=== PATIENT | female | born 1935 | race Caucasian/White ===

== ENCOUNTER 2016-03-02 17:07 | Inpatient (IN) | payer MEDICARE, OTHER, MEDICAID ==
--- NOTE | 2016-03-02 17:35 | ED Physician Chart ---
Chief Complaint/HPI - Patient Information Date Seen:: 03/02/16 Time Seen:: 17:15 Chief Complaint:: REFUSING MEDICATIONS History of Present Illness:: THIS IS A 80 YO PSYCHOTIC FEMALE WHO IS CONFUSED AND FIGHTING THE STAFF ABOUT TAKING HER MEDS. Allergies:: Allergies Allergy/AdvReac Type Severity Reaction Status Date / Time No Known Allergies Allergy Verified 03/02/16 17:22 Historian:: Medical Records Review:: Nurse's Note Reviewed Review of Systems - Review of Systems General/Constitutional: No fever, No chills, No weight loss, No weakness, No diaphoresis, No edema, No loss of appetite Skin: No skin lesions, No rash, No bruising Head: No headache, No light-headedness Eyes: No loss of vision, No pain, No diplopia ENT: No earache, No nasal drainage, No sore throat, No tinnitus Neck: No neck pain, No swelling, No thyromegaly, No stiffness, No mass noted Cardio Vascular: No chest pain, No palpitations, No PND, No orthopnea, No edema Pulmonary: No SOB, No cough, No sputum, No wheezing GI: No nausea, No vomiting, No diarrhea, No pain, No melena, No hematochezia, No constipation, No hematemesis G/U: No dysuria, No frequency, No hematuria Musculoskeletal: No bone or joint pain, No back pain, No muscle pain Endocrine: No polyuria, No polydipsia Psychiatric: No prior psych history, No depression, No anxiety, No suicidal ideation Hematopoietic: No bruising, No lymphadenopathy Allergic/Immuno: No urticaria, No angioedema Neurological: No syncope, No focal symptoms, No weakness, No paresthesia, No headache, No seizure, No dizziness, Confusion (SHE IS CONFUSED AND CANNOT GIVE A REVIEW OF SYSTEMS), No vertigo Past Medical History - Past Medical History Obtainable: Yes Past Medical History: HTN, DM, CVA/TIA, ESRD, Seizures, Thyroid disorder, Dementia Family History: None Social History: Non Smoker, No Alcohol, No Drug Use Surgical History: None Psychiatricy History: Schizophrenia, Dementia Family Medical History - Family Member Mother History Unknown: Yes Ethnicity: Unknown Living Status: Unknown Hx Family Cancer: (unknown) Hx Family Coronary Artery Disease: (unknown) Hx Family Congestive Heart Failure: (unknown) Hx Family Hypertension: (unknown) Hx Family Stroke: (unknown) Hx Family Diabetes: (unknown) Hx Family Seizures: (unknown) Hx Family Dementia: (unknown) Hx Family AIDS: (unknown) Hx Family COPD: (unknown) Hx Family Hepatitis: (unknown) Hx Family Psychiatric Problems: (unknown) Hx Family Tuberculosis: (unknown) Physical Exam - Physical Examination General/Constitutional: Awake, Alert, No distress, GCS 15, Non-toxic appearing, Ambulatory Other Gen/Cons comments:: THIS IS A THIN UNDER NOURISHED FEMALE. Head: Atraumatic Eyes: Lids, conjuctiva normal, PERRL, EOMI Skin: Nl inspection, No rash, No skin lesions, No ecchymosis, Well hydrated, No lymphadenopathy ENMT: External ears, nose nl, Nasal exam nl, Lips, teeth, gums nl Neck: Nontender, Full ROM w/o pain, No JVD, No nuchal rigidity, No bruit, No mass, No stridor Respiratory: Nl effort/Exclusion, Clear to Auscultation, No Wheeze/Rhonchi/Rales Cardio Vascular: RRR, No murmur, gallop, rubs, NL S1 S2 GI: No tenderness/rebounding/guarding, No organomegaly, No hernia, Normal BS's, Nondistended, No mass/bruits, No McBurney tenderness : No CVA tenderness Extremities: No tenderness or effusion, normal strength in all extremities, No edema, Normal digits & nails Other Extremities comments:: SHE HAS SIGNIFICANT MUSCLE WASTING IN ALL FOUR EXTREMITIES. 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 Neuro/Psych: DTR's symmetric, Normal sensory exam, Normal motor strength, Mood normal, Normal gait, No focal deficits Other Neuro/Psych comments:: THIS PATIENT IS DISORIENTED TO HER NAME AND AGE. SHE HAS POOR JUDGMENT AND CONFUSED ON AND OFF. Misc: normal gait, Normal back, No paraspinal tenderness ED Septic Shock - . Is Septic Shock (SBP<90, OR Lactate>4 mmol\L) present?: No Reassessment (Disposition) - Reassessment Reassessment Condition:: Unchanged - Diagnosis Diagnosis:: PSYCHOSIS SEIZURE DISORDER - Patient Disposition Discharge/Transfer:: Acute Care w/in this hosp Admitting Medical Physician:: ROLA RODRIGUEZ Admitting Psych Physician:: Herve Robledo Condition at Disposition:: Unchanged ED Discharge Plan - Patient Disposition Admit/Discharge/Transfer: Acute Care w/in this hosp Condition at Disposition: Unchanged Instructions: Psychosis
[2016-03-02 17:58] LABS: ALB/GLOB RATIO 1.2 (1.0-1.8); ALKALINE PHOSPHATASE 124 U/L (34-104); ANION GAP 6.3 (7.0-16.0); BILIRUBIN,TOTAL 0.4 mg/dL (0.3-1.0); BUN - UREA NITROGEN 23 mg/dL (7-25); BUN/CREATININE RATIO 32.9; CALCIUM SERUM 8.8 mg/dL (8.6-10.3); CARBON DIOXIDE 30.9 mEq/L (21.0-31.0); CHLORIDE 106 mEq/L (98-107); CHOLESTEROL 133 mg/dL (<200); CREATININE - SERUM 0.7 mg/dL (0.6-1.2); GLUCOSE 83 mg/dL (70-105); POTASSIUM SERUM 4.2 mEq/L (3.5-5.1); SGOT 35 U/L (13-39); SGPT/ALT 37 U/L (7-52); SODIUM SERUM 139 mEq/L (136-145); TRIGLYCERIDES 114 mg/dL (<150)
[2016-03-02 18:02] LABS: % BASOPHILS 0.3 % (0.0-2.0); % EOSINOPHILS 2.9 % (0.0-5.0); % MONOCYTES 9.3 % (2.0-10.0); % NEUTROPHILS 61.5 % (40.0-80.0); HEMATOCRIT 38.2 % (35.0-45.0); HEMOGLOBIN 12.8 gm/dL (11.7-16.1); MEAN CELL VOLUME 94.6 fl (81-100); MEAN CORPUSCULAR HEMOGLOBIN 31.7 pg (27.0-31.0); MEAN CORPUSCULAR HGB CONC 33.5 pg (28.0-36.0); MEAN PLATELET VOLUME 6.3 fl; NEUTROPHILE ABSOLUTE 3.6 Th/cmm (1.8-8.0); RED BLOOD COUNT 4.04 Mil/cmm (3.80-5.20); RED CELL DISTRIBUTION WIDTH 14.1 % (11.5-20.0); WHITE BLOOD COUNT 5.8 Th/cmm (4.8-10.8)
[2016-03-02 18:04] LABS: PLATELET COUNT 172 Th/cmm (150-400)
[2016-03-02 18:26] LABS: INR 0.99 (0.5-1.4); PROTHROMBIN TIME (TEST) 9.8 SECONDS (9.5-11.5)
[2016-03-02] MEDS ORDERED: Magnesium Hydroxide (MOM) 30 mL UDC PO PRN (20:16)
[2016-03-02] MEDS ORDERED: Maalox 30 mL Cup PO PRN (20:16)
[2016-03-02] MEDS ORDERED: INSULIN ASPART SLIDING SCALE 100 UNITS/ML UNIT SUBQ SCH (21:02)
[2016-03-03] MEDS: INSULIN ASPART SLIDING SCALE 100 UNITS/ML UNIT SUBQ SCH ×4 (06:32→21:00)
[2016-03-03] MEDS: Multivitamin Tab PO SCH (09:28)
--- NOTE | 2016-03-03 10:56 | Diagnostic Imaging Report ---
Portable chest x-ray History: Shortness of breath Allowing for portable technique the heart size is normal. No focal pulmonary parenchymal processes. No hilar or mediastinal abnormalities. Degenerative changes seen throughout the spine. Impression: No acute abnormalities.
[2016-03-03] MEDS: Escitalopram Oxalate 5 mg Tab PO SCH (15:12)
--- NOTE | 2016-03-03 18:18 | Psychosocial Evaluation ---
IDENTIFYING INFORMATION: The patient is a 80-year-old female. CHIEF COMPLAINT: The patient was admitted because of psychosis. HISTORY OF PRESENT ILLNESS: The patient was referred from [facility] because of agitation, irritability. Apparently she was aggressive, combative. The patient herself was a poor historian. She was very irritable when I tried to talk to her, unable to participate in a meaningful conversation, though the staff told me earlier she was able to talk to some of the staff, unable to find any documents because of her mental status. She is a well known patient as I have treated her before with diagnosis of dementia. PAST PSYCHIATRIC HISTORY: She has prior admission to this facility before for a similar reason, no other information is available. MEDICAL HISTORY: I will defer to the medical doctor. ALLERGIES: The patient has no known drug allergies. MEDICATIONS: She has been on Zyprexa, Aricept, Namenda, benztropine and Nuedexta and Lexapro 5 mg daily, insulin as well. She is also on Keppra, has seizure disorder and Dilantin. FAMILY AND SOCIAL HISTORY: Unobtainable. MENTAL STATUS EXAMINATION: The patient was appropriately dressed, not very groomed. She was in bed. She looked older than her stated age. She was unable to tell me her age, where she is, why she is here, she was acting very aggressive, irritable, needing redirection at the board and care at the retirement. Unable to participate in meaningful conversation, unable to test her memory, obviously her memory is poor. Long and short term memory, she was unable to tell me anything regarding hallucinations, sleep, appetite. Her insight and judgment is impaired. She was combative, aggressive at the retirement. IMPRESSION: AXIS I: Dementia with behavior disturbances. MEDICAL DIAGNOSES: Epilepsy, hypertension, diabetes mellitus. PLAN: The patient will be started back on her medication, adjust medication as needed. ESTIMATED LENGTH OF STAY: 3-7 days. DISCHARGE CRITERIA: Decreased agitation, psychosis after discharge outpatient. [facility]# [id number]
[2016-03-03] MEDS: Dextromethorphan/Quinidine 20mg/10mg Cap PO SCH (20:29)
[2016-03-04] MEDS: INSULIN ASPART SLIDING SCALE 100 UNITS/ML UNIT SUBQ SCH ×4 (07:22→21:06)
--- NOTE | 2016-03-04 08:38 | General Progress Note ---
Objective - Results Result Diagrams: 03/02/16 17:55 03/02/16 17:30 Recent Labs: Laboratory Last Values WBC 5.8 Th/cmm (4.8-10.8) 03/02/16 17:55 RBC 4.04 Mil/cmm (3.80-5.20) 03/02/16 17:55 Hgb 12.8 gm/dL (11.7-16.1) 03/02/16 17:55 Hct 38.2 % (35.0-45.0) 03/02/16 17:55 MCV 94.6 fl (81-100) 03/02/16 17:55 MCH 31.7 pg (27.0-31.0) H 03/02/16 17:55 MCHC Differential 33.5 pg (28.0-36.0) 03/02/16 17:55 RDW 14.1 % (11.5-20.0) 03/02/16 17:55 Plt Count 172 Th/cmm (150-400) D 03/02/16 17:55 MPV 6.3 fl 03/02/16 17:55 Neutrophils % 61.5 % (40.0-80.0) 03/02/16 17:55 Lymphocytes % 26.0 % (20.0-50.0) 03/02/16 17:55 Monocytes % 9.3 % (2.0-10.0) 03/02/16 17:55 Eosinophils % 2.9 % (0.0-5.0) 03/02/16 17:55 Basophils % 0.3 % (0.0-2.0) 03/02/16 17:55 PT 9.8 SECONDS (9.5-11.5) 03/02/16 17:30 INR 0.99 (0.5-1.4) 03/02/16 17:30 Sodium 139 mEq/L (136-145) 03/02/16 17:30 Potassium 4.2 mEq/L (3.5-5.1) 03/02/16 17:30 Chloride 106 mEq/L (98-107) 03/02/16 17:30 Carbon Dioxide 30.9 mEq/L (21.0-31.0) 03/02/16 17:30 Anion Gap 6.3 (7.0-16.0) L 03/02/16 17:30 BUN 23 mg/dL (7-25) 03/02/16 17:30 Creatinine 0.7 mg/dL (0.6-1.2) 03/02/16 17:30 Est GFR ( Amer) TNP 03/02/16 17:30 Est GFR (Non-Af Amer) TNP 03/02/16 17:30 BUN/Creatinine Ratio 32.9 03/02/16 17:30 Glucose 83 mg/dL (70-105) 03/02/16 17:30 POC Glucose 106 MG/DL (70 - 105) H 03/04/16 06:12 Calcium 8.8 mg/dL (8.6-10.3) 03/02/16:30 Total Bilirubin 0.4 mg/dL (0.3-1.0) 03/02/16 17:30 AST 35 U/L (13-39) 03/02/16 17:30 ALT 37 U/L (7-52) 03/02/16 17:30 Alkaline Phosphatase 124 U/L (34-104) H 03/02/16 17:30 Troponin I < 0.01 ng/mL (0.01-0.05) L 03/02/16 17:30 Total Protein 7.0 gm/dL (6.0-8.3) 03/02/16:30 Albumin 3.8 gm/dL (3.7-5.3) 03/02/16 17:30 Globulin 3.2 gm/dL 03/02/16:30 Albumin/Globulin Ratio 1.2 (1.0-1.8) 03/02/16 17:30 Triglycerides 114 mg/dL (<150) 03/02/16 17:30 Cholesterol 133 mg/dL (<200) 03/02/16 17:30 LDL Cholesterol Direct 63 mg/dL (75-193) L 03/02/16 17:30 HDL Cholesterol 44 mg/dL (23-92) 03/02/16 17:30 TSH 0.77 uIU/ml (0.34-5.60) 03/02/16 17:30 Phenytoin 14.4 ug/ml (10.0-20.0) 03/02/16 17:30 RPR NONREACTIVE (NONREACTIVE) 03/02/16 17:30 - Physical Exam Vitals and I&O: Vital Signs Temp 97.8 F 03/04/16 06:42 Pulse 65 03/04/16 06:42 Resp 20 03/04/16 06:42 BP 107/58 03/04/16 06:42 Pulse Ox 92 03/04/16 06:42 Intake & Output 03/03/16 03/04/16 03/04/16 18:59 06:59 18:59 Intake Total 2400 0 Balance 2400 0 Intake: Oral 2400 0 Other: # Voids 5 3 # Bowel Movements 2 0 Active Medications: Current Medications Acetaminophen (Tylenol) 650 mg PO Q4HR PRN PRN Reason: PAIN Stop: 05/01/16 20:15 Al Hydrox/Mg Hydrox/Simethicone (Maalox) 30 ml PO Q4HR PRN PRN Reason: GI DISTRESS Stop: 05/01/16 20:15 Amlodipine Besylate (Norvasc) 5 mg PO DAILY [facility] Stop: 05/02/16 08:59 Last Admin: 03/03/16 09:28 Dose: Not Given Benztropine Mesylate (Cogentin) 0.5 mg PO BID PRN PRN Reason: PARKINSON'S DISEASE Stop: 05/02/16 08:59 Dextromethorphan/Quinidine (Nuedexta 20mg-10mg) 1 cap PO Q12HR [facility] Stop: 05/02/16 20:59 Last Admin: 03/03/16 20:29 Dose: 1 cap Docusate Sodium (Colace) 250 mg PO DAILY [facility] Stop: 05/02/16 08:59 Last Admin: 03/03/16 09:27 Dose: 250 mg Donepezil HCl (Aricept) 10 mg PO HS [facility] Stop: 05/02/16 20:59 Last Admin: 03/03/16 20:30 Dose: 10 mg Escitalopram Oxalate (Lexapro) 5 mg PO DAILY [facility] PRN Reason: Protocol Stop: 05/02/16 13:59 Last Admin: 03/03/16 15:12 Dose: 5 mg Insulin Aspart (Novolog Insulin Sliding Scale) 0 units SUBQ ACHS RIC PRN Reason: Protocol Stop: 05/01/16 21:01 Last Admin: 03/04/16 07:22 Dose: Not Given Levetiracetam (Keppra) 500 mg PO BID [facility] Stop: 05/02/16 08:59 Last Admin: 03/03/16 17:16 Dose: 500 mg Lorazepam (Ativan) 0.5 mg PO Q4HR PRN; Protocol PRN Reason: Anxiety Stop: 04/01/16 20:15 Last Admin: 03/03/16 23:09 Dose: 0.5 mg Memantine (Namenda) 5 mg PO Q12HR [facility] Stop: 05/02/16 20:59 Last Admin: 03/03/16 20:29 Dose: 5 mg Multivitamins/Vitamin C (Theragran) 1 tab PO DAILY [facility] Stop: 05/02/16 08:59 Last Admin: 03/03/16 09:28 Dose: 1 tab Olanzapine (Zyprexa) 10 mg PO HS [facility] PRN Reason: Protocol Stop: 05/02/16 20:59 Last Admin: 03/03/16 20:30 Dose: 10 mg Phenytoin (Dilantin) 200 mg PO BID [facility] Stop: 05/02/16 08:59 Last Admin: 03/03/16 17:15 Dose: 200 mg Tobramycin/Dexamethasone (Tobradex 0.1%-0.3% Ophth Susp 2.5ml) 2 drop EACH EYE BID [facility] Stop: 03/14/16 09:00 Zolpidem Tartrate (Ambien) 5 mg PO HS PRN PRN Reason: Insomnia Stop: 05/01/16 20:36 Last Admin: 03/03/16 23:10 Dose: 5 mg - Procedures Procedures: Procedures Procedure Code Date GROUP PSYCHOTHERAPY 39797 04/15/15 GROUP PSYCHOTHERAPY GZHZZZZ 04/15/15 GROUP PSYCHOTHERAPY 89221 01/16/15 GROUP PSYCHOTHERAPY GZHZZZZ 01/16/15 Assessment/Plan - Problem List Patient Problems: All Active Problems INCREASED AGGRESSIVE BEHAVIOR (Acute) Abnormal lithium level in blood (Acute) R78.89 Agitation (Acute) R45.1 Outbursts of anger (Acute) R45.4
[2016-03-04] MEDS: Dextromethorphan/Quinidine 20mg/10mg Cap PO SCH ×2 (08:45→20:54)
[2016-03-04] MEDS: Escitalopram Oxalate 5 mg Tab PO SCH (08:45)
[2016-03-04] MEDS: Multivitamin Tab PO SCH (08:46)
[2016-03-04] MEDS ORDERED: Dexamethasone/Tobramycin Ophth Susp 2.5 mL Bottle EACH EYE SCH (09:00)
[2016-03-04] MEDS: Dexamethasone/Tobramycin Ophth Susp 2.5 mL Bottle EACH EYE SCH ×2 (09:56→16:21)
--- NOTE | 2016-03-05 02:54 | Progress Notes ---
Case was discussed with staff of the patient, reviewed records. The patient continues to be unpredictable, impulsive, continues to look disheveled, disorganized, internally preoccupied. Unable to carrying out a conversation. In general, she is sleeping better. The staff tried to prompt her to eat. She is compliant with the medication with no side effects, no sedation, no nausea and no extrapyramidal symptoms. We will continue to work with the patient in group therapy, milieu therapy, adjust the medication as needed. Lab work shows TSH within normal range. RPR nonreactive. PT within normal range. Chemistry panel with high anion gap, but the rest within normal range. High alkaline phosphatase. Lipid panel within normal range. Dilantin level within normal acceptable therapeutic range. CBC with high MCH. The rest within normal range. JOB# [id number]
[2016-03-05] MEDS: INSULIN ASPART SLIDING SCALE 100 UNITS/ML UNIT SUBQ SCH ×5 (06:34→21:00)
--- NOTE | 2016-03-05 08:32 | General Progress Note ---
Objective - Results Result Diagrams: 03/02/16 17:55 03/02/16 17:30 Recent Labs: Laboratory Last Values WBC 5.8 Th/cmm (4.8-10.8) 03/02/16 17:55 RBC 4.04 Mil/cmm (3.80-5.20) 03/02/16 17:55 Hgb 12.8 gm/dL (11.7-16.1) 03/02/16 17:55 Hct 38.2 % (35.0-45.0) 03/02/16 17:55 MCV 94.6 fl (81-100) 03/02/16 17:55 MCH 31.7 pg (27.0-31.0) H 03/02/16 17:55 MCHC Differential 33.5 pg (28.0-36.0) 03/02/16 17:55 RDW 14.1 % (11.5-20.0) 03/02/16 17:55 Plt Count 172 Th/cmm (150-400) D 03/02/16 17:55 MPV 6.3 fl 03/02/16 17:55 Neutrophils % 61.5 % (40.0-80.0) 03/02/16 17:55 Lymphocytes % 26.0 % (20.0-50.0) 03/02/16 17:55 Monocytes % 9.3 % (2.0-10.0) 03/02/16 17:55 Eosinophils % 2.9 % (0.0-5.0) 03/02/16 17:55 Basophils % 0.3 % (0.0-2.0) 03/02/16 17:55 PT 9.8 SECONDS (9.5-11.5) 03/02/16 17:30 INR 0.99 (0.5-1.4) 03/02/16 17:30 Sodium 139 mEq/L (136-145) 03/02/16 17:30 Potassium 4.2 mEq/L (3.5-5.1) 03/02/16 17:30 Chloride 106 mEq/L (98-107) 03/02/16 17:30 Carbon Dioxide 30.9 mEq/L (21.0-31.0) 03/02/16 17:30 Anion Gap 6.3 (7.0-16.0) L 03/02/16 17:30 BUN 23 mg/dL (7-25) 03/02/16 17:30 Creatinine 0.7 mg/dL (0.6-1.2) 03/02/16 17:30 Est GFR ( Amer) TNP 03/02/16 17:30 Est GFR (Non-Af Amer) TNP 03/02/16 17:30 BUN/Creatinine Ratio 32.9 03/02/16 17:30 Glucose 83 mg/dL (70-105) 03/02/16 17:30 POC Glucose 91 MG/DL (70 - 105) 03/05/16 06:23 Calcium 8.8 mg/dL (8.6-10.3) 03/02/16:30 Total Bilirubin 0.4 mg/dL (0.3-1.0) 03/02/16 17:30 AST 35 U/L (13-39) 03/02/16 17:30 ALT 37 U/L (7-52) 03/02/16 17:30 Alkaline Phosphatase 124 U/L (34-104) H 03/02/16 17:30 Troponin I < 0.01 ng/mL (0.01-0.05) L 03/02/16 17:30 Total Protein 7.0 gm/dL (6.0-8.3) 03/02/16 17:30 Albumin 3.8 gm/dL (3.7-5.3) 03/02/16 17:30 Globulin 3.2 gm/dL 03/02/16:30 Albumin/Globulin Ratio 1.2 (1.0-1.8) 03/02/16 17:30 Triglycerides 114 mg/dL (<150) 03/02/16 17:30 Cholesterol 133 mg/dL (<200) 03/02/16 17:30 LDL Cholesterol Direct 63 mg/dL (75-193) L 03/02/16 17:30 HDL Cholesterol 44 mg/dL (23-92) 03/02/16 17:30 TSH 0.77 uIU/ml (0.34-5.60) 03/02/16 17:30 Phenytoin 14.4 ug/ml (10.0-20.0) 03/02/16 17:30 RPR NONREACTIVE (NONREACTIVE) 03/02/16 17:30 - Physical Exam Vitals and I&O: Vital Signs Temp 97.4 F 03/05/16 06:49 Pulse 68 03/05/16 06:49 Resp 20 03/05/16 06:49 BP 149/86 03/05/16 06:49 Pulse Ox 97 03/05/16 06:49 Intake & Output 03/04/16 03/05/16 03/05/16 18:59 06:59 18:59 Intake Total 1100 Balance 1100 Intake: Oral 1100 Other: # Voids 4 # Bowel Movements 1 Active Medications: Current Medications Acetaminophen (Tylenol) 650 mg PO Q4HR PRN PRN Reason: PAIN Stop: 05/01/16 20:15 Al Hydrox/Mg Hydrox/Simethicone (Maalox) 30 ml PO Q4HR PRN PRN Reason: GI DISTRESS Stop: 05/01/16 20:15 Amlodipine Besylate (Norvasc) 5 mg PO DAILY [facility] Stop: 05/02/16 08:59 Last Admin: 03/04/16 08:46 Dose: 5 mg Benztropine Mesylate (Cogentin) 0.5 mg PO BID PRN PRN Reason: PARKINSON'S DISEASE Stop: 05/02/16 08:59 Dextromethorphan/Quinidine (Nuedexta 20mg-10mg) 1 cap PO Q12HR [facility] Stop: 05/02/16 20:59 Last Admin: 03/04/16 20:54 Dose: 1 cap Docusate Sodium (Colace) 250 mg PO DAILY [facility] Stop: 05/02/16 08:59 Last Admin: 03/04/16 08:46 Dose: 250 mg Donepezil HCl (Aricept) 10 mg PO HS [facility] Stop: 05/02/16 20:59 Last Admin: 03/04/16 20:55 Dose: 10 mg Escitalopram Oxalate (Lexapro) 5 mg PO DAILY [facility] PRN Reason: Protocol Stop: 05/02/16 13:59 Last Admin: 03/04/16 08:45 Dose: 5 mg Insulin Aspart (Novolog Insulin Sliding Scale) 0 units SUBQ ACHS RIC PRN Reason: Protocol Stop: 05/01/16 21:01 Last Admin: 03/05/16 06:34 Dose: Not Given Levetiracetam (Keppra) 500 mg PO BID [facility] Stop: 05/02/16 08:59 Last Admin: 03/04/16 16:21 Dose: 500 mg Lorazepam (Ativan) 0.5 mg PO Q4HR PRN; Protocol PRN Reason: Anxiety Stop: 04/01/16 20:15 Last Admin: 03/05/16 01:23 Dose: 0.5 mg Memantine (Namenda) 5 mg PO Q12HR [facility] Stop: 05/02/16 20:59 Last Admin: 03/04/16 20:55 Dose: 5 mg Multivitamins/Vitamin C (Theragran) 1 tab PO DAILY [facility] Stop: 05/02/16 08:59 Last Admin: 03/04/16 08:46 Dose: 1 tab Olanzapine (Zyprexa) 10 mg PO HS [facility] PRN Reason: Protocol Stop: 05/02/16 20:59 Last Admin: 03/04/16 20:55 Dose: 10 mg Phenytoin (Dilantin) 200 mg PO BID [facility] Stop: 05/02/16 08:59 Last Admin: 03/04/16 16:21 Dose: 200 mg Tobramycin/Dexamethasone (Tobradex 0.1%-0.3% Ophth Susp 2.5ml) 2 drop EACH EYE BID [facility] Stop: 03/14/16 09:00 Last Admin: 03/04/16 16:21 Dose: 2 drop Zolpidem Tartrate (Ambien) 5 mg PO HS PRN PRN Reason: Insomnia Stop: 05/01/16 20:36 Last Admin: 03/05/16 00:34 Dose: 5 mg - Procedures Procedures: Procedures Procedure Code Date GROUP PSYCHOTHERAPY 21383 04/15/15 GROUP PSYCHOTHERAPY GZHZZZZ 04/15/15 GROUP PSYCHOTHERAPY 19060 01/16/15 GROUP PSYCHOTHERAPY GZHZZZZ 01/16/15 Assessment/Plan - Problem List Patient Problems: All Active Problems INCREASED AGGRESSIVE BEHAVIOR (Acute) Abnormal lithium level in blood (Acute) R78.89 Agitation (Acute) R45.1 Outbursts of anger (Acute) R45.4
[2016-03-05] MEDS: Dexamethasone/Tobramycin Ophth Susp 2.5 mL Bottle EACH EYE SCH ×2 (09:21→16:30)
[2016-03-05] MEDS: Multivitamin Tab PO SCH (09:22)
[2016-03-05] MEDS: Dextromethorphan/Quinidine 20mg/10mg Cap PO SCH ×2 (09:22→21:02)
[2016-03-05] MEDS: Escitalopram Oxalate 5 mg Tab PO SCH (09:24)
--- NOTE | 2016-03-06 03:04 | Progress Notes ---
Case was discussed with staff of the patient, reviewed records. The patient continues to be irritable, angry, continues to need redirection, continues to have poor insight. She has a conservator, we tried to find out the previous places willing to take the patient to see if we need to work on placement for this patient. She is demented, confused with agitated behavior. She is also already on ____ and Aricept 10 mg at bedtime, I started her on Lexapro 2 days ago and she is on Namenda 5 mg twice a day, we shall be increasing to 10 mg twice a day, and no side effects, no sedation, no nausea, no extrapyramidal symptoms and we will continue to work with the patient in group therapy, milieu therapy, adjust the medication as needed. JOB# [id number]
[2016-03-06] MEDS: INSULIN ASPART SLIDING SCALE 100 UNITS/ML UNIT SUBQ SCH ×4 (06:50→21:27)
--- NOTE | 2016-03-06 08:34 | General Progress Note ---
Objective - Results Result Diagrams: 03/02/16 17:55 03/02/16 17:30 Recent Labs: Laboratory Last Values WBC 5.8 Th/cmm (4.8-10.8) 03/02/16 17:55 RBC 4.04 Mil/cmm (3.80-5.20) 03/02/16 17:55 Hgb 12.8 gm/dL (11.7-16.1) 03/02/16 17:55 Hct 38.2 % (35.0-45.0) 03/02/16 17:55 MCV 94.6 fl (81-100) 03/02/16 17:55 MCH 31.7 pg (27.0-31.0) H 03/02/16 17:55 MCHC Differential 33.5 pg (28.0-36.0) 03/02/16 17:55 RDW 14.1 % (11.5-20.0) 03/02/16 17:55 Plt Count 172 Th/cmm (150-400) D 03/02/16 17:55 MPV 6.3 fl 03/02/16 17:55 Neutrophils % 61.5 % (40.0-80.0) 03/02/16 17:55 Lymphocytes % 26.0 % (20.0-50.0) 03/02/16 17:55 Monocytes % 9.3 % (2.0-10.0) 03/02/16 17:55 Eosinophils % 2.9 % (0.0-5.0) 03/02/16 17:55 Basophils % 0.3 % (0.0-2.0) 03/02/16 17:55 PT 9.8 SECONDS (9.5-11.5) 03/02/16 17:30 INR 0.99 (0.5-1.4) 03/02/16 17:30 Sodium 139 mEq/L (136-145) 03/02/16 17:30 Potassium 4.2 mEq/L (3.5-5.1) 03/02/16 17:30 Chloride 106 mEq/L (98-107) 03/02/16 17:30 Carbon Dioxide 30.9 mEq/L (21.0-31.0) 03/02/16 17:30 Anion Gap 6.3 (7.0-16.0) L 03/02/16 17:30 BUN 23 mg/dL (7-25) 03/02/16 17:30 Creatinine 0.7 mg/dL (0.6-1.2) 03/02/16 17:30 Est GFR ( Amer) TNP 03/02/16 17:30 Est GFR (Non-Af Amer) TNP 03/02/16 17:30 BUN/Creatinine Ratio 32.9 03/02/16 17:30 Glucose 83 mg/dL (70-105) 03/02/16 17:30 POC Glucose 94 MG/DL (70 - 105) 03/06/16 06:25 Calcium 8.8 mg/dL (8.6-10.3) 03/02/16:30 Total Bilirubin 0.4 mg/dL (0.3-1.0) 03/02/16 17:30 AST 35 U/L (13-39) 03/02/16 17:30 ALT 37 U/L (7-52) 03/02/16:30 Alkaline Phosphatase 124 U/L (34-104) H 03/02/16 17:30 Troponin I < 0.01 ng/mL (0.01-0.05) L 03/02/16 17:30 Total Protein 7.0 gm/dL (6.0-8.3) 03/02/16:30 Albumin 3.8 gm/dL (3.7-5.3) 03/02/16:30 Globulin 3.2 gm/dL 03/02/16:30 Albumin/Globulin Ratio 1.2 (1.0-1.8) 03/02/16 17:30 Triglycerides 114 mg/dL (<150) 03/02/16 17:30 Cholesterol 133 mg/dL (<200) 03/02/16 17:30 LDL Cholesterol Direct 63 mg/dL (75-193) L 03/02/16 17:30 HDL Cholesterol 44 mg/dL (23-92) 03/02/16 17:30 TSH 0.77 uIU/ml (0.34-5.60) 03/02/16 17:30 Phenytoin 14.4 ug/ml (10.0-20.0) 03/02/16 17:30 RPR NONREACTIVE (NONREACTIVE) 03/02/16 17:30 - Physical Exam Vitals and I&O: Vital Signs Temp 97.6 F 03/05/16 18:35 Pulse 61 03/05/16 18:35 Resp 20 03/05/16 20:00 BP 108/50 03/05/16 18:35 Pulse Ox 97 03/05/16 18:35 Intake & Output 03/05/16 03/06/16 03/06/16 18:59 06:59 18:59 Intake Total 650 Balance 650 Intake: Oral 650 Other: # Voids 2 # Bowel Movements 1 Active Medications: Current Medications Acetaminophen (Tylenol) 650 mg PO Q4HR PRN PRN Reason: PAIN Stop: 05/01/16 20:15 Al Hydrox/Mg Hydrox/Simethicone (Maalox) 30 ml PO Q4HR PRN PRN Reason: GI DISTRESS Stop: 05/01/16 20:15 Amlodipine Besylate (Norvasc) 5 mg PO DAILY [facility] Stop: 05/02/16 08:59 Last Admin: 03/05/16 09:22 Dose: 5 mg Benztropine Mesylate (Cogentin) 0.5 mg PO BID PRN PRN Reason: PARKINSON'S DISEASE Stop: 05/02/16 08:59 Dextromethorphan/Quinidine (Nuedexta 20mg-10mg) 1 cap PO Q12HR [facility] Stop: 05/02/16 20:59 Last Admin: 03/05/16 21:02 Dose: 1 cap Docusate Sodium (Colace) 250 mg PO DAILY [facility] Stop: 05/02/16 08:59 Last Admin: 03/05/16 09:22 Dose: 250 mg Donepezil HCl (Aricept) 10 mg PO HS [facility] Stop: 05/02/16 20:59 Last Admin: 03/05/16 21:02 Dose: 10 mg Escitalopram Oxalate (Lexapro) 5 mg PO DAILY RIC PRN Reason: Protocol Stop: 05/02/16 13:59 Last Admin: 03/05/16 09:24 Dose: 5 mg Insulin Aspart (Novolog Insulin Sliding Scale) 0 units SUBQ ACHS RIC PRN Reason: Protocol Stop: 05/01/16 21:01 Last Admin: 03/06/16 06:50 Dose: Not Given Levetiracetam (Keppra) 500 mg PO BID [facility] Stop: 05/02/16 08:59 Last Admin: 03/05/16 16:29 Dose: 500 mg Lorazepam (Ativan) 0.5 mg PO Q4HR PRN; Protocol PRN Reason: Anxiety Stop: 04/01/16 20:15 Last Admin: 03/05/16 01:23 Dose: 0.5 mg Memantine (Namenda) 10 mg PO Q12HR [facility] Stop: 05/04/16 09:10 Last Admin: 03/05/16 21:02 Dose: 10 mg Multivitamins/Vitamin C (Theragran) 1 tab PO DAILY [facility] Stop: 05/02/16 08:59 Last Admin: 03/05/16 09:22 Dose: 1 tab Olanzapine (Zyprexa) 10 mg PO HS RIC PRN Reason: Protocol Stop: 05/02/16 20:59 Last Admin: 03/05/16 21:02 Dose: 10 mg Phenytoin (Dilantin) 200 mg PO BID [facility] Stop: 05/02/16 08:59 Last Admin: 03/05/16 16:38 Dose: Not Given Tobramycin/Dexamethasone (Tobradex 0.1%-0.3% Ophth Susp 2.5ml) 2 drop EACH EYE BID RIC Stop: 03/14/16 09:00 Last Admin: 03/05/16 16:30 Dose: Not Given Zolpidem Tartrate (Ambien) 5 mg PO HS PRN PRN Reason: Insomnia Stop: 05/01/16 20:36 Last Admin: 03/05/16 00:34 Dose: 5 mg - Procedures Procedures: Procedures Procedure Code Date GROUP PSYCHOTHERAPY 37796 04/15/15 GROUP PSYCHOTHERAPY [id number] 04/15/15 GROUP PSYCHOTHERAPY 77793 01/16/15 GROUP PSYCHOTHERAPY [id number] 01/16/15 Assessment/Plan - Problem List Patient Problems: All Active Problems INCREASED AGGRESSIVE BEHAVIOR (Acute) Abnormal lithium level in blood (Acute) R78.89 Agitation (Acute) R45.1 Outbursts of anger (Acute) R45.4
[2016-03-06] MEDS: Dextromethorphan/Quinidine 20mg/10mg Cap PO SCH ×2 (09:57→21:29)
[2016-03-06] MEDS: Escitalopram Oxalate 5 mg Tab PO SCH (09:57)
[2016-03-06] MEDS: Multivitamin Tab PO SCH (09:58)
[2016-03-06] MEDS: Dexamethasone/Tobramycin Ophth Susp 2.5 mL Bottle EACH EYE SCH ×2 (10:01→16:50)
--- NOTE | 2016-03-07 02:04 | Progress Notes ---
Case discussed with staff of the patient, reviewed records. The patient continues to be agitated, continues to be delusional, responding to internal stimuli. Continues to have poor insight. Unable to participate in meaningful conversation or make safe plan for self-care. She had to be given emergency medication because of her agitated behavior and she is on ____, donepezil, Lexapro, olanzapine 10 mg at bedtime. I will be increasing olanzapine dose to 12.5 mg at bedtime and so far no side effects, no sedation, no nausea, no extrapyramidal symptoms. We will continue to work with patient in group therapy, milieu therapy, adjust the medication as needed. JOB# [id number]
[2016-03-07] MEDS: INSULIN ASPART SLIDING SCALE 100 UNITS/ML UNIT SUBQ SCH ×4 (06:48→21:45)
--- NOTE | 2016-03-07 07:02 | General Progress Note ---
Subjective - Review of Systems Service Date: 03/08/16 Objective - Results Result Diagrams: 03/02/16 17:55 03/02/16 17:30 Recent Labs: Laboratory Last Values WBC 5.8 Th/cmm (4.8-10.8) 03/02/16 17:55 RBC 4.04 Mil/cmm (3.80-5.20) 03/02/16 17:55 Hgb 12.8 gm/dL (11.7-16.1) 03/02/16 17:55 Hct 38.2 % (35.0-45.0) 03/02/16 17:55 MCV 94.6 fl (81-100) 03/02/16 17:55 MCH 31.7 pg (27.0-31.0) H 03/02/16 17:55 MCHC Differential 33.5 pg (28.0-36.0) 03/02/16 17:55 RDW 14.1 % (11.5-20.0) 03/02/16 17:55 Plt Count 172 Th/cmm (150-400) D 03/02/16 17:55 MPV 6.3 fl 03/02/16 17:55 Neutrophils % 61.5 % (40.0-80.0) 03/02/16 17:55 Lymphocytes % 26.0 % (20.0-50.0) 03/02/16 17:55 Monocytes % 9.3 % (2.0-10.0) 03/02/16 17:55 Eosinophils % 2.9 % (0.0-5.0) 03/02/16 17:55 Basophils % 0.3 % (0.0-2.0) 03/02/16 17:55 PT 9.8 SECONDS (9.5-11.5) 03/02/16 17:30 INR 0.99 (0.5-1.4) 03/02/16 17:30 Sodium 139 mEq/L (136-145) 03/02/16 17:30 Potassium 4.2 mEq/L (3.5-5.1) 03/02/16 17:30 Chloride 106 mEq/L (98-107) 03/02/16 17:30 Carbon Dioxide 30.9 mEq/L (21.0-31.0) 03/02/16 17:30 Anion Gap 6.3 (7.0-16.0) L 03/02/16 17:30 BUN 23 mg/dL (7-25) 03/02/16 17:30 Creatinine 0.7 mg/dL (0.6-1.2) 03/02/16 17:30 Est GFR ( Amer) TNP 03/02/16 17:30 Est GFR (Non-Af Amer) TNP 03/02/16 17:30 BUN/Creatinine Ratio 32.9 03/02/16 17:30 Glucose 83 mg/dL (70-105) 03/02/16 17:30 POC Glucose 83 MG/DL (70 - 105) 03/07/16 06:36 Calcium 8.8 mg/dL (8.6-10.3) 03/02/16: Total Bilirubin 0.4 mg/dL (0.3-1.0) 03/02/16 17:30 AST 35 U/L (13-39) 03/02/16:30 ALT 37 U/L (7-52) 03/02/16 17:30 Alkaline Phosphatase 124 U/L (34-104) H 03/02/16 17:30 Troponin I < 0.01 ng/mL (0.01-0.05) L 03/02/16:30 Total Protein 7.0 gm/dL (6.0-8.3) 03/02/16 17:30 Albumin 3.8 gm/dL (3.7-5.3) 03/02/16:30 Globulin 3.2 gm/dL 03/02/16:30 Albumin/Globulin Ratio 1.2 (1.0-1.8) 03/02/16 17:30 Triglycerides 114 mg/dL (<150) 03/02/16 17:30 Cholesterol 133 mg/dL (<200) 03/02/16 17:30 LDL Cholesterol Direct 63 mg/dL (75-193) L 03/02/16 17:30 HDL Cholesterol 44 mg/dL (23-92) 03/02/16 17:30 TSH 0.77 uIU/ml (0.34-5.60) 03/02/16 17:30 Phenytoin 14.4 ug/ml (10.0-20.0) 03/02/16 17:30 RPR NONREACTIVE (NONREACTIVE) 03/02/16 17:30 - Physical Exam Vitals and I&O: Vital Signs Temp 98.2 F 03/06/16 19:49 Pulse 65 03/06/16 19:49 Resp 20 03/06/16 20:00 BP 112/57 03/06/16 19:49 Pulse Ox 98 03/06/16 19:49 Intake & Output 03/06/16 03/07/16 03/07/16 18:59 06:59 18:59 Intake Total 680 120 Balance 680 120 Intake: Oral 680 120 Other: # Voids 3 1 # Bowel Movements 2 Active Medications: Current Medications Acetaminophen (Tylenol) 650 mg PO Q4HR PRN PRN Reason: PAIN Stop: 05/01/16 20:15 Al Hydrox/Mg Hydrox/Simethicone (Maalox) 30 ml PO Q4HR PRN PRN Reason: GI DISTRESS Stop: 05/01/16 20:15 Amlodipine Besylate (Norvasc) 5 mg PO DAILY [facility] Stop: 05/02/16 08:59 Last Admin: 03/06/16 09:58 Dose: Not Given Benztropine Mesylate (Cogentin) 0.5 mg PO BID PRN PRN Reason: PARKINSON'S DISEASE Stop: 05/02/16 08:59 Dextromethorphan/Quinidine (Nuedexta 20mg-10mg) 1 cap PO Q12HR [facility] Stop: 05/02/16 20:59 Last Admin: 03/06/16 21:29 Dose: 1 cap Docusate Sodium (Colace) 250 mg PO DAILY [facility] Stop: 05/02/16 08:59 Last Admin: 03/06/16 09:57 Dose: 250 mg Donepezil HCl (Aricept) 10 mg PO HS [facility] Stop: 05/02/16 20:59 Last Admin: 03/06/16 20:34 Dose: 10 mg Escitalopram Oxalate (Lexapro) 5 mg PO DAILY [facility]IC PRN Reason: Protocol Stop: 05/02/16 13:59 Last Admin: 03/06/16 09:57 Dose: 5 mg Insulin Aspart (Novolog Insulin Sliding Scale) 0 units SUBQ ACHS RIC PRN Reason: Protocol Stop: 05/01/16 21:01 Last Admin: 03/07/16 06:48 Dose: Not Given Levetiracetam (Keppra) 500 mg PO BID [facility] Stop: 05/02/16 08:59 Last Admin: 03/06/16 16:51 Dose: Not Given Lorazepam (Ativan) 0.5 mg PO Q4HR PRN; Protocol PRN Reason: Anxiety Stop: 04/01/16 20:15 Last Admin: 03/06/16 23:58 Dose: 0.5 mg Memantine (Namenda) 10 mg PO Q12HR [facility] Stop: 05/04/16 09:10 Last Admin: 03/06/16 20:33 Dose: 10 mg Multivitamins/Vitamin C (Theragran) 1 tab PO DAILY [facility] Stop: 05/02/16 08:59 Last Admin: 03/06/16 09:58 Dose: 1 tab Olanzapine 10 mg/ Olanzapine 2 (.5 mg) 12.5 mg PO HS [facility] Stop: 05/05/16 20:59 Last Admin: 03/06/16 20:33 Dose: 12.5 mg Phenytoin (Dilantin) 200 mg PO BID [facility] Stop: 05/02/16 08:59 Last Admin: 03/06/16 16:51 Dose: Not Given Tobramycin/Dexamethasone (Tobradex 0.1%-0.3% Ophth Susp 2.5ml) 2 drop EACH EYE BID [facility] Stop: 03/14/16 09:00 Last Admin: 03/06/16 16:50 Dose: Not Given Zolpidem Tartrate (Ambien) 5 mg PO HS PRN PRN Reason: Insomnia Stop: 05/01/16 20:36 Last Admin: 03/06/16 20:34 Dose: 5 mg - Procedures Procedures: Procedures Procedure Code Date GROUP PSYCHOTHERAPY 90888 04/15/15 GROUP PSYCHOTHERAPY GZHZZZZ 04/15/15 GROUP PSYCHOTHERAPY 48751 01/16/15 GROUP PSYCHOTHERAPY GZHZZZZ 01/16/15 Assessment/Plan - Problem List Patient Problems: All Active Problems Abnormal lithium level in blood (Acute) R78.89 Agitation (Acute) R45.1 INCREASED AGGRESSIVE BEHAVIOR (Acute) Outbursts of anger (Acute) R45.4
[2016-03-07] MEDS: Escitalopram Oxalate 5 mg Tab PO SCH ×2 (09:36→09:42)
[2016-03-07] MEDS: Dextromethorphan/Quinidine 20mg/10mg Cap PO SCH ×3 (09:36→21:40)
[2016-03-07] MEDS: Multivitamin Tab PO SCH ×2 (09:37→09:42)
[2016-03-07] MEDS: Dexamethasone/Tobramycin Ophth Susp 2.5 mL Bottle EACH EYE SCH ×2 (09:41→17:57)
--- NOTE | 2016-03-08 00:08 | Progress Notes ---
SUBJECTIVE: The patient was seen, chart reviewed, and discussed with staff. The patient was referred by a prison. She was agitated, irritable, aggressive, and combative. On [id number], the patient is highly confused, does not know what is going on, does not know where she is, does not know the year, does not know the month, rambling nonsensically, unable to participate in any meaningful conversation, still requiring a lot of redirection, prompting for ADLs, still combative, agitated, and unpredictable. ASSESSMENT: The patient is taking her medications, but she is highly impulsive, unpredictable, combative, still aggressive, not safe for discharge. PLAN: We will continue to monitor. Dr. Ding has been adjusting medications. We will continue to monitor for side effects. The patient remains symptomatic, not safe for a lower level of care. [facility]# [id number]
[2016-03-08] MEDS: INSULIN ASPART SLIDING SCALE 100 UNITS/ML UNIT SUBQ SCH (06:40)
--- NOTE | 2016-03-08 09:05 | General Progress Note ---
Subjective - Review of Systems Service Date: 03/08/16 Subjective: pt had seizures Objective - Results Result Diagrams: 03/02/16 17:55 03/02/16 17:30 Recent Labs: Laboratory Last Values WBC 5.8 Th/cmm (4.8-10.8) 03/02/16 17:55 RBC 4.04 Mil/cmm (3.80-5.20) 03/02/16 17:55 Hgb 12.8 gm/dL (11.7-16.1) 03/02/16 17:55 Hct 38.2 % (35.0-45.0) 03/02/16 17:55 MCV 94.6 fl (81-100) 03/02/16 17:55 MCH 31.7 pg (27.0-31.0) H 03/02/16 17:55 MCHC Differential 33.5 pg (28.0-36.0) 03/02/16 17:55 RDW 14.1 % (11.5-20.0) 03/02/16 17:55 Plt Count 172 Th/cmm (150-400) D 03/02/16 17:55 MPV 6.3 fl 03/02/16 17:55 Neutrophils % 61.5 % (40.0-80.0) 03/02/16 17:55 Lymphocytes % 26.0 % (20.0-50.0) 03/02/16 17:55 Monocytes % 9.3 % (2.0-10.0) 03/02/16 17:55 Eosinophils % 2.9 % (0.0-5.0) 03/02/16 17:55 Basophils % 0.3 % (0.0-2.0) 03/02/16 17:55 PT 9.8 SECONDS (9.5-11.5) 03/02/16 17:30 INR 0.99 (0.5-1.4) 03/02/16 17:30 Sodium 139 mEq/L (136-145) 03/02/16 17:30 Potassium 4.2 mEq/L (3.5-5.1) 03/02/16 17:30 Chloride 106 mEq/L (98-107) 03/02/16 17:30 Carbon Dioxide 30.9 mEq/L (21.0-31.0) 03/02/16 17:30 Anion Gap 6.3 (7.0-16.0) L 03/02/16 17:30 BUN 23 mg/dL (7-25) 03/02/16 17:30 Creatinine 0.7 mg/dL (0.6-1.2) 03/02/16 17:30 Est GFR ( Amer) TNP 03/02/16 17:30 Est GFR (Non-Af Amer) TNP 03/02/16 17:30 BUN/Creatinine Ratio 32.9 03/02/16 17:30 Glucose 83 mg/dL (70-105) 03/02/16 17:30 POC Glucose 122 MG/DL (70 - 105) H 03/08/16 06:06 Calcium 8.8 mg/dL (8.6-10.3) 03/02/16: Total Bilirubin 0.4 mg/dL (0.3-1.0) 03/02/16 17:30 AST 35 U/L (13-39) 03/02/16:30 ALT 37 U/L (7-52) 03/02/16 17:30 Alkaline Phosphatase 124 U/L (34-104) H 03/02/16 17:30 Troponin I < 0.01 ng/mL (0.01-0.05) L 03/02/16:30 Total Protein 7.0 gm/dL (6.0-8.3) 03/02/16 17:30 Albumin 3.8 gm/dL (3.7-5.3) 03/02/16: Globulin 3.2 gm/dL 03/02/16:30 Albumin/Globulin Ratio 1.2 (1.0-1.8) 03/02/16 17:30 Triglycerides 114 mg/dL (<150) 03/02/16 17:30 Cholesterol 133 mg/dL (<200) 03/02/16 17:30 LDL Cholesterol Direct 63 mg/dL (75-193) L 03/02/16:30 HDL Cholesterol 44 mg/dL (23-92) 03/02/16:30 TSH 0.77 uIU/ml (0.34-5.60) 03/02/16: Phenytoin 14.4 ug/ml (10.0-20.0) 03/02/16 17:30 RPR NONREACTIVE (NONREACTIVE) 03/02/16 17:30 - Physical Exam Vitals and I&O: Vital Signs Temp 98.7 F 03/07/16 15:07 Pulse 64 03/07/16 15:07 Resp 21 03/07/16 15:07 BP 103/44 03/07/16 15:07 Pulse Ox 95 03/07/16 15:07 Intake & Output 03/07/16 03/08/16 03/08/16 18:59 06:59 18:59 Intake Total 800 120 Balance 800 120 Intake: Oral 800 120 Other: # Voids 3 3 # Bowel Movements 1 Active Medications: Current Medications Acetaminophen (Tylenol) 650 mg PO Q4HR PRN PRN Reason: PAIN Stop: 05/01/16 20:15 Al Hydrox/Mg Hydrox/Simethicone (Maalox) 30 ml PO Q4HR PRN PRN Reason: GI DISTRESS Stop: 05/01/16 20:15 Amlodipine Besylate (Norvasc) 5 mg PO DAILY [facility] Stop: 05/02/16 08:59 Last Admin: 03/07/16 09:42 Dose: Not Given Benztropine Mesylate (Cogentin) 0.5 mg PO BID PRN PRN Reason: PARKINSON'S DISEASE Stop: 05/02/16 08:59 Dextromethorphan/Quinidine (Nuedexta 20mg-10mg) 1 cap PO Q12HR RIC Stop: 05/02/16 20:59 Last Admin: 03/07/16 21:40 Dose: 1 cap Docusate Sodium (Colace) 250 mg PO DAILY [facility] Stop: 05/02/16 08:59 Last Admin: 03/07/16 09:42 Dose: Not Given Donepezil HCl (Aricept) 10 mg PO HS RIC Stop: 05/02/16 20:59 Last Admin: 03/07/16 21:40 Dose: 10 mg Escitalopram Oxalate (Lexapro) 5 mg PO DAILY RIC PRN Reason: Protocol Stop: 05/02/16 13:59 Last Admin: 03/07/16 09:42 Dose: Not Given Insulin Aspart (Novolog Insulin Sliding Scale) 0 units SUBQ ACHS RIC PRN Reason: Protocol Stop: 05/01/16 21:01 Last Admin: 03/08/16 06:40 Dose: Not Given Levetiracetam (Keppra) 500 mg PO BID [facility] Stop: 05/02/16 08:59 Last Admin: 03/07/16 17:58 Dose: Not Given Lorazepam (Ativan) 0.5 mg PO Q4HR PRN; Protocol PRN Reason: Anxiety Stop: 04/01/16 20:15 Last Admin: 03/06/16 23:58 Dose: 0.5 mg Memantine (Namenda) 10 mg PO Q12HR [facility]IC Stop: 05/04/16 09:10 Last Admin: 03/07/16 21:39 Dose: 10 mg Multivitamins/Vitamin C (Theragran) 1 tab PO DAILY [facility] Stop: 05/02/16 08:59 Last Admin: 03/07/16 09:42 Dose: Not Given Olanzapine 10 mg/ Olanzapine 2 (.5 mg) 12.5 mg PO HS [facility] Stop: 05/05/16 20:59 Last Admin: 03/07/16 21:40 Dose: 12.5 mg Phenytoin (Dilantin) 200 mg PO BID [facility] Stop: 05/02/16 08:59 Last Admin: 03/07/16 17:58 Dose: Not Given Tobramycin/Dexamethasone (Tobradex 0.1%-0.3% Ophth Susp 2.5ml) 2 drop EACH EYE BID [facility] Stop: 03/14/16 09:00 Last Admin: 03/07/16 17:57 Dose: Not Given Zolpidem Tartrate (Ambien) 5 mg PO HS PRN PRN Reason: Insomnia Stop: 05/01/16 20:36 Last Admin: 03/06/16 20:34 Dose: 5 mg - Procedures Procedures: Procedures Procedure Code Date GROUP PSYCHOTHERAPY 59355 04/15/15 GROUP PSYCHOTHERAPY GZHZZZZ 04/15/15 GROUP PSYCHOTHERAPY 35213 01/16/15 GROUP PSYCHOTHERAPY GZHZZZZ 01/16/15 Assessment/Plan - Problem List Patient Problems: All Active Problems Abnormal lithium level in blood (Acute) R78.89 Agitation (Acute) R45.1 INCREASED AGGRESSIVE BEHAVIOR (Acute) Outbursts of anger (Acute) R45.4
[2016-03-08] MEDS: Escitalopram Oxalate 5 mg Tab PO SCH (09:13)
[2016-03-08] MEDS: Dexamethasone/Tobramycin Ophth Susp 2.5 mL Bottle EACH EYE SCH (09:13)
[2016-03-08] MEDS: Dextromethorphan/Quinidine 20mg/10mg Cap PO SCH (09:13)
[2016-03-08] MEDS: Multivitamin Tab PO SCH (09:13)
--- NOTE | 2016-03-08 11:33 | General Progress Note ---
Subjective - Review of Systems Service Date: 03/08/16 Subjective: ER Physician Rapid Response Note. Responded to rapid response call immediately when it was announced overhead at about 1043. On arrival, pt appeared to be postictal but responsive to voice and tactile stimuli. According to pt's nurse, pt has h/o seizure disorder but has been refusing her medications. Pt was noticed to have tonic clonic motions earlier, especially on the right side. On exam, VS T 98.2F P 67 R 18 BP 147/72 O2 saturation 97% in RA. Accuchek 156 HEENT Unremarkable. NC/AT, PERRLA. Throat clear. Neck supple, NT, no JVD, carotid 2+/2+, no mass or thyromegaly. COR RRR Lungs clear Ext no c/c/e Neuro Alert and responsive to voice and tactile stimuli. Spontaneous movements noticed in all 4 extremities. Pt did not cooperate for full neurological exam. Imp: Seizure activities by hx in postictal state. Stable and improved. Plan: IV saline rosa was inserted. Pt was given supplemental O2 via NC. Ativan one mg IV to be given. Transfer to [facility] [place]. On repeated exam at about 1100. Pt remained stable. Pt became more awake and started to speak. Pt felt well without bodily pain or discomfort. Case was discussed with pt's attending physician Dr. Knutson on the phone at about 1108. He was updated about pt's clinical status. He concurred with treatment implemented. He resumed care of pt from here on. Case was signed off to Dr. Knutson at about 1115. Objective - Results Result Diagrams: 03/02/16 17:55 03/02/16 17:30 Recent Labs: Laboratory Last Values WBC 5.8 Th/cmm (4.8-10.8) 03/02/16 17:55 RBC 4.04 Mil/cmm (3.80-5.20) 03/02/16 17:55 Hgb 12.8 gm/dL (11.7-16.1) 03/02/16 17:55 Hct 38.2 % (35.0-45.0) 03/02/16 17:55 MCV 94.6 fl (81-100) 03/02/16 17:55 MCH 31.7 pg (27.0-31.0) H 03/02/16 17:55 MCHC Differential 33.5 pg (28.0-36.0) 03/02/16 17:55 RDW 14.1 % (11.5-20.0) 03/02/16 17:55 Plt Count 172 Th/cmm (150-400) D 03/02/16 17:55 MPV 6.3 fl 03/02/16 17:55 Neutrophils % 61.5 % (40.0-80.0) 03/02/16 17:55 Lymphocytes % 26.0 % (20.0-50.0) 03/02/16 17:55 Monocytes % 9.3 % (2.0-10.0) 03/02/16 17:55 Eosinophils % 2.9 % (0.0-5.0) 03/02/16 17:55 Basophils % 0.3 % (0.0-2.0) 03/02/16 17:55 PT 9.8 SECONDS (9.5-11.5) 03/02/16 17:30 INR 0.99 (0.5-1.4) 03/02/16 17:30 Sodium 139 mEq/L (136-145) 03/02/16 17:30 Potassium 4.2 mEq/L (3.5-5.1) 03/02/16 17:30 Chloride 106 mEq/L (98-107) 03/02/16 17:30 Carbon Dioxide 30.9 mEq/L (21.0-31.0) 03/02/16 17:30 Anion Gap 6.3 (7.0-16.0) L 03/02/16 17:30 BUN 23 mg/dL (7-25) 03/02/16 17:30 Creatinine 0.7 mg/dL (0.6-1.2) 03/02/16 17:30 Est GFR ( Amer) TNP 03/02/16 17:30 Est GFR (Non-Af Amer) TNP 03/02/16 17:30 BUN/Creatinine Ratio 32.9 03/02/16 17:30 Glucose 83 mg/dL (70-105) 03/02/16 17:30 POC Glucose 122 MG/DL (70 - 105) H 03/08/16 06:06 Calcium 8.8 mg/dL (8.6-10.3) 03/02/16 17:30 Total Bilirubin 0.4 mg/dL (0.3-1.0) 03/02/16 17:30 AST 35 U/L (13-39) 03/02/16 17:30 ALT 37 U/L (7-52) 03/02/16 17:30 Alkaline Phosphatase 124 U/L (34-104) H 03/02/16 17:30 Troponin I < 0.01 ng/mL (0.01-0.05) L 03/02/16 17:30 Total Protein 7.0 gm/dL (6.0-8.3) 03/02/16 17:30 Albumin 3.8 gm/dL (3.7-5.3) 03/02/16 17:30 Globulin 3.2 gm/dL 03/02/16 17:30 Albumin/Globulin Ratio 1.2 (1.0-1.8) 03/02/16 17:30 Triglycerides 114 mg/dL (<150) 03/02/16 17:30 Cholesterol 133 mg/dL (<200) 03/02/16 17:30 LDL Cholesterol Direct 63 mg/dL (75-193) L 03/02/16 17:30 HDL Cholesterol 44 mg/dL (23-92) 03/02/16 17:30 TSH 0.77 uIU/ml (0.34-5.60) 03/02/16 17:30 Phenytoin 14.4 ug/ml (10.0-20.0) 03/02/16 17:30 RPR NONREACTIVE (NONREACTIVE) 03/02/16 17:30 - Physical Exam Vitals and I&O: Vital Signs Temp 98.7 F 03/07/16 15:07 Pulse 64 03/07/16 15:07 Resp 20 03/08/16 08:00 BP 103/44 03/07/16 15:07 Pulse Ox 95 03/07/16 15:07 Active Medications: Current Medications Acetaminophen (Tylenol) 650 mg PO Q4HR PRN PRN Reason: PAIN Stop: 05/01/16 20:15 Al Hydrox/Mg Hydrox/Simethicone (Maalox) 30 ml PO Q4HR PRN PRN Reason: GI DISTRESS Stop: 05/01/16 20:15 Amlodipine Besylate (Norvasc) 5 mg PO DAILY [facility] Stop: 05/02/16 08:59 Last Admin: 03/08/16 09:13 Dose: Not Given Benztropine Mesylate (Cogentin) 0.5 mg PO BID PRN PRN Reason: PARKINSON'S DISEASE Stop: 05/02/16 08:59 Dextromethorphan/Quinidine (Nuedexta 20mg-10mg) 1 cap PO Q12HR [facility] Stop: 05/02/16 20:59 Last Admin: 03/08/16 09:13 Dose: Not Given Docusate Sodium (Colace) 250 mg PO DAILY [facility] Stop: 05/02/16 08:59 Last Admin: 03/08/16 09:13 Dose: Not Given Donepezil HCl (Aricept) 10 mg PO HS [facility] Stop: 05/02/16 20:59 Last Admin: 03/07/16 21:40 Dose: 10 mg Escitalopram Oxalate (Lexapro) 5 mg PO DAILY [facility] PRN Reason: Protocol Stop: 05/02/16 13:59 Last Admin: 03/08/16 09:13 Dose: Not Given Insulin Aspart (Novolog Insulin Sliding Scale) 0 units SUBQ ACHS RIC PRN Reason: Protocol Stop: 05/01/16 21:01 Last Admin: 03/08/16 06:40 Dose: Not Given Levetiracetam (Keppra) 500 mg PO BID [facility] Stop: 05/02/16 08:59 Last Admin: 03/08/16 09:13 Dose: Not Given Lorazepam (Ativan) 0.5 mg PO Q4HR PRN; Protocol PRN Reason: Anxiety Stop: 04/01/16 20:15 Last Admin: 03/06/16 23:58 Dose: 0.5 mg Lorazepam (Ativan) 1 mg IV NOW STA PRN Reason: Protocol Stop: 03/08/16 11:11 Memantine (Namenda) 10 mg PO Q12HR [facility] Stop: 05/04/16 09:10 Last Admin: 03/08/16 09:13 Dose: Not Given Multivitamins/Vitamin C (Theragran) 1 tab PO DAILY [facility] Stop: 05/02/16 08:59 Last Admin: 03/08/16 09:13 Dose: Not Given Olanzapine 10 mg/ Olanzapine 2 (.5 mg) 12.5 mg PO HS [facility] Stop: 05/05/16 20:59 Last Admin: 03/07/16 21:40 Dose: 12.5 mg Phenytoin (Dilantin) 200 mg PO BID [facility] Stop: 05/02/16 08:59 Last Admin: 03/08/16 09:13 Dose: Not Given Tobramycin/Dexamethasone (Tobradex 0.1%-0.3% Ophth Susp 2.5ml) 2 drop EACH EYE BID [facility] Stop: 03/14/16 09:00 Last Admin: 03/08/16 09:13 Dose: Not Given Zolpidem Tartrate (Ambien) 5 mg PO HS PRN PRN Reason: Insomnia Stop: 05/01/16 20:36 Last Admin: 03/06/16 20:34 Dose: 5 mg - Procedures Procedures: Procedures Procedure Code Date GROUP PSYCHOTHERAPY 42980 04/15/15 GROUP PSYCHOTHERAPY GZHZZZZ 04/15/15 GROUP PSYCHOTHERAPY 04093 01/16/15 GROUP PSYCHOTHERAPY GZHZZZZ 01/16/15 Assessment/Plan - Problem List Patient Problems: All Active Problems INCREASED AGGRESSIVE BEHAVIOR (Acute) Abnormal lithium level in blood (Acute) R78.89 Agitation (Acute) R45.1 Outbursts of anger (Acute) R45.4
--- NOTE | 2016-03-08 23:41 | Progress Notes ---
SUBJECTIVE: The patient seen, chart reviewed, discussed with staff. The patient is currently in the hospital, agitated, irritable and aggressive, combative. On [id number], the patient is confused. Does not know where she is. Does not know the year, rambling nonsensically, unable to participate in any meaningful conversation, unable to participate in self-care planning discussion or ____ her basic food, clothing and nursing home, still agitated, unpredictable, still labile. ASSESSMENT: The patient impulsive, unpredictable, gravely disabled. PLAN: Continue to monitor. The patient remains symptomatic, not safe for a lower level of care at this time, continue to adjust medications. [facility]# [id number]
--- NOTE | 2016-03-10 10:57 | History & Physical ---
HISTORY OF PRESENT ILLNESS: The patient came in through ER, 80-year-old female brought in due to confusion and agitation. The patient currently poor historian. REVIEW OF SYSTEMS: CONSTITUTIONAL: No fever. No chills. SKIN: Fragile. No lesions or skin breakdown. HEENT: No headache. No lightheadedness. EYES: No loss of vision. No pain. ENT: No earache. No nasal discharge. NECK: No neck pain, no swelling, no thyromegaly. CARDIOVASCULAR: No chest pain, no palpitation. PULMONARY: No SOB. No cough. GASTROINTESTINAL: No nausea. No vomiting. Denies any abdominal pain. GENITOURINARY: No dysuria. No hematuria. MUSCULOSKELETAL: No back pain. No muscle pain. NEUROLOGIC: Denies any syncope and no focal symptoms. No weakness. PAST MEDICAL HISTORY: This patient has significant history of hypertension, diabetes, history of CVA and seizure and also dementia and thyroid disorder. FAMILY HISTORY: Unremarkable. SOCIAL HISTORY: Unremarkable. SURGICAL HISTORY: Unremarkable. PSYCHIATRIC HISTORY: Schizophrenia and dementia. PHYSICAL EXAMINATION: GENERAL: The patient is currently a poor historian, still appears to be confused, awake and alert, but with episodes of confusion. SKIN: No breakdown. Head atraumatic, normocephalic. Eyes: Both are PERRLA. ENT: No nasal discharge. NECK: Negative for JVD. CARDIOVASCULAR: S1, S2. No murmurs. Regular rate and rhythm. PULMONARY: Minimal inspiratory wheezing. GASTROINTESTINAL: Soft, nontender. MUSCULOSKELETAL: No edema. NEUROLOGICAL: Unsteady gait. The patient was admitted with diagnosis of psychosis and seizure. For the planning, the patient will be admitted to medical floor. We will get a Psychiatric consult and also a Neurological consult. JOB# [id number]
--- NOTE | 2016-03-28 20:57 | Discharge Summary ---
IDENTIFYING INFORMATION: The patient is a 80-year-old female. CHIEF COMPLAINT: The patient was admitted to the hospital because of psychosis. HISTORY OF PRESENT ILLNESS: The patient is brought from [facility] because of agitation, irritability. She was aggressive and combative. She was a poor historian. She was very irritable when I tried to talk to her, unable to participate in a meaningful conversation, though the staff told earlier she was able to talk to some of the staff, unable to find any documented because of her mental status. She is a well-known as treating her before, diagnosed with dementia. COURSE IN THE HOSPITAL: The patient was continued with her medication. ____ 1 tablet twice a day, Zyprexa, Aricept 10 mg daily, Namenda 10 mg twice a day, medications were adjusted. Her Zyprexa was increased to 4.5 mg a day, Lexapro with 5 mg daily, Cogentin was added 0.5 mg twice a day as needed. Also, she was on ____, Ambien, Ativan as needed. The patient, however, did develop a seizure, so was transferred to the Telemetry. FINAL DIAGNOSES: AXIS I: Dementia with behavioral disturbances. MEDICAL DIAGNOSES: Epilepsy, hypertension, diabetes mellitus. The patient will be followed on the medical floor. EXPECTED OUTCOME: Stable if the patient complies with the treatment. JOB# [id number]
== END 2016-03-08 11:43 | disposition short-term general hospital (02) | DRG 884 ==
LOC: ER 17:07 → GERO 19:00
PROVIDERS: ADMIT Psychiatry & Neurology Psychiatry; ATTEND Psychiatry & Neurology Psychiatry
DX: F03.91 Unspecified dementia, unspecified severity, with behavioral disturbance (principal); E11.9 Type 2 diabetes mellitus without complications; G40.909 Epilepsy, unspecified, not intractable, without status epilepticus; F20.9 Schizophrenia, unspecified; I10 Essential (primary) hypertension; F03.90 Unspecified dementia, unspecified severity, without behavioral disturbance, psychotic disturbance, mood disturbance, and anxiety; F29 Unspecified psychosis not due to a substance or known physiological condition; Z86.73 Personal history of transient ischemic attack (TIA), and cerebral infarction without residual deficits
CPT/HCPCS: 36415-UA; 71010-TC; 80053-TC; 80061-TC; 80185-TC; 82948-90; 84443-TC; 84484-TC; 85025-TC; 85610-TC; 86592-TC; 93005; J1630; J1815; J2060; J7051; Z7610

== ENCOUNTER 2016-03-08 11:43 | Inpatient (IN) | payer MEDICARE, OTHER ==
[2016-03-08] MEDS ORDERED: PHENYTOIN IV ONE (14:00)
[2016-03-08] MEDS ORDERED: SODIUM CHLORIDE 0.9% IV ONE (14:00)
[2016-03-08] MEDS ORDERED: Phenytoin 50 mg/mL 5 mL Vial IV ONE (14:07)
[2016-03-08] MEDS: Sodium Chloride 0.9% 1,000 ML IV SCH (14:38)
[2016-03-08] MEDS ORDERED: Pneumococcal Vaccine 0.5 mL Vial IM ONE (16:42)
[2016-03-08] MEDS: INSULIN ASPART SLIDING SCALE 100 UNITS/ML UNIT SUBQ SCH ×2 (17:50→22:39)
[2016-03-08] MEDS: Dextromethorphan/Quinidine 20mg/10mg Cap PO SCH (22:16)
[2016-03-09] MEDS: INSULIN ASPART SLIDING SCALE 100 UNITS/ML UNIT SUBQ SCH ×4 (07:41→21:39)
--- NOTE | 2016-03-09 08:38 | General Progress Note ---
Objective - Results Recent Labs: Laboratory Last Values POC Glucose 99 MG/DL (70 - 105) 03/09/16 07:35 Phenytoin 6.3 ug/ml (10.0-20.0) L 03/09/16 06:28 - Physical Exam Vitals and I&O: Vital Signs Temp 97.8 F 03/09/16 04:00 Pulse 77 03/09/16 04:00 Resp 18 03/09/16 04:00 BP 118/55 03/09/16 04:00 Pulse Ox 96 03/09/16 04:00 Intake & Output 03/08/16 03/09/16 03/09/16 18:59 06:59 18:59 Intake Total 200 360 Balance 200 360 Intake: Oral 200 360 Other: # Voids 2 4 # Bowel Movements 0 Stool Characteristics Soft Active Medications: Current Medications Amlodipine Besylate (Norvasc) 5 mg PO DAILY [facility] Stop: 05/08/16 08:59 Dextromethorphan/Quinidine (Nuedexta 20mg-10mg) 1 cap PO Q12HR [facility] Stop: 05/07/16 20:59 Last Admin: 03/08/16 22:16 Dose: 1 cap Docusate Sodium (Colace) 250 mg PO DAILY [facility] Stop: 05/08/16 08:59 Donepezil HCl (Aricept) 10 mg PO HS [facility] Stop: 05/07/16 20:59 Last Admin: 03/08/16 22:22 Dose: 10 mg Escitalopram Oxalate (Lexapro) 5 mg PO DAILY [facility] PRN Reason: Protocol Stop: 05/08/16 08:59 Sodium Chloride (Nacl 0.9%) 1,000 mls @ 50 mls/hr IV .Q20H [facility] Stop: 05/07/16 14:14 Last Admin: 03/08/16 14:38 Dose: 50 mls/hr Phenytoin 400 mg/ Sodium (Chloride) 56 mls @ 100 mls/hr IV X1 ONE Stop: 03/09/16 10:33 Phenytoin 200 mg/ Sodium (Chloride) 52 mls @ 100 mls/hr IV Q24HR [facility] Stop: 05/09/16 09:59 Insulin Aspart (Novolog Insulin Sliding Scale) 0 units SUBQ ACHS RIC PRN Reason: Protocol Stop: 05/07/16 16:29 Last Admin: 03/09/16 07:41 Dose: Not Given Levetiracetam (Keppra) 500 mg PO BID RIC Stop: 05/07/16 16:59 Last Admin: 03/08/16 22:23 Dose: 500 mg Lorazepam (Ativan) 0.5 mg PO Q4HR PRN; Protocol PRN Reason: Anxiety Stop: 05/07/16 12:27 Last Admin: 03/09/16 02:11 Dose: 0.5 mg Memantine (Namenda) 10 mg PO Q12HR RIC Stop: 05/07/16 20:59 Last Admin: 03/08/16 22:16 Dose: 10 mg Multivitamins/Vitamin C (Theragran) 1 tab PO DAILY RIC Stop: 05/08/16 08:59 Olanzapine (Zyprexa) 12.5 mg PO HS RIC PRN Reason: Protocol Stop: 05/07/16 20:59 Last Admin: 03/08/16 22:18 Dose: 12.5 mg Zolpidem Tartrate (Ambien) 5 mg PO HS PRN PRN Reason: Insomnia Stop: 05/07/16 12:27 Last Admin: 03/09/16 02:13 Dose: 5 mg - Procedures Procedures: Procedures Procedure Code Date GROUP PSYCHOTHERAPY 49402 04/15/15 GROUP PSYCHOTHERAPY [id number] 04/15/15 GROUP PSYCHOTHERAPY 30088 01/16/15 GROUP PSYCHOTHERAPY [id number] 01/16/15 Assessment/Plan - Problem List Patient Problems: All Active Problems Abnormal lithium level in blood (Acute) R78.89 Agitation (Acute) R45.1 INCREASED AGGRESSIVE BEHAVIOR (Acute) Outbursts of anger (Acute) R45.4
[2016-03-09] MEDS: Multivitamin Tab PO SCH (09:19)
[2016-03-09] MEDS: Dextromethorphan/Quinidine 20mg/10mg Cap PO SCH ×2 (09:25→20:33)
[2016-03-09] MEDS: Escitalopram Oxalate 5 mg Tab PO SCH (09:25)
[2016-03-09] MEDS ORDERED: PHENYTOIN IV ONE (10:00)
[2016-03-09] MEDS ORDERED: SODIUM CHLORIDE 0.9% IV ONE (10:00)
[2016-03-09] MEDS: Levetiracetam 500mg/100mL 500 MG/100 ML BAG IV SCH ×2 (12:05→21:51)
--- NOTE | 2016-03-09 16:25 | Diagnostic Imaging Report ---
CT scan of the brain without intravenous contrast HISTORY: Seizure Total DLP equals 624 CTDI equals 34.1 Axial sections were obtained from the base of the skull to the vertex. As a prominent ventricular system size along with prominence of cerebral sulci and subarachnoid cisterns reflecting cerebral atrophy. A small focus of hypodensity is seen within the left frontal parietal region without mass effect. Findings may be associated with an old infarct. Generalized hypodensity seen throughout the supratentorial white matter regions. Changes may be related to chronic small vessel ischemic disease. Bilateral basal ganglia calcification is noted. No acute intracerebral hemorrhage. Again, no mass effect or shift of midline structures. No extra-axial masses or abnormal fluid collections. Atherosclerotic vascular calcification is seen in the region of the vertebral arteries at the base of the skull. Changes of hyperostosis frontalis are seen. Mucosal thickening noted in the right sphenoid sinus. IMPRESSION: 1. No acute abnormalities 2. Hypodensity within the supratentorial white matter regions that may be associated with chronic small vessel ischemic disease 3. Small focus in the left frontoparietal area that may be related to an old infarct 4. Atherosclerotic vascular changes 5. Mucosal thickening within the right sphenoid sinus area
[2016-03-09] MEDS: Sodium Chloride 0.9% 1,000 ML IV SCH (16:46)
[2016-03-10] MEDS: INSULIN ASPART SLIDING SCALE 100 UNITS/ML UNIT SUBQ SCH ×3 (06:32→16:51)
[2016-03-10] MEDS: Multivitamin Tab PO SCH (09:18)
[2016-03-10] MEDS: Dextromethorphan/Quinidine 20mg/10mg Cap PO SCH (09:19)
[2016-03-10] MEDS: Escitalopram Oxalate 5 mg Tab PO SCH (09:25)
--- NOTE | 2016-03-10 09:51 | General Progress Note ---
Objective - Results Recent Labs: Laboratory Last Values POC Glucose 112 MG/DL (70 - 105) H 03/10/16 05:51 Phenytoin 6.3 ug/ml (10.0-20.0) L 03/09/16 06:28 - Physical Exam Vitals and I&O: Vital Signs Temp 97.3 F 03/10/16 08:00 Pulse 61 03/10/16 09:18 Resp 17 03/10/16 08:00 BP 167/63 03/10/16 09:18 Pulse Ox 94 03/10/16 08:00 Intake & Output 03/09/16 03/10/16 03/10/16 18:59 06:59 18:59 Intake Total 1000 250 Balance 1000 250 Intake: Intake, IV Amount 1000 100 Levetiracetam 500mg/100mL 100 500 mg In 100 ml @ 400 mls/hr IV Q12H [facility] Rx#: [id number] Sodium Chloride 0.9% 1, 1000 000 ml @ 50 mls/hr IV . Q20H [facility] Rx#:[id number] Oral 150 Other: # Voids 1 Stool Characteristics Soft Brown Active Medications: Current Medications Amlodipine Besylate (Norvasc) 5 mg PO DAILY [facility] Stop: 05/08/16 08:59 Last Admin: 03/10/16 09:18 Dose: 5 mg Dextromethorphan/Quinidine (Nuedexta 20mg-10mg) 1 cap PO Q12HR [facility] Stop: 05/07/16 20:59 Last Admin: 03/10/16 09:19 Dose: 1 cap Docusate Sodium (Colace) 250 mg PO DAILY [facility] Stop: 05/08/16 08:59 Last Admin: 03/10/16 09:18 Dose: 250 mg Donepezil HCl (Aricept) 10 mg PO HS [facility]IC Stop: 05/07/16 20:59 Last Admin: 03/09/16 20:33 Dose: 10 mg Escitalopram Oxalate (Lexapro) 5 mg PO DAILY [facility] PRN Reason: Protocol Stop: 05/08/16 08:59 Last Admin: 03/10/16 09:25 Dose: 5 mg Sodium Chloride (Nacl 0.9%) 1,000 mls @ 50 mls/hr IV .Q20H RIC Stop: 05/07/16 14:14 Last Admin: 03/09/16 16:46 Dose: 50 mls/hr Phenytoin 200 mg/ Sodium (Chloride) 52 mls @ 100 mls/hr IV Q24HR [facility] Stop: 05/09/16 09:59 Levetiracetam (Keppra Pb) 500 mg in 100 mls @ 400 mls/hr IV Q12H RIC Stop: 05/08/16 10:29 Last Infusion: 03/09/16 22:51 Dose: Infused Insulin Aspart (Novolog Insulin Sliding Scale) 0 units SUBQ ACHS RIC PRN Reason: Protocol Stop: 05/07/16 16:29 Last Admin: 03/10/16 06:32 Dose: Not Given Lorazepam (Ativan) 0.5 mg PO Q4HR PRN; Protocol PRN Reason: Anxiety Stop: 05/07/16 12:27 Last Admin: 03/09/16 21:43 Dose: 0.5 mg Memantine (Namenda) 10 mg PO Q12HR RIC Stop: 05/07/16 20:59 Last Admin: 03/10/16 09:18 Dose: 10 mg Multivitamins/Vitamin C (Theragran) 1 tab PO DAILY [facility] Stop: 05/08/16 08:59 Last Admin: 03/10/16 09:18 Dose: 1 tab Olanzapine (Zyprexa) 12.5 mg PO HS RIC PRN Reason: Protocol Stop: 05/07/16 20:59 Last Admin: 03/09/16 20:33 Dose: 12.5 mg Zolpidem Tartrate (Ambien) 5 mg PO HS PRN PRN Reason: Insomnia Stop: 05/07/16 12:27 Last Admin: 03/09/16 21:43 Dose: 5 mg - Procedures Procedures: Procedures Procedure Code Date GROUP PSYCHOTHERAPY 81506 04/15/15 GROUP PSYCHOTHERAPY GZHZZZZ 04/15/15 GROUP PSYCHOTHERAPY 85252 01/16/15 GROUP PSYCHOTHERAPY GZHZZZZ 01/16/15 Assessment/Plan - Problem List Patient Problems: All Active Problems Abnormal lithium level in blood (Acute) R78.89 Agitation (Acute) R45.1 INCREASED AGGRESSIVE BEHAVIOR (Acute) Outbursts of anger (Acute) R45.4
[2016-03-10] MEDS ORDERED: PHENYTOIN IV SCH (10:00)
[2016-03-10] MEDS ORDERED: SODIUM CHLORIDE 0.9% IV SCH (10:00)
--- NOTE | 2016-03-10 10:57 | History & Physical ---
HISTORY OF PRESENT ILLNESS: This is a 80-year-old female who was transferred from the Gerops[facility] Unit to ____ due to seizure episode. REVIEW OF SYSTEMS: GENERAL: No weight loss. No weight gain. Currently, no weakness. HEAD: No headache. EYES: No eye pain, no blurring of vision. NOSE: No nasal pain. NECK: No neck pain. No swelling. CARDIOVASCULAR: No chest pain. PULMONARY: No shortness of breath. GASTROINTESTINAL: No abdominal pain, no dysuria. NEUROLOGIC: No focal deficits. PAST MEDICAL HISTORY: Includes seizures, psychosis, insomnia, hypertension, dementia and depression. PHYSICAL EXAMINATION: GENERAL: The patient is currently lying in the bed, poor historian. HEAD: Atraumatic, normocephalic. EYES: Bilateral PERRLA. ENT: Nostrils are bilaterally patent. NECK: No JVD. No nuchal rigidity. CARDIOVASCULAR: Regular rate and rhythm, S1 and S2. PULMONARY: Clear to auscultation. GASTROINTESTINAL: Soft, nontender. Positive bowel sounds. GENITOURINARY: Negative for CVA tenderness. MUSCULOSKELETAL: No weakness. EXTREMITIES: No edema. ASSESSMENT: 1. Seizure. 2. Psychosis. 3. Insomnia. 4. Hypertension. 5. Dementia. 6. Diabetes. 7. Depression. PLAN: We will get Dr. Ding for psych evaluation and Dr. Monet for neurological consultation. We will also do some CT scan of the head without IV contrast. The patient will be admitted to telemetry floor. JOB# [id number]
--- NOTE | 2016-03-10 10:57 | Consultation ---
The patient was transferred from [facility] on March 08. IDENTIFYING INFORMATION: The patient is a 80-year-old female. REASON FOR CONSULTATION: This patient was admitted to [facility] because of combative behavior, agitation, dementia with confusion. The patient developed seizure, was transferred to the medical floor. The patient is currently somewhat sedated. No acting out behavior, sleeping, eating well. PAST PSYCHIATRIC HISTORY: Dementia with confusion. FAMILY AND SOCIAL HISTORY AND MEDICAL HISTORY: Please refer to old records, ____ admission to [facility]. The patient is unable to give me information. MENTAL STATUS EXAMINATION: The patient is appropriately dressed, not well groomed. She was somewhat sedated, unable to tell me her age, where she is, why she is here, she is demented and confused, unable to participate in meaningful conversation or make safe plan for self-care. Her insight and judgment is impaired. IMPRESSION: AXIS I: Dementia with behavior disturbances. MEDICAL DIAGNOSIS: Seizure, defer the rest to the medical doctor, Dr. Knutson, I would recommend to continue medication and transfer to [facility] when medically cleared. Thank you very much for allowing me to participate in the care of this most interesting lady. JOB# [id number]
[2016-03-10] MEDS: Levetiracetam 500mg/100mL 500 MG/100 ML BAG IV SCH (11:15)
--- NOTE | 2016-03-10 12:03 | Consultation ---
HISTORY OF PRESENT ILLNESS: The patient is a 80-year-old. The patient transferred from [facility]. The patient has been there for psychiatric reasons; however, the patient also has a history of seizures. The patient did not take medications. She ____ having seizures. She is on Keppra and phenytoin. These have been converted to IV. No more seizures. The patient is sitting up in bed. She gives me her name, but not much more else. She is very withdrawn, not able to interact with me. Also, complains of some pain in the left eye. PAST MEDICAL HISTORY: The patient with history of psychosis, dementia, seizures, diabetes, and hypertension. SOCIAL HISTORY: Does not smoke or drink. MEDICATIONS: Per reconciliation. From neurological point of view on Aricept, Keppra, lorazepam, Namenda, Zyprexa, phenytoin, and Ambien. PHYSICAL EXAMINATION: VITAL SIGNS: Temperature 98.2, blood pressure 110/48, pulse is around about 56. NECK: Supple. No bruits. HEART: Sounds S1, S2. LUNGS: Clear. NEUROLOGIC: She is sitting up. Will respond to her name, but she does not tell me much more. Follows some simple instructions. Cranial: Pupils reactive. Left eye is a little bit red. I would recommend ophthalmology evaluation. The patient would lift both arms up. Lift both legs up. Increased ____ somewhat mild. IMPRESSION: 1. Seizures. 2. Dementia. 3. Encephalopathy. 4. Hypertension and diabetes. MANAGEMENT: The patient at this time continues on IV antiepileptics. The patient also has left eye pain. I would strongly recommend that we have ophthalmological evaluation. JOB# [id number]
--- NOTE | 2016-03-23 19:28 | Discharge Summary ---
HOSPITAL COURSE: The patient was admitted originally from [facility] and moved to acute side due to episode of seizure. It is noted that the patient has low Dilantin level and also get a neurology consultation done. The patient's Dilantin was adjusted and titrated. Afterwards, the patient has been moved out to [facility] unit. DISCHARGE DIAGNOSES: 1. Seizure. 2. Psychosis. 3. Dementia. 4. Hypertension. 5. Anemia. The patient discharged back to [facility] unit. JOB# [id number]
== END 2016-03-10 17:05 | DRG 100 ==
LOC: TELE 11:43
PROVIDERS: ADMIT Internal Medicine; ATTEND Internal Medicine
DX: R56.9 Unspecified convulsions (principal); G93.40 Encephalopathy, unspecified; F03.91 Unspecified dementia, unspecified severity, with behavioral disturbance; E11.9 Type 2 diabetes mellitus without complications; I10 Essential (primary) hypertension; F29 Unspecified psychosis not due to a substance or known physiological condition; G47.00 Insomnia, unspecified; F32.9 Major depressive disorder, single episode, unspecified
CPT/HCPCS: 36415-UA; 70450-TC; 80185-TC; 82948-90; J1165; J1815; J2060; J7030; Z7610

== ENCOUNTER 2016-03-10 17:05 | Inpatient (IN) | payer MEDICARE, OTHER ==
[2016-03-10 18:14] VITALS: BP 118/68
[2016-03-10] MEDS ORDERED: Maalox 30 mL Cup PO PRN (20:49)
[2016-03-10] MEDS ORDERED: Magnesium Hydroxide (MOM) 30 mL UDC PO PRN (20:49)
[2016-03-10] MEDS: INSULIN ASPART SLIDING SCALE 100 UNITS/ML UNIT SUBQ SCH (21:01)
[2016-03-10] MEDS: Dextromethorphan/Quinidine 20mg/10mg Cap PO SCH (21:51)
--- NOTE | 2016-03-11 03:04 | Progress Notes ---
Case was discussed with staff of the patient, reviewed records. The patient has been acting aggressive with the staff, at times refusing to take her medication. Continues to be unpredictable and impulsive. They are trying to adjust her Dilantin level, so she is voluntary. I advised to transfer back to [facility], so we can do better there as her Dilantin level could be adjusted. Thank you very much for allowing me to participate. The patient is still confused, unable to participate in a meaningful conversation. We will take care of herself. Thank you very much for allowing me to participate in the care of this most interesting lady. JOB# [id number]
[2016-03-11] MEDS: INSULIN ASPART SLIDING SCALE 100 UNITS/ML UNIT SUBQ SCH ×4 (06:34→20:24)
--- NOTE | 2016-03-11 09:42 | General Progress Note ---
Objective - Physical Exam Vitals and I&O: Vital Signs Temp 97.6 F 03/11/16 06:26 Pulse 68 03/11/16 06:26 Resp 20 03/11/16 06:26 BP 100/64 03/11/16 06:26 Pulse Ox 94 03/11/16 06:26 Intake & Output 03/10/16 03/11/16 03/11/16 18:59 06:59 18:59 Intake Total 480 Balance 480 Intake: Oral 240 Other 240 Other: # Voids 3 # Bowel Movements 0 Active Medications: Current Medications Acetaminophen (Tylenol) 650 mg PO Q4HR PRN PRN Reason: Pain Stop: 05/09/16 20:48 Al Hydrox/Mg Hydrox/Simethicone (Maalox) 30 ml PO Q4HR PRN PRN Reason: GI DISTRESS Stop: 05/09/16 20:48 Amlodipine Besylate (Norvasc) 5 mg PO DAILY [facility] Stop: 05/10/16 08:59 Benztropine Mesylate (Cogentin) 0.5 mg PO BID [facility] Stop: 05/10/16 08:59 Dextromethorphan/Quinidine (Nuedexta 20mg-10mg) 1 cap PO Q12HR [facility] Stop: 05/09/16 20:59 Last Admin: 03/10/16 21:51 Dose: 1 cap Docusate Sodium (Colace) 250 mg PO DAILY [facility] Stop: 05/10/16 08:59 Donepezil HCl (Aricept) 10 mg PO HS [facility] Stop: 05/09/16 20:59 Last Admin: 03/10/16 21:51 Dose: 10 mg Escitalopram Oxalate (Lexapro) 5 mg PO DAILY [facility] PRN Reason: Protocol Stop: 05/10/16 08:59 Insulin Aspart (Novolog Insulin Sliding Scale) 0 units SUBQ ACHS RIC PRN Reason: Protocol Stop: 05/09/16 20:59 Last Admin: 03/11/16 06:34 Dose: Not Given Levetiracetam (Keppra) 500 mg PO BID [facility] Stop: 05/10/16 08:59 Lorazepam (Ativan) 0.5 mg PO Q4HR PRN; Protocol PRN Reason: Anxiety Stop: 04/09/16 20:48 Memantine (Namenda) 10 mg PO Q12HR [facility] Stop: 05/10/16 08:59 Multivitamins/Vitamin C (Theragran) 1 tab PO DAILY [facility] Stop: 05/10/16 08:59 Olanzapine (Zyprexa) 12.5 mg PO HS [facility]IC PRN Reason: Protocol Stop: 05/09/16 20:59 Last Admin: 03/10/16 21:51 Dose: 12.5 mg Phenytoin (Dilantin) 200 mg PO BID [facility] Stop: 03/12/16 17:01 Phenytoin (Dilantin) 300 mg PO DAILY [facility] Stop: 05/12/16 08:59 Zolpidem Tartrate (Ambien) 5 mg PO HS PRN PRN Reason: Insomnia Stop: 05/09/16 20:48 - Procedures Procedures: Procedures Procedure Code Date GROUP PSYCHOTHERAPY 26424 04/15/15 GROUP PSYCHOTHERAPY GZHZZZZ 04/15/15 GROUP PSYCHOTHERAPY 22614 01/16/15 GROUP PSYCHOTHERAPY GZHZZZZ 01/16/15 Assessment/Plan - Problem List Patient Problems: All Active Problems Abnormal lithium level in blood (Acute) R78.89 Agitation (Acute) R45.1 INCREASED AGGRESSIVE BEHAVIOR (Acute) Outbursts of anger (Acute) R45.4
[2016-03-11] MEDS: Dextromethorphan/Quinidine 20mg/10mg Cap PO SCH ×3 (10:18→20:55)
[2016-03-11] MEDS: Escitalopram Oxalate 5 mg Tab PO SCH (10:19)
[2016-03-11] MEDS: Multivitamin Tab PO SCH (10:20)
[2016-03-11] MEDS: Dexamethasone/Tobramycin Ophth Susp 2.5 mL Bottle LEFT EYE SCH ×2 (17:03→22:12)
--- NOTE | 2016-03-12 02:28 | History & Physical ---
IDENTIFYING INFORMATION: The patient is a 80-year-old female. CHIEF COMPLAINT: The patient has no answer. HISTORY OF PRESENT ILLNESS: She was transferred back from the medical floor after she was transferred there because of a seizure disorder. The patient was stabilized and then sent back here. The patient herself was a poor historian. The patient is unable to participate in a meaningful conversation or make safe plan for self-care. She has a rambling speech. The patient was unable to take care of herself. She was ____originally admitted because of agitation, combative behavior. The patient current medication include , Lexapro 5 mg daily, Aricept 10 mg at bedtime and Keppra was added as well as Dilantin. She is also on Namenda 10 mg twice a day, Zyprexa 12.5 mg at bedtime only. PAST PSYCHIATRIC HISTORY: She has prior admission to this facility a few months ago for similar reason with a history of dementia. MEDICAL DIAGNOSIS: A medical history of recently diagnosed with seizure disorder. ALLERGIES: She has no known drug allergy. MEDICATION: Are as described above. FAMILY AND SOCIAL HISTORY: Please refer to old records. MENTAL STATUS EXAMINATION: The patient is appropriately dressed, not well groomed. She was rambling, unable to tell me her age, where she is, why she is here. Unable to participate in meaningful conversation or make safe plan for self-care. Her long and short-term memory is poor. She has episodes of agitation, irritability, refusing care at times. Very poor insight. Her long and short-term memory is poor. Insight and judgment is impaired. IMPRESSION: AXIS I: Dementia with behavioral disturbances. MEDICAL DIAGNOSIS: Defer to the medical doctor. Her assets, she is accepting treatment. Negative poor coping skills____. INITIAL TREATMENT PLAN: The patient will be started back on home medication. We will do group therapy, milieu therapy, individual therapy. ESTIMATED LENGTH OF STAY: 3-7 days. DISCHARGE CRITERIA: Decreasing agitation, no longer combative. After discharge, outpatient treatment. JOB# [id number]
[2016-03-12] MEDS: INSULIN ASPART SLIDING SCALE 100 UNITS/ML UNIT SUBQ SCH ×3 (06:59→20:41)
--- NOTE | 2016-03-12 08:22 | General Progress Note ---
Objective - Results Recent Labs: Laboratory Last Values POC Glucose 102 MG/DL (70 - 105) 03/11/16 17:25 - Physical Exam Vitals and I&O: Vital Signs Temp 97.6 F 03/11/16 06:26 Pulse 68 03/11/16 10:18 Resp 18 03/11/16 14:00 BP 100/64 03/11/16 10:18 Pulse Ox 94 03/11/16 06:26 Intake & Output 03/11/16 03/12/16 03/12/16 18:59 06:59 18:59 Intake Total 1800 Balance 1800 Intake: Oral 1800 Other: # Voids 2 2 # Bowel Movements 0 Active Medications: Current Medications Acetaminophen (Tylenol) 650 mg PO Q4HR PRN PRN Reason: Pain Stop: 05/09/16 20:48 Al Hydrox/Mg Hydrox/Simethicone (Maalox) 30 ml PO Q4HR PRN PRN Reason: GI DISTRESS Stop: 05/09/16 20:48 Amlodipine Besylate (Norvasc) 5 mg PO DAILY [facility] Stop: 05/10/16 08:59 Last Admin: 03/11/16 10:18 Dose: 5 mg Benztropine Mesylate (Cogentin) 0.5 mg PO BID [facility] Stop: 05/10/16 08:59 Last Admin: 03/11/16 17:13 Dose: 0.5 mg Dextromethorphan/Quinidine (Nuedexta 20mg-10mg) 1 cap PO Q12HR [facility] Stop: 05/09/16 20:59 Last Admin: 03/11/16 20:55 Dose: Not Given Docusate Sodium (Colace) 250 mg PO DAILY [facility] Stop: 05/10/16 08:59 Last Admin: 03/11/16 10:20 Dose: Not Given Donepezil HCl (Aricept) 10 mg PO HS [facility] Stop: 05/09/16 20:59 Last Admin: 03/11/16 20:55 Dose: Not Given Escitalopram Oxalate (Lexapro) 5 mg PO DAILY [facility] PRN Reason: Protocol Stop: 05/10/16 08:59 Last Admin: 03/11/16 10:19 Dose: 5 mg Insulin Aspart (Novolog Insulin Sliding Scale) 0 units SUBQ ACHS RIC PRN Reason: Protocol Stop: 05/09/16 20:59 Last Admin: 03/12/16 06:59 Dose: Not Given Levetiracetam (Keppra) 500 mg PO BID [facility] Stop: 05/10/16 08:59 Last Admin: 03/11/16 17:13 Dose: 500 mg Lorazepam (Ativan) 0.5 mg PO Q4HR PRN; Protocol PRN Reason: Anxiety Stop: 04/09/16 20:48 Memantine (Namenda) 10 mg PO Q12HR [facility] Stop: 05/10/16 08:59 Last Admin: 03/11/16 20:55 Dose: Not Given Multivitamins/Vitamin C (Theragran) 1 tab PO DAILY [facility] Stop: 05/10/16 08:59 Last Admin: 03/11/16 10:20 Dose: Not Given Olanzapine (Zyprexa) 12.5 mg PO HS [facility] PRN Reason: Protocol Stop: 05/09/16 20:59 Last Admin: 03/11/16 20:55 Dose: Not Given Phenytoin (Dilantin) 200 mg PO BID [facility] Stop: 03/12/16 17:01 Last Admin: 03/11/16 17:13 Dose: 200 mg Phenytoin (Dilantin) 300 mg PO DAILY [facility] Stop: 05/12/16 08:59 Tobramycin/Dexamethasone (Tobradex 0.1%-0.3% Ophth Susp 2.5ml) 2 drop LEFT EYE TID [facility] Stop: 03/16/16 14:29 Last Admin: 03/11/16 22:12 Dose: Not Given Zolpidem Tartrate (Ambien) 5 mg PO HS PRN PRN Reason: Insomnia Stop: 05/09/16 20:48 - Procedures Procedures: Procedures Procedure Code Date GROUP PSYCHOTHERAPY 08920 04/15/15 GROUP PSYCHOTHERAPY GZHZZZZ 04/15/15 GROUP PSYCHOTHERAPY 89937 01/16/15 GROUP PSYCHOTHERAPY GZHZZZZ 01/16/15 Assessment/Plan - Problem List Patient Problems: All Active Problems Abnormal lithium level in blood (Acute) R78.89 Agitation (Acute) R45.1 INCREASED AGGRESSIVE BEHAVIOR (Acute) Outbursts of anger (Acute) R45.4
[2016-03-12] MEDS: Dexamethasone/Tobramycin Ophth Susp 2.5 mL Bottle LEFT EYE SCH ×3 (10:22→20:55)
[2016-03-12] MEDS: Dextromethorphan/Quinidine 20mg/10mg Cap PO SCH ×2 (10:24→20:57)
[2016-03-12] MEDS: Escitalopram Oxalate 5 mg Tab PO SCH (10:32)
[2016-03-12] MEDS: Multivitamin Tab PO SCH (10:32)
--- NOTE | 2016-03-13 01:50 | Progress Notes ---
Case discussed with staff of the patient, reviewed records. The patient continues to have episodes of agitation and irritability, continues to be unpredictable, impulsive, needing redirection. She is demented, confused, unable to make safe plan for her self-care, acting agitated at times. She has been compliant with the medication with no side effects, no sedation, no nausea and no extrapyramidal symptoms. We will continue to work with the patient in group therapy, milieu therapy, adjust the medication as needed. JOB# [id number]
[2016-03-13] MEDS: INSULIN ASPART SLIDING SCALE 100 UNITS/ML UNIT SUBQ SCH ×4 (06:45→20:33)
[2016-03-13] MEDS: Dextromethorphan/Quinidine 20mg/10mg Cap PO SCH ×2 (09:04→20:37)
[2016-03-13] MEDS: Escitalopram Oxalate 5 mg Tab PO SCH (09:04)
[2016-03-13] MEDS: Multivitamin Tab PO SCH (09:04)
[2016-03-13] MEDS: Dexamethasone/Tobramycin Ophth Susp 2.5 mL Bottle LEFT EYE SCH ×3 (09:30→20:36)
--- NOTE | 2016-03-13 12:58 | General Progress Note ---
Subjective - Review of Systems Service Date: 03/13/16 Subjective: AWAKE, CALM CONFUSED nad Objective - Results Recent Labs: Laboratory Last Values POC Glucose 147 MG/DL (70 - 105) H 03/13/16 11:28 - Physical Exam Vitals and I&O: Vital Signs Temp 97.8 F 03/12/16 14:00 Pulse 65 03/13/16 09:04 Resp 18 03/12/16 14:00 BP 106/58 03/13/16 09:04 Pulse Ox 98 03/12/16 14:00 Intake & Output 03/12/16 03/13/16 03/13/16 18:59 06:59 18:59 Intake Total 1800 Balance 1800 Intake: Oral 1800 Other: # Voids 4 # Bowel Movements 1 Active Medications: Current Medications Acetaminophen (Tylenol) 650 mg PO Q4HR PRN PRN Reason: Pain Stop: 05/09/16 20:48 Al Hydrox/Mg Hydrox/Simethicone (Maalox) 30 ml PO Q4HR PRN PRN Reason: GI DISTRESS Stop: 05/09/16 20:48 Amlodipine Besylate (Norvasc) 5 mg PO DAILY [facility] Stop: 05/10/16 08:59 Last Admin: 03/13/16 09:04 Dose: Not Given Benztropine Mesylate (Cogentin) 0.5 mg PO BID [facility] Stop: 05/10/16 08:59 Last Admin: 03/13/16 09:04 Dose: 0.5 mg Dextromethorphan/Quinidine (Nuedexta 20mg-10mg) 1 cap PO Q12HR [facility] Stop: 05/09/16 20:59 Last Admin: 03/13/16 09:04 Dose: 1 cap Docusate Sodium (Colace) 250 mg PO DAILY [facility] Stop: 05/10/16 08:59 Last Admin: 03/13/16 09:04 Dose: 250 mg Donepezil HCl (Aricept) 10 mg PO HS [facility] Stop: 05/09/16 20:59 Last Admin: 03/12/16 20:57 Dose: 10 mg Escitalopram Oxalate (Lexapro) 10 mg PO DAILY [facility] PRN Reason: Protocol Stop: 05/12/16 11:24 Insulin Aspart (Novolog Insulin Sliding Scale) 0 units SUBQ ACHS [facility] PRN Reason: Protocol Stop: 05/09/16 20:59 Last Admin: 03/13/16 11:32 Dose: Not Given Levetiracetam (Keppra) 500 mg PO BID [facility] Stop: 05/10/16 08:59 Last Admin: 03/13/16 09:04 Dose: 500 mg Lorazepam (Ativan) 0.5 mg PO Q4HR PRN; Protocol PRN Reason: Anxiety Stop: 04/09/16 20:48 Memantine (Namenda) 10 mg PO Q12HR [facility] Stop: 05/10/16 08:59 Last Admin: 03/13/16 09:04 Dose: 10 mg Multivitamins/Vitamin C (Theragran) 1 tab PO DAILY [facility] Stop: 05/10/16 08:59 Last Admin: 03/13/16 09:04 Dose: 1 tab Olanzapine (Zyprexa) 12.5 mg PO HS [facility] PRN Reason: Protocol Stop: 05/09/16 20:59 Last Admin: 03/12/16 20:55 Dose: 12.5 mg Phenytoin (Dilantin) 300 mg PO DAILY [facility] Stop: 05/12/16 08:59 Last Admin: 03/13/16 09:04 Dose: 300 mg Tobramycin/Dexamethasone (Tobradex 0.1%-0.3% Ophth Susp 2.5ml) 2 drop LEFT EYE TID [facility] Stop: 03/16/16 14:29 Last Admin: 03/13/16 09:30 Dose: 2 drop Zolpidem Tartrate (Ambien) 5 mg PO HS PRN PRN Reason: Insomnia Stop: 05/09/16 20:48 General: Alert HEENT: Atraumatic Neck: Supple Cardiovascular: Regular rate Lungs: Clear to auscultation Abdomen: Bowel sounds - Procedures Procedures: Procedures Procedure Code Date GROUP PSYCHOTHERAPY 71632 04/15/15 GROUP PSYCHOTHERAPY GZHZZZZ 04/15/15 GROUP PSYCHOTHERAPY 26719 01/16/15 GROUP PSYCHOTHERAPY GZHZZZZ 01/16/15 Assessment/Plan - Problem List Patient Problems: All Active Problems The Product License for [email or web address] has and was valid until [01/08/2016]. Please refer to our FAQ page ([email or web address]) and contact [facility] Customer Support at [email or web address] (Acute) seizures (Acute) Abnormal lithium level in blood (Acute) R78.89 Agitation (Acute) R45.1 INCREASED AGGRESSIVE BEHAVIOR (Acute) Outbursts of anger (Acute) R45.4 - Plan Plan: SEIZURE PRECAUTIONS CPM
--- NOTE | 2016-03-13 21:52 | Progress Notes ---
Case discussed with staff of the patient, reviewed records. The patient continues to be confused, unable to participate in meaningful conversation, continues to have poor insight. Continues to be isolating herself, demented, confused. She has been compliant with the medication with no side effects, no sedation, no nausea. I will be increasing her Lexapro dose to 10 mg a day and we will continue to work with patient in group therapy, milieu therapy, adjust the medication as needed. JOB# [id number]
[2016-03-14] MEDS: INSULIN ASPART SLIDING SCALE 100 UNITS/ML UNIT SUBQ SCH ×3 (06:46→21:14)
[2016-03-14] MEDS: Dexamethasone/Tobramycin Ophth Susp 2.5 mL Bottle LEFT EYE SCH ×4 (08:11→21:17)
[2016-03-14] MEDS: Dextromethorphan/Quinidine 20mg/10mg Cap PO SCH ×2 (08:12→21:15)
[2016-03-14] MEDS: Escitalopram Oxalate 5 mg Tab PO SCH (08:12)
[2016-03-14] MEDS: Multivitamin Tab PO SCH (08:14)
--- NOTE | 2016-03-14 23:54 | Progress Notes ---
Dr. Pate is covering for Dr. Ding. SUBJECTIVE: Chart reviewed and the patient interviewed. Also, discussed the patient's condition with the staff and reviewed records and labs. The patient remains in angry and in irritable mood. The patient also is still selective in taking her medications and she was refusing to take her seizure medicine yesterday, but later on, she was refusing to take all her medications. The patient also has periods of agitation, irritability, and yesterday, the patient was severely aggressive and in irritable mood. The patient was given an injection of Ativan 1 mg to calm her down. The patient is still hostile. The patient also still seems to be actively responding to stimuli during interview and has disorganized thoughts. ASSESSMENT: The patient is still psychotic. TREATMENT PLAN: We will continue monitoring her behavior and her condition closely. Also, encouraged the patient to take her medications and we will monitor her paranoia and her being uncooperative closely. [facility]# [id number]
[2016-03-15] MEDS: INSULIN ASPART SLIDING SCALE 100 UNITS/ML UNIT SUBQ SCH ×4 (07:10→20:49)
[2016-03-15] MEDS: Escitalopram Oxalate 5 mg Tab PO SCH (09:24)
[2016-03-15] MEDS: Dexamethasone/Tobramycin Ophth Susp 2.5 mL Bottle LEFT EYE SCH ×3 (09:25→20:39)
[2016-03-15] MEDS: Dextromethorphan/Quinidine 20mg/10mg Cap PO SCH ×2 (09:25→20:39)
[2016-03-15] MEDS: Multivitamin Tab PO SCH (09:27)
--- NOTE | 2016-03-15 18:20 | General Progress Note ---
Subjective - Review of Systems Service Date: 03/15/16 Subjective: AWAKE, CALM CONFUSED nad Objective - Results Recent Labs: Laboratory Last Values POC Glucose 98 MG/DL (70 - 105) 03/15/16 16:53 - Physical Exam Vitals and I&O: Vital Signs Temp 98.2 F 03/15/16 14:54 Pulse 58 03/15/16 14:54 Resp 20 03/15/16 14:54 BP 130/80 03/15/16 14:54 Pulse Ox 96 03/15/16 14:54 Intake & Output 03/14/16 03/15/16 03/15/16 18:59 06:59 18:59 Intake Total 1200 360 Balance 1200 360 Intake: Oral 1200 360 Other: # Voids 3 1 # Bowel Movements 1 Active Medications: Current Medications Acetaminophen (Tylenol) 650 mg PO Q4HR PRN PRN Reason: Pain Stop: 05/09/16 20:48 Al Hydrox/Mg Hydrox/Simethicone (Maalox) 30 ml PO Q4HR PRN PRN Reason: GI DISTRESS Stop: 05/09/16 20:48 Amlodipine Besylate (Norvasc) 5 mg PO DAILY RIC Stop: 05/10/16 08:59 Last Admin: 03/15/16 09:26 Dose: Not Given Benztropine Mesylate (Cogentin) 0.5 mg PO BID RIC Stop: 05/10/16 08:59 Last Admin: 03/15/16 17:02 Dose: 0.5 mg Dextromethorphan/Quinidine (Nuedexta 20mg-10mg) 1 cap PO Q12HR RIC Stop: 05/09/16 20:59 Last Admin: 03/15/16 09:25 Dose: 1 cap Docusate Sodium (Colace) 250 mg PO DAILY RIC Stop: 05/10/16 08:59 Last Admin: 03/15/16 09:27 Dose: 250 mg Donepezil HCl (Aricept) 10 mg PO HS RIC Stop: 05/09/16 20:59 Last Admin: 03/14/16 21:15 Dose: 10 mg Escitalopram Oxalate (Lexapro) 10 mg PO DAILY RIC PRN Reason: Protocol Stop: 05/13/16 08:59 Last Admin: 03/15/16 09:24 Dose: 10 mg Insulin Aspart (Novolog Insulin Sliding Scale) 0 units SUBQ ACHS RIC PRN Reason: Protocol Stop: 05/09/16 20:59 Last Admin: 03/15/16 17:01 Dose: Not Given Levetiracetam (Keppra) 500 mg PO BID RIC Stop: 05/10/16 08:59 Last Admin: 03/15/16 17:02 Dose: 500 mg Lorazepam (Ativan) 0.5 mg PO Q4HR PRN; Protocol PRN Reason: Anxiety Stop: 04/09/16 20:48 Memantine (Namenda) 10 mg PO Q12HR RIC Stop: 05/10/16 08:59 Last Admin: 03/15/16 09:25 Dose: 10 mg Multivitamins/Vitamin C (Theragran) 1 tab PO DAILY RIC Stop: 05/10/16 08:59 Last Admin: 03/15/16 09:27 Dose: 1 tab Olanzapine (Zyprexa) 12.5 mg PO HS RIC PRN Reason: Protocol Stop: 05/09/16 20:59 Last Admin: 03/14/16 21:15 Dose: 12.5 mg Phenytoin (Dilantin) 300 mg PO DAILY RIC Stop: 05/12/16 08:59 Last Admin: 03/15/16 09:24 Dose: 300 mg Tobramycin/Dexamethasone (Tobradex 0.1%-0.3% Ophth Susp 2.5ml) 2 drop LEFT EYE TID RIC Stop: 03/16/16 14:29 Last Admin: 03/15/16 17:02 Dose: Not Given Zolpidem Tartrate (Ambien) 5 mg PO HS PRN PRN Reason: Insomnia Stop: 05/09/16 20:48 - Procedures Procedures: Procedures Procedure Code Date GROUP PSYCHOTHERAPY 73228 04/15/15 GROUP PSYCHOTHERAPY GZHZZZZ 04/15/15 GROUP PSYCHOTHERAPY 85507 01/16/15 GROUP PSYCHOTHERAPY GZHZZZZ 01/16/15 Assessment/Plan - Problem List Patient Problems: All Active Problems The Product License for Secure SoftwareedFyreballal_ProblemIT_Professional has and was valid until [01/08/2016]. Please refer to our FAQ page ([email or web address]/faq [email or web address]_[email or web address]) and contact [employer] Customer Support at [email or web address] (Acute) seizures (Acute) Abnormal lithium level in blood (Acute) R78.89 Agitation (Acute) R45.1 INCREASED AGGRESSIVE BEHAVIOR (Acute) Outbursts of anger (Acute) R45.4 - Plan Plan: SEIZURE PRECAUTIONS CPM
--- NOTE | 2016-03-16 00:36 | Progress Notes ---
SUBJECTIVE: Chart reviewed and the patient interviewed. Also discussed the patient's condition with the staff and reviewed records and labs. The patient is still in angry and in irritable mood. The patient also still stays in her room most of the time and crawling in bed in a -like position. She also is easily agitated and hostile when approached. When I tried to talk to her today, she was actively responding to the stimuli and talking to herself and she became angry and irritable when I was trying to talk to her. The patient also is still refusing to take medications for no apparent reason. Also, personal hygiene is still poor. The patient also at times demands to leave the facility without bringing any safe plan for discharge. 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 TREATMENT PLAN: We will continue monitoring her behavior and her condition closely. Also, continue adjusting psychotropic medications and encourage the patient to take her medications. Also, continue to work on behavior and followup. JOB# [id number]
[2016-03-16] MEDS: INSULIN ASPART SLIDING SCALE 100 UNITS/ML UNIT SUBQ SCH ×4 (06:41→21:07)
[2016-03-16] MEDS: Escitalopram Oxalate 5 mg Tab PO SCH (08:41)
[2016-03-16] MEDS: Multivitamin Tab PO SCH (08:42)
[2016-03-16] MEDS: Dextromethorphan/Quinidine 20mg/10mg Cap PO SCH ×2 (08:43→21:04)
[2016-03-16] MEDS: Dexamethasone/Tobramycin Ophth Susp 2.5 mL Bottle LEFT EYE SCH ×2 (08:43→15:04)
--- NOTE | 2016-03-16 09:00 | General Progress Note ---
Subjective - Review of Systems Subjective: AWAKE, CALM CONFUSED nad Objective - Results Recent Labs: Laboratory Last Values POC Glucose 105 MG/DL (70 - 105) 03/16/16 06:16 - Physical Exam Vitals and I&O: Vital Signs Temp 97.3 F 03/16/16 06:27 Pulse 67 03/16/16 08:42 Resp 18 03/16/16 06:27 BP 110/57 03/16/16 08:42 Pulse Ox 93 03/16/16 06:27 Intake & Output 03/15/16 03/16/16 03/16/16 18:59 06:59 18:59 Intake Total 800 120 Balance 800 120 Intake: Oral 800 120 Other: # Voids 4 3 # Bowel Movements 2 0 Active Medications: Current Medications Acetaminophen (Tylenol) 650 mg PO Q4HR PRN PRN Reason: Pain Stop: 05/09/16 20:48 Al Hydrox/Mg Hydrox/Simethicone (Maalox) 30 ml PO Q4HR PRN PRN Reason: GI DISTRESS Stop: 05/09/16 20:48 Amlodipine Besylate (Norvasc) 5 mg PO DAILY RIC Stop: 05/10/16 08:59 Last Admin: 03/16/16 08:42 Dose: 5 mg Benztropine Mesylate (Cogentin) 0.5 mg PO BID RIC Stop: 05/10/16 08:59 Last Admin: 03/16/16 08:43 Dose: 0.5 mg Dextromethorphan/Quinidine (Nuedexta 20mg-10mg) 1 cap PO Q12HR RIC Stop: 05/09/16 20:59 Last Admin: 03/16/16 08:43 Dose: 1 cap Docusate Sodium (Colace) 250 mg PO DAILY RIC Stop: 05/10/16 08:59 Last Admin: 03/16/16 08:43 Dose: 250 mg Donepezil HCl (Aricept) 10 mg PO HS RIC Stop: 05/09/16 20:59 Last Admin: 03/15/16 20:39 Dose: 10 mg Escitalopram Oxalate (Lexapro) 10 mg PO DAILY RIC PRN Reason: Protocol Stop: 05/13/16 08:59 Last Admin: 03/16/16 08:41 Dose: 10 mg Insulin Aspart (Novolog Insulin Sliding Scale) 0 units SUBQ ACHS RIC PRN Reason: Protocol Stop: 05/09/16 20:59 Last Admin: 03/16/16 06:41 Dose: Not Given Levetiracetam (Keppra) 500 mg PO BID RIC Stop: 05/10/16 08:59 Last Admin: 03/16/16 08:44 Dose: 500 mg Lorazepam (Ativan) 0.5 mg PO Q4HR PRN; Protocol PRN Reason: Anxiety Stop: 04/09/16 20:48 Memantine (Namenda) 10 mg PO Q12HR RIC Stop: 05/10/16 08:59 Last Admin: 03/16/16 08:44 Dose: 10 mg Multivitamins/Vitamin C (Theragran) 1 tab PO DAILY RIC Stop: 05/10/16 08:59 Last Admin: 03/16/16 08:42 Dose: 1 tab Olanzapine (Zyprexa) 12.5 mg PO HS RIC PRN Reason: Protocol Stop: 05/09/16 20:59 Last Admin: 03/15/16 20:40 Dose: 12.5 mg Phenytoin (Dilantin) 300 mg PO DAILY RIC Stop: 05/12/16 08:59 Last Admin: 03/16/16 08:42 Dose: 300 mg Tobramycin/Dexamethasone (Tobradex 0.1%-0.3% Ophth Susp 2.5ml) 2 drop LEFT EYE TID RIC Stop: 03/16/16 14:29 Last Admin: 03/16/16 08:43 Dose: 2 drop Zolpidem Tartrate (Ambien) 5 mg PO HS PRN PRN Reason: Insomnia Stop: 05/09/16 20:48 - Procedures Procedures: Procedures Procedure Code Date GROUP PSYCHOTHERAPY 02039 04/15/15 GROUP PSYCHOTHERAPY GZHZZZZ 04/15/15 GROUP PSYCHOTHERAPY 00246 01/16/15 GROUP PSYCHOTHERAPY GZHZZZZ 01/16/15 Assessment/Plan - Problem List Patient Problems: All Active Problems The Product License for Placer Community FoundationedUnveil_ProblemIT_Professional has and was valid until [01/08/2016]. Please refer to our FAQ page ([email or web address]/faq /[email or web address]_faq.[email or web address]) and contact [employer] Customer Support at [email or web address] (Acute) seizures (Acute) Abnormal lithium level in blood (Acute) R78.89 Agitation (Acute) R45.1 INCREASED AGGRESSIVE BEHAVIOR (Acute) Outbursts of anger (Acute) R45.4 - Plan Plan: SEIZURE PRECAUTIONS CPM
--- NOTE | 2016-03-17 01:06 | Progress Notes ---
Case discussed with staff of the patient, reviewed records. 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 I did increase her Lexapro dose on 03/14/2016 to 10 mg a day. She is on Aricept 10 mg at bedtime and Nuedexta twice a day and Namenda 10 mg twice a day and olanzapine 12.5 mg at bedtime with no side effects, no sedation, no nausea, no extrapyramidal symptoms and she does have a high blood sugar. She is on medication for her seizure. Her repeated blood sugar on the 03/09/2016 was 99, it was 185 on the 03/08/2016, so it did go down within normal range. High Dilantin level is 6.3 and that was checked on the 03/09/2016. ____ rechecking her Dilantin level again and I will tell the staff to make sure the medical doctor is aware of it to make any changes and so far no side effects with the medication, no sedation, no nausea and we will continue to work with the patient in group therapy, milieu therapy, adjust the medication as needed. JOB# [id number]
[2016-03-17] MEDS: Escitalopram Oxalate 5 mg Tab PO SCH (08:52)
[2016-03-17] MEDS: Dextromethorphan/Quinidine 20mg/10mg Cap PO SCH ×2 (08:53→20:24)
[2016-03-17] MEDS: INSULIN ASPART SLIDING SCALE 100 UNITS/ML UNIT SUBQ SCH ×4 (08:54→20:47)
[2016-03-17] MEDS: Multivitamin Tab PO SCH (08:57)
--- NOTE | 2016-03-17 09:17 | General Progress Note ---
Subjective - Review of Systems Service Date: 03/17/16 Subjective: AWAKE, CALM CONFUSED nad Objective - Results Recent Labs: Laboratory Last Values POC Glucose 123 MG/DL (70 - 105) H 03/17/16 06:11 Phenytoin 2.6 ug/ml (10.0-20.0) L 03/16/16 12:30 - Physical Exam Vitals and I&O: Vital Signs Temp 98 F 03/17/16 06:34 Pulse 67 03/17/16 08:53 Resp 20 03/17/16 06:34 BP 128/68 03/17/16 08:53 Pulse Ox 97 03/17/16 06:34 Intake & Output 03/16/16 03/17/16 03/17/16 18:59 06:59 18:59 Intake Total 120 Balance 120 Weight (lbs) 52.208 kg Intake: Oral 120 Other: # Voids 3 # Bowel Movements 0 Active Medications: Current Medications Acetaminophen (Tylenol) 650 mg PO Q4HR PRN PRN Reason: Pain Stop: 05/09/16 20:48 Al Hydrox/Mg Hydrox/Simethicone (Maalox) 30 ml PO Q4HR PRN PRN Reason: GI DISTRESS Stop: 05/09/16 20:48 Amlodipine Besylate (Norvasc) 5 mg PO DAILY RIC Stop: 05/10/16 08:59 Last Admin: 03/17/16 08:53 Dose: 5 mg Benztropine Mesylate (Cogentin) 0.5 mg PO BID RIC Stop: 05/10/16 08:59 Last Admin: 03/17/16 08:53 Dose: 0.5 mg Dextromethorphan/Quinidine (Nuedexta 20mg-10mg) 1 cap PO Q12HR RIC Stop: 05/09/16 20:59 Last Admin: 03/17/16 08:53 Dose: 1 cap Docusate Sodium (Colace) 250 mg PO DAILY RIC Stop: 05/10/16 08:59 Last Admin: 03/17/16 08:52 Dose: 250 mg Donepezil HCl (Aricept) 10 mg PO HS RIC Stop: 05/09/16 20:59 Last Admin: 03/16/16 21:05 Dose: 10 mg Escitalopram Oxalate (Lexapro) 10 mg PO DAILY RIC PRN Reason: Protocol Stop: 05/13/16 08:59 Last Admin: 03/17/16 08:52 Dose: 10 mg Insulin Aspart (Novolog Insulin Sliding Scale) 0 units SUBQ ACHS RIC PRN Reason: Protocol Stop: 05/09/16 20:59 Last Admin: 03/17/16 08:54 Dose: Not Given Levetiracetam (Keppra) 500 mg PO BID RIC Stop: 05/10/16 08:59 Last Admin: 03/17/16 08:53 Dose: 500 mg Lorazepam (Ativan) 0.5 mg PO Q4HR PRN; Protocol PRN Reason: Anxiety Stop: 04/09/16 20:48 Memantine (Namenda) 10 mg PO Q12HR RIC Stop: 05/10/16 08:59 Last Admin: 03/17/16 08:53 Dose: 10 mg Multivitamins/Vitamin C (Theragran) 1 tab PO DAILY RIC Stop: 05/10/16 08:59 Last Admin: 03/17/16 08:57 Dose: 1 tab Olanzapine (Zyprexa) 12.5 mg PO HS RIC PRN Reason: Protocol Stop: 05/09/16 20:59 Last Admin: 03/16/16 21:05 Dose: 12.5 mg Phenytoin (Dilantin) 300 mg PO BID RIC Stop: 03/19/16 17:01 Last Admin: 03/17/16 08:52 Dose: 300 mg Zolpidem Tartrate (Ambien) 5 mg PO HS PRN PRN Reason: Insomnia Stop: 05/09/16 20:48 General: Alert, Oriented x3 HEENT: Atraumatic Neck: Supple Cardiovascular: Regular rate Abdomen: Bowel sounds Neurological: Normal gait - Procedures Procedures: Procedures Procedure Code Date GROUP PSYCHOTHERAPY 33111 04/15/15 GROUP PSYCHOTHERAPY GZHZZZZ 04/15/15 GROUP PSYCHOTHERAPY 11205 01/16/15 GROUP PSYCHOTHERAPY GZHZZZZ 01/16/15 Assessment/Plan - Problem List Patient Problems: All Active Problems The Product License for Reply.ioedAmadoral_ProblemIT_Professional has and was valid until [01/08/2016]. Please refer to our FAQ page ([email or web address]/faq /[email or web address]_faq.[email or web address]) and contact [employer] Customer Support at (Acute) seizures (Acute) Abnormal lithium level in blood (Acute) R78.89 Agitation (Acute) R45.1 INCREASED AGGRESSIVE BEHAVIOR (Acute) Outbursts of anger (Acute) R45.4 - Plan Plan: SEIZURE PRECAUTIONS CPM
[2016-03-17] MEDS ORDERED: Haloperidol Lactate 5 mg/mL 1mL Vial IM STA (10:14)
--- NOTE | 2016-03-18 03:22 | Progress Notes ---
Case discussed with staff of the patient, reviewed records. The patient continues to have episodes of irritability, agitation. Continues to be unpredictable, impulsive, needing redirection. She has been compliant with the medication with no side effects, no sedation, no nausea, no extrapyramidal symptoms. I did consult with the medical doctor, Dr. Knutson, regarding her low Dilantin level and it seemed like he did increase the dose and so far, no side effects with the medication, no sedation, no nausea. We will continue to work with the patient in group therapy, milieu therapy, adjust the medication as needed. JOB# [id number]
[2016-03-18] MEDS: INSULIN ASPART SLIDING SCALE 100 UNITS/ML UNIT SUBQ SCH ×4 (07:02→21:00)
[2016-03-18] MEDS: Multivitamin Tab PO SCH (08:33)
[2016-03-18] MEDS: Dextromethorphan/Quinidine 20mg/10mg Cap PO SCH ×2 (08:33→21:28)
--- NOTE | 2016-03-18 10:04 | General Progress Note ---
Subjective - Review of Systems Subjective: AWAKE, CALM CONFUSED nad Objective - Results Recent Labs: Laboratory Last Values POC Glucose 94 MG/DL (70 - 105) 03/18/16 06:51 Phenytoin 2.6 ug/ml (10.0-20.0) L 03/16/16 12:30 - Physical Exam Vitals and I&O: Vital Signs Temp 97.2 F 03/18/16 06:24 Pulse 66 03/18/16 08:32 Resp 18 03/18/16 06:24 BP 114/68 03/18/16 08:32 Pulse Ox 98 03/18/16 06:24 Intake & Output 03/17/16 03/18/16 03/18/16 18:59 06:59 18:59 Intake Total 2200 240 Balance 2200 240 Intake: Oral 2200 240 Other: # Voids 4 3 # Bowel Movements 0 0 Active Medications: Current Medications Acetaminophen (Tylenol) 650 mg PO Q4HR PRN PRN Reason: Pain Stop: 05/09/16 20:48 Al Hydrox/Mg Hydrox/Simethicone (Maalox) 30 ml PO Q4HR PRN PRN Reason: GI DISTRESS Stop: 05/09/16 20:48 Amlodipine Besylate (Norvasc) 5 mg PO DAILY RIC Stop: 05/10/16 08:59 Last Admin: 03/18/16 08:32 Dose: 5 mg Benztropine Mesylate (Cogentin) 0.5 mg PO BID RIC Stop: 05/10/16 08:59 Last Admin: 03/18/16 08:33 Dose: 0.5 mg Dextromethorphan/Quinidine (Nuedexta 20mg-10mg) 1 cap PO Q12HR RIC Stop: 05/09/16 20:59 Last Admin: 03/18/16 08:33 Dose: 1 cap Docusate Sodium (Colace) 250 mg PO DAILY RIC Stop: 05/10/16 08:59 Last Admin: 03/18/16 08:32 Dose: 250 mg Donepezil HCl (Aricept) 10 mg PO HS RIC Stop: 05/09/16 20:59 Last Admin: 03/17/16 20:24 Dose: 10 mg Escitalopram Oxalate (Lexapro) 10 mg PO DAILY RIC Stop: 05/17/16 08:59 Last Admin: 03/18/16 08:33 Dose: 10 mg Insulin Aspart (Novolog Insulin Sliding Scale) 0 units SUBQ ACHS RIC PRN Reason: Protocol Stop: 05/09/16 20:59 Last Admin: 03/18/16 07:02 Dose: Not Given Levetiracetam (Keppra) 500 mg PO BID RIC Stop: 05/10/16 08:59 Last Admin: 03/18/16 08:32 Dose: 500 mg Lorazepam (Ativan) 0.5 mg PO Q4HR PRN; Protocol PRN Reason: Anxiety Stop: 04/09/16 20:48 Memantine (Namenda) 10 mg PO Q12HR RIC Stop: 05/10/16 08:59 Last Admin: 03/18/16 08:32 Dose: 10 mg Multivitamins/Vitamin C (Theragran) 1 tab PO DAILY RIC Stop: 05/10/16 08:59 Last Admin: 03/18/16 08:33 Dose: 1 tab Olanzapine (Zyprexa) 12.5 mg PO HS RIC PRN Reason: Protocol Stop: 05/09/16 20:59 Last Admin: 03/17/16 20:24 Dose: 12.5 mg Phenytoin (Dilantin) 300 mg PO BID RIC Stop: 03/19/16 17:01 Last Admin: 03/18/16 08:32 Dose: 300 mg Zolpidem Tartrate (Ambien) 5 mg PO HS PRN PRN Reason: Insomnia Stop: 05/09/16 20:48 - Procedures Procedures: Procedures Procedure Code Date GROUP PSYCHOTHERAPY 60118 04/15/15 GROUP PSYCHOTHERAPY GZHZZZZ 04/15/15 GROUP PSYCHOTHERAPY 33615 01/16/15 GROUP PSYCHOTHERAPY GZHZZZZ 01/16/15 Assessment/Plan - Problem List Patient Problems: All Active Problems The Product License for Programm[employer] Headhuntingal_ProblemIT_Professional has and was valid until [01/08/2016]. Please refer to our FAQ page (http://[email or web address]/faq /[email or web address]_faq.[email or web address]) and contact [employer] Customer Support at [email or web address] (Acute) seizures (Acute) Abnormal lithium level in blood (Acute) R78.89 Agitation (Acute) R45.1 INCREASED AGGRESSIVE BEHAVIOR (Acute) Outbursts of anger (Acute) R45.4 - Plan Plan: SEIZURE PRECAUTIONS CPM
--- NOTE | 2016-03-18 23:57 | Progress Notes ---
Case was discussed with staff of the patient, reviewed records. The patient continues to be confused and irritable. Continues to have episodes of agitation and irritability. Continues to have poor insight. Unable to make safe plan for her self-care. Easily agitated. She is compliant with the medication with no side effects, no sedation, no nausea. I will continue to work with the patient in group therapy, milieu therapy, adjust medication. [facility]# [id number]
[2016-03-19] MEDS: INSULIN ASPART SLIDING SCALE 100 UNITS/ML UNIT SUBQ SCH ×4 (06:42→21:01)
[2016-03-19] MEDS: Dextromethorphan/Quinidine 20mg/10mg Cap PO SCH ×2 (08:42→20:58)
[2016-03-19] MEDS: Multivitamin Tab PO SCH (08:42)
--- NOTE | 2016-03-19 09:17 | General Progress Note ---
Subjective - Review of Systems Subjective: AWAKE, CALM CONFUSED nad Objective - Results Recent Labs: Laboratory Last Values POC Glucose 102 MG/DL (70 - 105) 03/19/16 06:03 Phenytoin 13.1 ug/ml (10.0-20.0) 03/19/16 07:50 - Physical Exam Vitals and I&O: Vital Signs Temp 98.6 F 03/19/16 06:55 Pulse 69 03/19/16 08:43 Resp 20 03/19/16 06:55 BP 109/49 03/19/16 08:43 Pulse Ox 96 03/19/16 06:55 Intake & Output 03/18/16 03/19/16 03/19/16 18:59 06:59 18:59 Intake Total 700 Balance 700 Intake: Oral 700 Other: # Voids 3 # Bowel Movements 0 Active Medications: Current Medications Acetaminophen (Tylenol) 650 mg PO Q4HR PRN PRN Reason: Pain Stop: 05/09/16 20:48 Al Hydrox/Mg Hydrox/Simethicone (Maalox) 30 ml PO Q4HR PRN PRN Reason: GI DISTRESS Stop: 05/09/16 20:48 Amlodipine Besylate (Norvasc) 5 mg PO DAILY RIC Stop: 05/10/16 08:59 Last Admin: 03/19/16 08:43 Dose: Not Given Benztropine Mesylate (Cogentin) 0.5 mg PO BID RIC Stop: 05/10/16 08:59 Last Admin: 03/19/16 08:42 Dose: 0.5 mg Dextromethorphan/Quinidine (Nuedexta 20mg-10mg) 1 cap PO Q12HR RIC Stop: 05/09/16 20:59 Last Admin: 03/19/16 08:42 Dose: 1 cap Docusate Sodium (Colace) 250 mg PO DAILY RIC Stop: 05/10/16 08:59 Last Admin: 03/19/16 08:42 Dose: 250 mg Donepezil HCl (Aricept) 10 mg PO HS RIC Stop: 05/09/16 20:59 Last Admin: 03/18/16 21:28 Dose: 10 mg Escitalopram Oxalate (Lexapro) 10 mg PO DAILY RIC Stop: 05/17/16 08:59 Last Admin: 03/19/16 08:42 Dose: 10 mg Insulin Aspart (Novolog Insulin Sliding Scale) 0 units SUBQ ACHS RIC PRN Reason: Protocol Stop: 05/09/16 20:59 Last Admin: 03/19/16 06:42 Dose: Not Given Levetiracetam (Keppra) 500 mg PO BID RIC Stop: 05/10/16 08:59 Last Admin: 03/19/16 08:42 Dose: 500 mg Lorazepam (Ativan) 0.5 mg PO Q4HR PRN; Protocol PRN Reason: Anxiety Stop: 04/09/16 20:48 Last Admin: 03/18/16 18:54 Dose: 0.5 mg Memantine (Namenda) 10 mg PO Q12HR RIC Stop: 05/10/16 08:59 Last Admin: 03/19/16 08:42 Dose: 10 mg Multivitamins/Vitamin C (Theragran) 1 tab PO DAILY RIC Stop: 05/10/16 08:59 Last Admin: 03/19/16 08:42 Dose: 1 tab Olanzapine (Zyprexa) 12.5 mg PO HS RIC PRN Reason: Protocol Stop: 05/09/16 20:59 Last Admin: 03/18/16 21:27 Dose: 12.5 mg Phenytoin (Dilantin) 300 mg PO BID RIC Stop: 03/19/16 17:01 Last Admin: 03/19/16 08:44 Dose: 300 mg Zolpidem Tartrate (Ambien) 5 mg PO HS PRN PRN Reason: Insomnia Stop: 05/09/16 20:48 - Procedures Procedures: Procedures Procedure Code Date GROUP PSYCHOTHERAPY 36336 04/15/15 GROUP PSYCHOTHERAPY GZHZZZZ 04/15/15 GROUP PSYCHOTHERAPY 43545 01/16/15 GROUP PSYCHOTHERAPY GZHZZZZ 01/16/15 Assessment/Plan - Problem List Patient Problems: All Active Problems The Product License for [employer]_ProblemIT_Professional has and was valid until [01/08/2016]. Please refer to our FAQ page (http://[email or web address]/faq /[email or web address]_[email or web address]) and contact [employer] Customer Support at [email or web address] (Acute) seizures (Acute) Abnormal lithium level in blood (Acute) R78.89 Agitation (Acute) R45.1 INCREASED AGGRESSIVE BEHAVIOR (Acute) Outbursts of anger (Acute) R45.4 - Plan Plan: SEIZURE PRECAUTIONS CPM
--- NOTE | 2016-03-19 23:55 | General Progress Note ---
Subjective - Review of Systems Service Date: 03/19/16 Subjective: Calm at this time, at times gets agitated. Objective - Results Recent Labs: Laboratory Last Values POC Glucose 96 MG/DL (70 - 105) 03/19/16 16:27 Phenytoin 13.1 ug/ml (10.0-20.0) 03/19/16 07:50 - Physical Exam Vitals and I&O: Vital Signs Temp 98.4 F 03/19/16 14:00 Pulse 56 03/19/16 14:00 Resp 19 03/19/16 20:00 BP 113/61 03/19/16 14:00 Pulse Ox 97 03/19/16 14:00 Intake & Output 03/19/16 03/19/16 03/20/16 06:59 18:59 06:59 Intake Total 1000 Balance 1000 Intake: Oral 1000 Other: # Voids 3 # Bowel Movements 1 Stool Characteristics Soft Formed Brown Active Medications: Current Medications Acetaminophen (Tylenol) 650 mg PO Q4HR PRN PRN Reason: Pain Stop: 05/09/16 20:48 Al Hydrox/Mg Hydrox/Simethicone (Maalox) 30 ml PO Q4HR PRN PRN Reason: GI DISTRESS Stop: 05/09/16 20:48 Amlodipine Besylate (Norvasc) 5 mg PO DAILY RIC Stop: 05/10/16 08:59 Last Admin: 03/19/16 08:43 Dose: Not Given Benztropine Mesylate (Cogentin) 0.5 mg PO BID RIC Stop: 05/10/16 08:59 Last Admin: 03/19/16 16:49 Dose: 0.5 mg Dextromethorphan/Quinidine (Nuedexta 20mg-10mg) 1 cap PO Q12HR RIC Stop: 05/09/16 20:59 Last Admin: 03/19/16 20:58 Dose: 1 cap Docusate Sodium (Colace) 250 mg PO DAILY RIC Stop: 05/10/16 08:59 Last Admin: 03/19/16 08:42 Dose: 250 mg Donepezil HCl (Aricept) 10 mg PO HS RIC Stop: 05/09/16 20:59 Last Admin: 03/19/16 20:57 Dose: 10 mg Escitalopram Oxalate (Lexapro) 10 mg PO DAILY RIC Stop: 05/17/16 08:59 Last Admin: 03/19/16 08:42 Dose: 10 mg Insulin Aspart (Novolog Insulin Sliding Scale) 0 units SUBQ ACHS RIC PRN Reason: Protocol Stop: 05/09/16 20:59 Last Admin: 03/19/16 21:01 Dose: 2 units Levetiracetam (Keppra) 500 mg PO BID RIC Stop: 05/10/16 08:59 Last Admin: 03/19/16 16:49 Dose: 500 mg Lorazepam (Ativan) 0.5 mg PO Q4HR PRN; Protocol PRN Reason: Anxiety Stop: 04/09/16 20:48 Last Admin: 03/18/16 18:54 Dose: 0.5 mg Memantine (Namenda) 10 mg PO Q12HR RIC Stop: 05/10/16 08:59 Last Admin: 03/19/16 20:57 Dose: 10 mg Multivitamins/Vitamin C (Theragran) 1 tab PO DAILY RIC Stop: 05/10/16 08:59 Last Admin: 03/19/16 08:42 Dose: 1 tab Olanzapine (Zyprexa) 15 mg PO HS RIC PRN Reason: Protocol Stop: 05/18/16 12:42 Last Admin: 03/19/16 20:58 Dose: 15 mg Zolpidem Tartrate (Ambien) 5 mg PO HS PRN PRN Reason: Insomnia Stop: 05/09/16 20:48 General: Cooperative, No acute distress HEENT: Atraumatic, PERRLA, EOMI, Mucous membr. moist/pink Neck: Supple Cardiovascular: Regular rate, Normal S1, Normal S2 Lungs: Clear to auscultation, Normal air movement Abdomen: Bowel sounds, Soft, no Tender, no Distended Extremities: no Clubbing, no Cyanosis, no Edema Neurological: Normal speech Skin: no Rash - Procedures Procedures: Procedures Procedure Code Date GROUP PSYCHOTHERAPY 12917 04/15/15 GROUP PSYCHOTHERAPY GZHZZZZ 04/15/15 GROUP PSYCHOTHERAPY 80286 01/16/15 GROUP PSYCHOTHERAPY GZHZZZZ 01/16/15 Assessment/Plan - Problem List Patient Problems: All Active Problems The Product License for [employer] Group_ProblemIT_Professional has and was valid until [01/08/2016]. Please refer to our FAQ page (http://[email or web address]/faq [email or web address]_[email or web address]) and contact [employer] Customer Support at [email or web address] (Acute) seizures (Acute) Abnormal lithium level in blood (Acute) R78.89 Agitation (Acute) R45.1 INCREASED AGGRESSIVE BEHAVIOR (Acute) Outbursts of anger (Acute) R45.4 - Assessment Assessment: Seizures Aggressive behaviour.
--- NOTE | 2016-03-20 | Progress Notes ---
The case was discussed with staff of the patient, reviewed records. The patient continues to have episodes of agitation. She gets paranoid at night. She has been irritable, aggressive and needing redirection. Continues to be unpredictable, impulsive. Continues to need redirection. I will be increasing the olanzapine to 50 mg at bedtime to help improve her behavior, paranoia, agitation and so far no side effects with the medication. No sedation, no nausea and no extrapyramidal symptoms. We will continue to work with the patient in group therapy, milieu therapy and adjust the medication as needed. JOB# [id number]
[2016-03-20] MEDS: INSULIN ASPART SLIDING SCALE 100 UNITS/ML UNIT SUBQ SCH ×4 (06:33→20:52)
[2016-03-20] MEDS: Dextromethorphan/Quinidine 20mg/10mg Cap PO SCH ×2 (09:19→20:36)
[2016-03-20] MEDS: Multivitamin Tab PO SCH (09:19)
--- NOTE | 2016-03-20 09:49 | General Progress Note ---
Subjective - Review of Systems Subjective: AWAKE, CALM CONFUSED nad Objective - Results Recent Labs: Laboratory Last Values POC Glucose 111 MG/DL (70 - 105) H 03/20/16 06:10 Phenytoin 17.0 ug/ml (10.0-20.0) 03/20/16 07:45 - Physical Exam Vitals and I&O: Vital Signs Temp 97.1 F 03/20/16 07:10 Pulse 56 03/20/16 07:10 Resp 19 03/20/16 07:10 BP 109/43 03/20/16 07:10 Pulse Ox 97 03/20/16 07:10 Intake & Output 03/19/16 03/20/16 03/20/16 18:59 06:59 18:59 Intake Total 1000 Balance 1000 Intake: Oral 1000 Other: # Voids 3 2 # Bowel Movements 1 Stool Characteristics Soft Formed Brown Active Medications: Current Medications Acetaminophen (Tylenol) 650 mg PO Q4HR PRN PRN Reason: Pain Stop: 05/09/16 20:48 Al Hydrox/Mg Hydrox/Simethicone (Maalox) 30 ml PO Q4HR PRN PRN Reason: GI DISTRESS Stop: 05/09/16 20:48 Amlodipine Besylate (Norvasc) 5 mg PO DAILY RIC Stop: 05/10/16 08:59 Last Admin: 03/20/16 09:19 Dose: Not Given Benztropine Mesylate (Cogentin) 0.5 mg PO BID RIC Stop: 05/10/16 08:59 Last Admin: 03/20/16 09:19 Dose: Not Given Dextromethorphan/Quinidine (Nuedexta 20mg-10mg) 1 cap PO Q12HR RIC Stop: 05/09/16 20:59 Last Admin: 03/20/16 09:19 Dose: Not Given Docusate Sodium (Colace) 250 mg PO DAILY RIC Stop: 05/10/16 08:59 Last Admin: 03/20/16 09:19 Dose: Not Given Donepezil HCl (Aricept) 10 mg PO HS RIC Stop: 05/09/16 20:59 Last Admin: 03/19/16 20:57 Dose: 10 mg Escitalopram Oxalate (Lexapro) 10 mg PO DAILY RIC Stop: 05/17/16 08:59 Last Admin: 03/20/16 09:19 Dose: Not Given Insulin Aspart (Novolog Insulin Sliding Scale) 0 units SUBQ ACHS RIC PRN Reason: Protocol Stop: 05/09/16 20:59 Last Admin: 03/20/16 06:33 Dose: Not Given Levetiracetam (Keppra) 500 mg PO BID RIC Stop: 05/10/16 08:59 Last Admin: 03/20/16 09:19 Dose: Not Given Lorazepam (Ativan) 0.5 mg PO Q4HR PRN; Protocol PRN Reason: Anxiety Stop: 04/09/16 20:48 Last Admin: 03/18/16 18:54 Dose: 0.5 mg Memantine (Namenda) 10 mg PO Q12HR RIC Stop: 05/10/16 08:59 Last Admin: 03/20/16 09:19 Dose: Not Given Multivitamins/Vitamin C (Theragran) 1 tab PO DAILY RIC Stop: 05/10/16 08:59 Last Admin: 03/20/16 09:19 Dose: Not Given Olanzapine (Zyprexa) 15 mg PO HS RIC PRN Reason: Protocol Stop: 05/18/16 12:42 Last Admin: 03/19/16 20:58 Dose: 15 mg Zolpidem Tartrate (Ambien) 5 mg PO HS PRN PRN Reason: Insomnia Stop: 05/09/16 20:48 - Procedures Procedures: Procedures Procedure Code Date GROUP PSYCHOTHERAPY 94429 04/15/15 GROUP PSYCHOTHERAPY GZHZZZZ 04/15/15 GROUP PSYCHOTHERAPY 22919 01/16/15 GROUP PSYCHOTHERAPY GZHZZZZ 01/16/15 Assessment/Plan - Problem List Patient Problems: All Active Problems The Product License for OmiroedSensipassal_ProblemIT_Professional has and was valid until [01/08/2016]. Please refer to our FAQ page (http://[email or web address]/faq /[email or web address]_faq.aspx) and contact [employer] Customer Support at [email or web address] (Acute) seizures (Acute) Abnormal lithium level in blood (Acute) R78.89 Agitation (Acute) R45.1 INCREASED AGGRESSIVE BEHAVIOR (Acute) Outbursts of anger (Acute) R45.4 - Plan Plan: SEIZURE PRECAUTIONS CPM
[2016-03-21] MEDS: INSULIN ASPART SLIDING SCALE 100 UNITS/ML UNIT SUBQ SCH ×4 (06:46→21:03)
--- NOTE | 2016-03-21 08:23 | Progress Notes ---
Case was discussed with staff of the patient, reviewed records. The patient tolerated the increase in Zyprexa. Today, she is alert. She is a bit calmer. She is sleeping better and eating better. She seems to be showing some progress, not as irritable and angry as she was. No side effects with the medication. No sedation, no nausea, and no extrapyramidal symptoms, and we will continue to work with the patient in group therapy, milieu therapy, and adjust medication as needed. JOB# [id number]
--- NOTE | 2016-03-21 11:16 | General Progress Note ---
Subjective - Review of Systems Subjective: AWAKE, CALM CONFUSED nad Objective - Results Recent Labs: Laboratory Last Values POC Glucose 86 MG/DL (70 - 105) 03/21/16 06:13 Phenytoin 17.0 ug/ml (10.0-20.0) 03/20/16 07:45 - Physical Exam Vitals and I&O: Vital Signs Temp 97.8 F 03/20/16 19:57 Pulse 68 03/20/16 19:57 Resp 20 03/20/16 20:00 BP 125/63 03/20/16 19:57 Pulse Ox 97 03/20/16 19:57 Intake & Output 03/20/16 03/21/16 03/21/16 18:59 06:59 18:59 Intake Total 720 120 Balance 720 120 Intake: Oral 720 120 Other: # Voids 4 1 # Bowel Movements 2 Stool Characteristics Soft Soft Formed Formed Brown Brown Active Medications: Current Medications Acetaminophen (Tylenol) 650 mg PO Q4HR PRN PRN Reason: Pain Stop: 05/09/16 20:48 Al Hydrox/Mg Hydrox/Simethicone (Maalox) 30 ml PO Q4HR PRN PRN Reason: GI DISTRESS Stop: 05/09/16 20:48 Amlodipine Besylate (Norvasc) 5 mg PO DAILY RIC Stop: 05/10/16 08:59 Last Admin: 03/20/16 09:19 Dose: Not Given Benztropine Mesylate (Cogentin) 0.5 mg PO BID RIC Stop: 05/10/16 08:59 Last Admin: 03/20/16 16:20 Dose: 0.5 mg Dextromethorphan/Quinidine (Nuedexta 20mg-10mg) 1 cap PO Q12HR RIC Stop: 05/09/16 20:59 Last Admin: 03/20/16 20:36 Dose: 1 cap Docusate Sodium (Colace) 250 mg PO DAILY RIC Stop: 05/10/16 08:59 Last Admin: 03/20/16 09:19 Dose: Not Given Donepezil HCl (Aricept) 10 mg PO HS RIC Stop: 05/09/16 20:59 Last Admin: 03/20/16 20:36 Dose: 10 mg Escitalopram Oxalate (Lexapro) 10 mg PO DAILY RIC Stop: 05/17/16 08:59 Last Admin: 03/20/16 09:19 Dose: Not Given Insulin Aspart (Novolog Insulin Sliding Scale) 0 units SUBQ ACHS RIC PRN Reason: Protocol Stop: 05/09/16 20:59 Last Admin: 03/21/16 06:46 Dose: Not Given Levetiracetam (Keppra) 500 mg PO BID RIC Stop: 05/10/16 08:59 Last Admin: 03/20/16 16:20 Dose: 500 mg Lorazepam (Ativan) 0.5 mg PO Q4HR PRN; Protocol PRN Reason: Anxiety Stop: 04/09/16 20:48 Last Admin: 03/18/16 18:54 Dose: 0.5 mg Memantine (Namenda) 10 mg PO Q12HR RIC Stop: 05/10/16 08:59 Last Admin: 03/20/16 20:36 Dose: 10 mg Multivitamins/Vitamin C (Theragran) 1 tab PO DAILY RIC Stop: 05/10/16 08:59 Last Admin: 03/20/16 09:19 Dose: Not Given Olanzapine (Zyprexa) 15 mg PO HS RIC PRN Reason: Protocol Stop: 05/18/16 12:42 Last Admin: 03/20/16 20:36 Dose: 15 mg Zolpidem Tartrate (Ambien) 5 mg PO HS PRN PRN Reason: Insomnia Stop: 05/09/16 20:48 - Procedures Procedures: Procedures Procedure Code Date GROUP PSYCHOTHERAPY 92383 04/15/15 GROUP PSYCHOTHERAPY GZHZZZZ 04/15/15 GROUP PSYCHOTHERAPY 40432 01/16/15 GROUP PSYCHOTHERAPY GZHZZZZ 01/16/15 Assessment/Plan - Problem List Patient Problems: All Active Problems The Product License for HostedGreen Box Online Science and Technologyal_ProblemIT_Professional has and was valid until [01/08/2016]. Please refer to our FAQ page ([email or web address] Care/faq /[email or web address]_faq.aspx) and contact [employer] Support at [email or web address] (Acute) seizures (Acute) Abnormal lithium level in blood (Acute) R78.89 Agitation (Acute) R45.1 INCREASED AGGRESSIVE BEHAVIOR (Acute) Outbursts of anger (Acute) R45.4 - Plan Plan: SEIZURE PRECAUTIONS CPM
[2016-03-21] MEDS: Dextromethorphan/Quinidine 20mg/10mg Cap PO SCH ×2 (11:35→21:04)
[2016-03-21] MEDS: Multivitamin Tab PO SCH (11:43)
--- NOTE | 2016-03-22 05:50 | Progress Notes ---
Case was discussed with staff of the patient, reviewed records. The patient seems to be showing some progress. She has been a bit calmer. She is easier to redirect. She is sleeping well. She is eating well. Her paranoia, delusional symptoms continue to be there, but it is not as prominent. She is able to control it better. She is compliant with the medication with no side effects, no sedation, no nausea, no extrapyramidal symptoms. I did increase her Zyprexa 2 days ago to mg at bedtime and we will continue to work with the patient in group therapy, milieu therapy, adjust the medication as needed. JOB# [id number]
[2016-03-22] MEDS: INSULIN ASPART SLIDING SCALE 100 UNITS/ML UNIT SUBQ SCH ×4 (06:49→21:30)
--- NOTE | 2016-03-22 08:51 | General Progress Note ---
Subjective - Review of Systems Subjective: AWAKE, CALM CONFUSED nad Objective - Results Recent Labs: Laboratory Last Values POC Glucose 104 MG/DL (70 - 105) 03/22/16 06:19 Phenytoin 17.0 ug/ml (10.0-20.0) 03/20/16 07:45 - Physical Exam Vitals and I&O: Vital Signs Temp 98.2 F 03/22/16 06:48 Pulse 72 03/22/16 06:48 Resp 18 03/22/16 06:48 BP 118/75 03/22/16 06:48 Pulse Ox 97 03/22/16 06:48 Intake & Output 03/21/16 03/22/16 03/22/16 18:59 06:59 18:59 Intake Total 2400 120 Balance 2400 120 Intake: Oral 2400 120 Other: # Voids 4 3 # Bowel Movements 0 Stool Characteristics Soft Soft Formed Formed Brown Brown Active Medications: Current Medications Acetaminophen (Tylenol) 650 mg PO Q4HR PRN PRN Reason: Pain Stop: 05/09/16 20:48 Al Hydrox/Mg Hydrox/Simethicone (Maalox) 30 ml PO Q4HR PRN PRN Reason: GI DISTRESS Stop: 05/09/16 20:48 Amlodipine Besylate (Norvasc) 5 mg PO DAILY RIC Stop: 05/10/16 08:59 Last Admin: 03/21/16 11:42 Dose: Not Given Benztropine Mesylate (Cogentin) 0.5 mg PO BID RIC Stop: 05/10/16 08:59 Last Admin: 03/21/16 17:09 Dose: 0.5 mg Dextromethorphan/Quinidine (Nuedexta 20mg-10mg) 1 cap PO Q12HR RIC Stop: 05/09/16 20:59 Last Admin: 03/21/16 21:04 Dose: 1 cap Docusate Sodium (Colace) 250 mg PO DAILY RIC Stop: 05/10/16 08:59 Last Admin: 03/21/16 11:38 Dose: 250 mg Donepezil HCl (Aricept) 10 mg PO HS RIC Stop: 05/09/16 20:59 Last Admin: 03/21/16 21:05 Dose: 10 mg Escitalopram Oxalate (Lexapro) 10 mg PO DAILY RIC Stop: 05/17/16 08:59 Last Admin: 03/21/16 11:36 Dose: 10 mg Insulin Aspart (Novolog Insulin Sliding Scale) 0 units SUBQ ACHS RIC PRN Reason: Protocol Stop: 05/09/16 20:59 Last Admin: 03/22/16 06:49 Dose: Not Given Levetiracetam (Keppra) 500 mg PO BID RIC Stop: 05/10/16 08:59 Last Admin: 03/21/16 17:09 Dose: 500 mg Lorazepam (Ativan) 0.5 mg PO Q4HR PRN; Protocol PRN Reason: Anxiety Stop: 04/09/16 20:48 Last Admin: 03/21/16 17:09 Dose: 0.5 mg Memantine (Namenda) 10 mg PO Q12HR RIC Stop: 05/10/16 08:59 Last Admin: 03/21/16 21:05 Dose: 10 mg Multivitamins/Vitamin C (Theragran) 1 tab PO DAILY RIC Stop: 05/10/16 08:59 Last Admin: 03/21/16 11:43 Dose: Not Given Olanzapine (Zyprexa) 15 mg PO HS RIC PRN Reason: Protocol Stop: 05/18/16 12:42 Last Admin: 03/21/16 21:05 Dose: 15 mg Zolpidem Tartrate (Ambien) 5 mg PO HS PRN PRN Reason: Insomnia Stop: 05/09/16 20:48 - Procedures Procedures: Procedures Procedure Code Date GROUP PSYCHOTHERAPY 48905 04/15/15 GROUP PSYCHOTHERAPY GZHZZZZ 04/15/15 GROUP PSYCHOTHERAPY 09055 01/16/15 GROUP PSYCHOTHERAPY GZHZZZZ 01/16/15 Assessment/Plan - Problem List Patient Problems: All Active Problems The Product License for Lieferheld_ProblemIT_Professional has and was valid until [01/08/2016]. Please refer to our FAQ page (http://[email or web address]/faq /[email or web address]_faq.aspx) and contact [employer] Customer Support at [email or web address] (Acute) seizures (Acute) Abnormal lithium level in blood (Acute) R78.89 Agitation (Acute) R45.1 INCREASED AGGRESSIVE BEHAVIOR (Acute) Outbursts of anger (Acute) R45.4 - Plan Plan: SEIZURE PRECAUTIONS CPM
[2016-03-22] MEDS: Dextromethorphan/Quinidine 20mg/10mg Cap PO SCH ×2 (10:40→21:04)
[2016-03-22] MEDS: Multivitamin Tab PO SCH (10:40)
--- NOTE | 2016-03-23 05:36 | Progress Notes ---
Case was discussed with staff of the patient, reviewed records. The patient is less aggressive, less delusional ____ continues however needing redirection. She is demented, confused and continues to be unpredictable and impulsive. However, in general, she is much better compared to few days ago. She tolerated the increase in Zyprexa with no side effects, no sedation and no nausea. She is also on Nuedexta twice a day, Lexapro 10 mg daily and Aricept 10 mg at bedtime, Namenda 10 mg twice a day and hopefully if she continues to do well, I do have plan to discharge her tomorrow. We will continue with outpatient group therapy, milieu therapy and adjust the medication as needed. [facility]# [id number]
[2016-03-23] MEDS: INSULIN ASPART SLIDING SCALE 100 UNITS/ML UNIT SUBQ SCH ×4 (06:47→21:10)
[2016-03-23] MEDS: Dextromethorphan/Quinidine 20mg/10mg Cap PO SCH ×2 (09:03→21:10)
[2016-03-23] MEDS: Multivitamin Tab PO SCH (09:03)
--- NOTE | 2016-03-23 09:21 | General Progress Note ---
Subjective - Review of Systems Subjective: AWAKE, CALM CONFUSED nad Objective - Results Recent Labs: Laboratory Last Values POC Glucose 73 MG/DL (70 - 105) 03/23/16 06:34 Phenytoin 17.0 ug/ml (10.0-20.0) 03/20/16 07:45 - Physical Exam Vitals and I&O: Vital Signs Temp 97.4 F 03/22/16 20:58 Pulse 60 03/23/16 09:03 Resp 20 03/22/16 20:58 BP 123/69 03/23/16 09:03 Pulse Ox 97 03/22/16 20:58 Intake & Output 03/22/16 03/23/16 03/23/16 18:59 06:59 18:59 Other: # Bowel Movements 1 Active Medications: Current Medications Acetaminophen (Tylenol) 650 mg PO Q4HR PRN PRN Reason: Pain Stop: 05/09/16 20:48 Al Hydrox/Mg Hydrox/Simethicone (Maalox) 30 ml PO Q4HR PRN PRN Reason: GI DISTRESS Stop: 05/09/16 20:48 Amlodipine Besylate (Norvasc) 5 mg PO DAILY RIC Stop: 05/10/16 08:59 Last Admin: 03/23/16 09:03 Dose: 5 mg Benztropine Mesylate (Cogentin) 0.5 mg PO BID RIC Stop: 05/10/16 08:59 Last Admin: 03/23/16 09:03 Dose: 0.5 mg Dextromethorphan/Quinidine (Nuedexta 20mg-10mg) 1 cap PO Q12HR RIC Stop: 05/09/16 20:59 Last Admin: 03/23/16 09:03 Dose: 1 cap Docusate Sodium (Colace) 250 mg PO DAILY RIC Stop: 05/10/16 08:59 Last Admin: 03/23/16 09:03 Dose: 250 mg Donepezil HCl (Aricept) 10 mg PO HS RIC Stop: 05/09/16 20:59 Last Admin: 03/22/16 21:04 Dose: 10 mg Escitalopram Oxalate (Lexapro) 10 mg PO DAILY RIC Stop: 05/17/16 08:59 Last Admin: 03/23/16 09:03 Dose: 10 mg Insulin Aspart (Novolog Insulin Sliding Scale) 0 units SUBQ ACHS RIC PRN Reason: Protocol Stop: 05/09/16 20:59 Last Admin: 03/23/16 06:47 Dose: Not Given Levetiracetam (Keppra) 500 mg PO BID RIC Stop: 05/10/16 08:59 Last Admin: 03/23/16 09:03 Dose: 500 mg Lorazepam (Ativan) 0.5 mg PO Q4HR PRN; Protocol PRN Reason: Anxiety Stop: 04/09/16 20:48 Last Admin: 03/21/16 17:09 Dose: 0.5 mg Memantine (Namenda) 10 mg PO Q12HR RIC Stop: 05/10/16 08:59 Last Admin: 03/23/16 09:03 Dose: 10 mg Multivitamins/Vitamin C (Theragran) 1 tab PO DAILY RIC Stop: 05/10/16 08:59 Last Admin: 03/23/16 09:03 Dose: 1 tab Olanzapine (Zyprexa) 15 mg PO HS RIC PRN Reason: Protocol Stop: 05/18/16 12:42 Last Admin: 03/22/16 21:05 Dose: 15 mg Zolpidem Tartrate (Ambien) 5 mg PO HS PRN PRN Reason: Insomnia Stop: 05/09/16 20:48 - Procedures Procedures: Procedures Procedure Code Date GROUP PSYCHOTHERAPY 76307 04/15/15 GROUP PSYCHOTHERAPY GZHZZZZ 04/15/15 GROUP PSYCHOTHERAPY 94871 01/16/15 GROUP PSYCHOTHERAPY GZHZZZZ 01/16/15 Assessment/Plan - Problem List Patient Problems: All Active Problems The Product License for HostedTears for Life_ProblemIT_Professional has and was valid until [01/08/2016]. Please refer to our FAQ page (http://www.[email or web address]/faq /vocabportal_faq.aspx) and contact [employer] Customer Support at [email or web address] (Acute) seizures (Acute) Abnormal lithium level in blood (Acute) R78.89 Agitation (Acute) R45.1 INCREASED AGGRESSIVE BEHAVIOR (Acute) Outbursts of anger (Acute) R45.4 - Plan Plan: SEIZURE PRECAUTIONS CPM
[2016-03-23] MEDS ORDERED: Magnesium Hydroxide (MOM) 30 mL UDC PO PRN (11:55)
--- NOTE | 2016-03-24 01:04 | Progress Notes ---
SUBJECTIVE: The patient was seen in the dining room, noncommunicative, less interactive, and is still having episodes of outbursts behavior and agitation towards other staff and other patients. OBJECTIVE: HEENT: Head is atraumatic and normocephalic. Eyes: Bilateral conjunctivae are clear. NECK: Supple. No JVD. CARDIOVASCULAR: S1 and S2 heard. No murmurs. PULMONARY: Clear to auscultation. ABDOMEN: Soft and nontender. Positive bowel sounds. MUSCULOSKELETAL: No edema noted. The patient is wheelchair bound. ASSESSMENT: 1. Dementia. 2. Schizophrenia. 3. Seizure. 4. ____. 5. Diabetes. 6. Insomnia. PLAN: We will keep the patient here in [facility] to monitor her behavior. We will follow up with a psychiatric doctor for his behavioral management. JOB# [id number]
--- NOTE | 2016-03-24 02:47 | Progress Notes ---
Case was discussed with staff of the patient. Today the patient's staff told me that the patient has been labile. She is trying to hit staff. She is unpredictable and impulsive, needing redirection, demented and confused. She is on olanzapine 15 mg at bedtime. I will be adding a small dose in the morning to help with her behavior during the day and so far no side effects, no sedation, no nausea and no extrapyramidal symptoms. We will continue to work with the patient in group therapy, milieu therapy, adjust medication as needed. JOB# [id number]
[2016-03-24] MEDS: INSULIN ASPART SLIDING SCALE 100 UNITS/ML UNIT SUBQ SCH ×4 (06:50→21:25)
[2016-03-24] MEDS: Multivitamin Tab PO SCH (10:21)
[2016-03-24] MEDS: Dextromethorphan/Quinidine 20mg/10mg Cap PO SCH ×2 (10:21→21:22)
--- NOTE | 2016-03-24 12:31 | General Progress Note ---
Subjective - Review of Systems Subjective: AWAKE, CALM CONFUSED nad Objective - Results Recent Labs: Laboratory Last Values POC Glucose 119 MG/DL (70 - 105) H 03/24/16 12:15 Phenytoin 17.0 ug/ml (10.0-20.0) 03/20/16 07:45 - Physical Exam Vitals and I&O: Vital Signs Temp 98.0 F 03/24/16 06:15 Pulse 59 03/24/16 10:22 Resp 19 03/24/16 06:15 BP 110/54 03/24/16 10:22 Pulse Ox 95 03/24/16 06:15 Intake & Output 03/23/16 03/24/16 03/24/16 18:59 06:59 18:59 Intake Total 800 240 Balance 800 240 Weight (lbs) 51.619 kg Intake: Oral 800 240 Other: # Voids 4 2 # Bowel Movements 1 0 Stool Characteristics Soft Formed Active Medications: Current Medications Acetaminophen (Tylenol) 650 mg PO Q4HR PRN PRN Reason: Pain Stop: 05/09/16 20:48 Al Hydrox/Mg Hydrox/Simethicone (Maalox) 30 ml PO Q4HR PRN PRN Reason: GI DISTRESS Stop: 05/09/16 20:48 Amlodipine Besylate (Norvasc) 5 mg PO DAILY RIC Stop: 05/10/16 08:59 Last Admin: 03/24/16 10:22 Dose: Not Given Benztropine Mesylate (Cogentin) 0.5 mg PO BID RIC Stop: 05/10/16 08:59 Last Admin: 03/24/16 10:21 Dose: 0.5 mg Dextromethorphan/Quinidine (Nuedexta 20mg-10mg) 1 cap PO Q12HR RIC Stop: 05/09/16 20:59 Last Admin: 03/24/16 10:21 Dose: 1 cap Docusate Sodium (Colace) 250 mg PO DAILY RIC Stop: 05/10/16 08:59 Last Admin: 03/24/16 10:20 Dose: 250 mg Donepezil HCl (Aricept) 10 mg PO HS RIC Stop: 05/09/16 20:59 Last Admin: 03/23/16 21:10 Dose: 10 mg Escitalopram Oxalate (Lexapro) 10 mg PO DAILY RIC Stop: 05/17/16 08:59 Last Admin: 03/24/16 10:22 Dose: 10 mg Insulin Aspart (Novolog Insulin Sliding Scale) 0 units SUBQ ACHS RIC PRN Reason: Protocol Stop: 05/09/16 20:59 Last Admin: 03/24/16 12:19 Dose: Not Given Levetiracetam (Keppra) 500 mg PO BID RIC Stop: 05/10/16 08:59 Last Admin: 03/24/16 10:21 Dose: 500 mg Lorazepam (Ativan) 0.5 mg PO Q4HR PRN; Protocol PRN Reason: Anxiety Stop: 04/09/16 20:48 Last Admin: 03/21/16 17:09 Dose: 0.5 mg Magnesium Hydroxide (Milk Of Magnesia) 30 ml PO DAILY PRN PRN Reason: Constipation Stop: 05/22/16 11:54 Last Admin: 03/23/16 15:59 Dose: 30 ml Memantine (Namenda) 10 mg PO Q12HR RIC Stop: 05/10/16 08:59 Last Admin: 03/24/16 10:21 Dose: 10 mg Multivitamins/Vitamin C (Theragran) 1 tab PO DAILY RIC Stop: 05/10/16 08:59 Last Admin: 03/24/16 10:21 Dose: Not Given Olanzapine (Zyprexa) 15 mg PO HS RIC PRN Reason: Protocol Stop: 05/18/16 12:42 Last Admin: 03/23/16 21:10 Dose: 15 mg Olanzapine (Zyprexa) 2.5 mg PO DAILY RIC PRN Reason: Protocol Stop: 05/23/16 08:59 Last Admin: 03/24/16 10:22 Dose: 2.5 mg Zolpidem Tartrate (Ambien) 5 mg PO HS PRN PRN Reason: Insomnia Stop: 05/09/16 20:48 - Procedures Procedures: Procedures Procedure Code Date GROUP PSYCHOTHERAPY 35481 04/15/15 GROUP PSYCHOTHERAPY GZHZZZZ 04/15/15 GROUP PSYCHOTHERAPY 48030 01/16/15 GROUP PSYCHOTHERAPY GZHZZZZ 01/16/15 Assessment/Plan - Problem List Patient Problems: All Active Problems The Product License for Neurotron BiotechnologyedTesoraal_ProblemIT_Professional has and was valid until [01/08/2016]. Please refer to our FAQ page (http://www.e-imo.[employer]/faq /vocabportal_faq.aspx) and contact [employer] Customer Support at [email or web address] (Acute) seizures (Acute) Abnormal lithium level in blood (Acute) R78.89 Agitation (Acute) R45.1 INCREASED AGGRESSIVE BEHAVIOR (Acute) Outbursts of anger (Acute) R45.4 - Plan Plan: SEIZURE PRECAUTIONS CPM
--- NOTE | 2016-03-25 01:27 | Progress Notes ---
Case discussed with staff of the patient. The patient is reported today to a little bit more mellow, I did add 2.5 mg Zyprexa to be given in the morning. She continues to have poor insight, I am not sure if this is her basic level of functioning and so far, no side effects with the medication, no sedation, no nausea, no extrapyramidal symptoms. Still unpredictable, impulsive, needing redirection by staff, we will continue to work with the patient in group therapy, milieu therapy, adjust medication as needed. JOB# [id number]
[2016-03-25] MEDS: INSULIN ASPART SLIDING SCALE 100 UNITS/ML UNIT SUBQ SCH ×2 (06:34→12:15)
--- NOTE | 2016-03-25 09:26 | General Progress Note ---
Subjective - Review of Systems Subjective: AWAKE, CALM CONFUSED nad Objective - Results Recent Labs: Laboratory Last Values POC Glucose 83 MG/DL (70 - 105) 03/25/16 06:30 Phenytoin 17.0 ug/ml (10.0-20.0) 03/20/16 07:45 - Physical Exam Vitals and I&O: Vital Signs Temp 97.4 F 03/25/16 06:25 Pulse 58 03/25/16 06:25 Resp 20 03/25/16 06:25 BP 125/60 03/25/16 06:25 Pulse Ox 98 03/25/16 06:25 Intake & Output 03/24/16 03/25/16 03/25/16 18:59 06:59 18:59 Intake Total 1200 0 Balance 1200 0 Intake: Oral 1200 0 Other: # Voids 3 3 # Bowel Movements 0 Active Medications: Current Medications Acetaminophen (Tylenol) 650 mg PO Q4HR PRN PRN Reason: Pain Stop: 05/09/16 20:48 Al Hydrox/Mg Hydrox/Simethicone (Maalox) 30 ml PO Q4HR PRN PRN Reason: GI DISTRESS Stop: 05/09/16 20:48 Amlodipine Besylate (Norvasc) 5 mg PO DAILY RIC Stop: 05/10/16 08:59 Last Admin: 03/24/16 10:22 Dose: Not Given Benztropine Mesylate (Cogentin) 0.5 mg PO BID RIC Stop: 05/10/16 08:59 Last Admin: 03/24/16 18:51 Dose: 0.5 mg Dextromethorphan/Quinidine (Nuedexta 20mg-10mg) 1 cap PO Q12HR RIC Stop: 05/09/16 20:59 Last Admin: 03/24/16 21:22 Dose: 1 cap Docusate Sodium (Colace) 250 mg PO DAILY RIC Stop: 05/10/16 08:59 Last Admin: 03/24/16 10:20 Dose: 250 mg Donepezil HCl (Aricept) 10 mg PO HS RIC Stop: 05/09/16 20:59 Last Admin: 03/24/16 21:22 Dose: 10 mg Escitalopram Oxalate (Lexapro) 10 mg PO DAILY RIC Stop: 05/17/16 08:59 Last Admin: 03/24/16 10:22 Dose: 10 mg Insulin Aspart (Novolog Insulin Sliding Scale) 0 units SUBQ ACHS RIC PRN Reason: Protocol Stop: 05/09/16 20:59 Last Admin: 03/25/16 06:34 Dose: Not Given Levetiracetam (Keppra) 500 mg PO BID RIC Stop: 05/10/16 08:59 Last Admin: 03/24/16 18:51 Dose: 500 mg Magnesium Hydroxide (Milk Of Magnesia) 30 ml PO DAILY PRN PRN Reason: Constipation Stop: 05/22/16 11:54 Last Admin: 03/23/16 15:59 Dose: 30 ml Memantine (Namenda) 10 mg PO Q12HR RIC Stop: 05/10/16 08:59 Last Admin: 03/24/16 21:22 Dose: 10 mg Multivitamins/Vitamin C (Theragran) 1 tab PO DAILY RIC Stop: 05/10/16 08:59 Last Admin: 03/24/16 10:21 Dose: Not Given Olanzapine (Zyprexa) 15 mg PO HS RIC PRN Reason: Protocol Stop: 05/18/16 12:42 Last Admin: 03/24/16 21:22 Dose: 15 mg Olanzapine (Zyprexa) 2.5 mg PO DAILY RIC PRN Reason: Protocol Stop: 05/23/16 08:59 Last Admin: 03/24/16 10:22 Dose: 2.5 mg - Procedures Procedures: Procedures Procedure Code Date GROUP PSYCHOTHERAPY 25273 04/15/15 GROUP PSYCHOTHERAPY GZHZZZZ 04/15/15 GROUP PSYCHOTHERAPY 22335 01/16/15 GROUP PSYCHOTHERAPY GZHZZZZ 01/16/15 Assessment/Plan - Problem List Patient Problems: All Active Problems The Product License for [employer]orHubedCommerce Guysal_ProblemIT_Professional has and was valid until [01/08/2016]. Please refer to our FAQ page (http://[email or web address]/faq /vocabportal_faq.aspx) and contact [employer] Customer Support at [email or web address] (Acute) seizures (Acute) Abnormal lithium level in blood (Acute) R78.89 Agitation (Acute) R45.1 INCREASED AGGRESSIVE BEHAVIOR (Acute) Outbursts of anger (Acute) R45.4 - Plan Plan: SEIZURE PRECAUTIONS CPM
[2016-03-25] MEDS: Multivitamin Tab PO SCH (11:14)
[2016-03-25] MEDS: Dextromethorphan/Quinidine 20mg/10mg Cap PO SCH (11:14)
--- NOTE | 2016-03-25 21:57 | Discharge Summary ---
IDENTIFYING INFORMATION: The patient is a 80-year-old female. HISTORY OF PRESENT ILLNESS: The patient was [facility] from a prison. She was here, then she went to the Medical Floor, then transferred back after she was stabilized. The patient with a history of agitation, irritability, dementia. She had prior admissions to this facility few months ago for similar reason with a history of dementia. COURSE IN THE HOSPITAL: The patient was continued with her medication, which was Cogentin 0.5 mg twice a day, Nuedexta 1 tablet twice a day, Aricept 10 mg at bedtime. Lexapro was initiated, increased the dose to 10 mg daily and Namenda was continued 10 mg twice a day, multivitamin. She was on Zyprexa at the beginning and I increased the dose slowly over the course of the stay to 15 mg at bedtime and 2.5 mg in the morning because of agitation during the day. She was also on amlodipine, multivitamins, magnesium and also Keppra was added after she had a seizure and she is on insulin. The patient progressively got better. She was calmer. She was no longer delusional or ____, so we felt she could be discharged to a lesser level of care. The patient will be going to a nursing facility. FINAL DIAGNOSIS: AXIS I: Dementia with behavior disturbances. MEDICAL DIAGNOSES: Deferred to the medical doctor DISPOSITION: The patient will be going back to the prison. FOLLOWUP: Follow up with the psychiatrist, primary care physician and neurologist. EXPECTED OUTCOME: Stable if the patient complies on the above. [facility]# [id number]
== END 2016-03-25 15:15 | DRG 884 ==
LOC: GERO 17:05
PROVIDERS: ADMIT Psychiatry & Neurology Psychiatry; ATTEND Psychiatry & Neurology Psychiatry
DX: F03.91 Unspecified dementia, unspecified severity, with behavioral disturbance (principal); G40.909 Epilepsy, unspecified, not intractable, without status epilepticus; E11.9 Type 2 diabetes mellitus without complications; F20.9 Schizophrenia, unspecified; G47.00 Insomnia, unspecified
CPT/HCPCS: 36415-UA; 80185-TC; 82948-90; J1630; J1815; J2060; J7051; Z7610

== ENCOUNTER 2016-12-11 15:41 | Inpatient (IN) | payer MEDICARE, OTHER ==
[2016-12-11 16:22] LABS: % EOSINOPHILS 3.1 % (0.0-5.0); % LYMPHOCYTES 26.7 % (20.0-50.0); % MONOCYTES 10.1 % (2.0-10.0); % NEUTROPHILS 60.1 % (40.0-80.0); HEMATOCRIT 40.7 % (41.0-60); HEMOGLOBIN 13.8 gm/dL (12-16); MEAN CELL VOLUME 96.1 fl (81-100); MEAN CORPUSCULAR HEMOGLOBIN 32.6 pg (27.0-31.0); MEAN CORPUSCULAR HGB CONC 33.9 pg (28.0-36.0); MEAN PLATELET VOLUME 7.2 fl; NEUTROPHILE ABSOLUTE 3.5 Th/cmm (1.8-8.0); RED BLOOD COUNT 4.24 Mil/cmm (3.80-5.20); RED CELL DISTRIBUTION WIDTH 12.1 % (11.5-20.0); WHITE BLOOD COUNT 5.8 Th/cmm (4.8-10.8)
[2016-12-11 16:25] LABS: PLATELET COUNT 129 Th/cmm (150-400)
[2016-12-11 16:41] LABS: ALB/GLOB RATIO 1.3 (1.0-1.8); ALKALINE PHOSPHATASE 51 U/L (34-104); ANION GAP 8.2 (7.0-16.0); BILIRUBIN,TOTAL 0.4 mg/dL (0.3-1.0); BUN - UREA NITROGEN 21 mg/dL (7-25); BUN/CREATININE RATIO 23.3; CALCIUM SERUM 8.5 mg/dL (8.6-10.3); CARBON DIOXIDE 25.9 mEq/L (21.0-31.0); CHLORIDE 108 mEq/L (98-107); CREATININE - SERUM 0.9 mg/dL (0.6-1.2); GLUCOSE 120 mg/dL (40-70); POTASSIUM SERUM 4.1 mEq/L (3.5-5.1); SGOT 17 U/L (13-39); SGPT/ALT 12 U/L (7-52); SODIUM SERUM 138 mEq/L (136-145)
--- NOTE | 2016-12-11 16:58 | ED Physician Chart ---
ED Chief Complaint/HPI - Patient Information Date Seen:: 12/11/16 Time Seen:: 16:00 Chief Complaint:: Aggressiveness History of Present Illness:: 81 yo female who was a resident at [facility], was noted to have increasing aggressiveness with yelling and screaming. She was trying to hit and pinch staff. She was brought to the ER for further evaluation. At ER, her O2 sat was 90-92% and she was put on 2LNC. Allergies:: Allergies Allergy/AdvReac Type Severity Reaction Status Date / Time No Known Allergies Allergy Verified 03/02/16 17:22 Vitals:: Vital Signs - 8 hr 12/11/16 15:52 Temp 98.2 F HR 74 RR 16 BP 116/72 O2 Sat % 93 ED Review of Systems - Review of Systems General/Constitutional: No fever, No chills Skin: No skin lesions Head: No headache Eyes: No loss of vision ENT: No nasal drainage Neck: No neck pain Cardio Vascular: No chest pain Pulmonary: No SOB GI: No nausea, No vomiting Musculoskeletal: No bone or joint pain Psychiatric: Prior psych history ED Past Medical History - Past Medical History Past Medical History: HTN, DM, Other (TIA, anemia) Social History: Non Smoker, No Alcohol, No Drug Use Surgical History: other (Left artificial hip joint) Psychiatricy History: Depression, Schizophrenia, Dementia, Other (Psychosis, anxiety) Family Medical History - Family Member Mother History Unknown: Yes Ethnicity: Unknown Living Status: Unknown Hx Family Cancer: (unknown) Hx Family Coronary Artery Disease: (unknown) Hx Family Congestive Heart Failure: (unknown) Hx Family Hypertension: (unknown) Hx Family Stroke: (unknown) Hx Family Diabetes: (unknown) Hx Family Seizures: (unknown) Hx Family Dementia: (unknown) Hx Family AIDS: (unknown) Hx Family COPD: (unknown) Hx Family Hepatitis: (unknown) Hx Family Psychiatric Problems: (unknown) Hx Family Tuberculosis: (unknown) ED Physical Exam - Physical Examination General/Constitutional: Awake, Alert Other Gen/Cons comments:: Oriented to self Head: Atraumatic Eyes: PERRL, EOMI Skin: No skin lesions Neck: Full ROM w/o pain Respiratory: Clear to Auscultation, No Wheeze/Rhonchi/Rales Cardio Vascular: RRR, No murmur, gallop, rubs, NL S1 S2 GI: No tenderness/rebounding/guarding Extremities: Full ROM Other Neuro/Psych comments:: mild resting tremor of left hand. Follow command, oriented to self ED Labs/Radiology/EKG Results - Lab Results Results: Laboratory Tests 12/11/16 12/11/16 16:15 16:15 WBC 5.8 RBC 4.24 Hgb 13.8 Hct 40.7 L MCV 96.1 MCH 32.6 H MCHC Differential 33.9 RDW 12.1 Plt Count 129 L D MPV 7.2 Neutrophils % 60.1 Lymphocytes % 26.7 Monocytes % 10.1 H Eosinophils % 3.1 Basophils % 0.0 Sodium 138 Potassium 4.1 Chloride 108 H Carbon Dioxide 25.9 Anion Gap 8.2 BUN 21 Creatinine 0.9 Est GFR ( Amer) TNP Est GFR (Non-Af Amer) TNP BUN/Creatinine Ratio 23.3 Glucose 120 H Calcium 8.5 L Total Bilirubin 0.4 AST 17 ALT 12 Alkaline Phosphatase 51 Total Protein 6.2 Albumin 3.5 L Globulin 2.7 Albumin/Globulin Ratio 1.3 - Radiology Results Results: Chest X ray: no infiltrate ED Assessment - Assessment General Assessment: 81 yo female presented to be work up for psychosis. Critical Care Time: 30 min Excludes all billable procedures: Yes This condition life threatening/high prob of deterioration: No Assessment/Comments:: CBC, CMP, UA, CXR, EKG ED Septic Shock - . Is Septic Shock (SBP<90, OR Lactate>4 mmol\L) present?: No - <6hrs of presentation: Vital Signs: Vital Signs - 8 hr 12/11/16 15:52 Temp 98.2 F HR 74 RR 16 BP 116/72 O2 Sat % 93 ED Reassessment (Disposition) - Reassessment Reassessment Condition:: Unchanged - Patient Disposition Discharge/Transfer:: Acute Care w/in this hosp ED Discharge Plan - Patient Disposition Admit/Discharge/Transfer: Acute Care w/in this hosp
[2016-12-11 18:46] LABS: URINE BILIRUBIN NEGATIVE (NEGATIVE); URINE BLOOD TRACE (NEGATIVE); URINE GLUCOSE (UA) NEGATIVE (NEGATIVE); URINE KETONE NEGATIVE (NEGATIVE); URINE PH 5.5 (4.6 - 8.0); URINE PROTEIN NEGATIVE (NEGATIVE); URINE UROBILINOGEN 0.2 E.U./dL (0.2 - 1.0)
[2016-12-11 18:56] LABS: URINE COLOR YELLOW
[2016-12-11 18:58] LABS: URINE RBC 0-2 /hpf (0-5)
[2016-12-11 18:59] LABS: URINE EPITHELIAL CELLS FEW /lpf (FEW); URINE WBC >100 /hpf (0-5)
[2016-12-11 19:00] LABS: URINE BACTERIA MODERATE /hpf (NONE SEEN)
[2016-12-11] MEDS ORDERED: cefTRIAXone 1 GM in Sodium Chloride 0.9% 50 ML IV ONE (19:09)
[2016-12-11] MEDS ORDERED: cefTRIAXone 1 GM in Sodium Chloride 0.9% 50 ML IM ONE (19:25)
[2016-12-11] MEDS ORDERED: Maalox 30 mL Cup PO PRN (22:45)
[2016-12-11] MEDS ORDERED: Magnesium Hydroxide (MOM) 30 mL UDC PO PRN (22:53)
[2016-12-11 23:22] VITALS: BP 115/61
[2016-12-12] MEDS: Multivitamin Tab PO SCH (08:38)
--- NOTE | 2016-12-12 10:00 | Diagnostic Imaging Report ---
CHEST X-RAY: AP view INDICATION: pain COMPARISON: 03/02/2016 FINDINGS: Chronic lung changes are seen with no focal consolidation or effusions. There is rightward deviation of the trachea. Vessel on end versus 3 mm granuloma in the right apex is noted. Heart size is normal. Degenerative changes of the spine are noted. There is gaseous distention of the stomach. Postsurgical changes of the upper abdomen are noted. IMPRESSION: Chronic lung changes with no focal consolidation identified. There is rightward deviation of the trachea. Findings may be accentuated by rotation, however, an enlarged thyroid gland or lymphadenopathy cannot be excluded. If indicated follow up CT would further clarify.
--- NOTE | 2016-12-13 00:36 | History & Physical ---
ADMIT DATE: 12/12/2016 HISTORY OF PRESENT ILLNESS: The patient is an 81-year-old female with long history of hypertension, seizure disorder, and dementia, admitted to [facility] Department with acute psychosis and worsening of dementia. The initial workup significant for also urinary tract infection. The patient is not a good historian. PAST MEDICAL HISTORY: Significant for hypertension, dementia, degenerative joint diseases, and seizure disorder. PAST SURGICAL HISTORY: No recent surgery. ALLERGIES: None. MEDICATIONS: Follow admission reconciliation. SOCIAL HISTORY: No smoking, alcohol or drugs. FAMILY HISTORY: Noncontributory. REVIEW OF SYSTEMS: RENAL SYSTEM: No history of chronic renal disorder. CARDIOVASCULAR SYSTEM: History of hypertension. ENDOCRINE SYSTEM: No diabetes or thyroid problem. GASTROINTESTINAL SYSTEM: No upper or lower gastrointestinal bleed. NEUROLOGICAL SYSTEM: History of dementia, psychosis, and seizure disorder. SKELETOMUSCULAR SYSTEM: She has degenerative joint disease. HEMATOLOGIC SYSTEM: No bleeding tendencies. GENITOURINARY SYSTEM: She has a urinary tract infection. PHYSICAL EXAMINATION: GENERAL: She is awake, not coherent. VITAL SIGNS: Temperature is 97.8, heart rate is 88, and blood pressure is 105/58. HEENT: Normocephalic. Pupils reacting to light and accommodation. Sclerae clear. NECK: Supple. Negative for lymphadenopathy, JVD or bruit. CHEST: Bilateral normal. No rhonchi or wheezing. HEART: S1 and S2 normal. No murmur or gallop. ABDOMEN: Soft, bowel sounds positive. EXTREMITIES: No edema. BACK: No tenderness. SKIN: Intact. GENITORECTAL: Intact, examined by primary physician. No complaint. NEUROLOGIC: She is awake, alert, not fully oriented. No focal motor or sensory deficit. Cranial nerves II-XII is intact. LABORATORY DATA: White blood cells 5.8, hemoglobin 13.8, hematocrit 40.7, and platelets 129,000. Sodium 138, potassium 4.1, BUN 21, and creatinine 0.9. Urinalysis positive for white blood cells more than 100 and nitrite positive. ASSESSMENT: 1. Urinary tract infection. 2. Hypertension. 3. Seizure disorder. 4. Dementia. PLAN: The patient admitted to the hospital under Dr. Ding's service. MEDICAL PROBLEMS ADDRESSED HOSPITALIZATION: Urinary tract infection, dementia, and psychosis. MEDICAL PROBLEMS ADDRESSED AT DISCHARGE: Hypertension and seizure disorder. The patient is medically stable affect. Thank you, Dr. Ding, for asking me to see your patient. JOB# [id number]
[2016-12-13] MEDS: Sulfamethoxazole/TMP 800/160mg Tab PO SCH ×2 (09:03→16:24)
[2016-12-13] MEDS: Multivitamin Tab PO SCH (09:03)
--- NOTE | 2016-12-13 17:48 | Psychosocial Evaluation ---
DATE OF SERVICE: 12/12/2016 INITIAL PSYCHIATRIC EVALUATION This is Dr. Bowen covering for Dr. Ding. CHIEF COMPLAINT: "I don't know why I'm here." IDENTIFICATION: The patient was brought in here for disorganized behavior. HISTORY OF PRESENT ILLNESS: The patient is an 81-year-old female coming from [facility], who was initially brought in here after the patient presented from the ER, placed in a psychiatric hold for aggressive behavior. She was noted to have increase in aggressive behavior with yelling and screaming. She was trying to hit and pinch staff today on [id number] evaluation. The patient in her room, disengaged, distraught, minimally interactive, not giving much information, observed to be responding. ALLERGIES TO MEDICATIONS: NKDA. VITAL SIGNS: Reviewed, stable. LABORATORY DATA: Labs reviewed. Pending from the ER stable. LEGAL HISTORY: None. FAMILY PSYCHIATRIC HISTORY: Denied. PAST MEDICAL HISTORY: Hypertension, diabetes, TIA, anemia, and epilepsy. SOCIAL HISTORY: Denies any sexual, physical, or verbal abuse. Denies any alcohol or drug use or illicit drug use. Denies any physical abuse. HOME MEDICATIONS: Include amlodipine, Aricept 10 mg, Cogentin 0.5 mg p.o. b.i.d., Depakote 250 mg twice a day, Keppra, Lexapro 10 mg a day, Namenda 10 mg a day, Tylenol, zinc, and Zyprexa 10 mg in the day and 50 mg at bedtime. MENTAL STATUS EXAMINATION: Withdrawn, isolated, easily agitated, poor historian, disengaged, mild suspicious behavior, and poor insight, judgment, and impulse control. ASSESSMENT AND PLAN: The patient is an 81-year-old female with history of depression and comorbid psychosis with dementia underlying, who presented very aggressive and disorganized. We will continue with the current medication regimen until we obtain more collateral baseline information as medications starting to be in steady state. PRIMARY DIAGNOSIS: Schizoaffective, depressive type. HISTORY OF SECONDARY DIAGNOSIS: None. MEDICAL DIAGNOSES: Include history of transient ischemic attack, hypertension, seizure disorder, neurocognitive impairment, history of Parkinson's, and type 2 diabetes. PLAN: 1. Admit the patient. 2. Continue monitoring and evaluating. 3. Obtain more collateral baseline information. 4. Continue with Lexapro and Zyprexa. 5. Discuss safety plan. 6. We will continue both individual and group therapies. ESTIMATED LENGTH OF STAY: Between 2 to 4 weeks. DISCHARGE CRITERIA: The patient is to demonstrate euthymic mood, no suicidal or homicidal ideation, good psychiatric followup, and good [id number] interaction. [facility]# [id number]
--- NOTE | 2016-12-13 18:41 | Internal Medicine Prog Note ---
Internal Medicine Subjective - Subjective Service Date: 12/13/16 Patient seen and examined:: with staff (SHE FEELS BETTER,NO FEVER.) Patient is:: awake, verbal, in bed, talking Per staff patient has:: no adverse event Internal Medicine Objective - Results Result Diagrams: 12/11/16 16:15 12/11/16 16:15 Recent Labs: Laboratory Last Values WBC 5.8 Th/cmm (4.8-10.8) 12/11/16 16:15 RBC 4.24 Mil/cmm (3.80-5.20) 12/11/16 16:15 Hgb 13.8 gm/dL (12-16) 12/11/16 16:15 Hct 40.7 % (41.0-60) L 12/11/16 16:15 MCV 96.1 fl (81-100) 12/11/16 16:15 MCH 32.6 pg (27.0-31.0) H 12/11/16 16:15 MCHC Differential 33.9 pg (28.0-36.0) 12/11/16 16:15 RDW 12.1 % (11.5-20.0) 12/11/16 16:15 Plt Count 129 Th/cmm (150-400) L D 12/11/16 16:15 MPV 7.2 fl 12/11/16 16:15 Neutrophils % 60.1 % (40.0-80.0) 12/11/16 16:15 Lymphocytes % 26.7 % (20.0-50.0) 12/11/16 16:15 Monocytes % 10.1 % (2.0-10.0) H 12/11/16 16:15 Eosinophils % 3.1 % (0.0-5.0) 12/11/16 16:15 Basophils % 0.0 % (0.0-2.0) 12/11/16 16:15 Sodium 138 mEq/L (136-145) 12/11/16 16:15 Potassium 4.1 mEq/L (3.5-5.1) 12/11/16 16:15 Chloride 108 mEq/L (98-107) H 12/11/16 16:15 Carbon Dioxide 25.9 mEq/L (21.0-31.0) 12/11/16 16:15 Anion Gap 8.2 (7.0-16.0) 12/11/16 16:15 BUN 21 mg/dL (7-25) 12/11/16 16:15 Creatinine 0.9 mg/dL (0.6-1.2) 12/11/16 16:15 Est GFR ( Amer) TNP 12/11/16 16:15 Est GFR (Non-Af Amer) TNP 12/11/16 16:15 BUN/Creatinine Ratio 23.3 12/11/16 16:15 Glucose 120 mg/dL (40-70) H 12/11/16 16:15 POC Glucose 92 MG/DL (70 - 105) 12/13/16 06:38 Calcium 8.5 mg/dL (8.6-10.3) L 12/11/16 16:15 Total Bilirubin 0.4 mg/dL (0.3-1.0) 12/11/16 16:15 AST 17 U/L (13-39) 12/11/16 16:15 ALT 12 U/L (7-52) 12/11/16 16:15 Alkaline Phosphatase 51 U/L (34-104) 12/11/16 16:15 Total Protein 6.2 gm/dL (6.0-8.3) 12/11/16 16:15 Albumin 3.5 gm/dL (3.7-5.3) L 12/11/16 16:15 Globulin 2.7 gm/dL 12/11/16 16:15 Albumin/Globulin Ratio 1.3 (1.0-1.8) 12/11/16 16:15 TSH 0.25 uIU/ml (0.34-5.60) L 12/11/16 16:15 Urine Source CATH 12/11/16 17:45 Urine Color YELLOW 12/11/16 17:45 Urine Clarity CLO0 (CLEAR) 12/11/16 17:45 Urine pH 5.5 (4.6 - 8.0) 12/11/16 17:45 Ur Specific [place] 1.015 (1.005-1.030) 12/11/16 17:45 Urine Protein NEGATIVE mg/dL (NEGATIVE) 12/11/16 17:45 Urine Glucose (UA) NEGATIVE mg/dL (NEGATIVE) 12/11/16 17:45 Urine Ketones NEGATIVE mg/dL (NEGATIVE) 12/11/16 17:45 Urine Blood TRACE (NEGATIVE) 12/11/16 17:45 Urine Nitrate POSITIVE (NEGATIVE) H 12/11/16 17:45 Urine Bilirubin NEGATIVE (NEGATIVE) 12/11/16 17:45 Urine Urobilinogen 0.2 E.U./dL (0.2 - 1.0) 12/11/16 17:45 Ur Leukocyte Esterase MODERATE (NEGATIVE) H 12/11/16 17:45 Urine RBC 0-2 /hpf (0-5) 12/11/16 17:45 Urine WBC >100 /hpf (0-5) H 12/11/16 17:45 Ur Epithelial Cells FEW /lpf (FEW) 12/11/16 17:45 Urine Bacteria MODERATE /hpf (NONE SEEN) 12/11/16 17:45 RPR NONREACTIVE (NONREACTIVE) 12/11/16 16:15 - Physical Exam Vitals and I&O: Vital Signs Temp 97.4 F 12/13/16 16:07 Pulse 64 12/13/16 16:07 Resp 19 12/13/16 16:07 BP 124/73 12/13/16 16:07 Pulse Ox 98 12/13/16 16:07 Intake & Output 12/12/16 12/13/16 12/13/16 19:59 06:59 18:59 Intake Total 650 Balance 650 Intake: Oral 650 Other: # Voids 4 # Bowel Movements 1 Active Medications: Current Medications Acetaminophen (Tylenol) 650 mg PO Q4HR PRN PRN Reason: Pain Stop: 02/09/17 22:52 Al Hydrox/Mg Hydrox/Simethicone (Maalox) 30 ml PO Q6H PRN PRN Reason: Dyspepsia Stop: 02/09/17 22:44 Amlodipine Besylate (Norvasc) 5 mg PO DAILY [facility] Stop: 02/10/17 08:59 Last Admin: 12/13/16 09:00 Dose: 5 mg Benztropine Mesylate (Cogentin) 0.5 mg PO BID [facility] Stop: 02/10/17 08:59 Last Admin: 12/13/16 16:24 Dose: 0.5 mg Divalproex Sodium (Depakote Dr) 250 mg PO BID [facility] PRN Reason: Protocol Stop: 02/10/17 08:59 Last Admin: 12/13/16 16:24 Dose: 250 mg Docusate Sodium (Colace) 250 mg PO DAILY [facility] Stop: 02/10/17 08:59 Last Admin: 12/13/16 09:00 Dose: 250 mg Donepezil HCl (Aricept) 10 mg PO HS [facility] Stop: 02/10/17 20:59 Last Admin: 12/12/16 20:53 Dose: 10 mg Escitalopram Oxalate (Lexapro) 10 mg PO DAILY [facility] PRN Reason: Protocol Stop: 02/10/17 08:59 Last Admin: 12/13/16 09:04 Dose: 10 mg Levetiracetam (Keppra) 1,000 mg PO BID [facility] Stop: 02/10/17 08:59 Last Admin: 12/13/16 16:24 Dose: 1,000 mg Lorazepam (Ativan) 0.5 mg PO Q6H PRN; Protocol PRN Reason: Anxiety/Agitation Stop: 02/09/17 22:44 Magnesium Hydroxide (Milk Of Magnesia) 30 ml PO DAILY PRN PRN Reason: Constipation Stop: 02/09/17 22:52 Memantine (Namenda) 10 mg PO Q12HR [facility] Stop: 02/10/17 08:59 Last Admin: 12/13/16 09:04 Dose: 10 mg Multivitamins/Vitamin C (Theragran) 1 tab PO DAILY [facility] Stop: 02/10/17 08:59 Last Admin: 12/13/16 09:03 Dose: 1 tab Olanzapine (Zyprexa) 15 mg PO HS [facility] PRN Reason: Protocol Stop: 02/10/17 20:59 Last Admin: 12/12/16 20:53 Dose: 15 mg Olanzapine (Zyprexa) 10 mg PO DAILY [facility] PRN Reason: Protocol Stop: 02/10/17 08:59 Last Admin: 12/13/16 09:03 Dose: 10 mg Trimethoprim/Sulfamethoxazole (Bactrim Ds) 1 tab PO BID [facility] Stop: 12/19/16 17:01 Last Admin: 12/13/16 16:24 Dose: 1 tab Zolpidem Tartrate (Ambien) 5 mg PO HS PRN PRN Reason: Insomnia Stop: 02/09/17 22:44 General: alert, demented HEENT: NC/AT, PERRLA, EOMI, anicteric sclerae, throat clear Neck: Supple, No JVD, No thyromegaly, +2 carotid pulse wo bruit, No LAD Lungs: CTAB Cardiovascular: RRR, Normal S1, Normal S2, without murmur Abdomen: soft, non-tender, non-distended Extremities: clear Neurological: no change - Procedures Procedures: Procedures Procedure Code Date GROUP PSYCHOTHERAPY 03264 04/15/15 GROUP PSYCHOTHERAPY [id number] 04/15/15 GROUP PSYCHOTHERAPY 66861 01/16/15 GROUP PSYCHOTHERAPY [id number] 01/16/15 Internal Medicine Assmt/Plan - Assessment Assessment: 1.UTI. 2.HTN. 3.DEMENTIA. 4.PSYCHOSIS. - Plan Plan: CONTINUE ON CURRENT MEDICATION AND DIET.
[2016-12-14] MEDS: Sulfamethoxazole/TMP 800/160mg Tab PO SCH ×2 (08:35→16:38)
[2016-12-14] MEDS: Multivitamin Tab PO SCH (08:36)
--- NOTE | 2016-12-14 10:23 | Progress Notes ---
DATE: SUBJECTIVE: The patient was seen and evaluated. The patient's chart reviewed. This is Dr. Bowen covering for Dr. Ding. Overnight, nursing staff reported that the patient has mostly been isolative, withdrawn in her room. Today on [id number] evaluation, the patient is easily irritable, refusing to be interviewed. When attempted to validate her emotions, she becomes more irritable and refusing ADL, which is consistent with the overall nursing staff has been observing. MENTAL STATUS EXAMINATION: Withdrawn, sad, depressed, paranoid. ASSESSMENT AND PLAN: The patient is an 81-year-old female, who presents still guarded, minimizing, psychotic, easily irritable and agitated secondary from the paranoia, unable to formulate a safe plan outside of a structured environment. [facility]# [id number]
--- NOTE | 2016-12-14 17:31 | Internal Medicine Prog Note ---
Internal Medicine Subjective - Subjective Service Date: 12/14/16 Patient seen and examined:: with staff Patient is:: awake, verbal, in bed, talking Per staff patient has:: no adverse event Internal Medicine Objective - Results Result Diagrams: 12/11/16 16:15 12/11/16 16:15 Recent Labs: Laboratory Last Values WBC 5.8 Th/cmm (4.8-10.8) 12/11/16 16:15 RBC 4.24 Mil/cmm (3.80-5.20) 12/11/16 16:15 Hgb 13.8 gm/dL (12-16) 12/11/16 16:15 Hct 40.7 % (41.0-60) L 12/11/16 16:15 MCV 96.1 fl (81-100) 12/11/16 16:15 MCH 32.6 pg (27.0-31.0) H 12/11/16 16:15 MCHC Differential 33.9 pg (28.0-36.0) 12/11/16 16:15 RDW 12.1 % (11.5-20.0) 12/11/16 16:15 Plt Count 129 Th/cmm (150-400) L D 12/11/16 16:15 MPV 7.2 fl 12/11/16 16:15 Neutrophils % 60.1 % (40.0-80.0) 12/11/16 16:15 Lymphocytes % 26.7 % (20.0-50.0) 12/11/16 16:15 Monocytes % 10.1 % (2.0-10.0) H 12/11/16 16:15 Eosinophils % 3.1 % (0.0-5.0) 12/11/16 16:15 Basophils % 0.0 % (0.0-2.0) 12/11/16 16:15 Sodium 138 mEq/L (136-145) 12/11/16 16:15 Potassium 4.1 mEq/L (3.5-5.1) 12/11/16 16:15 Chloride 108 mEq/L (98-107) H 12/11/16 16:15 Carbon Dioxide 25.9 mEq/L (21.0-31.0) 12/11/16 16:15 Anion Gap 8.2 (7.0-16.0) 12/11/16 16:15 BUN 21 mg/dL (7-25) 12/11/16 16:15 Creatinine 0.9 mg/dL (0.6-1.2) 12/11/16 16:15 Est GFR ( Amer) TNP 12/11/16 16:15 Est GFR (Non-Af Amer) TNP 12/11/16 16:15 BUN/Creatinine Ratio 23.3 12/11/16 16:15 Glucose 120 mg/dL (40-70) H 12/11/16 16:15 POC Glucose 92 MG/DL (70 - 105) 12/13/16 06:38 Calcium 8.5 mg/dL (8.6-10.3) L 12/11/16 16:15 Total Bilirubin 0.4 mg/dL (0.3-1.0) 12/11/16 16:15 AST 17 U/L (13-39) 12/11/16 16:15 ALT 12 U/L (7-52) 12/11/16 16:15 Alkaline Phosphatase 51 U/L (34-104) 12/11/16 16:15 Total Protein 6.2 gm/dL (6.0-8.3) 12/11/16 16:15 Albumin 3.5 gm/dL (3.7-5.3) L 12/11/16 16:15 Globulin 2.7 gm/dL 12/11/16 16:15 Albumin/Globulin Ratio 1.3 (1.0-1.8) 12/11/16 16:15 TSH 0.25 uIU/ml (0.34-5.60) L 12/11/16 16:15 Urine Source CATH 12/11/16 17:45 Urine Color YELLOW 12/11/16 17:45 Urine Clarity CLO0 (CLEAR) 12/11/16 17:45 Urine pH 5.5 (4.6 - 8.0) 12/11/16 17:45 Ur Specific [place] 1.015 (1.005-1.030) 12/11/16 17:45 Urine Protein NEGATIVE mg/dL (NEGATIVE) 12/11/16 17:45 Urine Glucose (UA) NEGATIVE mg/dL (NEGATIVE) 12/11/16 17:45 Urine Ketones NEGATIVE mg/dL (NEGATIVE) 12/11/16 17:45 Urine Blood TRACE (NEGATIVE) 12/11/16 17:45 Urine Nitrate POSITIVE (NEGATIVE) H 12/11/16 17:45 Urine Bilirubin NEGATIVE (NEGATIVE) 12/11/16 17:45 Urine Urobilinogen 0.2 E.U./dL (0.2 - 1.0) 12/11/16 17:45 Ur Leukocyte Esterase MODERATE (NEGATIVE) H 12/11/16 17:45 Urine RBC 0-2 /hpf (0-5) 12/11/16 17:45 Urine WBC >100 /hpf (0-5) H 12/11/16 17:45 Ur Epithelial Cells FEW /lpf (FEW) 12/11/16 17:45 Urine Bacteria MODERATE /hpf (NONE SEEN) 12/11/16 17:45 RPR NONREACTIVE (NONREACTIVE) 12/11/16 16:15 - Physical Exam Vitals and I&O: Vital Signs Temp 97.5 F 12/14/16 16:10 Pulse 69 12/14/16 16:10 Resp 18 12/14/16 16:10 BP 121/63 12/14/16 16:10 Pulse Ox 98 12/14/16 16:10 Intake & Output 12/13/16 12/14/16 12/14/16 18:59 06:59 18:59 Intake Total 650 120 Balance 650 120 Intake: Oral 650 120 Other: # Voids 4 3 # Bowel Movements 1 Active Medications: Current Medications Acetaminophen (Tylenol) 650 mg PO Q4HR PRN PRN Reason: Pain Stop: 02/09/17 22:52 Al Hydrox/Mg Hydrox/Simethicone (Maalox) 30 ml PO Q6H PRN PRN Reason: Dyspepsia Stop: 02/09/17 22:44 Amlodipine Besylate (Norvasc) 5 mg PO DAILY [facility] Stop: 02/10/17 08:59 Last Admin: 12/14/16 08:37 Dose: Not Given Benztropine Mesylate (Cogentin) 0.5 mg PO BID [facility] Stop: 02/10/17 08:59 Last Admin: 12/14/16 16:37 Dose: 0.5 mg Divalproex Sodium (Depakote Dr) 250 mg PO BID [facility] PRN Reason: Protocol Stop: 02/10/17 08:59 Last Admin: 12/14/16 16:37 Dose: 250 mg Docusate Sodium (Colace) 250 mg PO DAILY [facility] Stop: 02/10/17 08:59 Last Admin: 12/14/16 08:36 Dose: 250 mg Donepezil HCl (Aricept) 10 mg PO HS [facility] Stop: 02/10/17 20:59 Last Admin: 12/13/16 20:38 Dose: 10 mg Escitalopram Oxalate (Lexapro) 10 mg PO DAILY [facility] PRN Reason: Protocol Stop: 02/10/17 08:59 Last Admin: 12/14/16 08:35 Dose: 10 mg Levetiracetam (Keppra) 1,000 mg PO BID [facility] Stop: 02/10/17 08:59 Last Admin: 12/14/16 16:38 Dose: 1,000 mg Lorazepam (Ativan) 0.5 mg PO Q6H PRN PRN Reason: Anxiety/Agitation Stop: 02/12/17 12:32 Magnesium Hydroxide (Milk Of Magnesia) 30 ml PO DAILY PRN PRN Reason: Constipation Stop: 02/09/17 22:52 Memantine (Namenda) 10 mg PO Q12HR [facility] Stop: 02/10/17 08:59 Last Admin: 12/14/16 08:36 Dose: 10 mg Multivitamins/Vitamin C (Theragran) 1 tab PO DAILY [facility] Stop: 02/10/17 08:59 Last Admin: 12/14/16 08:36 Dose: 1 tab Olanzapine (Zyprexa) 15 mg PO HS [facility] Stop: 02/12/17 20:59 Olanzapine (Zyprexa) 10 mg PO DAILY [facility] Stop: 02/13/17 08:59 Trimethoprim/Sulfamethoxazole (Bactrim Ds) 1 tab PO BID [facility] Stop: 12/19/16 17:01 Last Admin: 12/14/16 16:38 Dose: 1 tab Zolpidem Tartrate (Ambien) 5 mg PO HS PRN PRN Reason: Insomnia Stop: 02/09/17 22:44 General: alert, demented HEENT: NC/AT, PERRLA, EOMI, anicteric sclerae, throat clear Neck: Supple, No JVD, No thyromegaly, +2 carotid pulse wo bruit, No LAD Lungs: CTAB Cardiovascular: RRR, Normal S1, Normal S2, without murmur Abdomen: soft, non-tender, non-distended Extremities: clear Neurological: no change - Procedures Procedures: Procedures Procedure Code Date GROUP PSYCHOTHERAPY 56862 04/15/15 GROUP PSYCHOTHERAPY GZHZZZZ 04/15/15 GROUP PSYCHOTHERAPY 60638 01/16/15 GROUP PSYCHOTHERAPY GZHZZZZ 01/16/15 Internal Medicine Assmt/Plan - Assessment Assessment: 1.UTI. 2.HTN. 3.DEMENTIA. 4.PSYCHOSIS. - Plan Plan: CONTINUE ON CURRENT MEDICATION AND DIET.
--- NOTE | 2016-12-15 06:52 | Progress Notes ---
DATE: 12/14/2016 Case was discussed with staff of the patient, reviewed records. This is an 81-year-old female who was admitted on 12/11/2016, evaluated by Dr. Bowen. She is very disorganized. She was removed from [facility]. The patient presented to the Emergency Room, was placed on hold for aggressive behavior. She was noted to have increasing aggressive behavior with yelling and screaming. She was trying to hit and pinch staff. When she was seen [id number], the patient was disengaged, distraught, minimally interactive, not giving much information, responding to internal stimuli, unable to make safe plan for self-care. Diagnosed with schizoaffective disorder, depressed at times. The patient was restarted on her medication, has been on Depakote 250 mg twice a day, Aricept 10 mg at bedtime, Lexapro 10 mg daily, Namenda 10 mg twice a day, olanzapine 50 mg at bedtime and 10 mg daily with no side effects. The patient continues to be disorganized, disengaged, and isolating herself. No side effects with the medication, no sedation, no nausea, no extrapyramidal symptoms. We will continue to work with the patient in group therapy, milieu therapy, and adjust medication as needed. [facility]# [id number]
[2016-12-15] MEDS: Sulfamethoxazole/TMP 800/160mg Tab PO SCH (08:09)
[2016-12-15] MEDS: Multivitamin Tab PO SCH (08:09)
--- NOTE | 2016-12-15 20:09 | Internal Medicine Prog Note ---
Internal Medicine Subjective - Subjective Service Date: 12/15/16 Patient seen and examined:: without staff Patient is:: awake, verbal, in bed, talking Per staff patient has:: no adverse event Internal Medicine Objective - Results Result Diagrams: 12/11/16 16:15 12/11/16 16:15 Recent Labs: Laboratory Last Values WBC 5.8 Th/cmm (4.8-10.8) 12/11/16 16:15 RBC 4.24 Mil/cmm (3.80-5.20) 12/11/16 16:15 Hgb 13.8 gm/dL (12-16) 12/11/16 16:15 Hct 40.7 % (41.0-60) L 12/11/16 16:15 MCV 96.1 fl (81-100) 12/11/16 16:15 MCH 32.6 pg (27.0-31.0) H 12/11/16 16:15 MCHC Differential 33.9 pg (28.0-36.0) 12/11/16 16:15 RDW 12.1 % (11.5-20.0) 12/11/16 16:15 Plt Count 129 Th/cmm (150-400) L D 12/11/16 16:15 MPV 7.2 fl 12/11/16 16:15 Neutrophils % 60.1 % (40.0-80.0) 12/11/16 16:15 Lymphocytes % 26.7 % (20.0-50.0) 12/11/16 16:15 Monocytes % 10.1 % (2.0-10.0) H 12/11/16 16:15 Eosinophils % 3.1 % (0.0-5.0) 12/11/16 16:15 Basophils % 0.0 % (0.0-2.0) 12/11/16 16:15 Sodium 138 mEq/L (136-145) 12/11/16 16:15 Potassium 4.1 mEq/L (3.5-5.1) 12/11/16 16:15 Chloride 108 mEq/L (98-107) H 12/11/16 16:15 Carbon Dioxide 25.9 mEq/L (21.0-31.0) 12/11/16 16:15 Anion Gap 8.2 (7.0-16.0) 12/11/16 16:15 BUN 21 mg/dL (7-25) 12/11/16 16:15 Creatinine 0.9 mg/dL (0.6-1.2) 12/11/16 16:15 Est GFR ( Amer) TNP 12/11/16 16:15 Est GFR (Non-Af Amer) TNP 12/11/16 16:15 BUN/Creatinine Ratio 23.3 12/11/16 16:15 Glucose 120 mg/dL (40-70) H 12/11/16 16:15 POC Glucose 92 MG/DL (70 - 105) 12/13/16 06:38 Calcium 8.5 mg/dL (8.6-10.3) L 12/11/16 16:15 Total Bilirubin 0.4 mg/dL (0.3-1.0) 12/11/16 16:15 AST 17 U/L (13-39) 12/11/16 16:15 ALT 12 U/L (7-52) 12/11/16 16:15 Alkaline Phosphatase 51 U/L (34-104) 12/11/16 16:15 Total Protein 6.2 gm/dL (6.0-8.3) 12/11/16 16:15 Albumin 3.5 gm/dL (3.7-5.3) L 12/11/16 16:15 Globulin 2.7 gm/dL 12/11/16 16:15 Albumin/Globulin Ratio 1.3 (1.0-1.8) 12/11/16 16:15 TSH 0.25 uIU/ml (0.34-5.60) L 12/11/16 16:15 Urine Source CATH 12/11/16 17:45 Urine Color YELLOW 12/11/16 17:45 Urine Clarity CLO0 (CLEAR) 12/11/16 17:45 Urine pH 5.5 (4.6 - 8.0) 12/11/16 17:45 Ur Specific [place] 1.015 (1.005-1.030) 12/11/16 17:45 Urine Protein NEGATIVE mg/dL (NEGATIVE) 12/11/16 17:45 Urine Glucose (UA) NEGATIVE mg/dL (NEGATIVE) 12/11/16 17:45 Urine Ketones NEGATIVE mg/dL (NEGATIVE) 12/11/16 17:45 Urine Blood TRACE (NEGATIVE) 12/11/16 17:45 Urine Nitrate POSITIVE (NEGATIVE) H 12/11/16 17:45 Urine Bilirubin NEGATIVE (NEGATIVE) 12/11/16 17:45 Urine Urobilinogen 0.2 E.U./dL (0.2 - 1.0) 12/11/16 17:45 Ur Leukocyte Esterase MODERATE (NEGATIVE) H 12/11/16 17:45 Urine RBC 0-2 /hpf (0-5) 12/11/16 17:45 Urine WBC >100 /hpf (0-5) H 12/11/16 17:45 Ur Epithelial Cells FEW /lpf (FEW) 12/11/16 17:45 Urine Bacteria MODERATE /hpf (NONE SEEN) 12/11/16 17:45 RPR NONREACTIVE (NONREACTIVE) 12/11/16 16:15 - Physical Exam Vitals and I&O: Vital Signs Temp 98.2 F 12/15/16 16:23 Pulse 92 12/15/16 16:23 Resp 20 12/15/16 16:23 BP 102/60 12/15/16 16:23 Pulse Ox 96 12/15/16 16:23 Intake & Output 12/15/16 12/15/16 12/16/16 06:59 18:59 06:59 Intake Total 300 Balance 300 Intake: Oral 300 Other: # Voids 1 # Bowel Movements 0 Active Medications: Current Medications Acetaminophen (Tylenol) 650 mg PO Q4HR PRN PRN Reason: Pain Stop: 02/09/17 22:52 Al Hydrox/Mg Hydrox/Simethicone (Maalox) 30 ml PO Q6H PRN PRN Reason: Dyspepsia Stop: 02/09/17 22:44 Amlodipine Besylate (Norvasc) 5 mg PO DAILY [facility] Stop: 02/10/17 08:59 Last Admin: 12/15/16 08:10 Dose: 5 mg Benztropine Mesylate (Cogentin) 0.5 mg PO BID [facility] Stop: 02/10/17 08:59 Last Admin: 12/15/16 08:09 Dose: 0.5 mg Divalproex Sodium (Depakote Dr) 250 mg PO BID [facility] PRN Reason: Protocol Stop: 02/10/17 08:59 Last Admin: 12/15/16 08:12 Dose: 250 mg Docusate Sodium (Colace) 250 mg PO DAILY [facility] Stop: 02/10/17 08:59 Last Admin: 12/15/16 08:09 Dose: 250 mg Donepezil HCl (Aricept) 10 mg PO HS [facility] Stop: 02/10/17 20:59 Last Admin: 12/14/16 20:54 Dose: 10 mg Escitalopram Oxalate (Lexapro) 10 mg PO DAILY [facility] PRN Reason: Protocol Stop: 02/10/17 08:59 Last Admin: 12/15/16 08:12 Dose: 10 mg Levetiracetam (Keppra) 1,000 mg PO BID [facility] Stop: 02/10/17 08:59 Last Admin: 12/15/16 08:12 Dose: 1,000 mg Lorazepam (Ativan) 0.5 mg PO Q6H PRN PRN Reason: Anxiety/Agitation Stop: 02/12/17 12:32 Magnesium Hydroxide (Milk Of Magnesia) 30 ml PO DAILY PRN PRN Reason: Constipation Stop: 02/09/17 22:52 Memantine (Namenda) 10 mg PO Q12HR [facility] Stop: 02/10/17 08:59 Last Admin: 12/15/16 08:13 Dose: 10 mg Multivitamins/Vitamin C (Theragran) 1 tab PO DAILY [facility] Stop: 02/10/17 08:59 Last Admin: 12/15/16 08:09 Dose: 1 tab Olanzapine (Zyprexa) 15 mg PO HS [facility] Stop: 02/12/17 20:59 Last Admin: 12/14/16 20:54 Dose: 15 mg Olanzapine (Zyprexa) 10 mg PO DAILY [facility] Stop: 02/13/17 08:59 Last Admin: 12/15/16 08:09 Dose: 10 mg Trimethoprim/Sulfamethoxazole (Bactrim Ds) 1 tab PO BID [facility] Stop: 12/19/16 17:01 Last Admin: 12/15/16 08:09 Dose: 1 tab Zolpidem Tartrate (Ambien) 5 mg PO HS PRN PRN Reason: Insomnia Stop: 02/09/17 22:44 General: alert, demented HEENT: NC/AT, PERRLA, EOMI, anicteric sclerae, throat clear Neck: Supple, No JVD, No thyromegaly, +2 carotid pulse wo bruit, No LAD Lungs: CTAB Cardiovascular: RRR, Normal S1, Normal S2, without murmur Abdomen: soft, non-tender, non-distended Extremities: clear Neurological: no change - Procedures Procedures: Procedures Procedure Code Date GROUP PSYCHOTHERAPY 12578 04/15/15 GROUP PSYCHOTHERAPY GZHZZZZ 04/15/15 GROUP PSYCHOTHERAPY 30215 01/16/15 GROUP PSYCHOTHERAPY GZHZZZZ 01/16/15 Internal Medicine Assmt/Plan - Assessment Assessment: 1.HTN. 2.DEMENTIA. - Plan Plan: CONTINUE ON CURRENT MEDICATION AND DIET.
--- NOTE | 2016-12-15 20:43 | Progress Notes ---
DATE: 12/15/2016 Case was discussed with staff of the patient, reviewed records. The patient continues to be demented, confused, continues to have poor insight, continues to be unable to make safe plan for self-care, unpredictable, impulsive, continues to need redirection, she has to be redirected by the staff. She has been compliant with the medication with no side effects, no sedation, no nausea, no extrapyramidal symptoms. We will continue to work with the patient in group therapy, milieu therapy, and adjust medication as needed. JOB# [id number]
[2016-12-16] MEDS: Sulfamethoxazole/TMP 800/160mg Tab PO SCH ×2 (09:02→17:57)
[2016-12-16] MEDS: Multivitamin Tab PO SCH (09:03)
--- NOTE | 2016-12-16 10:48 | Progress Notes ---
DATE: 12/16/2016 Case was discussed with staff of the patient, reviewed records. The patient continues to be demented, confused, unable to make safe plan for self care. Continues to be unpredictable, impulsive, isolating herself. She is compliant with the medication with no side effects, no sedation, no nausea. I will be checking her Depakote level and we will continue to work with the patient in group therapy, milieu therapy, adjust the medication as needed. JOB# [id number]
--- NOTE | 2016-12-16 11:23 | Internal Medicine Prog Note ---
Internal Medicine Subjective - Subjective Service Date: 12/16/16 Patient seen and examined:: with staff Patient is:: awake, verbal, in bed, talking Per staff patient has:: no adverse event Internal Medicine Objective - Results Result Diagrams: 12/11/16 16:15 12/11/16 16:15 Recent Labs: Laboratory Last Values WBC 5.8 Th/cmm (4.8-10.8) 12/11/16 16:15 RBC 4.24 Mil/cmm (3.80-5.20) 12/11/16 16:15 Hgb 13.8 gm/dL (12-16) 12/11/16 16:15 Hct 40.7 % (41.0-60) L 12/11/16 16:15 MCV 96.1 fl (81-100) 12/11/16 16:15 MCH 32.6 pg (27.0-31.0) H 12/11/16 16:15 MCHC Differential 33.9 pg (28.0-36.0) 12/11/16 16:15 RDW 12.1 % (11.5-20.0) 12/11/16 16:15 Plt Count 129 Th/cmm (150-400) L D 12/11/16 16:15 MPV 7.2 fl 12/11/16 16:15 Neutrophils % 60.1 % (40.0-80.0) 12/11/16 16:15 Lymphocytes % 26.7 % (20.0-50.0) 12/11/16 16:15 Monocytes % 10.1 % (2.0-10.0) H 12/11/16 16:15 Eosinophils % 3.1 % (0.0-5.0) 12/11/16 16:15 Basophils % 0.0 % (0.0-2.0) 12/11/16 16:15 Sodium 138 mEq/L (136-145) 12/11/16 16:15 Potassium 4.1 mEq/L (3.5-5.1) 12/11/16 16:15 Chloride 108 mEq/L (98-107) H 12/11/16 16:15 Carbon Dioxide 25.9 mEq/L (21.0-31.0) 12/11/16 16:15 Anion Gap 8.2 (7.0-16.0) 12/11/16 16:15 BUN 21 mg/dL (7-25) 12/11/16 16:15 Creatinine 0.9 mg/dL (0.6-1.2) 12/11/16 16:15 Est GFR ( Amer) TNP 12/11/16 16:15 Est GFR (Non-Af Amer) TNP 12/11/16 16:15 BUN/Creatinine Ratio 23.3 12/11/16 16:15 Glucose 120 mg/dL (40-70) H 12/11/16 16:15 POC Glucose 92 MG/DL (70 - 105) 12/13/16 06:38 Calcium 8.5 mg/dL (8.6-10.3) L 12/11/16 16:15 Total Bilirubin 0.4 mg/dL (0.3-1.0) 12/11/16 16:15 AST 17 U/L (13-39) 12/11/16 16:15 ALT 12 U/L (7-52) 12/11/16 16:15 Alkaline Phosphatase 51 U/L (34-104) 12/11/16 16:15 Total Protein 6.2 gm/dL (6.0-8.3) 12/11/16 16:15 Albumin 3.5 gm/dL (3.7-5.3) L 12/11/16 16:15 Globulin 2.7 gm/dL 12/11/16 16:15 Albumin/Globulin Ratio 1.3 (1.0-1.8) 12/11/16 16:15 TSH 0.25 uIU/ml (0.34-5.60) L 12/11/16 16:15 Urine Source CATH 12/11/16 17:45 Urine Color YELLOW 12/11/16 17:45 Urine Clarity CLO0 (CLEAR) 12/11/16 17:45 Urine pH 5.5 (4.6 - 8.0) 12/11/16 17:45 Ur Specific [place] 1.015 (1.005-1.030) 12/11/16 17:45 Urine Protein NEGATIVE mg/dL (NEGATIVE) 12/11/16 17:45 Urine Glucose (UA) NEGATIVE mg/dL (NEGATIVE) 12/11/16 17:45 Urine Ketones NEGATIVE mg/dL (NEGATIVE) 12/11/16 17:45 Urine Blood TRACE (NEGATIVE) 12/11/16 17:45 Urine Nitrate POSITIVE (NEGATIVE) H 12/11/16 17:45 Urine Bilirubin NEGATIVE (NEGATIVE) 12/11/16 17:45 Urine Urobilinogen 0.2 E.U./dL (0.2 - 1.0) 12/11/16 17:45 Ur Leukocyte Esterase MODERATE (NEGATIVE) H 12/11/16 17:45 Urine RBC 0-2 /hpf (0-5) 12/11/16 17:45 Urine WBC >100 /hpf (0-5) H 12/11/16 17:45 Ur Epithelial Cells FEW /lpf (FEW) 12/11/16 17:45 Urine Bacteria MODERATE /hpf (NONE SEEN) 12/11/16 17:45 RPR NONREACTIVE (NONREACTIVE) 12/11/16 16:15 - Physical Exam Vitals and I&O: Vital Signs Temp 97.9 F 12/16/16 06:21 Pulse 65 12/16/16 09:03 Resp 18 12/16/16 06:21 BP 120/62 12/16/16 09:03 Pulse Ox 97 12/16/16 06:21 Intake & Output 12/15/16 12/16/16 12/16/16 18:59 06:59 18:59 Intake Total 240 Balance 240 Weight (lbs) 51.256 kg Intake: Oral 240 Other: # Voids 3 # Bowel Movements 0 Active Medications: Current Medications Acetaminophen (Tylenol) 650 mg PO Q4HR PRN PRN Reason: Pain Stop: 02/09/17 22:52 Al Hydrox/Mg Hydrox/Simethicone (Maalox) 30 ml PO Q6H PRN PRN Reason: Dyspepsia Stop: 02/09/17 22:44 Amlodipine Besylate (Norvasc) 5 mg PO DAILY [facility] Stop: 02/10/17 08:59 Last Admin: 12/16/16 09:03 Dose: 5 mg Benztropine Mesylate (Cogentin) 0.5 mg PO BID [facility] Stop: 02/10/17 08:59 Last Admin: 12/16/16 09:02 Dose: 0.5 mg Divalproex Sodium (Depakote Dr) 250 mg PO BID [facility] PRN Reason: Protocol Stop: 02/10/17 08:59 Last Admin: 12/16/16 09:02 Dose: 250 mg Docusate Sodium (Colace) 250 mg PO DAILY [facility] Stop: 02/10/17 08:59 Last Admin: 12/16/16 09:02 Dose: 250 mg Donepezil HCl (Aricept) 10 mg PO HS [facility] Stop: 02/10/17 20:59 Last Admin: 12/15/16 20:31 Dose: 10 mg Escitalopram Oxalate (Lexapro) 10 mg PO DAILY [facility] PRN Reason: Protocol Stop: 02/10/17 08:59 Last Admin: 12/16/16 09:01 Dose: 10 mg Levetiracetam (Keppra) 1,000 mg PO BID [facility] Stop: 02/10/17 08:59 Last Admin: 12/16/16 09:02 Dose: 1,000 mg Lorazepam (Ativan) 0.5 mg PO Q6H PRN PRN Reason: Anxiety/Agitation Stop: 02/12/17 12:32 Magnesium Hydroxide (Milk Of Magnesia) 30 ml PO DAILY PRN PRN Reason: Constipation Stop: 02/09/17 22:52 Memantine (Namenda) 10 mg PO Q12HR [facility] Stop: 02/10/17 08:59 Last Admin: 12/16/16 09:02 Dose: 10 mg Multivitamins/Vitamin C (Theragran) 1 tab PO DAILY [facility] Stop: 02/10/17 08:59 Last Admin: 12/16/16 09:03 Dose: 1 tab Olanzapine (Zyprexa) 15 mg PO HS [facility] Stop: 02/12/17 20:59 Last Admin: 12/15/16 20:31 Dose: 15 mg Olanzapine (Zyprexa) 10 mg PO DAILY [facility] Stop: 02/13/17 08:59 Last Admin: 12/16/16 09:03 Dose: 10 mg Trimethoprim/Sulfamethoxazole (Bactrim Ds) 1 tab PO BID [facility] Stop: 12/19/16 17:01 Last Admin: 12/16/16 09:02 Dose: 1 tab Zolpidem Tartrate (Ambien) 5 mg PO HS PRN PRN Reason: Insomnia Stop: 02/09/17 22:44 General: alert, demented HEENT: NC/AT, PERRLA, EOMI, anicteric sclerae, throat clear Neck: Supple, No JVD, No thyromegaly, +2 carotid pulse wo bruit, No LAD Lungs: CTAB Cardiovascular: RRR, Normal S1, Normal S2, without murmur Abdomen: soft, non-tender, non-distended Extremities: clear Neurological: no change - Procedures Procedures: Procedures Procedure Code Date GROUP PSYCHOTHERAPY 02722 04/15/15 GROUP PSYCHOTHERAPY GZHZZZZ 04/15/15 GROUP PSYCHOTHERAPY 74131 01/16/15 GROUP PSYCHOTHERAPY GZHZZZZ 01/16/15 Internal Medicine Assmt/Plan - Assessment Assessment: 1.HTN. 2.DEMENTIA. 3.DJD - Plan Plan: CONTINUE ON CURRENT MEDICATION AND DIET.
[2016-12-17] MEDS: Sulfamethoxazole/TMP 800/160mg Tab PO SCH ×2 (08:28→17:32)
[2016-12-17] MEDS: Multivitamin Tab PO SCH (08:29)
--- NOTE | 2016-12-17 18:13 | Internal Medicine Prog Note ---
Internal Medicine Subjective - Subjective Service Date: 12/17/16 Patient seen and examined:: with staff Patient is:: awake, verbal, in bed, talking Per staff patient has:: no adverse event Internal Medicine Objective - Results Result Diagrams: 12/11/16 16:15 12/11/16 16:15 Recent Labs: Laboratory Last Values WBC 5.8 Th/cmm (4.8-10.8) 12/11/16 16:15 RBC 4.24 Mil/cmm (3.80-5.20) 12/11/16 16:15 Hgb 13.8 gm/dL (12-16) 12/11/16 16:15 Hct 40.7 % (41.0-60) L 12/11/16 16:15 MCV 96.1 fl (81-100) 12/11/16 16:15 MCH 32.6 pg (27.0-31.0) H 12/11/16 16:15 MCHC Differential 33.9 pg (28.0-36.0) 12/11/16 16:15 RDW 12.1 % (11.5-20.0) 12/11/16 16:15 Plt Count 129 Th/cmm (150-400) L D 12/11/16 16:15 MPV 7.2 fl 12/11/16 16:15 Neutrophils % 60.1 % (40.0-80.0) 12/11/16 16:15 Lymphocytes % 26.7 % (20.0-50.0) 12/11/16 16:15 Monocytes % 10.1 % (2.0-10.0) H 12/11/16 16:15 Eosinophils % 3.1 % (0.0-5.0) 12/11/16 16:15 Basophils % 0.0 % (0.0-2.0) 12/11/16 16:15 Sodium 138 mEq/L (136-145) 12/11/16 16:15 Potassium 4.1 mEq/L (3.5-5.1) 12/11/16 16:15 Chloride 108 mEq/L (98-107) H 12/11/16 16:15 Carbon Dioxide 25.9 mEq/L (21.0-31.0) 12/11/16 16:15 Anion Gap 8.2 (7.0-16.0) 12/11/16 16:15 BUN 21 mg/dL (7-25) 12/11/16 16:15 Creatinine 0.9 mg/dL (0.6-1.2) 12/11/16 16:15 Est GFR ( Amer) TNP 12/11/16 16:15 Est GFR (Non-Af Amer) TNP 12/11/16 16:15 BUN/Creatinine Ratio 23.3 12/11/16 16:15 Glucose 120 mg/dL (40-70) H 12/11/16 16:15 POC Glucose 92 MG/DL (70 - 105) 12/13/16 06:38 Calcium 8.5 mg/dL (8.6-10.3) L 12/11/16 16:15 Total Bilirubin 0.4 mg/dL (0.3-1.0) 12/11/16 16:15 AST 17 U/L (13-39) 12/11/16 16:15 ALT 12 U/L (7-52) 12/11/16 16:15 Alkaline Phosphatase 51 U/L (34-104) 12/11/16 16:15 Total Protein 6.2 gm/dL (6.0-8.3) 12/11/16 16:15 Albumin 3.5 gm/dL (3.7-5.3) L 12/11/16 16:15 Globulin 2.7 gm/dL 12/11/16 16:15 Albumin/Globulin Ratio 1.3 (1.0-1.8) 12/11/16 16:15 TSH 0.25 uIU/ml (0.34-5.60) L 12/11/16 16:15 Urine Source CATH 12/11/16 17:45 Urine Color YELLOW 12/11/16 17:45 Urine Clarity CLO0 (CLEAR) 12/11/16 17:45 Urine pH 5.5 (4.6 - 8.0) 12/11/16 17:45 Ur Specific [place] 1.015 (1.005-1.030) 12/11/16 17:45 Urine Protein NEGATIVE mg/dL (NEGATIVE) 12/11/16 17:45 Urine Glucose (UA) NEGATIVE mg/dL (NEGATIVE) 12/11/16 17:45 Urine Ketones NEGATIVE mg/dL (NEGATIVE) 12/11/16 17:45 Urine Blood TRACE (NEGATIVE) 12/11/16 17:45 Urine Nitrate POSITIVE (NEGATIVE) H 12/11/16 17:45 Urine Bilirubin NEGATIVE (NEGATIVE) 12/11/16 17:45 Urine Urobilinogen 0.2 E.U./dL (0.2 - 1.0) 12/11/16 17:45 Ur Leukocyte Esterase MODERATE (NEGATIVE) H 12/11/16 17:45 Urine RBC 0-2 /hpf (0-5) 12/11/16 17:45 Urine WBC >100 /hpf (0-5) H 12/11/16 17:45 Ur Epithelial Cells FEW /lpf (FEW) 12/11/16 17:45 Urine Bacteria MODERATE /hpf (NONE SEEN) 12/11/16 17:45 Valproic Acid 46.6 ug/mL (50.0-100.0) L 12/16/16 10:40 RPR NONREACTIVE (NONREACTIVE) 12/11/16 16:15 - Physical Exam Vitals and I&O: Vital Signs Temp 97.6 F 12/17/16 14:00 Pulse 83 12/17/16 14:00 Resp 20 12/17/16 14:00 BP 141/76 12/17/16 14:00 Pulse Ox 97 12/17/16 14:00 Intake & Output 12/16/16 12/17/16 12/17/16 18:59 06:59 18:59 Intake Total 8405 933 6438 Balance 8313 869 1821 Intake: Oral 9231 705 8788 Other: # Voids 4 3 4 # Bowel Movements 0 1 Active Medications: Current Medications Acetaminophen (Tylenol) 650 mg PO Q4HR PRN PRN Reason: Pain Stop: 02/09/17 22:52 Al Hydrox/Mg Hydrox/Simethicone (Maalox) 30 ml PO Q6H PRN PRN Reason: Dyspepsia Stop: 02/09/17 22:44 Amlodipine Besylate (Norvasc) 5 mg PO DAILY [facility] Stop: 02/10/17 08:59 Last Admin: 12/17/16 08:30 Dose: Not Given Benztropine Mesylate (Cogentin) 0.5 mg PO BID [facility] Stop: 02/10/17 08:59 Last Admin: 12/17/16 17:33 Dose: 0.5 mg Divalproex Sodium (Depakote Dr) 250 mg PO BID [facility] PRN Reason: Protocol Stop: 02/10/17 08:59 Last Admin: 12/17/16 17:32 Dose: 250 mg Docusate Sodium (Colace) 250 mg PO DAILY [facility] Stop: 02/10/17 08:59 Last Admin: 12/17/16 08:28 Dose: 250 mg Donepezil HCl (Aricept) 10 mg PO HS [facility] Stop: 02/10/17 20:59 Last Admin: 12/16/16 21:13 Dose: 10 mg Escitalopram Oxalate (Lexapro) 10 mg PO DAILY [facility] PRN Reason: Protocol Stop: 02/10/17 08:59 Last Admin: 12/17/16 08:29 Dose: 10 mg Levetiracetam (Keppra) 1,000 mg PO BID [facility] Stop: 02/10/17 08:59 Last Admin: 12/17/16 17:33 Dose: 1,000 mg Lorazepam (Ativan) 0.5 mg PO Q6H PRN PRN Reason: Anxiety/Agitation Stop: 02/12/17 12:32 Magnesium Hydroxide (Milk Of Magnesia) 30 ml PO DAILY PRN PRN Reason: Constipation Stop: 02/09/17 22:52 Memantine (Namenda) 10 mg PO Q12HR [facility] Stop: 02/10/17 08:59 Last Admin: 12/17/16 08:29 Dose: 10 mg Multivitamins/Vitamin C (Theragran) 1 tab PO DAILY [facility] Stop: 02/10/17 08:59 Last Admin: 12/17/16 08:29 Dose: 1 tab Olanzapine (Zyprexa) 15 mg PO HS [facility] Stop: 02/12/17 20:59 Last Admin: 12/16/16 21:13 Dose: 15 mg Olanzapine (Zyprexa) 10 mg PO DAILY [facility] Stop: 02/13/17 08:59 Last Admin: 12/17/16 08:29 Dose: 10 mg Trimethoprim/Sulfamethoxazole (Bactrim Ds) 1 tab PO BID [facility] Stop: 12/19/16 17:01 Last Admin: 12/17/16 17:32 Dose: 1 tab Zolpidem Tartrate (Ambien) 5 mg PO HS PRN PRN Reason: Insomnia Stop: 02/09/17 22:44 General: alert, demented HEENT: NC/AT, PERRLA, EOMI, anicteric sclerae, throat clear Neck: Supple, No JVD, No thyromegaly, +2 carotid pulse wo bruit, No LAD Lungs: CTAB Cardiovascular: RRR, Normal S1, Normal S2, without murmur Abdomen: soft, non-tender, non-distended Extremities: clear Neurological: no change - Procedures Procedures: Procedures Procedure Code Date GROUP PSYCHOTHERAPY 36133 04/15/15 GROUP PSYCHOTHERAPY GZHZZZZ 04/15/15 GROUP PSYCHOTHERAPY 67475 01/16/15 GROUP PSYCHOTHERAPY GZHZZZZ 01/16/15 Internal Medicine Assmt/Plan - Assessment Assessment: 1.HTN. 2.DEMENTIA. 3.DJD - Plan Plan: CONTINUE ON CURRENT MEDICATION AND DIET. Nutritional Asmnt/Malnutr-PDOC - Dietary Evaluation Malnutrition Findings (Please click <Entered> for more info): Nutritional Asmnt/Malnutrition Start: 12/16/16 11: 32 Text: Status: Complete Freq: Document 12/16/16 11:32 BERNARDA (Rec: 12/16/16 11:47 YG [email or web address]) Nutritional Asmnt/Malnutrition Patient General Information Nutritional Screening Moderate Risk Diagnosis psychosis, dementia, UTI Pertinent Medical Hx/Surgical Hx HTN, Seizure disorder, Dementia, degenerative joint diseases Subjective Information Spoke with nurse, pt is alert but still confused. Good appetite, exited about meals, eats w/o assist. PO intakee 50 -75% since admission, avg PO intake 75%. Pt is tolerating current diet well. no chewing/ swallowing problem. Current Diet Order/ Nutrition Support Mechanical soft chopped, LACEY, CCHO Pertinent Medications colace, MVI, Vit C Pertinent Labs POC: 92-156 (12/11-12/13) 12/11: Na 138, K 4.1, Cl 108H, BUN 21, Cr 0.9, Glu 120H, Ca 8 .5L, Alb 3.5L, TSH 0.25L Nutritional Hx/Data Height 1.63 m Height (Calculated Centimeters) 162.6 Current Weight (lbs) 51.256 kg Weight (Calculated Kilograms) 51.3 Weight (Calculated Grams) 93882.9 [place] Body Weight 120 % [place] Body Weight 94 Body Mass Index (BMI) 19.3 Weight Status Approriate GI Symptoms GI Symptoms None Last BM 11/6 Difficult in: None Food Allergies No Skin Integrity/Comment: intact Current %PO Good (75-100%) Estimated Nutritional Goals BEE in Kcals: Using Current wt Calories/Kcals/Kg 25-30 Kcals Calculated 8586-0891 Protein: Using Current wt Protein g/k Protein Calculated 51 Fluid: ml 4231-3388 (1ml/kcal) Nutritional Problem 1. Problem Problem no nutrition problem at this time Malnutrition Alert Protein-Calorie Malnutrition N/A Is there a minimum of two criteria No selected? Query Text:Check all the applicable criteria. A minimum of two criteria are recommended for diagnosis of either severe or non-severe malnutrition. Intervention/Recommendation Comments 1. continue with current diet order. avg PO intake 75% meets 100% nutritional needs 2. Monitor diet tolerance, PO intake, glucose level, wt weekly 3. F/U as low risk in 7 days, 12/23 Expected Outcomes/Goals Expected Outcomes/Goals 1. PO intake >75% to meet nutritional needs. 2. wt stability 3. skin to remain intact 4. glucose to approch WNL
--- NOTE | 2016-12-17 21:03 | Progress Notes ---
DATE: 12/17/2016 Case was discussed with staff of the patient's, reviewed records. The patient continues to be guarded, suspicious, paranoid, continues to have poor insight, easily agitated. She stays in her bed. She continues to be unable to make safe for self-care. She is demented, confused. No side effects with the medication, no sedation, no nausea, no extrapyramidal symptoms. Her Zyprexa dose was increased in the last few days to 50 mg at bedtime and 10 mg in the morning. No side effects, no sedation nausea, no extrapyramidal symptoms. We will continue to work with the patient in group therapy, milieu therapy, adjust the medication as needed. [facility]# [id number]
[2016-12-18] MEDS: Multivitamin Tab PO SCH (08:37)
[2016-12-18] MEDS: Sulfamethoxazole/TMP 800/160mg Tab PO SCH ×3 (08:37→16:22)
[2016-12-18] MEDS ORDERED: Probiotic Screen MC PRN (15:28)
--- NOTE | 2016-12-18 16:58 | Internal Medicine Prog Note ---
Internal Medicine Subjective - Subjective Service Date: 12/18/16 Patient seen and examined:: without staff Patient is:: awake, verbal, in bed, talking Per staff patient has:: no adverse event Internal Medicine Objective - Results Result Diagrams: 12/11/16 16:15 12/11/16 16:15 Recent Labs: Laboratory Last Values WBC 5.8 Th/cmm (4.8-10.8) 12/11/16 16:15 RBC 4.24 Mil/cmm (3.80-5.20) 12/11/16 16:15 Hgb 13.8 gm/dL (12-16) 12/11/16 16:15 Hct 40.7 % (41.0-60) L 12/11/16 16:15 MCV 96.1 fl (81-100) 12/11/16 16:15 MCH 32.6 pg (27.0-31.0) H 12/11/16 16:15 MCHC Differential 33.9 pg (28.0-36.0) 12/11/16 16:15 RDW 12.1 % (11.5-20.0) 12/11/16 16:15 Plt Count 129 Th/cmm (150-400) L D 12/11/16 16:15 MPV 7.2 fl 12/11/16 16:15 Neutrophils % 60.1 % (40.0-80.0) 12/11/16 16:15 Lymphocytes % 26.7 % (20.0-50.0) 12/11/16 16:15 Monocytes % 10.1 % (2.0-10.0) H 12/11/16 16:15 Eosinophils % 3.1 % (0.0-5.0) 12/11/16 16:15 Basophils % 0.0 % (0.0-2.0) 12/11/16 16:15 Sodium 138 mEq/L (136-145) 12/11/16 16:15 Potassium 4.1 mEq/L (3.5-5.1) 12/11/16 16:15 Chloride 108 mEq/L (98-107) H 12/11/16 16:15 Carbon Dioxide 25.9 mEq/L (21.0-31.0) 12/11/16 16:15 Anion Gap 8.2 (7.0-16.0) 12/11/16 16:15 BUN 21 mg/dL (7-25) 12/11/16 16:15 Creatinine 0.9 mg/dL (0.6-1.2) 12/11/16 16:15 Est GFR ( Amer) TNP 12/11/16 16:15 Est GFR (Non-Af Amer) TNP 12/11/16 16:15 BUN/Creatinine Ratio 23.3 12/11/16 16:15 Glucose 120 mg/dL (40-70) H 12/11/16 16:15 POC Glucose 92 MG/DL (70 - 105) 12/13/16 06:38 Calcium 8.5 mg/dL (8.6-10.3) L 12/11/16 16:15 Total Bilirubin 0.4 mg/dL (0.3-1.0) 12/11/16 16:15 AST 17 U/L (13-39) 12/11/16 16:15 ALT 12 U/L (7-52) 12/11/16 16:15 Alkaline Phosphatase 51 U/L (34-104) 12/11/16 16:15 Total Protein 6.2 gm/dL (6.0-8.3) 12/11/16 16:15 Albumin 3.5 gm/dL (3.7-5.3) L 12/11/16 16:15 Globulin 2.7 gm/dL 12/11/16 16:15 Albumin/Globulin Ratio 1.3 (1.0-1.8) 12/11/16 16:15 TSH 0.25 uIU/ml (0.34-5.60) L 12/11/16 16:15 Urine Source CATH 12/11/16 17:45 Urine Color YELLOW 12/11/16 17:45 Urine Clarity CLO0 (CLEAR) 12/11/16 17:45 Urine pH 5.5 (4.6 - 8.0) 12/11/16 17:45 Ur Specific [place] 1.015 (1.005-1.030) 12/11/16 17:45 Urine Protein NEGATIVE mg/dL (NEGATIVE) 12/11/16 17:45 Urine Glucose (UA) NEGATIVE mg/dL (NEGATIVE) 12/11/16 17:45 Urine Ketones NEGATIVE mg/dL (NEGATIVE) 12/11/16 17:45 Urine Blood TRACE (NEGATIVE) 12/11/16 17:45 Urine Nitrate POSITIVE (NEGATIVE) H 12/11/16 17:45 Urine Bilirubin NEGATIVE (NEGATIVE) 12/11/16 17:45 Urine Urobilinogen 0.2 E.U./dL (0.2 - 1.0) 12/11/16 17:45 Ur Leukocyte Esterase MODERATE (NEGATIVE) H 12/11/16 17:45 Urine RBC 0-2 /hpf (0-5) 12/11/16 17:45 Urine WBC >100 /hpf (0-5) H 12/11/16 17:45 Ur Epithelial Cells FEW /lpf (FEW) 12/11/16 17:45 Urine Bacteria MODERATE /hpf (NONE SEEN) 12/11/16 17:45 Valproic Acid 46.6 ug/mL (50.0-100.0) L 12/16/16 10:40 RPR NONREACTIVE (NONREACTIVE) 12/11/16 16:15 - Physical Exam Vitals and I&O: Vital Signs Temp 97.7 F 12/18/16 06:41 Pulse 62 12/18/16 08:36 Resp 18 12/18/16 06:41 BP 122/65 12/18/16 08:36 Pulse Ox 98 12/18/16 06:41 Intake & Output 12/17/16 12/18/16 12/18/16 18:59 06:59 18:59 Intake Total 2400 120 Balance 2400 120 Intake: Oral 2400 120 Other: # Voids 4 3 # Bowel Movements 1 Active Medications: Current Medications Acetaminophen (Tylenol) 650 mg PO Q4HR PRN PRN Reason: Pain Stop: 02/09/17 22:52 Al Hydrox/Mg Hydrox/Simethicone (Maalox) 30 ml PO Q6H PRN PRN Reason: Dyspepsia Stop: 02/09/17 22:44 Amlodipine Besylate (Norvasc) 5 mg PO DAILY [facility] Stop: 02/10/17 08:59 Last Admin: 12/18/16 08:36 Dose: 5 mg Benztropine Mesylate (Cogentin) 0.5 mg PO BID [facility] Stop: 02/10/17 08:59 Last Admin: 12/18/16 16:21 Dose: 0.5 mg Divalproex Sodium (Depakote Dr) 250 mg PO BID [facility] PRN Reason: Protocol Stop: 02/10/17 08:59 Last Admin: 12/18/16 16:21 Dose: 250 mg Docusate Sodium (Colace) 250 mg PO DAILY [facility] Stop: 02/10/17 08:59 Last Admin: 12/18/16 08:35 Dose: 250 mg Donepezil HCl (Aricept) 10 mg PO HS [facility] Stop: 02/10/17 20:59 Last Admin: 12/17/16 20:31 Dose: 10 mg Escitalopram Oxalate (Lexapro) 10 mg PO DAILY [facility] PRN Reason: Protocol Stop: 02/10/17 08:59 Last Admin: 12/18/16 08:53 Dose: 10 mg Lactobacillus Rhamnosus (Culturelle) 1 each PO DAILY [facility] Stop: 02/17/17 08:59 Levetiracetam (Keppra) 1,000 mg PO BID [facility] Stop: 02/10/17 08:59 Last Admin: 12/18/16 16:20 Dose: 1,000 mg Lorazepam (Ativan) 0.5 mg PO Q6H PRN PRN Reason: Anxiety/Agitation Stop: 02/12/17 12:32 Magnesium Hydroxide (Milk Of Magnesia) 30 ml PO DAILY PRN PRN Reason: Constipation Stop: 02/09/17 22:52 Memantine (Namenda) 10 mg PO Q12HR [facility] Stop: 02/10/17 08:59 Last Admin: 12/18/16 08:37 Dose: 10 mg Miscellaneous (Probiotic Screen) 1 ea [facility] PRN PRN PRN Reason: PROTOCOL Stop: 02/16/17 15:27 Multivitamins/Vitamin C (Theragran) 1 tab PO DAILY [facility] Stop: 02/10/17 08:59 Last Admin: 12/18/16 08:37 Dose: 1 tab Olanzapine (Zyprexa) 15 mg PO HS [facility] Stop: 02/12/17 20:59 Last Admin: 12/17/16 20:31 Dose: 15 mg Olanzapine (Zyprexa) 10 mg PO DAILY [facility] Stop: 02/13/17 08:59 Last Admin: 12/18/16 08:37 Dose: 10 mg Trimethoprim/Sulfamethoxazole (Bactrim Ds) 1 tab PO BID [facility] Stop: 12/19/16 17:01 Last Admin: 12/18/16 16:22 Dose: 1 tab Zolpidem Tartrate (Ambien) 5 mg PO HS PRN PRN Reason: Insomnia Stop: 02/09/17 22:44 General: alert, demented HEENT: NC/AT, PERRLA, EOMI, anicteric sclerae, throat clear Neck: Supple, No JVD, No thyromegaly, +2 carotid pulse wo bruit, No LAD Lungs: CTAB Cardiovascular: RRR, Normal S1, Normal S2, without murmur Abdomen: soft, non-tender, non-distended Extremities: clear Neurological: no change - Procedures Procedures: Procedures Procedure Code Date GROUP PSYCHOTHERAPY 59473 04/15/15 GROUP PSYCHOTHERAPY GZHZZZZ 04/15/15 GROUP PSYCHOTHERAPY 02541 01/16/15 GROUP PSYCHOTHERAPY GZHZZZZ 01/16/15 Internal Medicine Assmt/Plan - Assessment Assessment: 1.HTN. 2.DEMENTIA. 3.DJD - Plan Plan: CONTINUE ON CURRENT MEDICATION AND DIET. Nutritional Asmnt/Malnutr-PDOC - Dietary Evaluation Malnutrition Findings (Please click <Entered> for more info): Nutritional Asmnt/Malnutrition Start: 12/16/16 11: 32 Text: Status: Complete Freq: Document 12/16/16 11:32 LCHENG (Rec: 12/16/16 11:47 LCHENG [email or web address]) Nutritional Asmnt/Malnutrition Patient General Information Nutritional Screening Moderate Risk Diagnosis psychosis, dementia, UTI Pertinent Medical Hx/Surgical Hx HTN, Seizure disorder, Dementia, degenerative joint diseases Subjective Information Spoke with nurse, pt is alert but still confused. Good appetite, exited about meals, eats w/o assist. PO intakee 50 -75% since admission, avg PO intake 75%. Pt is tolerating current diet well. no chewing/ swallowing problem. Current Diet Order/ Nutrition Support Mechanical soft chopped, LACEY, CCHO Pertinent Medications colace, MVI, Vit C Pertinent Labs POC: 92-156 (12/11-12/13) 12/11: Na 138, K 4.1, Cl 108H, BUN 21, Cr 0.9, Glu 120H, Ca 8 .5L, Alb 3.5L, TSH 0.25L Nutritional Hx/Data Height 1.63 m Height (Calculated Centimeters) 162.6 Current Weight (lbs) 51.256 kg Weight (Calculated Kilograms) 51.3 Weight (Calculated Grams) 38093.9 [place] Body Weight 120 % [place] Body Weight 94 Body Mass Index (BMI) 19.3 Weight Status Approriate GI Symptoms GI Symptoms None Last BM 12/14 Difficult in: None Food Allergies No Skin Integrity/Comment: intact Current %PO Good (75-100%) Estimated Nutritional Goals BEE in Kcals: Using Current wt Calories/Kcals/Kg 25-30 Kcals Calculated 7377-4112 Protein: Using Current wt Protein g/k Protein Calculated 51 Fluid: ml 0858-1128 (1ml/kcal) Nutritional Problem 1. Problem Problem no nutrition problem at this time Malnutrition Alert Protein-Calorie Malnutrition N/A Is there a minimum of two criteria No selected? Query Text:Check all the applicable criteria. A minimum of two criteria are recommended for diagnosis of either severe or non-severe malnutrition. Intervention/Recommendation Comments 1. continue with current diet order. avg PO intake 75% meets 100% nutritional needs 2. Monitor diet tolerance, PO intake, glucose level, wt weekly 3. F/U as low risk in 7 days, 12/23 Expected Outcomes/Goals Expected Outcomes/Goals 1. PO intake >75% to meet nutritional needs. 2. wt stability 3. skin to remain intact 4. glucose to approch WNL
--- NOTE | 2016-12-19 04:13 | Progress Notes ---
DATE: 12/18/2016 Case was discussed with staff of the patient's records. The patient continues to have poor insight, staying in bed, more on the depressed side. The staff report that in the past she used to be more manicy. She is unpredictable, impulsive, needing redirection. Confused, demented. She is on Aricept 10 mg at bedtime, Namenda 10 mg twice a day, Depakote 250 mg twice a day and Zyprexa 15 mg at bedtime, 10 mg in the morning with no side effects, no sedation, no nausea, no extrapyramidal symptoms. We will continue to work with the patient in group therapy, milieu therapy, and adjust medication as needed. [facility]# [id number]
[2016-12-19] MEDS: Sulfamethoxazole/TMP 800/160mg Tab PO SCH ×2 (08:40→16:32)
[2016-12-19] MEDS: Lactobacillus Rhamnosus 10 Billion CFU Capsule PO SCH (08:41)
[2016-12-19] MEDS: Multivitamin Tab PO SCH (08:59)
--- NOTE | 2016-12-19 13:40 | General Progress Note ---
Subjective - Review of Systems Service Date: 12/19/16 Subjective: resting comfortably no distress Objective - Results Result Diagrams: 12/11/16 16:15 12/11/16 16:15 Recent Labs: Laboratory Last Values WBC 5.8 Th/cmm (4.8-10.8) 12/11/16 16:15 RBC 4.24 Mil/cmm (3.80-5.20) 12/11/16 16:15 Hgb 13.8 gm/dL (12-16) 12/11/16 16:15 Hct 40.7 % (41.0-60) L 12/11/16 16:15 MCV 96.1 fl (81-100) 12/11/16 16:15 MCH 32.6 pg (27.0-31.0) H 12/11/16 16:15 MCHC Differential 33.9 pg (28.0-36.0) 12/11/16 16:15 RDW 12.1 % (11.5-20.0) 12/11/16 16:15 Plt Count 129 Th/cmm (150-400) L D 12/11/16 16:15 MPV 7.2 fl 12/11/16 16:15 Neutrophils % 60.1 % (40.0-80.0) 12/11/16 16:15 Lymphocytes % 26.7 % (20.0-50.0) 12/11/16 16:15 Monocytes % 10.1 % (2.0-10.0) H 12/11/16 16:15 Eosinophils % 3.1 % (0.0-5.0) 12/11/16 16:15 Basophils % 0.0 % (0.0-2.0) 12/11/16 16:15 Sodium 138 mEq/L (136-145) 12/11/16 16:15 Potassium 4.1 mEq/L (3.5-5.1) 12/11/16 16:15 Chloride 108 mEq/L (98-107) H 12/11/16 16:15 Carbon Dioxide 25.9 mEq/L (21.0-31.0) 12/11/16 16:15 Anion Gap 8.2 (7.0-16.0) 12/11/16 16:15 BUN 21 mg/dL (7-25) 12/11/16 16:15 Creatinine 0.9 mg/dL (0.6-1.2) 12/11/16 16:15 Est GFR ( Amer) TNP 12/11/16 16:15 Est GFR (Non-Af Amer) TNP 12/11/16 16:15 BUN/Creatinine Ratio 23.3 12/11/16 16:15 Glucose 120 mg/dL (40-70) H 12/11/16 16:15 POC Glucose 92 MG/DL (70 - 105) 12/13/16 06:38 Calcium 8.5 mg/dL (8.6-10.3) L 12/11/16 16:15 Total Bilirubin 0.4 mg/dL (0.3-1.0) 12/11/16 16:15 AST 17 U/L (13-39) 12/11/16 16:15 ALT 12 U/L (7-52) 12/11/16 16:15 Alkaline Phosphatase 51 U/L (34-104) 12/11/16 16:15 Total Protein 6.2 gm/dL (6.0-8.3) 12/11/16 16:15 Albumin 3.5 gm/dL (3.7-5.3) L 12/11/16 16:15 Globulin 2.7 gm/dL 12/11/16 16:15 Albumin/Globulin Ratio 1.3 (1.0-1.8) 12/11/16 16:15 TSH 0.25 uIU/ml (0.34-5.60) L 12/11/16 16:15 Urine Source CATH 12/11/16 17:45 Urine Color YELLOW 12/11/16 17:45 Urine Clarity CLO0 (CLEAR) 12/11/16 17:45 Urine pH 5.5 (4.6 - 8.0) 12/11/16 17:45 Ur Specific [place] 1.015 (1.005-1.030) 12/11/16 17:45 Urine Protein NEGATIVE mg/dL (NEGATIVE) 12/11/16 17:45 Urine Glucose (UA) NEGATIVE mg/dL (NEGATIVE) 12/11/16 17:45 Urine Ketones NEGATIVE mg/dL (NEGATIVE) 12/11/16 17:45 Urine Blood TRACE (NEGATIVE) 12/11/16 17:45 Urine Nitrate POSITIVE (NEGATIVE) H 12/11/16 17:45 Urine Bilirubin NEGATIVE (NEGATIVE) 12/11/16 17:45 Urine Urobilinogen 0.2 E.U./dL (0.2 - 1.0) 12/11/16 17:45 Ur Leukocyte Esterase MODERATE (NEGATIVE) H 12/11/16 17:45 Urine RBC 0-2 /hpf (0-5) 12/11/16 17:45 Urine WBC >100 /hpf (0-5) H 12/11/16 17:45 Ur Epithelial Cells FEW /lpf (FEW) 12/11/16 17:45 Urine Bacteria MODERATE /hpf (NONE SEEN) 12/11/16 17:45 Valproic Acid 46.6 ug/mL (50.0-100.0) L 12/16/16 10:40 RPR NONREACTIVE (NONREACTIVE) 12/11/16 16:15 - Physical Exam Vitals and I&O: Vital Signs Temp 97.8 F 12/19/16 06:36 Pulse 72 12/19/16 08:42 Resp 18 12/19/16 08:00 BP 104/65 12/19/16 08:42 Pulse Ox 96 12/19/16 06:36 Intake & Output 12/18/16 12/19/16 12/19/16 18:59 06:59 18:59 Intake Total 1000 120 Balance 1000 120 Intake: Oral 1000 120 Other: # Voids 4 3 # Bowel Movements 1 Active Medications: Current Medications Acetaminophen (Tylenol) 650 mg PO Q4HR PRN PRN Reason: Pain Stop: 02/09/17 22:52 Al Hydrox/Mg Hydrox/Simethicone (Maalox) 30 ml PO Q6H PRN PRN Reason: Dyspepsia Stop: 02/09/17 22:44 Amlodipine Besylate (Norvasc) 5 mg PO DAILY [facility] Stop: 02/10/17 08:59 Last Admin: 12/19/16 08:42 Dose: Not Given Benztropine Mesylate (Cogentin) 0.5 mg PO BID [facility] Stop: 02/10/17 08:59 Last Admin: 12/19/16 08:43 Dose: 0.5 mg Divalproex Sodium (Depakote Dr) 125 mg PO BID [facility] PRN Reason: Protocol Stop: 02/17/17 11:59 Docusate Sodium (Colace) 250 mg PO DAILY [facility] Stop: 02/10/17 08:59 Last Admin: 12/19/16 08:40 Dose: 250 mg Donepezil HCl (Aricept) 10 mg PO HS [facility] Stop: 02/10/17 20:59 Last Admin: 12/18/16 20:53 Dose: 10 mg Escitalopram Oxalate (Lexapro) 10 mg PO DAILY [facility] PRN Reason: Protocol Stop: 02/10/17 08:59 Last Admin: 12/19/16 08:40 Dose: 10 mg Lactobacillus Rhamnosus (Culturelle) 1 each PO DAILY [facility] Stop: 02/17/17 08:59 Last Admin: 12/19/16 08:41 Dose: 1 each Levetiracetam (Keppra) 1,000 mg PO BID [facility] Stop: 02/10/17 08:59 Last Admin: 12/19/16 08:43 Dose: 1,000 mg Lorazepam (Ativan) 0.5 mg PO Q6H PRN PRN Reason: Anxiety/Agitation Stop: 02/12/17 12:32 Magnesium Hydroxide (Milk Of Magnesia) 30 ml PO DAILY PRN PRN Reason: Constipation Stop: 02/09/17 22:52 Memantine (Namenda) 10 mg PO Q12HR [facility] Stop: 02/10/17 08:59 Last Admin: 12/19/16 08:44 Dose: 10 mg Miscellaneous (Probiotic Screen) 1 ea MC PRN PRN PRN Reason: PROTOCOL Stop: 02/16/17 15:27 Multivitamins/Vitamin C (Theragran) 1 tab PO DAILY [facility] Stop: 02/10/17 08:59 Last Admin: 12/19/16 08:59 Dose: 1 tab Olanzapine (Zyprexa) 10 mg PO DAILY [facility] Stop: 02/13/17 08:59 Last Admin: 12/19/16 08:41 Dose: 10 mg Olanzapine (Zyprexa) 10 mg PO HS [facility] Stop: 02/17/17 11:56 Trimethoprim/Sulfamethoxazole (Bactrim Ds) 1 tab PO BID [facility] Stop: 12/19/16 17:01 Last Admin: 12/19/16 08:40 Dose: 1 tab General: No acute distress HEENT: Atraumatic, PERRLA Neck: Supple, JVD Cardiovascular: Regular rate, Normal S1, Normal S2 Lungs: Clear to auscultation Abdomen: Bowel sounds, Soft - Procedures Procedures: Procedures Procedure Code Date GROUP PSYCHOTHERAPY 59786 04/15/15 GROUP PSYCHOTHERAPY GZHZZZZ 04/15/15 GROUP PSYCHOTHERAPY 65346 01/16/15 GROUP PSYCHOTHERAPY GZHZZZZ 01/16/15 Assessment/Plan - Problem List Patient Problems: All Active Problems Abnormal lithium level in blood (Acute) R78.89 Agitation (Acute) R45.1 INCREASED AGGRESSIVE BEHAVIOR (Acute) Outbursts of anger (Acute) R45.4 The Product License for [email or web address] has and was valid until [01/08/2016]. Please refer to our FAQ page ([email or web address]) and contact [employer] Customer Support at [email or web address] (Acute) seizures (Acute) - Assessment Assessment: 1.HTN. 2.DEMENTIA. 3.DJD - Plan Plan: cont current treatment Nutritional Asmnt/Malnutr-PDOC - Dietary Evaluation Malnutrition Findings (Please click <Entered> for more info): Nutritional Asmnt/Malnutrition Start: 12/16/16 11: 32 Text: Status: Complete Freq: Document 12/16/16 11:32 BERNARDA (Rec: 12/16/16 11:47 BERNARDA [email or web address]) Nutritional Asmnt/Malnutrition Patient General Information Nutritional Screening Moderate Risk Diagnosis psychosis, dementia, UTI Pertinent Medical Hx/Surgical Hx HTN, Seizure disorder, Dementia, degenerative joint diseases Subjective Information Spoke with nurse, pt is alert but still confused. Good appetite, exited about meals, eats w/o assist. PO intakee 50 -75% since admission, avg PO intake 75%. Pt is tolerating current diet well. no chewing/ swallowing problem. Current Diet Order/ Nutrition Support Mechanical soft chopped, LACEY, CCHO Pertinent Medications colace, MVI, Vit C Pertinent Labs POC: 92-156 (12/11-12/13) 12/11: Na 138, K 4.1, Cl 108H, BUN 21, Cr 0.9, Glu 120H, Ca 8 .5L, Alb 3.5L, TSH 0.25L Nutritional Hx/Data Height 1.63 m Height (Calculated Centimeters) 162.6 Current Weight (lbs) 51.256 kg Weight (Calculated Kilograms) 51.3 Weight (Calculated Grams) 51429.9 [place] Body Weight 120 % [place] Body Weight 94 Body Mass Index (BMI) 19.3 Weight Status Approriate GI Symptoms GI Symptoms None Last BM 12/14 Difficult in: None Food Allergies No Skin Integrity/Comment: intact Current %PO Good (75-100%) Estimated Nutritional Goals BEE in Kcals: Using Current wt Calories/Kcals/Kg 25-30 Kcals Calculated 6988-0810 Protein: Using Current wt Protein g/k Protein Calculated 51 Fluid: ml 0385-4854 (1ml/kcal) Nutritional Problem 1. Problem Problem no nutrition problem at this time Malnutrition Alert Protein-Calorie Malnutrition N/A Is there a minimum of two criteria No selected? Query Text:Check all the applicable criteria. A minimum of two criteria are recommended for diagnosis of either severe or non-severe malnutrition. Intervention/Recommendation Comments 1. continue with current diet order. avg PO intake 75% meets 100% nutritional needs 2. Monitor diet tolerance, PO intake, glucose level, wt weekly 3. F/U as low risk in 7 days, 12/23 Expected Outcomes/Goals Expected Outcomes/Goals 1. PO intake >75% to meet nutritional needs. 2. wt stability 3. skin to remain intact 4. glucose to approch WNL
[2016-12-20] MEDS: Multivitamin Tab PO SCH (09:21)
[2016-12-20] MEDS: Lactobacillus Rhamnosus 10 Billion CFU Capsule PO SCH (09:21)
--- NOTE | 2016-12-20 17:24 | General Progress Note ---
Subjective - Review of Systems Service Date: 12/20/16 Subjective: resting comfortably no distress Objective - Results Result Diagrams: 12/11/16 16:15 12/11/16 16:15 Recent Labs: Laboratory Last Values WBC 5.8 Th/cmm (4.8-10.8) 12/11/16 16:15 RBC 4.24 Mil/cmm (3.80-5.20) 12/11/16 16:15 Hgb 13.8 gm/dL (12-16) 12/11/16 16:15 Hct 40.7 % (41.0-60) L 12/11/16 16:15 MCV 96.1 fl (81-100) 12/11/16 16:15 MCH 32.6 pg (27.0-31.0) H 12/11/16 16:15 MCHC Differential 33.9 pg (28.0-36.0) 12/11/16 16:15 RDW 12.1 % (11.5-20.0) 12/11/16 16:15 Plt Count 129 Th/cmm (150-400) L D 12/11/16 16:15 MPV 7.2 fl 12/11/16 16:15 Neutrophils % 60.1 % (40.0-80.0) 12/11/16 16:15 Lymphocytes % 26.7 % (20.0-50.0) 12/11/16 16:15 Monocytes % 10.1 % (2.0-10.0) H 12/11/16 16:15 Eosinophils % 3.1 % (0.0-5.0) 12/11/16 16:15 Basophils % 0.0 % (0.0-2.0) 12/11/16 16:15 Sodium 138 mEq/L (136-145) 12/11/16 16:15 Potassium 4.1 mEq/L (3.5-5.1) 12/11/16 16:15 Chloride 108 mEq/L (98-107) H 12/11/16 16:15 Carbon Dioxide 25.9 mEq/L (21.0-31.0) 12/11/16 16:15 Anion Gap 8.2 (7.0-16.0) 12/11/16 16:15 BUN 21 mg/dL (7-25) 12/11/16 16:15 Creatinine 0.9 mg/dL (0.6-1.2) 12/11/16 16:15 Est GFR ( Amer) TNP 12/11/16 16:15 Est GFR (Non-Af Amer) TNP 12/11/16 16:15 BUN/Creatinine Ratio 23.3 12/11/16 16:15 Glucose 120 mg/dL (40-70) H 12/11/16 16:15 POC Glucose 92 MG/DL (70 - 105) 12/13/16 06:38 Calcium 8.5 mg/dL (8.6-10.3) L 12/11/16 16:15 Total Bilirubin 0.4 mg/dL (0.3-1.0) 12/11/16 16:15 AST 17 U/L (13-39) 12/11/16 16:15 ALT 12 U/L (7-52) 12/11/16 16:15 Alkaline Phosphatase 51 U/L (34-104) 12/11/16 16:15 Total Protein 6.2 gm/dL (6.0-8.3) 12/11/16 16:15 Albumin 3.5 gm/dL (3.7-5.3) L 12/11/16 16:15 Globulin 2.7 gm/dL 12/11/16 16:15 Albumin/Globulin Ratio 1.3 (1.0-1.8) 12/11/16 16:15 TSH 0.25 uIU/ml (0.34-5.60) L 12/11/16 16:15 Urine Source CATH 12/11/16 17:45 Urine Color YELLOW 12/11/16 17:45 Urine Clarity CLO0 (CLEAR) 12/11/16 17:45 Urine pH 5.5 (4.6 - 8.0) 12/11/16 17:45 Ur Specific [place] 1.015 (1.005-1.030) 12/11/16 17:45 Urine Protein NEGATIVE mg/dL (NEGATIVE) 12/11/16 17:45 Urine Glucose (UA) NEGATIVE mg/dL (NEGATIVE) 12/11/16 17:45 Urine Ketones NEGATIVE mg/dL (NEGATIVE) 12/11/16 17:45 Urine Blood TRACE (NEGATIVE) 12/11/16 17:45 Urine Nitrate POSITIVE (NEGATIVE) H 12/11/16 17:45 Urine Bilirubin NEGATIVE (NEGATIVE) 12/11/16 17:45 Urine Urobilinogen 0.2 E.U./dL (0.2 - 1.0) 12/11/16 17:45 Ur Leukocyte Esterase MODERATE (NEGATIVE) H 12/11/16 17:45 Urine RBC 0-2 /hpf (0-5) 12/11/16 17:45 Urine WBC >100 /hpf (0-5) H 12/11/16 17:45 Ur Epithelial Cells FEW /lpf (FEW) 12/11/16 17:45 Urine Bacteria MODERATE /hpf (NONE SEEN) 12/11/16 17:45 Valproic Acid 46.6 ug/mL (50.0-100.0) L 12/16/16 10:40 RPR NONREACTIVE (NONREACTIVE) 12/11/16 16:15 - Physical Exam Vitals and I&O: Vital Signs Temp 98 F 12/20/16 16:18 Pulse 66 12/20/16 16:18 Resp 18 12/20/16 16:18 BP 113/59 12/20/16 16:18 Pulse Ox 97 12/20/16 16:18 Intake & Output 12/19/16 12/20/16 12/20/16 18:59 06:59 18:59 Intake Total 700 480 Balance 700 480 Intake: Oral 700 480 Other: # Voids 3 1 # Bowel Movements 1 Active Medications: Current Medications Acetaminophen (Tylenol) 650 mg PO Q4HR PRN PRN Reason: Pain Stop: 02/09/17 22:52 Al Hydrox/Mg Hydrox/Simethicone (Maalox) 30 ml PO Q6H PRN PRN Reason: Dyspepsia Stop: 02/09/17 22:44 Amlodipine Besylate (Norvasc) 5 mg PO DAILY [facility] Stop: 02/10/17 08:59 Last Admin: 12/20/16 09:16 Dose: Not Given Benztropine Mesylate (Cogentin) 0.5 mg PO BID [facility] Stop: 02/10/17 08:59 Last Admin: 12/20/16 16:30 Dose: 0.5 mg Divalproex Sodium (Depakote Dr) 125 mg PO BID [facility] PRN Reason: Protocol Stop: 02/17/17 11:59 Last Admin: 12/20/16 16:30 Dose: 125 mg Docusate Sodium (Colace) 250 mg PO DAILY [facility] Stop: 02/10/17 08:59 Last Admin: 12/20/16 09:20 Dose: 250 mg Donepezil HCl (Aricept) 10 mg PO HS [facility] Stop: 02/10/17 20:59 Last Admin: 12/19/16 20:46 Dose: 10 mg Escitalopram Oxalate (Lexapro) 10 mg PO DAILY [facility] PRN Reason: Protocol Stop: 02/10/17 08:59 Last Admin: 12/20/16 09:20 Dose: 10 mg Lactobacillus Rhamnosus (Culturelle) 1 each PO DAILY [facility] Stop: 02/17/17 08:59 Last Admin: 12/20/16 09:21 Dose: 1 each Levetiracetam (Keppra) 1,000 mg PO BID [facility] Stop: 02/10/17 08:59 Last Admin: 12/20/16 16:31 Dose: 1,000 mg Lorazepam (Ativan) 0.5 mg PO Q6H PRN PRN Reason: Anxiety/Agitation Stop: 02/12/17 12:32 Magnesium Hydroxide (Milk Of Magnesia) 30 ml PO DAILY PRN PRN Reason: Constipation Stop: 02/09/17 22:52 Memantine (Namenda) 10 mg PO Q12HR [facility] Stop: 02/10/17 08:59 Last Admin: 12/20/16 09:21 Dose: 10 mg Miscellaneous (Probiotic Screen) 1 ea MC PRN PRN PRN Reason: PROTOCOL Stop: 02/16/17 15:27 Multivitamins/Vitamin C (Theragran) 1 tab PO DAILY [facility] Stop: 02/10/17 08:59 Last Admin: 12/20/16 09:21 Dose: 1 tab Olanzapine (Zyprexa) 10 mg PO DAILY [facility] Stop: 02/13/17 08:59 Last Admin: 12/20/16 09:21 Dose: 10 mg Olanzapine (Zyprexa) 10 mg PO HS [facility] Stop: 02/17/17 20:59 Last Admin: 12/19/16 20:46 Dose: 10 mg General: No acute distress HEENT: Atraumatic, PERRLA Neck: Supple, JVD Cardiovascular: Regular rate, Normal S1, Normal S2 Lungs: Clear to auscultation Abdomen: Bowel sounds, Soft - Procedures Procedures: Procedures Procedure Code Date GROUP PSYCHOTHERAPY 45977 04/15/15 GROUP PSYCHOTHERAPY GZHZZZZ 04/15/15 GROUP PSYCHOTHERAPY 71599 01/16/15 GROUP PSYCHOTHERAPY GZHZZZZ 01/16/15 Assessment/Plan - Problem List Patient Problems: All Active Problems Abnormal lithium level in blood (Acute) R78.89 Agitation (Acute) R45.1 INCREASED AGGRESSIVE BEHAVIOR (Acute) Outbursts of anger (Acute) R45.4 The Product License for [email or web address] has and was valid until [01/08/2016]. Please refer to our FAQ page ([email or web address]) and contact [employer] Customer Support at [email or web address] (Acute) seizures (Acute) - Assessment Assessment: 1.HTN. 2.DEMENTIA. 3.DJD - Plan Plan: cont current treatment Nutritional Asmnt/Malnutr-PDOC - Dietary Evaluation Malnutrition Findings (Please click <Entered> for more info): Nutritional Asmnt/Malnutrition Start: 12/16/16 11: 32 Text: Status: Complete Freq: Document 12/16/16 11:32 LCMAIKG (Rec: 12/16/16 11:47 [email or web address] [email or web address]) Nutritional Asmnt/Malnutrition Patient General Information Nutritional Screening Moderate Risk Diagnosis psychosis, dementia, UTI Pertinent Medical Hx/Surgical Hx HTN, Seizure disorder, Dementia, degenerative joint diseases Subjective Information Spoke with nurse, pt is alert but still confused. Good appetite, exited about meals, eats w/o assist. PO intakee 50 -75% since admission, avg PO intake 75%. Pt is tolerating current diet well. no chewing/ swallowing problem. Current Diet Order/ Nutrition Support Mechanical soft chopped, LACEY, CCHO Pertinent Medications colace, MVI, Vit C Pertinent Labs POC: 92-156 (12/11-12/13) 12/11: Na 138, K 4.1, Cl 108H, BUN 21, Cr 0.9, Glu 120H, Ca 8 .5L, Alb 3.5L, TSH 0.25L Nutritional Hx/Data Height 1.63 m Height (Calculated Centimeters) 162.6 Current Weight (lbs) 51.256 kg Weight (Calculated Kilograms) 51.3 Weight (Calculated Grams) 06822.9 [place] Body Weight 120 % [place] Body Weight 94 Body Mass Index (BMI) 19.3 Weight Status Approriate GI Symptoms GI Symptoms None Last BM 12/14 Difficult in: None Food Allergies No Skin Integrity/Comment: intact Current %PO Good (75-100%) Estimated Nutritional Goals BEE in Kcals: Using Current wt Calories/Kcals/Kg 25-30 Kcals Calculated 6987-4814 Protein: Using Current wt Protein g/k Protein Calculated 51 Fluid: ml 6807-8724 (1ml/kcal) Nutritional Problem 1. Problem Problem no nutrition problem at this time Malnutrition Alert Protein-Calorie Malnutrition N/A Is there a minimum of two criteria No selected? Query Text:Check all the applicable criteria. A minimum of two criteria are recommended for diagnosis of either severe or non-severe malnutrition. Intervention/Recommendation Comments 1. continue with current diet order. avg PO intake 75% meets 100% nutritional needs 2. Monitor diet tolerance, PO intake, glucose level, wt weekly 3. F/U as low risk in 7 days, 12/23 Expected Outcomes/Goals Expected Outcomes/Goals 1. PO intake >75% to meet nutritional needs. 2. wt stability 3. skin to remain intact 4. glucose to approch WNL
--- NOTE | 2016-12-20 23:53 | Progress Notes ---
DATE: 12/20/2016 Case was discussed with staff of the patient, reviewed records. The patient continues to be unpredictable, impulsive, and needing redirection. She stays in bed, mostly depressed. I tried to make many adjustments in her medications because the staff reports in the past she used to be more manic, so I tried to decrease the anti-manic medication without stopping it, so the patient will be less depressed. She is on Aricept 10 mg at bedtime and Lexapro 10 mg daily. I decreased Depakote to 125 mg twice a day and decreased Zyprexa to 10 mg at bedtime, and so far, no side effects, no sedation, no nausea, no extrapyramidal symptoms. We will continue to work with the patient in group therapy, milieu therapy, and adjust medications as needed. JOB# [id number]
[2016-12-21] MEDS: Lactobacillus Rhamnosus 10 Billion CFU Capsule PO SCH (08:44)
[2016-12-21] MEDS: Multivitamin Tab PO SCH (08:44)
--- NOTE | 2016-12-21 09:36 | Progress Notes ---
DATE: 12/19/2016 Case was discussed with staff of patient, reviewed records. The patient continues to isolate herself more on the depressed side. She is sleeping better, eating better, continues to have poor insight, demented, confused, unable to make safe plan for self-care and I will be cutting down on her Zyprexa at bedtime to 10 mg a day because of her staying in bed all the time and will continue to work the patient in group therapy, milieu therapy, adjust medications as needed. Her lab work showed Depakote level 46.6, which is within acceptable range, concern that she is getting it for mood. MRSA is negative. She has a UTI infection and she is on Bactrim for that. The urine was positive for nitrites and leukocyte esterase. Her TSH was low 0.25. Chemistry panel with high blood sugar, low calcium, low albumin, which will be consulting with the medical doctor and CBC with low hematocrit and low platelet count. We will continue to work with the patient in group therapy, milieu therapy, adjust medication as needed. JOB# [id number]
--- NOTE | 2016-12-21 16:37 | Internal Medicine Prog Note ---
Internal Medicine Subjective - Subjective Service Date: 12/21/16 Patient seen and examined:: without staff Patient is:: awake, verbal, in bed, talking Per staff patient has:: no adverse event Internal Medicine Objective - Results Result Diagrams: 12/11/16 16:15 12/11/16 16:15 Recent Labs: Laboratory Last Values WBC 5.8 Th/cmm (4.8-10.8) 12/11/16 16:15 RBC 4.24 Mil/cmm (3.80-5.20) 12/11/16 16:15 Hgb 13.8 gm/dL (12-16) 12/11/16 16:15 Hct 40.7 % (41.0-60) L 12/11/16 16:15 MCV 96.1 fl (81-100) 12/11/16 16:15 MCH 32.6 pg (27.0-31.0) H 12/11/16 16:15 MCHC Differential 33.9 pg (28.0-36.0) 12/11/16 16:15 RDW 12.1 % (11.5-20.0) 12/11/16 16:15 Plt Count 129 Th/cmm (150-400) L D 12/11/16 16:15 MPV 7.2 fl 12/11/16 16:15 Neutrophils % 60.1 % (40.0-80.0) 12/11/16 16:15 Lymphocytes % 26.7 % (20.0-50.0) 12/11/16 16:15 Monocytes % 10.1 % (2.0-10.0) H 12/11/16 16:15 Eosinophils % 3.1 % (0.0-5.0) 12/11/16 16:15 Basophils % 0.0 % (0.0-2.0) 12/11/16 16:15 Sodium 138 mEq/L (136-145) 12/11/16 16:15 Potassium 4.1 mEq/L (3.5-5.1) 12/11/16 16:15 Chloride 108 mEq/L (98-107) H 12/11/16 16:15 Carbon Dioxide 25.9 mEq/L (21.0-31.0) 12/11/16 16:15 Anion Gap 8.2 (7.0-16.0) 12/11/16 16:15 BUN 21 mg/dL (7-25) 12/11/16 16:15 Creatinine 0.9 mg/dL (0.6-1.2) 12/11/16 16:15 Est GFR ( Amer) TNP 12/11/16 16:15 Est GFR (Non-Af Amer) TNP 12/11/16 16:15 BUN/Creatinine Ratio 23.3 12/11/16 16:15 Glucose 120 mg/dL (40-70) H 12/11/16 16:15 POC Glucose 92 MG/DL (70 - 105) 12/13/16 06:38 Calcium 8.5 mg/dL (8.6-10.3) L 12/11/16 16:15 Total Bilirubin 0.4 mg/dL (0.3-1.0) 12/11/16 16:15 AST 17 U/L (13-39) 12/11/16 16:15 ALT 12 U/L (7-52) 12/11/16 16:15 Alkaline Phosphatase 51 U/L (34-104) 12/11/16 16:15 Total Protein 6.2 gm/dL (6.0-8.3) 12/11/16 16:15 Albumin 3.5 gm/dL (3.7-5.3) L 12/11/16 16:15 Globulin 2.7 gm/dL 12/11/16 16:15 Albumin/Globulin Ratio 1.3 (1.0-1.8) 12/11/16 16:15 TSH 0.25 uIU/ml (0.34-5.60) L 12/11/16 16:15 Urine Source CATH 12/11/16 17:45 Urine Color YELLOW 12/11/16 17:45 Urine Clarity CLO0 (CLEAR) 12/11/16 17:45 Urine pH 5.5 (4.6 - 8.0) 12/11/16 17:45 Ur Specific [place] 1.015 (1.005-1.030) 12/11/16 17:45 Urine Protein NEGATIVE mg/dL (NEGATIVE) 12/11/16 17:45 Urine Glucose (UA) NEGATIVE mg/dL (NEGATIVE) 12/11/16 17:45 Urine Ketones NEGATIVE mg/dL (NEGATIVE) 12/11/16 17:45 Urine Blood TRACE (NEGATIVE) 12/11/16 17:45 Urine Nitrate POSITIVE (NEGATIVE) H 12/11/16 17:45 Urine Bilirubin NEGATIVE (NEGATIVE) 12/11/16 17:45 Urine Urobilinogen 0.2 E.U./dL (0.2 - 1.0) 12/11/16 17:45 Ur Leukocyte Esterase MODERATE (NEGATIVE) H 12/11/16 17:45 Urine RBC 0-2 /hpf (0-5) 12/11/16 17:45 Urine WBC >100 /hpf (0-5) H 12/11/16 17:45 Ur Epithelial Cells FEW /lpf (FEW) 12/11/16 17:45 Urine Bacteria MODERATE /hpf (NONE SEEN) 12/11/16 17:45 Valproic Acid 33.0 ug/mL (50.0-100.0) L 12/21/16 10:35 RPR NONREACTIVE (NONREACTIVE) 12/11/16 16:15 - Physical Exam Vitals and I&O: Vital Signs Temp 98.4 F 12/21/16 16:21 Pulse 60 12/21/16 16:21 Resp 18 12/21/16 16:21 BP 111/59 12/21/16 16:21 Pulse Ox 98 12/21/16 16:21 Intake & Output 12/20/16 12/21/16 12/21/16 18:59 06:59 18:59 Intake Total 680 Balance 680 Intake: Oral 680 Other: # Voids 3 # Bowel Movements 1 Active Medications: Current Medications Acetaminophen (Tylenol) 650 mg PO Q4HR PRN PRN Reason: Pain Stop: 02/09/17 22:52 Al Hydrox/Mg Hydrox/Simethicone (Maalox) 30 ml PO Q6H PRN PRN Reason: Dyspepsia Stop: 02/09/17 22:44 Amlodipine Besylate (Norvasc) 5 mg PO DAILY [facility] Stop: 02/10/17 08:59 Last Admin: 12/21/16 08:45 Dose: Not Given Benztropine Mesylate (Cogentin) 0.5 mg PO BID [facility] Stop: 02/10/17 08:59 Last Admin: 12/21/16 08:44 Dose: 0.5 mg Divalproex Sodium (Depakote Dr) 125 mg PO BID [facility] PRN Reason: Protocol Stop: 02/17/17 11:59 Last Admin: 12/21/16 08:45 Dose: 125 mg Docusate Sodium (Colace) 250 mg PO DAILY [facility] Stop: 02/10/17 08:59 Last Admin: 12/21/16 08:44 Dose: 250 mg Donepezil HCl (Aricept) 10 mg PO HS [facility] Stop: 02/10/17 20:59 Last Admin: 12/20/16 20:40 Dose: 10 mg Escitalopram Oxalate (Lexapro) 10 mg PO DAILY [facility] PRN Reason: Protocol Stop: 02/10/17 08:59 Last Admin: 12/21/16 08:44 Dose: 10 mg Lactobacillus Rhamnosus (Culturelle) 1 each PO DAILY [facility] Stop: 02/17/17 08:59 Last Admin: 12/21/16 08:44 Dose: 1 each Levetiracetam (Keppra) 1,000 mg PO BID [facility] Stop: 02/10/17 08:59 Last Admin: 12/21/16 08:44 Dose: 1,000 mg Lorazepam (Ativan) 0.5 mg PO Q6H PRN PRN Reason: Anxiety/Agitation Stop: 02/12/17 12:32 Magnesium Hydroxide (Milk Of Magnesia) 30 ml PO DAILY PRN PRN Reason: Constipation Stop: 02/09/17 22:52 Memantine (Namenda) 10 mg PO Q12HR [facility] Stop: 02/10/17 08:59 Last Admin: 12/21/16 08:44 Dose: 10 mg Miscellaneous (Probiotic Screen) 1 ea PRN PRN PRN Reason: PROTOCOL Stop: 02/16/17 15:27 Multivitamins/Vitamin C (Theragran) 1 tab PO DAILY [facility] Stop: 02/10/17 08:59 Last Admin: 12/21/16 08:44 Dose: 1 tab Olanzapine (Zyprexa) 10 mg PO DAILY [facility] Stop: 02/13/17 08:59 Last Admin: 12/21/16 08:44 Dose: 10 mg Olanzapine (Zyprexa) 10 mg PO HS [facility] Stop: 02/17/17 20:59 Last Admin: 12/20/16 20:40 Dose: 10 mg General: alert, demented HEENT: NC/AT, PERRLA, EOMI, anicteric sclerae, throat clear Neck: Supple, No JVD, No thyromegaly, +2 carotid pulse wo bruit, No LAD Lungs: CTAB Cardiovascular: RRR, Normal S1, Normal S2, without murmur Abdomen: soft, non-tender, non-distended Extremities: clear Neurological: no change - Procedures Procedures: Procedures Procedure Code Date GROUP PSYCHOTHERAPY 18132 04/15/15 GROUP PSYCHOTHERAPY GZHZZZZ 04/15/15 GROUP PSYCHOTHERAPY 22963 01/16/15 GROUP PSYCHOTHERAPY GZHZZZZ 01/16/15 Internal Medicine Assmt/Plan - Assessment Assessment: 1.HTN. 2.DEMENTIA. 3.DJD - Plan Plan: CONTINUE ON CURRENT MEDICATION AND DIET. Nutritional Asmnt/Malnutr-PDOC - Dietary Evaluation Malnutrition Findings (Please click <Entered> for more info): Nutritional Asmnt/Malnutrition Start: 12/16/16 11: 32 Text: Status: Complete Freq: Document 12/16/16 11:32 BERNARDA (Rec: 12/16/16 11:47 [id number] [id number]) Nutritional Asmnt/Malnutrition Patient General Information Nutritional Screening Moderate Risk Diagnosis psychosis, dementia, UTI Pertinent Medical Hx/Surgical Hx HTN, Seizure disorder, Dementia, degenerative joint diseases Subjective Information Spoke with nurse, pt is alert but still confused. Good appetite, exited about meals, eats w/o assist. PO intakee 50 -75% since admission, avg PO intake 75%. Pt is tolerating current diet well. no chewing/ swallowing problem. Current Diet Order/ Nutrition Support Mechanical soft chopped, LACEY, CCHO Pertinent Medications colace, MVI, Vit C Pertinent Labs POC: 92-156 (12/11-12/13) 12/11: Na 138, K 4.1, Cl 108H, BUN 21, Cr 0.9, Glu 120H, Ca 8 .5L, Alb 3.5L, TSH 0.25L Nutritional Hx/Data Height 1.63 m Height (Calculated Centimeters) 162.6 Current Weight (lbs) 51.256 kg Weight (Calculated Kilograms) 51.3 Weight (Calculated Grams) 22891.9 [place] Body Weight 120 % [place] Body Weight 94 Body Mass Index (BMI) 19.3 Weight Status Approriate GI Symptoms GI Symptoms None Last BM 12/14 Difficult in: None Food Allergies No Skin Integrity/Comment: intact Current %PO Good (75-100%) Estimated Nutritional Goals BEE in Kcals: Using Current wt Calories/Kcals/Kg 25-30 Kcals Calculated 6351-2279 Protein: Using Current wt Protein g/k Protein Calculated 51 Fluid: ml 6068-2697 (1ml/kcal) Nutritional Problem 1. Problem Problem no nutrition problem at this time Malnutrition Alert Protein-Calorie Malnutrition N/A Is there a minimum of two criteria No selected? Query Text:Check all the applicable criteria. A minimum of two criteria are recommended for diagnosis of either severe or non-severe malnutrition. Intervention/Recommendation Comments 1. continue with current diet order. avg PO intake 75% meets 100% nutritional needs 2. Monitor diet tolerance, PO intake, glucose level, wt weekly 3. F/U as low risk in 7 days, 12/23 Expected Outcomes/Goals Expected Outcomes/Goals 1. PO intake >75% to meet nutritional needs. 2. wt stability 3. skin to remain intact 4. glucose to approch WNL
--- NOTE | 2016-12-21 21:35 | Progress Notes ---
DATE: 12/21/2016 The patient today is more alert. She seems less depressed. She is able to smile. She is eating well, sleeping well. She is denying any current intent to harm herself or anybody, tolerated ____ with her medication with no manic symptoms. I will be checking her Depakote level, so I decreased the dose and we will continue outpatient group therapy, milieu therapy, and adjust the medication as needed. [facility]# [id number]
[2016-12-22] MEDS: Multivitamin Tab PO SCH (08:43)
[2016-12-22] MEDS: Lactobacillus Rhamnosus 10 Billion CFU Capsule PO SCH (08:43)
--- NOTE | 2016-12-22 19:43 | Internal Medicine Prog Note ---
Internal Medicine Subjective - Subjective Service Date: 12/22/16 Patient seen and examined:: without staff Patient is:: awake, verbal, in bed, talking Per staff patient has:: no adverse event Internal Medicine Objective - Results Result Diagrams: 12/11/16 16:15 12/11/16 16:15 Recent Labs: Laboratory Last Values WBC 5.8 Th/cmm (4.8-10.8) 12/11/16 16:15 RBC 4.24 Mil/cmm (3.80-5.20) 12/11/16 16:15 Hgb 13.8 gm/dL (12-16) 12/11/16 16:15 Hct 40.7 % (41.0-60) L 12/11/16 16:15 MCV 96.1 fl (81-100) 12/11/16 16:15 MCH 32.6 pg (27.0-31.0) H 12/11/16 16:15 MCHC Differential 33.9 pg (28.0-36.0) 12/11/16 16:15 RDW 12.1 % (11.5-20.0) 12/11/16 16:15 Plt Count 129 Th/cmm (150-400) L D 12/11/16 16:15 MPV 7.2 fl 12/11/16 16:15 Neutrophils % 60.1 % (40.0-80.0) 12/11/16 16:15 Lymphocytes % 26.7 % (20.0-50.0) 12/11/16 16:15 Monocytes % 10.1 % (2.0-10.0) H 12/11/16 16:15 Eosinophils % 3.1 % (0.0-5.0) 12/11/16 16:15 Basophils % 0.0 % (0.0-2.0) 12/11/16 16:15 Sodium 138 mEq/L (136-145) 12/11/16 16:15 Potassium 4.1 mEq/L (3.5-5.1) 12/11/16 16:15 Chloride 108 mEq/L (98-107) H 12/11/16 16:15 Carbon Dioxide 25.9 mEq/L (21.0-31.0) 12/11/16 16:15 Anion Gap 8.2 (7.0-16.0) 12/11/16 16:15 BUN 21 mg/dL (7-25) 12/11/16 16:15 Creatinine 0.9 mg/dL (0.6-1.2) 12/11/16 16:15 Est GFR ( Amer) TNP 12/11/16 16:15 Est GFR (Non-Af Amer) TNP 12/11/16 16:15 BUN/Creatinine Ratio 23.3 12/11/16 16:15 Glucose 120 mg/dL (40-70) H 12/11/16 16:15 POC Glucose 92 MG/DL (70 - 105) 12/13/16 06:38 Calcium 8.5 mg/dL (8.6-10.3) L 12/11/16 16:15 Total Bilirubin 0.4 mg/dL (0.3-1.0) 12/11/16 16:15 AST 17 U/L (13-39) 12/11/16 16:15 ALT 12 U/L (7-52) 12/11/16 16:15 Alkaline Phosphatase 51 U/L (34-104) 12/11/16 16:15 Total Protein 6.2 gm/dL (6.0-8.3) 12/11/16 16:15 Albumin 3.5 gm/dL (3.7-5.3) L 12/11/16 16:15 Globulin 2.7 gm/dL 12/11/16 16:15 Albumin/Globulin Ratio 1.3 (1.0-1.8) 12/11/16 16:15 TSH 0.25 uIU/ml (0.34-5.60) L 12/11/16 16:15 Urine Source CATH 12/11/16 17:45 Urine Color YELLOW 12/11/16 17:45 Urine Clarity CLO0 (CLEAR) 12/11/16 17:45 Urine pH 5.5 (4.6 - 8.0) 12/11/16 17:45 Ur Specific [place] 1.015 (1.005-1.030) 12/11/16 17:45 Urine Protein NEGATIVE mg/dL (NEGATIVE) 12/11/16 17:45 Urine Glucose (UA) NEGATIVE mg/dL (NEGATIVE) 12/11/16 17:45 Urine Ketones NEGATIVE mg/dL (NEGATIVE) 12/11/16 17:45 Urine Blood TRACE (NEGATIVE) 12/11/16 17:45 Urine Nitrate POSITIVE (NEGATIVE) H 12/11/16 17:45 Urine Bilirubin NEGATIVE (NEGATIVE) 12/11/16 17:45 Urine Urobilinogen 0.2 E.U./dL (0.2 - 1.0) 12/11/16 17:45 Ur Leukocyte Esterase MODERATE (NEGATIVE) H 12/11/16 17:45 Urine RBC 0-2 /hpf (0-5) 12/11/16 17:45 Urine WBC >100 /hpf (0-5) H 12/11/16 17:45 Ur Epithelial Cells FEW /lpf (FEW) 12/11/16 17:45 Urine Bacteria MODERATE /hpf (NONE SEEN) 12/11/16 17:45 Valproic Acid 33.0 ug/mL (50.0-100.0) L 12/21/16 10:35 RPR NONREACTIVE (NONREACTIVE) 12/11/16 16:15 - Physical Exam Vitals and I&O: Vital Signs Temp 98.8 F 12/22/16 15:06 Pulse 59 12/22/16 15:47 Resp 24 12/22/16 15:06 BP 98/53 12/22/16 15:47 Pulse Ox 95 12/22/16 15:06 Intake & Output 12/22/16 12/22/16 12/23/16 06:59 18:59 06:59 Intake Total 240 Balance 240 Weight (lbs) 51.256 kg Intake: Oral 240 Other: # Voids 3 # Bowel Movements 0 Active Medications: Current Medications Acetaminophen (Tylenol) 650 mg PO Q4HR PRN PRN Reason: Pain Stop: 02/09/17 22:52 Al Hydrox/Mg Hydrox/Simethicone (Maalox) 30 ml PO Q6H PRN PRN Reason: Dyspepsia Stop: 02/09/17 22:44 Amlodipine Besylate (Norvasc) 5 mg PO DAILY [facility] Stop: 02/10/17 08:59 Last Admin: 12/22/16 15:47 Dose: Not Given Benztropine Mesylate (Cogentin) 0.5 mg PO BID [facility] Stop: 02/10/17 08:59 Last Admin: 12/22/16 16:22 Dose: 0.5 mg Divalproex Sodium (Depakote Dr) 125 mg PO BID [facility] Stop: 02/20/17 16:59 Last Admin: 12/22/16 17:38 Dose: 125 mg Docusate Sodium (Colace) 250 mg PO DAILY [facility] Stop: 02/10/17 08:59 Last Admin: 12/22/16 08:43 Dose: 250 mg Donepezil HCl (Aricept) 10 mg PO HS [facility] Stop: 02/10/17 20:59 Last Admin: 12/21/16 20:49 Dose: 10 mg Escitalopram Oxalate (Lexapro) 10 mg PO DAILY [facility] PRN Reason: Protocol Stop: 02/10/17 08:59 Last Admin: 12/22/16 08:43 Dose: 10 mg Lactobacillus Rhamnosus (Culturelle) 1 each PO DAILY [facility] Stop: 02/17/17 08:59 Last Admin: 12/22/16 08:43 Dose: 1 each Levetiracetam (Keppra) 1,000 mg PO BID [facility] Stop: 02/10/17 08:59 Last Admin: 12/22/16 16:22 Dose: 1,000 mg Lorazepam (Ativan) 0.5 mg PO Q6H PRN PRN Reason: Anxiety/Agitation Stop: 02/12/17 12:32 Magnesium Hydroxide (Milk Of Magnesia) 30 ml PO DAILY PRN PRN Reason: Constipation Stop: 02/09/17 22:52 Memantine (Namenda) 10 mg PO Q12HR [facility] Stop: 02/10/17 08:59 Last Admin: 12/22/16 08:43 Dose: 10 mg Miscellaneous (Probiotic Screen) 1 ea [facility] PRN PRN PRN Reason: PROTOCOL Stop: 02/16/17 15:27 Multivitamins/Vitamin C (Theragran) 1 tab PO DAILY [facility] Stop: 02/10/17 08:59 Last Admin: 12/22/16 08:43 Dose: 1 tab Olanzapine (Zyprexa) 10 mg PO DAILY [facility] Stop: 02/13/17 08:59 Last Admin: 12/22/16 08:43 Dose: 10 mg Olanzapine (Zyprexa) 10 mg PO HS [facility] Stop: 02/17/17 20:59 Last Admin: 12/21/16 20:49 Dose: 10 mg General: alert, demented HEENT: NC/AT, PERRLA, EOMI, anicteric sclerae, throat clear Neck: Supple, No JVD, No thyromegaly, +2 carotid pulse wo bruit, No LAD Lungs: CTAB Cardiovascular: RRR, Normal S1, Normal S2, without murmur Abdomen: soft, non-tender, non-distended Extremities: clear Neurological: no change - Procedures Procedures: Procedures Procedure Code Date GROUP PSYCHOTHERAPY 40510 04/15/15 GROUP PSYCHOTHERAPY GZHZZZZ 04/15/15 GROUP PSYCHOTHERAPY 73512 01/16/15 GROUP PSYCHOTHERAPY GZHZZZZ 01/16/15 Internal Medicine Assmt/Plan - Assessment Assessment: 1.HTN. 2.DEMENTIA. 3.DJD - Plan Plan: CONTINUE ON CURRENT MEDICATION AND DIET. Nutritional Asmnt/Malnutr-PDOC - Dietary Evaluation Malnutrition Findings (Please click <Entered> for more info): Nutritional Asmnt/Malnutrition Start: 12/16/16 11: 32 Text: Status: Complete Freq: Document 12/16/16 11:32 VALENTIN (Rec: 12/16/16 11:47 MAIKG [id number]) Nutritional Asmnt/Malnutrition Patient General Information Nutritional Screening Moderate Risk Diagnosis psychosis, dementia, UTI Pertinent Medical Hx/Surgical Hx HTN, Seizure disorder, Dementia, degenerative joint diseases Subjective Information Spoke with nurse, pt is alert but still confused. Good appetite, exited about meals, eats w/o assist. PO intakee 50 -75% since admission, avg PO intake 75%. Pt is tolerating current diet well. no chewing/ swallowing problem. Current Diet Order/ Nutrition Support Mechanical soft chopped, LACEY, CCHO Pertinent Medications colace, MVI, Vit C Pertinent Labs POC: 92-156 (12/11-12/13) 12/11: Na 138, K 4.1, Cl 108H, BUN 21, Cr 0.9, Glu 120H, Ca 8 .5L, Alb 3.5L, TSH 0.25L Nutritional Hx/Data Height 1.63 m Height (Calculated Centimeters) 162.6 Current Weight (lbs) 51.256 kg Weight (Calculated Kilograms) 51.3 Weight (Calculated Grams) 61731.9 [place] Body Weight 120 % [place] Body Weight 94 Body Mass Index (BMI) 19.3 Weight Status Approriate GI Symptoms GI Symptoms None Last BM 12/14 Difficult in: None Food Allergies No Skin Integrity/Comment: intact Current %PO Good (75-100%) Estimated Nutritional Goals BEE in Kcals: Using Current wt Calories/Kcals/Kg 25-30 Kcals Calculated 5492-6487 Protein: Using Current wt Protein g/k Protein Calculated 51 Fluid: ml 4345-0833 (1ml/kcal) Nutritional Problem 1. Problem Problem no nutrition problem at this time Malnutrition Alert Protein-Calorie Malnutrition N/A Is there a minimum of two criteria No selected? Query Text:Check all the applicable criteria. A minimum of two criteria are recommended for diagnosis of either severe or non-severe malnutrition. Intervention/Recommendation Comments 1. continue with current diet order. avg PO intake 75% meets 100% nutritional needs 2. Monitor diet tolerance, PO intake, glucose level, wt weekly 3. F/U as low risk in 7 days, 12/23 Expected Outcomes/Goals Expected Outcomes/Goals 1. PO intake >75% to meet nutritional needs. 2. wt stability 3. skin to remain intact 4. glucose to approch WNL
--- NOTE | 2016-12-22 23:16 | Progress Notes ---
DATE: 12/22/2016 Case was discussed with staff of patient, reviewed records. The patient seems to be a little bit more ____, more animated. She is still staying in bed, isolating herself. She is sleeping better, eating better and no side effects to the medication, no sedation, no nausea and no extrapyramidal symptoms. Her Depakote level is 33, which is within acceptable range. She is not manic at this stage and doing okay. We will continue patient in group therapy, milieu therapy, and adjust medications as needed. JOB# [id number]
[2016-12-23] MEDS: Lactobacillus Rhamnosus 10 Billion CFU Capsule PO SCH (08:07)
[2016-12-23] MEDS: Multivitamin Tab PO SCH (08:07)
--- NOTE | 2016-12-23 10:36 | Progress Notes ---
DATE: 12/23/2016 Case was discussed with staff and reviewed his record. The patient seems to be showing progress, sleeping better, eating better, tolerated the changes I made for her, and decreased her Depakote and Zyprexa with no side effects, no sedation, no nausea and no extrapyramidal from the symptoms. We will continue to work with the patient in group therapy, milieu therapy, and adjust medications as needed. [facility]# [id number]
--- NOTE | 2016-12-23 19:46 | Internal Medicine Prog Note ---
Internal Medicine Subjective - Subjective Service Date: 12/23/16 Patient seen and examined:: without staff Patient is:: awake, verbal, in bed, talking Per staff patient has:: no adverse event Internal Medicine Objective - Results Result Diagrams: 12/11/16 16:15 12/11/16 16:15 Recent Labs: Laboratory Last Values WBC 5.8 Th/cmm (4.8-10.8) 12/11/16 16:15 RBC 4.24 Mil/cmm (3.80-5.20) 12/11/16 16:15 Hgb 13.8 gm/dL (12-16) 12/11/16 16:15 Hct 40.7 % (41.0-60) L 12/11/16 16:15 MCV 96.1 fl (81-100) 12/11/16 16:15 MCH 32.6 pg (27.0-31.0) H 12/11/16 16:15 MCHC Differential 33.9 pg (28.0-36.0) 12/11/16 16:15 RDW 12.1 % (11.5-20.0) 12/11/16 16:15 Plt Count 129 Th/cmm (150-400) L D 12/11/16 16:15 MPV 7.2 fl 12/11/16 16:15 Neutrophils % 60.1 % (40.0-80.0) 12/11/16 16:15 Lymphocytes % 26.7 % (20.0-50.0) 12/11/16 16:15 Monocytes % 10.1 % (2.0-10.0) H 12/11/16 16:15 Eosinophils % 3.1 % (0.0-5.0) 12/11/16 16:15 Basophils % 0.0 % (0.0-2.0) 12/11/16 16:15 Sodium 138 mEq/L (136-145) 12/11/16 16:15 Potassium 4.1 mEq/L (3.5-5.1) 12/11/16 16:15 Chloride 108 mEq/L (98-107) H 12/11/16 16:15 Carbon Dioxide 25.9 mEq/L (21.0-31.0) 12/11/16 16:15 Anion Gap 8.2 (7.0-16.0) 12/11/16 16:15 BUN 21 mg/dL (7-25) 12/11/16 16:15 Creatinine 0.9 mg/dL (0.6-1.2) 12/11/16 16:15 Est GFR ( Amer) TNP 12/11/16 16:15 Est GFR (Non-Af Amer) TNP 12/11/16 16:15 BUN/Creatinine Ratio 23.3 12/11/16 16:15 Glucose 120 mg/dL (40-70) H 12/11/16 16:15 POC Glucose 92 MG/DL (70 - 105) 12/13/16 06:38 Calcium 8.5 mg/dL (8.6-10.3) L 12/11/16 16:15 Total Bilirubin 0.4 mg/dL (0.3-1.0) 12/11/16 16:15 AST 17 U/L (13-39) 12/11/16 16:15 ALT 12 U/L (7-52) 12/11/16 16:15 Alkaline Phosphatase 51 U/L (34-104) 12/11/16 16:15 Total Protein 6.2 gm/dL (6.0-8.3) 12/11/16 16:15 Albumin 3.5 gm/dL (3.7-5.3) L 12/11/16 16:15 Globulin 2.7 gm/dL 12/11/16 16:15 Albumin/Globulin Ratio 1.3 (1.0-1.8) 12/11/16 16:15 TSH 0.25 uIU/ml (0.34-5.60) L 12/11/16 16:15 Urine Source CATH 12/11/16 17:45 Urine Color YELLOW 12/11/16 17:45 Urine Clarity CLO0 (CLEAR) 12/11/16 17:45 Urine pH 5.5 (4.6 - 8.0) 12/11/16 17:45 Ur Specific [place] 1.015 (1.005-1.030) 12/11/16 17:45 Urine Protein NEGATIVE mg/dL (NEGATIVE) 12/11/16 17:45 Urine Glucose (UA) NEGATIVE mg/dL (NEGATIVE) 12/11/16 17:45 Urine Ketones NEGATIVE mg/dL (NEGATIVE) 12/11/16 17:45 Urine Blood TRACE (NEGATIVE) 12/11/16 17:45 Urine Nitrate POSITIVE (NEGATIVE) H 12/11/16 17:45 Urine Bilirubin NEGATIVE (NEGATIVE) 12/11/16 17:45 Urine Urobilinogen 0.2 E.U./dL (0.2 - 1.0) 12/11/16 17:45 Ur Leukocyte Esterase MODERATE (NEGATIVE) H 12/11/16 17:45 Urine RBC 0-2 /hpf (0-5) 12/11/16 17:45 Urine WBC >100 /hpf (0-5) H 12/11/16 17:45 Ur Epithelial Cells FEW /lpf (FEW) 12/11/16 17:45 Urine Bacteria MODERATE /hpf (NONE SEEN) 12/11/16 17:45 Valproic Acid 33.0 ug/mL (50.0-100.0) L 12/21/16 10:35 RPR NONREACTIVE (NONREACTIVE) 12/11/16 16:15 - Physical Exam Vitals and I&O: Vital Signs Temp 97.8 F 12/23/16 15:41 Pulse 62 12/23/16 15:41 Resp 19 12/23/16 15:41 BP 104/77 12/23/16 15:41 Pulse Ox 98 12/23/16 15:41 Intake & Output 12/23/16 12/23/16 12/24/16 06:59 18:59 06:59 Intake Total 120 Balance 120 Intake: Oral 120 Other: # Voids 3 # Bowel Movements 1 Active Medications: Current Medications Acetaminophen (Tylenol) 650 mg PO Q4HR PRN PRN Reason: Pain Stop: 02/09/17 22:52 Al Hydrox/Mg Hydrox/Simethicone (Maalox) 30 ml PO Q6H PRN PRN Reason: Dyspepsia Stop: 02/09/17 22:44 Amlodipine Besylate (Norvasc) 5 mg PO DAILY [facility] Stop: 02/10/17 08:59 Last Admin: 12/23/16 08:06 Dose: Not Given Benztropine Mesylate (Cogentin) 0.5 mg PO BID [facility] Stop: 02/10/17 08:59 Last Admin: 12/23/16 16:08 Dose: 0.5 mg Divalproex Sodium (Depakote Dr) 125 mg PO BID [facility] Stop: 02/20/17 16:59 Last Admin: 12/23/16 16:07 Dose: 125 mg Docusate Sodium (Colace) 250 mg PO DAILY [facility] Stop: 02/10/17 08:59 Last Admin: 12/23/16 08:07 Dose: 250 mg Donepezil HCl (Aricept) 10 mg PO HS [facility] Stop: 02/10/17 20:59 Last Admin: 12/22/16 21:02 Dose: 10 mg Escitalopram Oxalate (Lexapro) 10 mg PO DAILY RIC PRN Reason: Protocol Stop: 02/10/17 08:59 Last Admin: 12/23/16 08:07 Dose: 10 mg Lactobacillus Rhamnosus (Culturelle) 1 each PO DAILY RIC Stop: 02/17/17 08:59 Last Admin: 12/23/16 08:07 Dose: 1 each Levetiracetam (Keppra) 1,000 mg PO BID [facility] Stop: 02/10/17 08:59 Last Admin: 12/23/16 16:07 Dose: 1,000 mg Lorazepam (Ativan) 0.5 mg PO Q6H PRN PRN Reason: Anxiety/Agitation Stop: 02/12/17 12:32 Magnesium Hydroxide (Milk Of Magnesia) 30 ml PO DAILY PRN PRN Reason: Constipation Stop: 02/09/17 22:52 Memantine (Namenda) 10 mg PO Q12HR [facility] Stop: 02/10/17 08:59 Last Admin: 12/23/16 08:07 Dose: 10 mg Miscellaneous (Probiotic Screen) 1 ea MC PRN PRN PRN Reason: PROTOCOL Stop: 02/16/17 15:27 Multivitamins/Vitamin C (Theragran) 1 tab PO DAILY RIC Stop: 02/10/17 08:59 Last Admin: 12/23/16 08:07 Dose: 1 tab Olanzapine (Zyprexa) 10 mg PO DAILY [facility] Stop: 02/13/17 08:59 Last Admin: 12/23/16 08:07 Dose: 10 mg Olanzapine (Zyprexa) 10 mg PO HS [facility] Stop: 02/17/17 20:59 Last Admin: 12/22/16 21:02 Dose: 10 mg General: alert, demented HEENT: NC/AT, PERRLA, EOMI, anicteric sclerae, throat clear Neck: Supple, No JVD, No thyromegaly, +2 carotid pulse wo bruit, No LAD Lungs: CTAB Cardiovascular: RRR, Normal S1, Normal S2, without murmur Abdomen: soft, non-tender, non-distended Extremities: clear Neurological: no change - Procedures Procedures: Procedures Procedure Code Date GROUP PSYCHOTHERAPY 62914 04/15/15 GROUP PSYCHOTHERAPY GZHZZZZ 04/15/15 GROUP PSYCHOTHERAPY 84431 01/16/15 GROUP PSYCHOTHERAPY GZHZZZZ 01/16/15 Internal Medicine Assmt/Plan - Assessment Assessment: 1.HTN. 2.DEMENTIA. 3.DJD - Plan Plan: CONTINUE ON CURRENT MEDICATION AND DIET. Nutritional Asmnt/Malnutr-PDOC - Dietary Evaluation Malnutrition Findings (Please click <Entered> for more info): Nutritional Asmnt/Malnutrition Start: 12/16/16 11: 32 Text: Status: Complete Freq: Document 12/16/16 11:32 BERNARDA (Rec: 12/16/16 11:47 [id number]) Nutritional Asmnt/Malnutrition Patient General Information Nutritional Screening Moderate Risk Diagnosis psychosis, dementia, UTI Pertinent Medical Hx/Surgical Hx HTN, Seizure disorder, Dementia, degenerative joint diseases Subjective Information Spoke with nurse, pt is alert but still confused. Good appetite, exited about meals, eats w/o assist. PO intakee 50 -75% since admission, avg PO intake 75%. Pt is tolerating current diet well. no chewing/ swallowing problem. Current Diet Order/ Nutrition Support Mechanical soft chopped, LACEY, CCHO Pertinent Medications colace, MVI, Vit C Pertinent Labs POC: 92-156 (12/11-12/13) 12/11: Na 138, K 4.1, Cl 108H, BUN 21, Cr 0.9, Glu 120H, Ca 8 .5L, Alb 3.5L, TSH 0.25L Nutritional Hx/Data Height 1.63 m Height (Calculated Centimeters) 162.6 Current Weight (lbs) 51.256 kg Weight (Calculated Kilograms) 51.3 Weight (Calculated Grams) 47973.9 [place] Body Weight 120 % [place] Body Weight 94 Body Mass Index (BMI) 19.3 Weight Status Approriate GI Symptoms GI Symptoms None Last BM 12/14 Difficult in: None Food Allergies No Skin Integrity/Comment: intact Current %PO Good (75-100%) Estimated Nutritional Goals BEE in Kcals: Using Current wt Calories/Kcals/Kg 25-30 Kcals Calculated 4309-7576 Protein: Using Current wt Protein g/k Protein Calculated 51 Fluid: ml 3975-9327 (1ml/kcal) Nutritional Problem 1. Problem Problem no nutrition problem at this time Malnutrition Alert Protein-Calorie Malnutrition N/A Is there a minimum of two criteria No selected? Query Text:Check all the applicable criteria. A minimum of two criteria are recommended for diagnosis of either severe or non-severe malnutrition. Intervention/Recommendation Comments 1. continue with current diet order. avg PO intake 75% meets 100% nutritional needs 2. Monitor diet tolerance, PO intake, glucose level, wt weekly 3. F/U as low risk in 7 days, 12/23 Expected Outcomes/Goals Expected Outcomes/Goals 1. PO intake >75% to meet nutritional needs. 2. wt stability 3. skin to remain intact 4. glucose to approch WNL
[2016-12-24] MEDS: Lactobacillus Rhamnosus 10 Billion CFU Capsule PO SCH (08:23)
[2016-12-24] MEDS: Multivitamin Tab PO SCH (08:24)
--- NOTE | 2016-12-24 17:26 | Discharge Summary ---
DATE OF DISCHARGE: 12/24/2016 IDENTIFYING INFORMATION: The patient is an 81-year-old female. CHIEF COMPLAINT: "I don't know why I am here." HISTORY OF PRESENT ILLNESS: The patient was brought from [place] because of disorganized behavior. She was placed on hold for aggressive behavior. She was noted to have increase in aggressive behavior with yelling and screaming. She was trying to hit and pinch with staff of the facility. The patient presented as disengaged, distraught, minimally interactive, not giving much information, responding to internal stimuli. ALLERGIES: She has no known drug allergies. The patient is a well-known case to me as I have seen her before at [place] and here. The patient ____ medication. The patient was continued on medication. She was continued with Aricept 10 mg at bedtime. She was given Depakote, and I did decrease her dose because of her depression to 125 mg twice a day. She was on 250 mg 3 times a day. She was continued with Cogentin 0.5 mg. The patient was also continued with Lexapro 10 mg daily, Keppra for her seizure disorder, Namenda 10 mg twice a day, and Zyprexa, which I decreased the dose to 10 mg at bedtime and 10 mg in the morning. She was 10 mg in the morning and 50 mg at bedtime. She was on probiotic and she was continued with docusate sodium. As the patient progressively got better, depression, improved. She was no longer acting in anyway dangerous. She was sleeping well, eating well. She was more animated and cheerful. So, we felt she could be discharged to a lesser level of care. 2. The patient will be going to [place]. FINAL DIAGNOSES: Schizoaffective disorder, depressed. Dementia. MEDICAL DIAGNOSES: Deferred to the medical doctor. The patient will be going to [place]. Follow up with the psychiatrist and the therapist Angel. EXPECTED OUTCOME: Stable if the patient complies with treatment. JOB# [id number]
== END 2016-12-24 14:45 | disposition home or self-care (01) | DRG 885 ==
LOC: ER 15:41 → GERO 18:50
PROVIDERS: ADMIT Psychiatry & Neurology Psychiatry; ATTEND Psychiatry & Neurology Psychiatry
DX: F25.1 Schizoaffective disorder, depressive type (principal); G20 Parkinson's disease; F03.91 Unspecified dementia, unspecified severity, with behavioral disturbance; E11.9 Type 2 diabetes mellitus without complications; N39.0 Urinary tract infection, site not specified; G40.909 Epilepsy, unspecified, not intractable, without status epilepticus; I10 Essential (primary) hypertension; Z86.73 Personal history of transient ischemic attack (TIA), and cerebral infarction without residual deficits
CPT/HCPCS: 36415-UA; 71010-TC; 80053-TC; 80164-TC; 81001-TC; 82948-90; 84443-TC; 85025-TC; 86592-TC; 87086-90; 93005; J0696; J2001; J7051; Z7502; Z7610

== ENCOUNTER 2017-10-04 17:05 | Inpatient (IN) | payer MEDICARE, MEDICAID ==
[2017-10-04 17:35] LABS: % BASOPHILS 0.6 % (0.0-2.0); % EOSINOPHILS 1.4 % (0.0-5.0); % LYMPHOCYTES 27.8 % (20.0-50.0); % MONOCYTES 11.4 % (2.0-10.0); % NEUTROPHILS 58.8 % (40.0-80.0); EOSINOPHILE ABSOLUTE 0.1 Th/cmm (0.1-0.4); HEMATOCRIT 42.3 % (41.0-60); HEMOGLOBIN 14.2 gm/dL (12-16); LYMPHOCYTE ABSOLUTE 1.8 Th/cmm (1.5-3.0); MEAN CELL VOLUME 96.1 fl (81-100); MEAN CORPUSCULAR HEMOGLOBIN 32.2 pg (27.0-31.0); MEAN CORPUSCULAR HGB CONC 33.5 pg (28.0-36.0); MEAN PLATELET VOLUME 7.5 fl; MONOCYTE ABSOLUTE 0.8 Th/cmm (0.3-1.0); NEUTROPHILE ABSOLUTE 3.9 Th/cmm (1.8-8.0); PLATELET COUNT 160 Th/cmm (150-400); RED CELL DISTRIBUTION WIDTH 12.5 % (11.5-20.0); WHITE BLOOD COUNT 6.6 Th/cmm (4.8-10.8)
[2017-10-04 17:50] LABS: ALB/GLOB RATIO 1.8 (1.0-1.8); ALKALINE PHOSPHATASE 44 U/L (34-104); ANION GAP 11.3 (7.0-16.0); BILIRUBIN,TOTAL 0.6 mg/dL (0.3-1.0); BUN - UREA NITROGEN 21 mg/dL (7-25); CARBON DIOXIDE 27.5 mEq/L (21.0-31.0); CHLORIDE 106 mEq/L (98-107); CREATININE - SERUM 0.8 mg/dL (0.6-1.2); GLUCOSE 115 mg/dL (70-105); POTASSIUM SERUM 3.8 mEq/L (3.5-5.1); SGOT 13 U/L (13-39); SGPT/ALT 11 U/L (7-52); SODIUM SERUM 141 mEq/L (136-145); TOTAL PROTEIN,SERUM 6.2 gm/dL (6.0-8.3)
--- NOTE | 2017-10-04 17:58 | ED Physician Chart ---
ED Chief Complaint/HPI - Patient Information Date Seen:: 10/04/17 Time Seen:: 17:30 Chief Complaint:: agitation History of Present Illness:: 81 yr old female with strong psych hx here for [facility] psych evaluation pt confused which is her usual Allergies:: Allergies Allergy/AdvReac Type Severity Reaction Status Date / Time No Known Allergies Allergy Verified 03/02/16 17:22 Vitals:: Vital Signs - 8 hr 10/04/17 17:13 Temp 98.4 F HR 76 RR 19 BP 104/41 O2 Sat % 94 ED Review of Systems - Review of Systems General/Constitutional: No fever Skin: No skin lesions Eyes: No loss of vision ENT: No earache Neck: No neck pain Cardio Vascular: No chest pain Pulmonary: No SOB GI: No vomiting G/U: No dysuria Endocrine: No polyuria Psychiatric: Other (dementia) Hematopoietic: No bruising Allergic/Immuno: No urticaria ED Past Medical History - Past Medical History Past Medical History: Seizures, Dementia Family Medical History - Family Member Mother History Unknown: Yes Ethnicity: Unknown Living Status: Unknown Hx Family Cancer: (unknown) Hx Family Coronary Artery Disease: (unknown) Hx Family Congestive Heart Failure: (unknown) Hx Family Hypertension: (unknown) Hx Family Stroke: (unknown) Hx Family Diabetes: (unknown) Hx Family Seizures: (unknown) Hx Family Dementia: (unknown) Hx Family AIDS: (unknown) Hx Family COPD: (unknown) Hx Family Hepatitis: (unknown) Hx Family Psychiatric Problems: (unknown) Hx Family Tuberculosis: (unknown) ED Physical Exam - Physical Examination General/Constitutional: Well-developed, well-nourished, No distress Head: Atraumatic Skin: Nl inspection ENMT: External ears, nose nl Neck: Nontender Respiratory: Nl effort/Exclusion Cardio Vascular: No murmur, gallop, rubs Extremities: No tenderness or effusion Misc: Normal back ED Labs/Radiology/EKG Results - Lab Results Results: Laboratory Tests 10/04/17 17:30 WBC 6.6 RBC 4.40 Hgb 14.2 Hct 42.3 MCV 96.1 MCH 32.2 H MCHC Differential 33.5 RDW 12.5 Plt Count 160 MPV 7.5 Neutrophils % 58.8 Lymphocytes % 27.8 Monocytes % 11.4 H Eosinophils % 1.4 Basophils % 0.6 ED Assessment - Assessment General Assessment: psychosis dementia ED Septic Shock - . Is Septic Shock (SBP<90, OR Lactate>4 mmol\L) present?: No - <6hrs of presentation: Vital Signs: Vital Signs - 8 hr 10/04/17 17:13 Temp 98.4 F HR 76 RR 19 BP 104/41 O2 Sat % 94 ED Reassessment (Disposition) - Diagnosis Diagnosis:: dementia psychosis - Patient Disposition Discharge/Transfer:: Acute Care w/in this hosp Condition at Disposition:: Stable
[2017-10-04 20:00] LABS: URINE SOURCE CLEAN C
[2017-10-04 20:01] LABS: URINE BILIRUBIN SMALL (NEGATIVE); URINE BLOOD SMALL (NEGATIVE); URINE GLUCOSE (UA) NEGATIVE (NEGATIVE); URINE KETONE NEGATIVE (NEGATIVE); URINE LEUKOCYTE ESTERASE MODERATE (NEGATIVE); URINE MICROSCOPIC INDICATED? YES; URINE NITRATE NEGATIVE (NEGATIVE); URINE PH 5.5 (4.6 - 8.0); URINE PROTEIN TRACE mg/dL (NEGATIVE); URINE UROBILINOGEN 0.2 E.U./dL (0.2 - 1.0)
--- NOTE | 2017-10-04 20:33 | History & Physical ---
ADMIT DATE: 10/04/2017 HISTORY OF PRESENT ILLNESS: The patient is an 81-year-old female with long history of hypertension, seizure disorder, dementia, psychosis, admitted to [facility] under Dr. Ding's service. The patient is a poor historian. PAST MEDICAL HISTORY: Significant for hypertension, seizure disorder, dementia, psychosis. PAST SURGICAL HISTORY: No recent surgery. ALLERGIES: None. SOCIAL HISTORY: Nonsmoker, no alcohol, no drug. FAMILY HISTORY: Noncontributory. MEDICATIONS: She is on Norvasc, Depakote, Colace, Aricept, Keppra, and Namenda. REVIEW OF SYSTEMS: IMMUNO SYSTEM: No history of chronic immune disorder. CARDIOVASCULAR SYSTEM: No coronary artery disease. ENDOCRINE SYSTEM: No diabetes or thyroid problem. GASTROINTESTINAL SYSTEM: No upper or lower gastrointestinal bleed. NEUROLOGICAL: She has history of seizure disorder. SKELETOMUSCULAR SYSTEM: No muscular dystrophy. HEMATOLOGICAL SYSTEM: No bleeding tendencies. RESPIRATORY SYSTEM: No asthma. GENITOURINARY: No dysuria or hematuria. PHYSICAL EXAMINATION: GENERAL: She is awake, alert, not coherent, confused. VITAL SIGNS: Temperature 98.4, heart rate 76, blood pressure 104/41. HEENT: Normocephalic. Pupils reacting equally to light and accommodation. Sclerae clear. NECK: Supple. Negative for lymphadenopathy, JVD, or bruit. CHEST: Entry of air bilaterally normal. No rhonchi or wheezing. HEART: S1, S2 normal. No gallop rhythm. ABDOMEN: Soft, bowel sounds positive. EXTREMITIES: No edema. BACK: No vertebra. SKIN: Intact. NEUROLOGIC: She is awake, not coherent. She is moving upper and lower extremities. LABORATORY DATA: White blood 6.6, hemoglobin 14.2, hematocrit 42.3, platelets 160. Sodium 141, potassium 3.8, BUN 21, creatinine 0.8, valproic acid 14.7. ASSESSMENT: 1. Hypertension. 2. Seizure disorder. 3. Dementia. 4. Psychosis. PLAN: The patient was admitted to the hospital under Dr. Ding's service. Problem to be addressed during hospitalization are psychosis. Medical problems addressed at discharge are hypertension and seizure disorder. The patient is clinically stable for activity. Thank you, Dr. Ding, for asking me to see your patient. JOB# [id number]
[2017-10-04 20:40] LABS: URINE CLARITY HAZY (CLEAR); URINE COLOR YELLOW
[2017-10-04 20:47] LABS: URINE BACTERIA 3+ /hpf (NONE SEEN); URINE EPITHELIAL CELLS MODERATE /lpf (FEW)
[2017-10-04 20:56] VITALS: BP 144/72
--- NOTE | 2017-10-05 07:33 | Diagnostic Imaging Report ---
CHEST X-RAY: AP view INDICATION: Shortness of breath COMPARISON: 12/11/2016 FINDINGS: There is accentuation of the interstitial lung markings. There is no focal consolidation or pleural effusions mild cardiomegaly is noted. Degenerative changes of the spine are noted. IMPRESSION: Accentuation of the interstitial lung markings. A mild degree of congestion cannot be excluded. Please correlate clinically. Mild cardiomegaly.
[2017-10-05] MEDS: Multivitamin w/ Minerals Tab PO SCH (09:22)
--- NOTE | 2017-10-05 12:49 | History & Physical ---
ADMIT DATE: 10/04/2017 IDENTIFYING INFORMATION: The patient is an 81-year-old female. CHIEF COMPLAINT: No answer. HISTORY OF PRESENT ILLNESS: The patient was sent from [place] because of agitation. The patient suffers of dementia, psychosis. The patient herself was a poor historian. She was in a Carol chair, kept her eyes closed, mumbling to herself, unable to participate in a meaningful conversation. The patient has no substance abuse problem. The patient is well-known case to me, has been seeing her for a while, treating her for dementia and psychosis. PAST PSYCHIATRIC HISTORY: Dementia and psychosis. MEDICAL HISTORY: The patient has hypertension, seizure disorder. ALLERGIES: The patient has no known drug allergy. MEDICATIONS: The patient has been on amlodipine, Depakote 250 mg twice a day for seizure. She is on Aricept 10 mg at bedtime and Keppra 1000 mg twice a day and Namenda 10 mg twice a day, multivitamin and Ambien. FAMILY AND SOCIAL HISTORY: The patient has been at [place]. Otherwise, noncontributory. Unable to give further information and ____ [place]. MENTAL STATUS EXAMINATION: The patient is appropriately dressed, not very well groomed. Her mood is depressed. Affect is sad. Thoughts are concrete, fragmented, unable to tell me the date, her age, where she is, why she is here. Long and short term memory is poor. Denies any auditory or visual hallucination, paranoia. Her insight and judgment is impaired. IMPRESSION: AXIS I: Depression, not otherwise specified; psychosis, not otherwise specified. MEDICAL DIAGNOSES: Hypertension and seizure disorder. Her assets, she is accepting treatment. Negative poor coping skills. INITIAL TREATMENT PLAN: I will be initiating this patient on antidepressant because of her apparent depression. We will do group therapy, milieu therapy, and individual therapy. ESTIMATED LENGTH OF STAY: 3-7 days. DISCHARGE CRITERIA: Decreasing depression, no longer agitated. After discharge, outpatient treatment. [facility]# [id number]
--- NOTE | 2017-10-05 21:00 | Internal Medicine Prog Note ---
Internal Medicine Subjective - Subjective Service Date: 10/05/17 Patient seen and examined:: with staff Patient is:: awake, in bed, confused Per staff patient has:: no adverse event Internal Medicine Objective - Results Result Diagrams: 10/04/17 17:30 10/04/17 17:30 Recent Labs: Laboratory Last Values WBC 6.6 Th/cmm (4.8-10.8) 10/04/17 17:30 RBC 4.40 Mil/cmm (3.80-5.20) 10/04/17 17:30 Hgb 14.2 gm/dL (12-16) 10/04/17 17:30 Hct 42.3 % (41.0-60) 10/04/17 17:30 MCV 96.1 fl (81-100) 10/04/17 17:30 MCH 32.2 pg (27.0-31.0) H 10/04/17 17:30 MCHC Differential 33.5 pg (28.0-36.0) 10/04/17 17:30 RDW 12.5 % (11.5-20.0) 10/04/17 17:30 Plt Count 160 Th/cmm (150-400) 10/04/17 17:30 MPV 7.5 fl 10/04/17 17:30 Neutrophils % 58.8 % (40.0-80.0) 10/04/17 17:30 Lymphocytes % 27.8 % (20.0-50.0) 10/04/17 17:30 Monocytes % 11.4 % (2.0-10.0) H 10/04/17 17:30 Eosinophils % 1.4 % (0.0-5.0) 10/04/17 17:30 Basophils % 0.6 % (0.0-2.0) 10/04/17 17:30 Sodium 141 mEq/L (136-145) 10/04/17 17:30 Potassium 3.8 mEq/L (3.5-5.1) 10/04/17 17:30 Chloride 106 mEq/L (98-107) 10/04/17 17:30 Carbon Dioxide 27.5 mEq/L (21.0-31.0) 10/04/17 17:30 Anion Gap 11.3 (7.0-16.0) 10/04/17 17:30 BUN 21 mg/dL (7-25) 10/04/17 17:30 Creatinine 0.8 mg/dL (0.6-1.2) 10/04/17 17:30 Est GFR ( Amer) TNP 10/04/17 17:30 Est GFR (Non-Af Amer) TNP 10/04/17 17:30 BUN/Creatinine Ratio 26.3 10/04/17 17:30 Glucose 115 mg/dL (70-105) H 10/04/17 17:30 Calcium 9.0 mg/dL (8.6-10.3) 10/04/17 17:30 Total Bilirubin 0.6 mg/dL (0.3-1.0) 10/04/17 17:30 AST 13 U/L (13-39) 10/04/17 17:30 ALT 11 U/L (7-52) 10/04/17 17:30 Alkaline Phosphatase 44 U/L (34-104) 10/04/17 17:30 Total Protein 6.2 gm/dL (6.0-8.3) 10/04/17 17:30 Albumin 4.0 gm/dL (3.7-5.3) 10/04/17 17:30 Globulin 2.2 gm/dL 10/04/17 17:30 Albumin/Globulin Ratio 1.8 (1.0-1.8) 10/04/17 17:30 Urine Source CLEAN C 10/04/17 18:20 Urine Color YELLOW 10/04/17 18:20 Urine Clarity HAZY (CLEAR) 10/04/17 18:20 Urine pH 5.5 (4.6 - 8.0) 10/04/17 18:20 Ur Specific [place] >= 1.030 (1.005-1.030) 10/04/17 18:20 Urine Protein TRACE mg/dL (NEGATIVE) 10/04/17 18:20 Urine Glucose (UA) NEGATIVE mg/dL (NEGATIVE) 10/04/17 18:20 Urine Ketones NEGATIVE mg/dL (NEGATIVE) 10/04/17 18:20 Urine Blood SMALL (NEGATIVE) H 10/04/17 18:20 Urine Nitrate NEGATIVE (NEGATIVE) 10/04/17 18:20 Urine Bilirubin SMALL (NEGATIVE) H 10/04/17 18:20 Urine Urobilinogen 0.2 E.U./dL (0.2 - 1.0) 10/04/17 18:20 Ur Leukocyte Esterase MODERATE (NEGATIVE) H 10/04/17 18:20 Urine RBC 2-5 /hpf (0-5) 10/04/17 18:20 Urine WBC 10-25 /hpf (0-5) H 10/04/17 18:20 Ur Epithelial Cells MODERATE /lpf (FEW) 10/04/17 18:20 Urine Bacteria 3+ /hpf (NONE SEEN) H 10/04/17 18:20 Valproic Acid 14.7 ug/mL (50.0-100.0) L 10/04/17 17:30 - Physical Exam Vitals and I&O: Vital Signs Temp 97.9 F 10/05/17 20:00 Pulse 64 10/05/17 20:00 Resp 20 10/05/17 20:00 BP 126/66 10/05/17 20:00 Pulse Ox 99 10/05/17 20:00 Intake & Output 10/05/17 10/05/17 10/06/17 06:59 18:59 06:59 Intake Total 240 360 Balance 240 360 Intake: Oral 240 360 Other: # Voids 2 2 Active Medications: Current Medications Acetaminophen (Tylenol) 650 mg PO Q4H PRN PRN Reason: Pain (Mild) Stop: 12/03/17 20:36 Amlodipine Besylate (Norvasc) 5 mg PO DAILY [facility] Stop: 12/04/17 08:59 Last Admin: 10/05/17 09:22 Dose: 5 mg Divalproex Sodium (Depakote Dr) 250 mg PO BID [facility]; Protocol Stop: 12/04/17 08:59 Last Admin: 10/05/17 19:22 Dose: Not Given Docusate Sodium (Colace) 100 mg PO BID [facility] Stop: 12/04/17 08:59 Last Admin: 10/05/17 17:52 Dose: Not Given Donepezil HCl (Aricept) 10 mg PO HS [facility] Stop: 12/03/17 20:59 Last Admin: 10/04/17 21:29 Dose: 10 mg Escitalopram Oxalate (Lexapro) 5 mg PO DAILY [facility]; Protocol Stop: 12/05/17 08:59 Levetiracetam (Keppra) 1,000 mg PO BID [facility] Stop: 12/04/17 08:59 Last Admin: 10/05/17 19:22 Dose: Not Given Lorazepam (Ativan) 0.5 mg PO Q6HR PRN; Protocol PRN Reason: Agitation Stop: 12/03/17 20:59 Last Admin: 10/05/17 09:21 Dose: 0.5 mg Magnesium Hydroxide (Milk Of Magnesia) 30 ml PO DAILY PRN PRN Reason: Constipation Stop: 12/03/17 19:35 Memantine (Namenda) 10 mg PO BID [facility] Stop: 12/04/17 08:59 Last Admin: 10/05/17 19:22 Dose: Not Given Zolpidem Tartrate (Ambien) 5 mg PO HS PRN PRN Reason: Insomnia Stop: 12/03/17 20:47 Last Admin: 10/04/17 21:30 Dose: 5 mg General: demented HEENT: NC/AT, PERRLA, EOMI, anicteric sclerae, throat clear Neck: Supple, No JVD, No thyromegaly, +2 carotid pulse wo bruit, No LAD Lungs: CTAB Cardiovascular: RRR, Normal S1, Normal S2, without murmur Abdomen: non-tender, non-distended Neurological: no change - Procedures Procedures: Procedures Procedure Code Date GROUP PSYCHOTHERAPY 30124 04/15/15 GROUP PSYCHOTHERAPY GZHZZZZ 04/15/15 GROUP PSYCHOTHERAPY 54496 01/16/15 GROUP PSYCHOTHERAPY GZHZZZZ 01/16/15 Internal Medicine Assmt/Plan - Assessment Assessment: 1.HTN. 2.SEIZURE DISORDERED. 3.DEMENTIA. 4.PSYCHOSIS. - Plan Plan: CONTINUE ON CURRENT MEDICATION AND DIET.
[2017-10-06] MEDS: Multivitamin w/ Minerals Tab PO SCH (09:24)
[2017-10-06] MEDS: Escitalopram Oxalate 5 mg Tab PO SCH (09:24)
--- NOTE | 2017-10-06 12:45 | Progress Notes ---
DATE: 10/06/2017 Case was discussed with staff of the patient. The patient continues to be easily agitated, using foul language with staff using ____. Continues to have poor insight, unpredictable and impulsive. She is on Aricept 10 mg at bedtime, Namenda 10 mg twice a day. I initiated her on Lexapro yesterday with no side effects. We will now further ____ her medication. Unable to take care of herself or make safe plan for self-care. We will continue outpatient group therapy, milieu therapy, and adjust medications as needed. Her lab work showed CBC with high MCH, high monocyte. The rest within normal range. Chemistry panel with high blood sugar, the rest within normal range. Urinalysis with small blood and bilirubin. I will defer this to the medical doctor. Depakote level 14.7, which is low. Her current dose is 250 mg 3 times a day. I will be increasing it to 3 times a day. We will continue outpatient group therapy, milieu therapy, adjust the medication as needed. JOB# [id number]
--- NOTE | 2017-10-06 22:39 | Internal Medicine Prog Note ---
Internal Medicine Subjective - Subjective Service Date: 10/06/17 Patient seen and examined:: with staff Patient is:: awake, in bed, confused Per staff patient has:: no adverse event Internal Medicine Objective - Results Result Diagrams: 10/04/17 17:30 10/04/17 17:30 Recent Labs: Laboratory Last Values WBC 6.6 Th/cmm (4.8-10.8) 10/04/17 17:30 RBC 4.40 Mil/cmm (3.80-5.20) 10/04/17 17:30 Hgb 14.2 gm/dL (12-16) 10/04/17 17:30 Hct 42.3 % (41.0-60) 10/04/17 17:30 MCV 96.1 fl (81-100) 10/04/17 17:30 MCH 32.2 pg (27.0-31.0) H 10/04/17 17:30 MCHC Differential 33.5 pg (28.0-36.0) 10/04/17 17:30 RDW 12.5 % (11.5-20.0) 10/04/17 17:30 Plt Count 160 Th/cmm (150-400) 10/04/17 17:30 MPV 7.5 fl 10/04/17 17:30 Neutrophils % 58.8 % (40.0-80.0) 10/04/17 17:30 Lymphocytes % 27.8 % (20.0-50.0) 10/04/17 17:30 Monocytes % 11.4 % (2.0-10.0) H 10/04/17 17:30 Eosinophils % 1.4 % (0.0-5.0) 10/04/17 17:30 Basophils % 0.6 % (0.0-2.0) 10/04/17 17:30 Sodium 141 mEq/L (136-145) 10/04/17 17:30 Potassium 3.8 mEq/L (3.5-5.1) 10/04/17 17:30 Chloride 106 mEq/L (98-107) 10/04/17 17:30 Carbon Dioxide 27.5 mEq/L (21.0-31.0) 10/04/17 17:30 Anion Gap 11.3 (7.0-16.0) 10/04/17 17:30 BUN 21 mg/dL (7-25) 10/04/17 17:30 Creatinine 0.8 mg/dL (0.6-1.2) 10/04/17 17:30 Est GFR ( Amer) TNP 10/04/17 17:30 Est GFR (Non-Af Amer) TNP 10/04/17 17:30 BUN/Creatinine Ratio 26.3 10/04/17 17:30 Glucose 115 mg/dL (70-105) H 10/04/17 17:30 Calcium 9.0 mg/dL (8.6-10.3) 10/04/17 17:30 Total Bilirubin 0.6 mg/dL (0.3-1.0) 10/04/17 17:30 AST 13 U/L (13-39) 10/04/17 17:30 ALT 11 U/L (7-52) 10/04/17 17:30 Alkaline Phosphatase 44 U/L (34-104) 10/04/17 17:30 Total Protein 6.2 gm/dL (6.0-8.3) 10/04/17 17:30 Albumin 4.0 gm/dL (3.7-5.3) 10/04/17 17:30 Globulin 2.2 gm/dL 10/04/17 17:30 Albumin/Globulin Ratio 1.8 (1.0-1.8) 10/04/17 17:30 Urine Source CLEAN C 10/04/17 18:20 Urine Color YELLOW 10/04/17 18:20 Urine Clarity HAZY (CLEAR) 10/04/17 18:20 Urine pH 5.5 (4.6 - 8.0) 10/04/17 18:20 Ur Specific [place] >= 1.030 (1.005-1.030) 10/04/17 18:20 Urine Protein TRACE mg/dL (NEGATIVE) 10/04/17 18:20 Urine Glucose (UA) NEGATIVE mg/dL (NEGATIVE) 10/04/17 18:20 Urine Ketones NEGATIVE mg/dL (NEGATIVE) 10/04/17 18:20 Urine Blood SMALL (NEGATIVE) H 10/04/17 18:20 Urine Nitrate NEGATIVE (NEGATIVE) 10/04/17 18:20 Urine Bilirubin SMALL (NEGATIVE) H 10/04/17 18:20 Urine Urobilinogen 0.2 E.U./dL (0.2 - 1.0) 10/04/17 18:20 Ur Leukocyte Esterase MODERATE (NEGATIVE) H 10/04/17 18:20 Urine RBC 2-5 /hpf (0-5) 10/04/17 18:20 Urine WBC 10-25 /hpf (0-5) H 10/04/17 18:20 Ur Epithelial Cells MODERATE /lpf (FEW) 10/04/17 18:20 Urine Bacteria 3+ /hpf (NONE SEEN) H 10/04/17 18:20 Valproic Acid 14.7 ug/mL (50.0-100.0) L 10/04/17 17:30 - Physical Exam Vitals and I&O: Vital Signs Temp 98.6 F 10/06/17 16:35 Pulse 69 10/06/17 16:35 Resp 20 10/06/17 16:35 BP 118/50 10/06/17 16:35 Pulse Ox 97 10/06/17 16:35 Intake & Output 10/06/17 10/06/17 10/07/17 06:59 18:59 06:59 Intake Total 360 Balance 360 Intake: Oral 360 Other: # Voids 2 Active Medications: Current Medications Acetaminophen (Tylenol) 650 mg PO Q4H PRN PRN Reason: Pain (Mild) Stop: 12/03/17 20:36 Amlodipine Besylate (Norvasc) 5 mg PO DAILY [facility] Stop: 12/04/17 08:59 Last Admin: 10/06/17 10:17 Dose: Not Given Divalproex Sodium (Depakote Dr) 250 mg PO TID [facility]; Protocol Stop: 12/05/17 08:59 Docusate Sodium (Colace) 100 mg PO BID [facility] Stop: 12/04/17 08:59 Last Admin: 10/06/17 16:45 Dose: 100 mg Donepezil HCl (Aricept) 10 mg PO HS [facility] Stop: 12/03/17 20:59 Last Admin: 10/06/17 21:04 Dose: 10 mg Escitalopram Oxalate (Lexapro) 5 mg PO DAILY [facility]; Protocol Stop: 12/05/17 08:59 Last Admin: 10/06/17 09:24 Dose: 5 mg Levetiracetam (Keppra) 1,000 mg PO BID [facility] Stop: 12/04/17 08:59 Last Admin: 08/29/18 16:46 Dose: 1,000 mg Lorazepam (Ativan) 0.5 mg PO Q6HR PRN; Protocol PRN Reason: Agitation Stop: 12/03/17 20:59 Last Admin: 10/06/17 11:45 Dose: 0.5 mg Magnesium Hydroxide (Milk Of Magnesia) 30 ml PO DAILY PRN PRN Reason: Constipation Stop: 12/03/17 19:35 Memantine (Namenda) 10 mg PO BID [facility] Stop: 12/04/17 08:59 Last Admin: 10/06/17 16:45 Dose: 10 mg Mupirocin (Bactroban Oint) 1 appl NS BID [facility] Stop: 10/11/17 09:01 Last Admin: 10/06/17 17:00 Dose: 1 appl Zolpidem Tartrate (Ambien) 5 mg PO HS PRN PRN Reason: Insomnia Stop: 12/03/17 20:47 Last Admin: 10/04/17 21:30 Dose: 5 mg General: demented HEENT: NC/AT, PERRLA, EOMI, anicteric sclerae, throat clear Neck: Supple, No JVD, No thyromegaly, +2 carotid pulse wo bruit, No LAD Lungs: CTAB Cardiovascular: RRR, Normal S1, Normal S2, without murmur Abdomen: non-tender, non-distended Neurological: no change - Procedures Procedures: Procedures Procedure Code Date GROUP PSYCHOTHERAPY 69263 04/15/15 GROUP PSYCHOTHERAPY GZHZZZZ 04/15/15 GROUP PSYCHOTHERAPY 91891 01/16/15 GROUP PSYCHOTHERAPY GZHZZZZ 01/16/15 Internal Medicine Assmt/Plan - Assessment Assessment: 1.HTN. 2.SEIZURE DISORDERED. 3.DEMENTIA. 4.PSYCHOSIS. - Plan Plan: CONTINUE ON CURRENT MEDICATION AND DIET.
[2017-10-07] MEDS: Escitalopram Oxalate 5 mg Tab PO SCH (08:25)
[2017-10-07] MEDS: Multivitamin w/ Minerals Tab PO SCH (08:26)
--- NOTE | 2017-10-07 14:49 | Progress Notes ---
DATE: 10/07/2017 Case was discussed with staff of the patient, reviewed records. The patient continues to be agitated, confused and irritable. Continues to have poor insight, tolerated adding the Lexapro. Continues to be unable to make safe plan for self-care. Unpredictable and impulsive, needing redirection. Lab work showed high MCH and high monocyte. The rest within normal range. Chemistry panel with high blood sugar at 115. The rest within normal range. Urinalysis was small amount of blood and bilirubin and high white cell count. Depakote level is low and I did increase Depakote dose yesterday. The patient may need to be on antibiotics for ____ infection. I asked the staff to call the medical doctor to make sure that she is aware of it and we will continue the patient in group therapy, milieu therapy, adjust the medication as needed. JOB# [id number]
--- NOTE | 2017-10-07 18:22 | Internal Medicine Prog Note ---
Internal Medicine Subjective - Subjective Service Date: 10/07/17 Patient seen and examined:: with staff Patient is:: awake, in bed, confused Per staff patient has:: no adverse event Internal Medicine Objective - Results Result Diagrams: 10/04/17 17:30 10/04/17 17:30 Recent Labs: Laboratory Last Values WBC 6.6 Th/cmm (4.8-10.8) 10/04/17 17:30 RBC 4.40 Mil/cmm (3.80-5.20) 10/04/17 17:30 Hgb 14.2 gm/dL (12-16) 10/04/17 17:30 Hct 42.3 % (41.0-60) 10/04/17 17:30 MCV 96.1 fl (81-100) 10/04/17 17:30 MCH 32.2 pg (27.0-31.0) H 10/04/17 17:30 MCHC Differential 33.5 pg (28.0-36.0) 10/04/17 17:30 RDW 12.5 % (11.5-20.0) 10/04/17 17:30 Plt Count 160 Th/cmm (150-400) 10/04/17 17:30 MPV 7.5 fl 10/04/17 17:30 Neutrophils % 58.8 % (40.0-80.0) 10/04/17 17:30 Lymphocytes % 27.8 % (20.0-50.0) 10/04/17 17:30 Monocytes % 11.4 % (2.0-10.0) H 10/04/17 17:30 Eosinophils % 1.4 % (0.0-5.0) 10/04/17 17:30 Basophils % 0.6 % (0.0-2.0) 10/04/17 17:30 Sodium 141 mEq/L (136-145) 10/04/17 17:30 Potassium 3.8 mEq/L (3.5-5.1) 10/04/17 17:30 Chloride 106 mEq/L (98-107) 10/04/17 17:30 Carbon Dioxide 27.5 mEq/L (21.0-31.0) 10/04/17 17:30 Anion Gap 11.3 (7.0-16.0) 10/04/17 17:30 BUN 21 mg/dL (7-25) 10/04/17 17:30 Creatinine 0.8 mg/dL (0.6-1.2) 10/04/17 17:30 Est GFR ( Amer) TNP 10/04/17 17:30 Est GFR (Non-Af Amer) TNP 10/04/17 17:30 BUN/Creatinine Ratio 26.3 10/04/17 17:30 Glucose 115 mg/dL (70-105) H 10/04/17 17:30 Calcium 9.0 mg/dL (8.6-10.3) 10/04/17 17:30 Total Bilirubin 0.6 mg/dL (0.3-1.0) 10/04/17 17:30 AST 13 U/L (13-39) 10/04/17 17:30 ALT 11 U/L (7-52) 10/04/17 17:30 Alkaline Phosphatase 44 U/L (34-104) 10/04/17 17:30 Total Protein 6.2 gm/dL (6.0-8.3) 10/04/17 17:30 Albumin 4.0 gm/dL (3.7-5.3) 10/04/17 17:30 Globulin 2.2 gm/dL 10/04/17 17:30 Albumin/Globulin Ratio 1.8 (1.0-1.8) 10/04/17 17:30 Urine Source CLEAN C 10/04/17 18:20 Urine Color YELLOW 10/04/17 18:20 Urine Clarity HAZY (CLEAR) 10/04/17 18:20 Urine pH 5.5 (4.6 - 8.0) 10/04/17 18:20 Ur Specific [place] >= 1.030 (1.005-1.030) 10/04/17 18:20 Urine Protein TRACE mg/dL (NEGATIVE) 10/04/17 18:20 Urine Glucose (UA) NEGATIVE mg/dL (NEGATIVE) 10/04/17 18:20 Urine Ketones NEGATIVE mg/dL (NEGATIVE) 10/04/17 18:20 Urine Blood SMALL (NEGATIVE) H 10/04/17 18:20 Urine Nitrate NEGATIVE (NEGATIVE) 10/04/17 18:20 Urine Bilirubin SMALL (NEGATIVE) H 10/04/17 18:20 Urine Urobilinogen 0.2 E.U./dL (0.2 - 1.0) 10/04/17 18:20 Ur Leukocyte Esterase MODERATE (NEGATIVE) H 10/04/17 18:20 Urine RBC 2-5 /hpf (0-5) 10/04/17 18:20 Urine WBC 10-25 /hpf (0-5) H 10/04/17 18:20 Ur Epithelial Cells MODERATE /lpf (FEW) 10/04/17 18:20 Urine Bacteria 3+ /hpf (NONE SEEN) H 10/04/17 18:20 Valproic Acid 14.7 ug/mL (50.0-100.0) L 10/04/17 17:30 - Physical Exam Vitals and I&O: Vital Signs Temp 96.8 F 10/07/17 14:26 Pulse 66 10/07/17 14:26 Resp 18 10/07/17 14:26 BP 105/62 10/07/17 14:26 Pulse Ox 93 10/07/17 14:26 Intake & Output 10/06/17 10/07/17 10/07/17 18:59 06:59 18:59 Other: # Voids 4 # Bowel Movements 2 Active Medications: Current Medications Acetaminophen (Tylenol) 650 mg PO Q4H PRN PRN Reason: Pain (Mild) Stop: 12/03/17 20:36 Amlodipine Besylate (Norvasc) 5 mg PO DAILY [facility] Stop: 12/04/17 08:59 Last Admin: 10/07/17 08:25 Dose: 5 mg Divalproex Sodium (Depakote Dr) 250 mg PO TID [facility]; Protocol Stop: 12/05/17 08:59 Last Admin: 10/07/17 15:05 Dose: 250 mg Docusate Sodium (Colace) 100 mg PO BID [facility] Stop: 12/04/17 08:59 Last Admin: 10/07/17 16:59 Dose: 100 mg Donepezil HCl (Aricept) 10 mg PO HS [facility] Stop: 12/03/17 20:59 Last Admin: 10/06/17 21:04 Dose: 10 mg Escitalopram Oxalate (Lexapro) 5 mg PO DAILY [facility]; Protocol Stop: 12/05/17 08:59 Last Admin: 10/07/17 08:25 Dose: 5 mg Levetiracetam (Keppra) 1,000 mg PO BID [facility] Stop: 12/04/17 08:59 Last Admin: 10/07/17 16:59 Dose: 1,000 mg Lorazepam (Ativan) 0.5 mg PO Q6HR PRN; Protocol PRN Reason: Agitation Stop: 12/03/17 20:59 Last Admin: 10/06/17 11:45 Dose: 0.5 mg Magnesium Hydroxide (Milk Of Magnesia) 30 ml PO DAILY PRN PRN Reason: Constipation Stop: 12/03/17 19:35 Memantine (Namenda) 10 mg PO BID [facility] Stop: 12/04/17 08:59 Last Admin: 10/07/17 16:59 Dose: 10 mg Mupirocin (Bactroban Oint) 1 appl NS BID [facility] Stop: 10/11/17 09:01 Last Admin: 10/07/17 17:07 Dose: 1 appl Zolpidem Tartrate (Ambien) 5 mg PO HS PRN PRN Reason: Insomnia Stop: 12/03/17 20:47 Last Admin: 10/04/17 21:30 Dose: 5 mg General: demented HEENT: NC/AT, PERRLA, EOMI, anicteric sclerae, throat clear Neck: Supple, No JVD, No thyromegaly, +2 carotid pulse wo bruit, No LAD Lungs: CTAB Cardiovascular: RRR, Normal S1, Normal S2, without murmur Abdomen: non-tender, non-distended Neurological: no change - Procedures Procedures: Procedures Procedure Code Date GROUP PSYCHOTHERAPY 66550 04/15/15 GROUP PSYCHOTHERAPY GZHZZZZ 04/15/15 GROUP PSYCHOTHERAPY 88291 01/16/15 GROUP PSYCHOTHERAPY GZHZZZZ 01/16/15 Internal Medicine Assmt/Plan - Assessment Assessment: 1.HTN. 2.SEIZURE DISORDERED. 3.DEMENTIA. 4.PSYCHOSIS. 5.UTI - Plan Plan: CONTINUE ON CURRENT MEDICATION AND DIET.MACROBID 100 MG PO BID Nutritional Asmnt/Malnutr-PDOC - Dietary Evaluation Malnutrition Findings (Please click <Entered> for more info): Nutritional Asmnt/Malnutrition Start: 10/07/17 13: 32 Text: Status: Complete Freq: Protocol: Document 10/07/17 13:32 BERNARDA (Rec: 10/07/17 13:54 BERNARDA [email or web address]) Nutritional Asmnt/Malnutrition Patient General Information Nutritional Screening Moderate Risk Diagnosis psychosis Pertinent Medical Hx/Surgical Hx HTN, seizure, psychosis, dementia Subjective Information pt seen lying in bed at time of visit, awake but not answering RD greeting. Per nurse, pt eats well, PO intake 75-100% per EMR. Current Diet Order/ Nutrition Support CCHO 60gm, mech soft LACEY Pertinent Medications colace Pertinent Labs 10/04 Glucose 115 Nutritional Hx/Data Height 1.63 m Height (Calculated Centimeters) 162.6 Current Weight (lbs) 54.431 kg Weight (Calculated Kilograms) 54.4 Weight (Calculated Grams) 88600.1 [place] Body Weight 120 Body Mass Index (BMI) 20.5 Weight Status Approriate GI Symptoms GI Symptoms None Last BM not indicated Difficult in: None Skin Integrity/Comment: intact Current %PO Good (75-100%) Estimated Nutritional Goals BEE in Kcals: Using Current wt Calories/Kcals/Kg 25-30 Kcals Calculated 1516-1335 Protein: Using Current wt Protein g/k-1.2 Protein Calculated 55-66 Fluid: ml 1375-1650ml (1ml/kcal) Nutritional Problem No current Nutrition Prob Problem n/A Malnutrition Alert Is there a minimum of two criteria No selected? Query Text:Check all the applicable criteria. A minimum of two criteria are recommended for diagnosis of either severe or non-severe malnutrition. Malnutrition Related to Morbid Obesity Malnutrition related to morbid obesity No Intervention/Recommendation Comments 1. Continue with current diet as ordered. Consider discontinue CCHO diet if glucose WNL/in good control. 2. Monitor PO intake, wt, labs and skin integrity 3. F/U as low risk in 7 days, 10/14 Expected Outcomes/Goals Expected Outcomes/Goals 1. PO intake to meet at least 75% of nutritional needs. 2. Wt stability, skin to remain intact, labs to approach WNL.
[2017-10-08] MEDS: Multivitamin w/ Minerals Tab PO SCH (08:51)
[2017-10-08] MEDS: Escitalopram Oxalate 5 mg Tab PO SCH (08:51)
--- NOTE | 2017-10-08 20:15 | Internal Medicine Prog Note ---
Internal Medicine Subjective - Subjective Service Date: 10/08/17 Patient seen and examined:: with staff Patient is:: awake, in bed, confused Per staff patient has:: no adverse event Internal Medicine Objective - Results Result Diagrams: 10/04/17 17:30 10/04/17 17:30 Recent Labs: Laboratory Last Values WBC 6.6 Th/cmm (4.8-10.8) 10/04/17 17:30 RBC 4.40 Mil/cmm (3.80-5.20) 10/04/17 17:30 Hgb 14.2 gm/dL (12-16) 10/04/17 17:30 Hct 42.3 % (41.0-60) 10/04/17 17:30 MCV 96.1 fl (81-100) 10/04/17 17:30 MCH 32.2 pg (27.0-31.0) H 10/04/17 17:30 MCHC Differential 33.5 pg (28.0-36.0) 10/04/17 17:30 RDW 12.5 % (11.5-20.0) 10/04/17 17:30 Plt Count 160 Th/cmm (150-400) 10/04/17 17:30 MPV 7.5 fl 10/04/17 17:30 Neutrophils % 58.8 % (40.0-80.0) 10/04/17 17:30 Lymphocytes % 27.8 % (20.0-50.0) 10/04/17 17:30 Monocytes % 11.4 % (2.0-10.0) H 10/04/17 17:30 Eosinophils % 1.4 % (0.0-5.0) 10/04/17 17:30 Basophils % 0.6 % (0.0-2.0) 10/04/17 17:30 Sodium 141 mEq/L (136-145) 10/04/17 17:30 Potassium 3.8 mEq/L (3.5-5.1) 10/04/17 17:30 Chloride 106 mEq/L (98-107) 10/04/17 17:30 Carbon Dioxide 27.5 mEq/L (21.0-31.0) 10/04/17 17:30 Anion Gap 11.3 (7.0-16.0) 10/04/17 17:30 BUN 21 mg/dL (7-25) 10/04/17 17:30 Creatinine 0.8 mg/dL (0.6-1.2) 10/04/17 17:30 Est GFR ( Amer) TNP 10/04/17 17:30 Est GFR (Non-Af Amer) TNP 10/04/17 17:30 BUN/Creatinine Ratio 26.3 10/04/17 17:30 Glucose 115 mg/dL (70-105) H 10/04/17 17:30 Calcium 9.0 mg/dL (8.6-10.3) 10/04/17 17:30 Total Bilirubin 0.6 mg/dL (0.3-1.0) 10/04/17 17:30 AST 13 U/L (13-39) 10/04/17 17:30 ALT 11 U/L (7-52) 10/04/17 17:30 Alkaline Phosphatase 44 U/L (34-104) 10/04/17 17:30 Total Protein 6.2 gm/dL (6.0-8.3) 10/04/17 17:30 Albumin 4.0 gm/dL (3.7-5.3) 10/04/17 17:30 Globulin 2.2 gm/dL 10/04/17 17:30 Albumin/Globulin Ratio 1.8 (1.0-1.8) 10/04/17 17:30 Urine Source CLEAN C 10/04/17 18:20 Urine Color YELLOW 10/04/17 18:20 Urine Clarity HAZY (CLEAR) 10/04/17 18:20 Urine pH 5.5 (4.6 - 8.0) 10/04/17 18:20 Ur Specific [place] >= 1.030 (1.005-1.030) 10/04/17 18:20 Urine Protein TRACE mg/dL (NEGATIVE) 10/04/17 18:20 Urine Glucose (UA) NEGATIVE mg/dL (NEGATIVE) 10/04/17 18:20 Urine Ketones NEGATIVE mg/dL (NEGATIVE) 10/04/17 18:20 Urine Blood SMALL (NEGATIVE) H 10/04/17 18:20 Urine Nitrate NEGATIVE (NEGATIVE) 10/04/17 18:20 Urine Bilirubin SMALL (NEGATIVE) H 10/04/17 18:20 Urine Urobilinogen 0.2 E.U./dL (0.2 - 1.0) 10/04/17 18:20 Ur Leukocyte Esterase MODERATE (NEGATIVE) H 10/04/17 18:20 Urine RBC 2-5 /hpf (0-5) 10/04/17 18:20 Urine WBC 10-25 /hpf (0-5) H 10/04/17 18:20 Ur Epithelial Cells MODERATE /lpf (FEW) 10/04/17 18:20 Urine Bacteria 3+ /hpf (NONE SEEN) H 10/04/17 18:20 Valproic Acid 14.7 ug/mL (50.0-100.0) L 10/04/17 17:30 - Physical Exam Vitals and I&O: Vital Signs Temp 98.3 F 10/08/17 19:53 Pulse 70 10/08/17 19:53 Resp 19 10/08/17 19:53 BP 116/59 10/08/17 19:53 Pulse Ox 92 10/08/17 19:53 Intake & Output 10/08/17 10/08/17 10/09/17 06:59 18:59 06:59 Intake Total 480 240 Output Total 2 Balance 480 238 Intake: Oral 480 240 Output: Stool 2 Other: # Voids 2 Active Medications: Current Medications Acetaminophen (Tylenol) 650 mg PO Q4H PRN PRN Reason: Pain (Mild) Stop: 12/03/17 20:36 Amlodipine Besylate (Norvasc) 5 mg PO DAILY [facility] Stop: 12/04/17 08:59 Last Admin: 10/08/17 08:51 Dose: 5 mg Divalproex Sodium (Depakote Dr) 250 mg PO TID [facility]; Protocol Stop: 12/05/17 08:59 Last Admin: 10/08/17 17:06 Dose: 250 mg Docusate Sodium (Colace) 100 mg PO BID [facility] Stop: 12/04/17 08:59 Last Admin: 10/08/17 17:07 Dose: 100 mg Donepezil HCl (Aricept) 10 mg PO HS [facility] Stop: 12/03/17 20:59 Last Admin: 10/07/17 21:21 Dose: 10 mg Escitalopram Oxalate (Lexapro) 5 mg PO DAILY [facility]; Protocol Stop: 12/05/17 08:59 Last Admin: 10/08/17 08:51 Dose: 5 mg Levetiracetam (Keppra) 1,000 mg PO BID [facility] Stop: 12/04/17 08:59 Last Admin: 10/08/17 17:08 Dose: 1,000 mg Lorazepam (Ativan) 0.5 mg PO Q6HR PRN; Protocol PRN Reason: Agitation Stop: 12/03/17 20:59 Last Admin: 10/06/17 11:45 Dose: 0.5 mg Magnesium Hydroxide (Milk Of Magnesia) 30 ml PO DAILY PRN PRN Reason: Constipation Stop: 12/03/17 19:35 Memantine (Namenda) 10 mg PO BID [facility] Stop: 12/04/17 08:59 Last Admin: 10/08/17 17:08 Dose: 10 mg Mupirocin (Bactroban Oint) 1 appl NS BID [facility] Stop: 10/11/17 09:01 Last Admin: 10/08/17 17:08 Dose: 1 appl Nitrofurantoin Macrocrystals (Macrobid) 100 mg PO BID [facility]; Protocol Stop: 12/07/17 08:59 Last Admin: 10/08/17 17:07 Dose: 100 mg Zolpidem Tartrate (Ambien) 5 mg PO HS PRN PRN Reason: Insomnia Stop: 12/03/17 20:47 Last Admin: 10/07/17 21:21 Dose: 5 mg General: demented HEENT: NC/AT, PERRLA, EOMI, anicteric sclerae, throat clear Neck: Supple, No JVD, No thyromegaly, +2 carotid pulse wo bruit, No LAD Lungs: CTAB Cardiovascular: RRR, Normal S1, Normal S2, without murmur Abdomen: non-tender, non-distended Neurological: no change - Procedures Procedures: Procedures Procedure Code Date GROUP PSYCHOTHERAPY 85876 04/15/15 GROUP PSYCHOTHERAPY GZHZZZZ 04/15/15 GROUP PSYCHOTHERAPY 52873 01/16/15 GROUP PSYCHOTHERAPY GZHZZZZ 01/16/15 Internal Medicine Assmt/Plan - Assessment Assessment: 1.HTN. 2.SEIZURE DISORDERED. 3.DEMENTIA. 4.PSYCHOSIS. 5.UTI - Plan Plan: CONTINUE ON CURRENT MEDICATION AND DIET. Nutritional Asmnt/Malnutr-PDOC - Dietary Evaluation Malnutrition Findings (Please click <Entered> for more info): Nutritional Asmnt/Malnutrition Start: 10/07/17 13: 32 Text: Status: Complete Freq: Protocol: Document 10/07/17 13:32 BERNARDA (Rec: 10/07/17 13:54 BERNARDA [email or web address]) Nutritional Asmnt/Malnutrition Patient General Information Nutritional Screening Moderate Risk Diagnosis psychosis Pertinent Medical Hx/Surgical Hx HTN, seizure, psychosis, dementia Subjective Information pt seen lying in bed at time of visit, awake but not answering RD greeting. Per nurse, pt eats well, PO intake 75-100% per EMR. Current Diet Order/ Nutrition Support CCHO 60gm, mech soft LACEY Pertinent Medications colace Pertinent Labs 10/04 Glucose 115 Nutritional Hx/Data Height 1.63 m Height (Calculated Centimeters) 162.6 Current Weight (lbs) 54.431 kg Weight (Calculated Kilograms) 54.4 Weight (Calculated Grams) 43890.1 [place] Body Weight 120 Body Mass Index (BMI) 20.5 Weight Status Approriate GI Symptoms GI Symptoms None Last BM not indicated Difficult in: None Skin Integrity/Comment: intact Current %PO Good (75-100%) Estimated Nutritional Goals BEE in Kcals: Using Current wt Calories/Kcals/Kg 25-30 Kcals Calculated 5825-4198 Protein: Using Current wt Protein g/k-1.2 Protein Calculated 55-66 Fluid: ml 1375-1650ml (1ml/kcal) Nutritional Problem No current Nutrition Prob Problem n/A Malnutrition Alert Is there a minimum of two criteria No selected? Query Text:Check all the applicable criteria. A minimum of two criteria are recommended for diagnosis of either severe or non-severe malnutrition. Malnutrition Related to Morbid Obesity Malnutrition related to morbid obesity No Intervention/Recommendation Comments 1. Continue with current diet as ordered. Consider discontinue CCHO diet if glucose WNL/in good control. 2. Monitor PO intake, wt, labs and skin integrity 3. F/U as low risk in 7 days, 10/14 Expected Outcomes/Goals Expected Outcomes/Goals 1. PO intake to meet at least 75% of nutritional needs. 2. Wt stability, skin to remain intact, labs to approach WNL.
--- NOTE | 2017-10-08 23:31 | Progress Notes ---
DATE: 10/08/2017 SUBJECTIVE: Case was discussed with staff of the patient, reviewed records. The patient tolerated the Lexapro. She can feed herself. She continues to have episodes of agitation and irritability. She complained of her teeth that need to be clean and the charge nurse told me that they managed to get her toothbrush and have her brush her teeth, sleeping better, feeding herself. No side effects with the medication, no sedation, no nausea, no extrapyramidal symptoms. We will continue to work with the patient in group therapy, milieu therapy, and adjust the medications as needed. JOB# [id number]
[2017-10-09] MEDS: Escitalopram Oxalate 5 mg Tab PO SCH (09:07)
[2017-10-09] MEDS: Multivitamin w/ Minerals Tab PO SCH (09:15)
--- NOTE | 2017-10-09 17:33 | General Progress Note ---
Subjective - Review of Systems Service Date: 10/09/17 Subjective: resting comfortably no distress Objective - Results Result Diagrams: 10/04/17 17:30 10/04/17 17:30 Recent Labs: Laboratory Last Values WBC 6.6 Th/cmm (4.8-10.8) 10/04/17 17:30 RBC 4.40 Mil/cmm (3.80-5.20) 10/04/17 17:30 Hgb 14.2 gm/dL (12-16) 10/04/17 17:30 Hct 42.3 % (41.0-60) 10/04/17 17:30 MCV 96.1 fl (81-100) 10/04/17 17:30 MCH 32.2 pg (27.0-31.0) H 10/04/17 17:30 MCHC Differential 33.5 pg (28.0-36.0) 10/04/17 17:30 RDW 12.5 % (11.5-20.0) 10/04/17 17:30 Plt Count 160 Th/cmm (150-400) 10/04/17 17:30 MPV 7.5 fl 10/04/17 17:30 Neutrophils % 58.8 % (40.0-80.0) 10/04/17 17:30 Lymphocytes % 27.8 % (20.0-50.0) 10/04/17 17:30 Monocytes % 11.4 % (2.0-10.0) H 10/04/17 17:30 Eosinophils % 1.4 % (0.0-5.0) 10/04/17 17:30 Basophils % 0.6 % (0.0-2.0) 10/04/17 17:30 Sodium 141 mEq/L (136-145) 10/04/17 17:30 Potassium 3.8 mEq/L (3.5-5.1) 10/04/17 17:30 Chloride 106 mEq/L (98-107) 10/04/17 17:30 Carbon Dioxide 27.5 mEq/L (21.0-31.0) 10/04/17 17:30 Anion Gap 11.3 (7.0-16.0) 10/04/17 17:30 BUN 21 mg/dL (7-25) 10/04/17 17:30 Creatinine 0.8 mg/dL (0.6-1.2) 10/04/17 17:30 Est GFR ( Amer) TNP 10/04/17 17:30 Est GFR (Non-Af Amer) TNP 10/04/17 17:30 BUN/Creatinine Ratio 26.3 10/04/17 17:30 Glucose 115 mg/dL (70-105) H 10/04/17 17:30 Calcium 9.0 mg/dL (8.6-10.3) 10/04/17 17:30 Total Bilirubin 0.6 mg/dL (0.3-1.0) 10/04/17 17:30 AST 13 U/L (13-39) 10/04/17 17:30 ALT 11 U/L (7-52) 10/04/17 17:30 Alkaline Phosphatase 44 U/L (34-104) 10/04/17 17:30 Total Protein 6.2 gm/dL (6.0-8.3) 10/04/17 17:30 Albumin 4.0 gm/dL (3.7-5.3) 10/04/17 17:30 Globulin 2.2 gm/dL 10/04/17 17:30 Albumin/Globulin Ratio 1.8 (1.0-1.8) 10/04/17 17:30 Urine Source CLEAN C 10/04/17 18:20 Urine Color YELLOW 10/04/17 18:20 Urine Clarity HAZY (CLEAR) 10/04/17 18:20 Urine pH 5.5 (4.6 - 8.0) 10/04/17 18:20 Ur Specific [place] >= 1.030 (1.005-1.030) 10/04/17 18:20 Urine Protein TRACE mg/dL (NEGATIVE) 10/04/17 18:20 Urine Glucose (UA) NEGATIVE mg/dL (NEGATIVE) 10/04/17 18:20 Urine Ketones NEGATIVE mg/dL (NEGATIVE) 10/04/17 18:20 Urine Blood SMALL (NEGATIVE) H 10/04/17 18:20 Urine Nitrate NEGATIVE (NEGATIVE) 10/04/17 18:20 Urine Bilirubin SMALL (NEGATIVE) H 10/04/17 18:20 Urine Urobilinogen 0.2 E.U./dL (0.2 - 1.0) 10/04/17 18:20 Ur Leukocyte Esterase MODERATE (NEGATIVE) H 10/04/17 18:20 Urine RBC 2-5 /hpf (0-5) 10/04/17 18:20 Urine WBC 10-25 /hpf (0-5) H 10/04/17 18:20 Ur Epithelial Cells MODERATE /lpf (FEW) 10/04/17 18:20 Urine Bacteria 3+ /hpf (NONE SEEN) H 10/04/17 18:20 Valproic Acid 14.7 ug/mL (50.0-100.0) L 10/04/17 17:30 - Physical Exam Vitals and I&O: Vital Signs Temp 98 F 10/09/17 04:16 Pulse 63 10/09/17 09:07 Resp 19 10/09/17 04:16 BP 113/70 10/09/17 09:07 Pulse Ox 94 10/09/17 04:16 Intake & Output 10/08/17 10/09/17 10/09/17 18:59 06:59 18:59 Intake Total 480 Output Total 2 Balance 478 Intake: Oral 480 Output: Stool 2 Other: # Voids 2 Active Medications: Current Medications Acetaminophen (Tylenol) 650 mg PO Q4H PRN PRN Reason: Pain (Mild) Stop: 12/03/17 20:36 Amlodipine Besylate (Norvasc) 5 mg PO DAILY [facility]PL[facility]ED BY [facility] Stop: 12/04/17 08:59 Last Admin: 10/09/17 09:07 Dose: 5 mg Divalproex Sodium (Depakote Dr) 250 mg PO TID REPL[facility]ED BY [facility]; Protocol Stop: 12/05/17 08:59 Last Admin: 10/09/17 13:15 Dose: 250 mg Docusate Sodium (Colace) 100 mg PO BID [facility]PL[facility]ED BY [facility] Stop: 12/04/17 08:59 Last Admin: 10/09/17 16:24 Dose: 100 mg Donepezil HCl (Aricept) 10 mg PO HS [facility]PL[facility]ED BY [facility] Stop: 12/03/17 20:59 Last Admin: 10/08/17 20:21 Dose: 10 mg Escitalopram Oxalate (Lexapro) 5 mg PO DAILY [facility] BY [facility]; Protocol Stop: 12/05/17 08:59 Last Admin: 10/09/17 09:07 Dose: 5 mg Levetiracetam (Keppra) 1,000 mg PO BID [facility]PL[facility] BY [facility] Stop: 12/04/17 08:59 Last Admin: 10/09/17 16:24 Dose: 1,000 mg Lorazepam (Ativan) 0.5 mg PO Q6HR PRN; Protocol PRN Reason: Agitation Stop: 12/03/17 20:59 Last Admin: 10/06/17 11:45 Dose: 0.5 mg Magnesium Hydroxide (Milk Of Magnesia) 30 ml PO DAILY PRN PRN Reason: Constipation Stop: 12/03/17 19:35 Memantine (Namenda) 10 mg PO BID [facility] Stop: 12/04/17 08:59 Last Admin: 10/09/17 16:24 Dose: 10 mg Mupirocin (Bactroban Oint) 1 appl NS BID REPLACED BY [facility] Stop: 10/11/17 09:01 Last Admin: 10/09/17 16:24 Dose: 1 appl Nitrofurantoin Macrocrystals (Macrobid) 100 mg PO BID REPLACED BY [facility]; Protocol Stop: 12/07/17 08:59 Last Admin: 10/09/17 16:24 Dose: 100 mg Zolpidem Tartrate (Ambien) 5 mg PO HS PRN PRN Reason: Insomnia Stop: 12/03/17 20:47 Last Admin: 10/07/17 21:21 Dose: 5 mg General: No acute distress HEENT: Atraumatic, PERRLA Neck: Supple, JVD, Thyromegaly Cardiovascular: Regular rate, Normal S1, Normal S2 Lungs: Clear to auscultation Abdomen: Bowel sounds, Soft - Procedures Procedures: Procedures Procedure Code Date GROUP PSYCHOTHERAPY 90015 04/15/15 GROUP PSYCHOTHERAPY GZHZZZZ 04/15/15 GROUP PSYCHOTHERAPY 95593 01/16/15 GROUP PSYCHOTHERAPY GZHZZZZ 01/16/15 Assessment/Plan - Problem List Patient Problems: All Active Problems AGGRESSION AND REFUSAL OF CARE (Acute) - Assessment Assessment: 1.HTN. 2.SEIZURE DISORDERED. 3.DEMENTIA. 4.PSYCHOSIS. 5.UTI - Plan Plan: continue current treatment Nutritional Asmnt/Malnutr-PDOC - Dietary Evaluation Malnutrition Findings (Please click <Entered> for more info): Nutritional Asmnt/Malnutrition Start: 10/07/17 13: 32 Text: Status: Complete Freq: Protocol: Document 10/07/17 13:32 BERNARDA (Rec: 10/07/17 13:54 BERNARDA [email or web address]) Nutritional Asmnt/Malnutrition Patient General Information Nutritional Screening Moderate Risk Diagnosis psychosis Pertinent Medical Hx/Surgical Hx HTN, seizure, psychosis, dementia Subjective Information pt seen lying in bed at time of visit, awake but not answering RD greeting. Per nurse, pt eats well, PO intake 75-100% per EMR. Current Diet Order/ Nutrition Support CCHO 60gm, mech soft LACEY Pertinent Medications colace Pertinent Labs 10/04 Glucose 115 Nutritional Hx/Data Height 1.63 m Height (Calculated Centimeters) 162.6 Current Weight (lbs) 54.431 kg Weight (Calculated Kilograms) 54.4 Weight (Calculated Grams) 80609.1 [place] Body Weight 120 Body Mass Index (BMI) 20.5 Weight Status Approriate GI Symptoms GI Symptoms None Last BM not indicated Difficult in: None Skin Integrity/Comment: intact Current %PO Good (75-100%) Estimated Nutritional Goals BEE in Kcals: Using Current wt Calories/Kcals/Kg 25-30 Kcals Calculated 1762-6729 Protein: Using Current wt Protein g/k-1.2 Protein Calculated 55-66 Fluid: ml 1375-1650ml (1ml/kcal) Nutritional Problem No current Nutrition Prob Problem n/A Malnutrition Alert Is there a minimum of two criteria No selected? Query Text:Check all the applicable criteria. A minimum of two criteria are recommended for diagnosis of either severe or non-severe malnutrition. Malnutrition Related to Morbid Obesity Malnutrition related to morbid obesity No Intervention/Recommendation Comments 1. Continue with current diet as ordered. Consider discontinue CCHO diet if glucose WNL/in good control. 2. Monitor PO intake, wt, labs and skin integrity 3. F/U as low risk in 7 days, 10/14 Expected Outcomes/Goals Expected Outcomes/Goals 1. PO intake to meet at least 75% of nutritional needs. 2. Wt stability, skin to remain intact, labs to approach WNL.
--- NOTE | 2017-10-09 19:13 | Progress Notes ---
DATE: 10/09/2017 SUBJECTIVE: The patient is currently in the hospital under the care of Dr. Ding. The patient with history of dementia, coming in from [place], mumbling to self, unable to participate in meaningful conversation. On [id number], the patient refusing to speak with me. Staff noting she slept fairly well, still trying to go to bed, poorly oriented, confused, restless, unpredictable and impulsive. She is taking medications. She does get upset, but staff note she is somewhat redirectable. The patient is incontinent of urine, requiring a higher level of nursing care, ongoing agitation and aggressive behaviors. Medications were noted. ASSESSMENT: The patient remains unruly, still responding to internal stimuli, gets agitated at times, ruminative, rubbing her face, eyes and mouth with finger. PLAN: We will continue to monitor, titrate and adjust medications. Continue Namenda. We will slowly titrate dosing of Lexapro. [facility]# [id number]
[2017-10-10] MEDS: Escitalopram Oxalate 5 mg Tab PO SCH (09:07)
[2017-10-10] MEDS: Multivitamin w/ Minerals Tab PO SCH (09:08)
--- NOTE | 2017-10-10 15:28 | General Progress Note ---
Subjective - Review of Systems Service Date: 10/10/17 Subjective: resting comfortably no distress Objective - Results Result Diagrams: 10/04/17 17:30 10/04/17 17:30 Recent Labs: Laboratory Last Values WBC 6.6 Th/cmm (4.8-10.8) 10/04/17 17:30 RBC 4.40 Mil/cmm (3.80-5.20) 10/04/17 17:30 Hgb 14.2 gm/dL (12-16) 10/04/17 17:30 Hct 42.3 % (41.0-60) 10/04/17 17:30 MCV 96.1 fl (81-100) 10/04/17 17:30 MCH 32.2 pg (27.0-31.0) H 10/04/17 17:30 MCHC Differential 33.5 pg (28.0-36.0) 10/04/17 17:30 RDW 12.5 % (11.5-20.0) 10/04/17 17:30 Plt Count 160 Th/cmm (150-400) 10/04/17 17:30 MPV 7.5 fl 10/04/17 17:30 Neutrophils % 58.8 % (40.0-80.0) 10/04/17 17:30 Lymphocytes % 27.8 % (20.0-50.0) 10/04/17 17:30 Monocytes % 11.4 % (2.0-10.0) H 10/04/17 17:30 Eosinophils % 1.4 % (0.0-5.0) 10/04/17 17:30 Basophils % 0.6 % (0.0-2.0) 10/04/17 17:30 Sodium 141 mEq/L (136-145) 10/04/17 17:30 Potassium 3.8 mEq/L (3.5-5.1) 10/04/17 17:30 Chloride 106 mEq/L (98-107) 10/04/17 17:30 Carbon Dioxide 27.5 mEq/L (21.0-31.0) 10/04/17 17:30 Anion Gap 11.3 (7.0-16.0) 10/04/17 17:30 BUN 21 mg/dL (7-25) 10/04/17 17:30 Creatinine 0.8 mg/dL (0.6-1.2) 10/04/17 17:30 Est GFR ( Amer) TNP 10/04/17 17:30 Est GFR (Non-Af Amer) TNP 10/04/17 17:30 BUN/Creatinine Ratio 26.3 10/04/17 17:30 Glucose 115 mg/dL (70-105) H 10/04/17 17:30 Calcium 9.0 mg/dL (8.6-10.3) 10/04/17 17:30 Total Bilirubin 0.6 mg/dL (0.3-1.0) 10/04/17 17:30 AST 13 U/L (13-39) 10/04/17 17:30 ALT 11 U/L (7-52) 10/04/17 17:30 Alkaline Phosphatase 44 U/L (34-104) 10/04/17 17:30 Total Protein 6.2 gm/dL (6.0-8.3) 10/04/17 17:30 Albumin 4.0 gm/dL (3.7-5.3) 10/04/17 17:30 Globulin 2.2 gm/dL 10/04/17 17:30 Albumin/Globulin Ratio 1.8 (1.0-1.8) 10/04/17 17:30 Urine Source CLEAN C 10/04/17 18:20 Urine Color YELLOW 10/04/17 18:20 Urine Clarity HAZY (CLEAR) 10/04/17 18:20 Urine pH 5.5 (4.6 - 8.0) 10/04/17 18:20 Ur Specific [place] >= 1.030 (1.005-1.030) 10/04/17 18:20 Urine Protein TRACE mg/dL (NEGATIVE) 10/04/17 18:20 Urine Glucose (UA) NEGATIVE mg/dL (NEGATIVE) 10/04/17 18:20 Urine Ketones NEGATIVE mg/dL (NEGATIVE) 10/04/17 18:20 Urine Blood SMALL (NEGATIVE) H 10/04/17 18:20 Urine Nitrate NEGATIVE (NEGATIVE) 10/04/17 18:20 Urine Bilirubin SMALL (NEGATIVE) H 10/04/17 18:20 Urine Urobilinogen 0.2 E.U./dL (0.2 - 1.0) 10/04/17 18:20 Ur Leukocyte Esterase MODERATE (NEGATIVE) H 10/04/17 18:20 Urine RBC 2-5 /hpf (0-5) 10/04/17 18:20 Urine WBC 10-25 /hpf (0-5) H 10/04/17 18:20 Ur Epithelial Cells MODERATE /lpf (FEW) 10/04/17 18:20 Urine Bacteria 3+ /hpf (NONE SEEN) H 10/04/17 18:20 Valproic Acid 14.7 ug/mL (50.0-100.0) L 10/04/17 17:30 - Physical Exam Vitals and I&O: Vital Signs Temp 97.5 F 10/10/17 14:00 Pulse 79 10/10/17 14:00 Resp 18 10/10/17 14:00 BP 127/52 10/10/17 14:00 Pulse Ox 94 10/10/17 14:00 Intake & Output 10/09/17 10/10/17 10/10/17 18:59 06:59 18:59 Intake Total 500 Balance 500 Intake: Oral 500 Other: # Voids 4 # Bowel Movements 0 Active Medications: Current Medications Acetaminophen (Tylenol) 650 mg PO Q4H PRN PRN Reason: Pain (Mild) Stop: 12/03/17 20:36 Amlodipine Besylate (Norvasc) 5 mg PO DAILY [facility] Stop: 12/04/17 08:59 Last Admin: 10/10/17 09:09 Dose: Not Given Divalproex Sodium (Depakote Dr) 250 mg PO TID [facility]; Protocol Stop: 12/05/17 08:59 Last Admin: 10/10/17 09:08 Dose: 250 mg Docusate Sodium (Colace) 100 mg PO BID [facility] Stop: 12/04/17 08:59 Last Admin: 10/10/17 09:08 Dose: 100 mg Donepezil HCl (Aricept) 10 mg PO HS [facility] Stop: 12/03/17 20:59 Last Admin: 10/09/17 20:41 Dose: 10 mg Escitalopram Oxalate (Lexapro) 5 mg PO DAILY [facility]; Protocol Stop: 12/05/17 08:59 Last Admin: 10/10/17 09:07 Dose: 5 mg Levetiracetam (Keppra) 1,000 mg PO BID [facility] Stop: 12/04/17 08:59 Last Admin: 10/10/17 09:08 Dose: 1,000 mg Lorazepam (Ativan) 0.5 mg PO Q6HR PRN; Protocol PRN Reason: Agitation Stop: 12/03/17 20:59 Last Admin: 10/06/17 11:45 Dose: 0.5 mg Magnesium Hydroxide (Milk Of Magnesia) 30 ml PO DAILY PRN PRN Reason: Constipation Stop: 12/03/17 19:35 Memantine (Namenda) 10 mg PO BID [facility] Stop: 12/04/17 08:59 Last Admin: 10/10/17 09:08 Dose: 10 mg Mupirocin (Bactroban Oint) 1 appl NS BID [facility] Stop: 10/11/17 09:01 Last Admin: 10/10/17 09:10 Dose: 1 appl Nitrofurantoin Macrocrystals (Macrobid) 100 mg PO BID [facility]; Protocol Stop: 12/07/17 08:59 Last Admin: 10/10/17 09:07 Dose: 100 mg Zolpidem Tartrate (Ambien) 5 mg PO HS PRN PRN Reason: Insomnia Stop: 12/03/17 20:47 Last Admin: 10/07/17 21:21 Dose: 5 mg General: No acute distress HEENT: Atraumatic, PERRLA Neck: Supple, JVD, Thyromegaly Cardiovascular: Regular rate, Normal S1, Normal S2 Lungs: Clear to auscultation Abdomen: Bowel sounds, Soft - Procedures Procedures: Procedures Procedure Code Date GROUP PSYCHOTHERAPY 10560 04/15/15 GROUP PSYCHOTHERAPY GZHZZZZ 04/15/15 GROUP PSYCHOTHERAPY 76709 01/16/15 GROUP PSYCHOTHERAPY GZHZZZZ 01/16/15 Assessment/Plan - Problem List Patient Problems: All Active Problems AGGRESSION AND REFUSAL OF CARE (Acute) - Assessment Assessment: 1.HTN. 2.SEIZURE DISORDERED. 3.DEMENTIA. 4.PSYCHOSIS. 5.UTI - Plan Plan: continue current treatment Nutritional Asmnt/Malnutr-PDOC - Dietary Evaluation Malnutrition Findings (Please click <Entered> for more info): Nutritional Asmnt/Malnutrition Start: 10/07/17 13: 32 Text: Status: Complete Freq: Protocol: Document 10/07/17 13:32 BERNARDA (Rec: 10/07/17 13:54 BERNARDA [id number]) Nutritional Asmnt/Malnutrition Patient General Information Nutritional Screening Moderate Risk Diagnosis psychosis Pertinent Medical Hx/Surgical Hx HTN, seizure, psychosis, dementia Subjective Information pt seen lying in bed at time of visit, awake but not answering RD greeting. Per nurse, pt eats well, PO intake 75-100% per EMR. Current Diet Order/ Nutrition Support CCHO 60gm, mech soft LACEY Pertinent Medications colace Pertinent Labs 10/04 Glucose 115 Nutritional Hx/Data Height 1.63 m Height (Calculated Centimeters) 162.6 Current Weight (lbs) 54.431 kg Weight (Calculated Kilograms) 54.4 Weight (Calculated Grams) 58417.1 [place] Body Weight 120 Body Mass Index (BMI) 20.5 Weight Status Approriate GI Symptoms GI Symptoms None Last BM not indicated Difficult in: None Skin Integrity/Comment: intact Current %PO Good (75-100%) Estimated Nutritional Goals BEE in Kcals: Using Current wt Calories/Kcals/Kg 25-30 Kcals Calculated 4210-4498 Protein: Using Current wt Protein g/k-1.2 Protein Calculated 55-66 Fluid: ml 1375-1650ml (1ml/kcal) Nutritional Problem No current Nutrition Prob Problem n/A Malnutrition Alert Is there a minimum of two criteria No selected? Query Text:Check all the applicable criteria. A minimum of two criteria are recommended for diagnosis of either severe or non-severe malnutrition. Malnutrition Related to Morbid Obesity Malnutrition related to morbid obesity No Intervention/Recommendation Comments 1. Continue with current diet as ordered. Consider discontinue CCHO diet if glucose WNL/in good control. 2. Monitor PO intake, wt, labs and skin integrity 3. F/U as low risk in 7 days, 10/14 Expected Outcomes/Goals Expected Outcomes/Goals 1. PO intake to meet at least 75% of nutritional needs. 2. Wt stability, skin to remain intact, labs to approach WNL.
[2017-10-10] MEDS: Magnesium Hydroxide (MOM) 30 mL UDC PO PRN (18:56)
--- NOTE | 2017-10-11 05:15 | Progress Notes ---
DATE: SUBJECTIVE: The patient was seen, chart reviewed, discussed with staff. The patient remains confused, forgetful, refusing to speak to me this morning, sometimes irritable, disengaged, withdrawn, noted to be poorly oriented, ongoing concerns about impulsivity, lashing out behaviors, agitation. Medications were reviewed. Sometimes resistant to care. ASSESSMENT: The patient remains symptomatic, ongoing symptoms indicative of instability. PLAN: We will continue to monitor. The patient is still requiring a higher level of prompting and redirection. [facility]# [id number]
[2017-10-11] MEDS: Multivitamin w/ Minerals Tab PO SCH (08:17)
[2017-10-11] MEDS: Escitalopram Oxalate 5 mg Tab PO SCH (08:17)
[2017-10-11] MEDS: Magnesium Hydroxide (MOM) 30 mL UDC PO PRN (08:17)
--- NOTE | 2017-10-11 15:18 | General Progress Note ---
Subjective - Review of Systems Service Date: 10/11/17 Subjective: resting comfortably no distress RN reports impacted stool, s/p manual disimpaction Objective - Results Result Diagrams: 10/04/17 17:30 10/04/17 17:30 Recent Labs: Laboratory Last Values WBC 6.6 Th/cmm (4.8-10.8) 10/04/17 17:30 RBC 4.40 Mil/cmm (3.80-5.20) 10/04/17 17:30 Hgb 14.2 gm/dL (12-16) 10/04/17 17:30 Hct 42.3 % (41.0-60) 10/04/17 17:30 MCV 96.1 fl (81-100) 10/04/17 17:30 MCH 32.2 pg (27.0-31.0) H 10/04/17 17:30 MCHC Differential 33.5 pg (28.0-36.0) 10/04/17 17:30 RDW 12.5 % (11.5-20.0) 10/04/17 17:30 Plt Count 160 Th/cmm (150-400) 10/04/17 17:30 MPV 7.5 fl 10/04/17 17:30 Neutrophils % 58.8 % (40.0-80.0) 10/04/17 17:30 Lymphocytes % 27.8 % (20.0-50.0) 10/04/17 17:30 Monocytes % 11.4 % (2.0-10.0) H 10/04/17 17:30 Eosinophils % 1.4 % (0.0-5.0) 10/04/17 17:30 Basophils % 0.6 % (0.0-2.0) 10/04/17 17:30 Sodium 141 mEq/L (136-145) 10/04/17 17:30 Potassium 3.8 mEq/L (3.5-5.1) 10/04/17 17:30 Chloride 106 mEq/L (98-107) 10/04/17 17:30 Carbon Dioxide 27.5 mEq/L (21.0-31.0) 10/04/17 17:30 Anion Gap 11.3 (7.0-16.0) 10/04/17 17:30 BUN 21 mg/dL (7-25) 10/04/17 17:30 Creatinine 0.8 mg/dL (0.6-1.2) 10/04/17 17:30 Est GFR ( Amer) TNP 10/04/17 17:30 Est GFR (Non-Af Amer) TNP 10/04/17 17:30 BUN/Creatinine Ratio 26.3 10/04/17 17:30 Glucose 115 mg/dL (70-105) H 10/04/17 17:30 Calcium 9.0 mg/dL (8.6-10.3) 10/04/17 17:30 Total Bilirubin 0.6 mg/dL (0.3-1.0) 10/04/17 17:30 AST 13 U/L (13-39) 10/04/17 17:30 ALT 11 U/L (7-52) 10/04/17 17:30 Alkaline Phosphatase 44 U/L (34-104) 10/04/17 17:30 Total Protein 6.2 gm/dL (6.0-8.3) 10/04/17 17:30 Albumin 4.0 gm/dL (3.7-5.3) 10/04/17 17:30 Globulin 2.2 gm/dL 10/04/17 17:30 Albumin/Globulin Ratio 1.8 (1.0-1.8) 10/04/17 17:30 Urine Source CLEAN C 10/04/17 18:20 Urine Color YELLOW 10/04/17 18:20 Urine Clarity HAZY (CLEAR) 10/04/17 18:20 Urine pH 5.5 (4.6 - 8.0) 10/04/17 18:20 Ur Specific [place] >= 1.030 (1.005-1.030) 10/04/17 18:20 Urine Protein TRACE mg/dL (NEGATIVE) 10/04/17 18:20 Urine Glucose (UA) NEGATIVE mg/dL (NEGATIVE) 10/04/17 18:20 Urine Ketones NEGATIVE mg/dL (NEGATIVE) 10/04/17 18:20 Urine Blood SMALL (NEGATIVE) H 10/04/17 18:20 Urine Nitrate NEGATIVE (NEGATIVE) 10/04/17 18:20 Urine Bilirubin SMALL (NEGATIVE) H 10/04/17 18:20 Urine Urobilinogen 0.2 E.U./dL (0.2 - 1.0) 10/04/17 18:20 Ur Leukocyte Esterase MODERATE (NEGATIVE) H 10/04/17 18:20 Urine RBC 2-5 /hpf (0-5) 10/04/17 18:20 Urine WBC 10-25 /hpf (0-5) H 10/04/17 18:20 Ur Epithelial Cells MODERATE /lpf (FEW) 10/04/17 18:20 Urine Bacteria 3+ /hpf (NONE SEEN) H 10/04/17 18:20 Valproic Acid 14.7 ug/mL (50.0-100.0) L 10/04/17 17:30 - Physical Exam Vitals and I&O: Vital Signs Temp 97.8 F 10/11/17 05:46 Pulse 64 10/11/17 08:19 Resp 18 10/11/17 05:46 BP 124/52 10/11/17 08:19 Pulse Ox 94 10/11/17 05:46 Intake & Output 10/10/17 10/11/17 10/11/17 18:59 06:59 18:59 Intake Total 1550 240 Balance 1550 240 Intake: Oral 1550 240 Other: # Voids 3 2 # Bowel Movements 0 Stool Characteristics Hard Active Medications: Current Medications Acetaminophen (Tylenol) 650 mg PO Q4H PRN PRN Reason: Pain (Mild) Stop: 12/03/17 20:36 Amlodipine Besylate (Norvasc) 5 mg PO DAILY [facility] Stop: 12/04/17 08:59 Last Admin: 10/11/17 08:19 Dose: 5 mg Divalproex Sodium (Depakote Dr) 250 mg PO TID [facility]; Protocol Stop: 12/05/17 08:59 Last Admin: 10/11/17 14:15 Dose: 250 mg Docusate Sodium (Colace) 100 mg PO BID [facility] Stop: 12/04/17 08:59 Last Admin: 10/11/17 08:17 Dose: 100 mg Donepezil HCl (Aricept) 10 mg PO HS [facility] Stop: 12/03/17 20:59 Last Admin: 10/10/17 20:33 Dose: 10 mg Escitalopram Oxalate (Lexapro) 5 mg PO DAILY [facility]; Protocol Stop: 12/05/17 08:59 Last Admin: 10/11/17 08:17 Dose: 5 mg Levetiracetam (Keppra) 1,000 mg PO BID [facility] Stop: 12/04/17 08:59 Last Admin: 10/11/17 08:16 Dose: 1,000 mg Lorazepam (Ativan) 0.5 mg PO Q6HR PRN; Protocol PRN Reason: Agitation Stop: 12/03/17 20:59 Last Admin: 10/06/17 11:45 Dose: 0.5 mg Magnesium Hydroxide (Milk Of Magnesia) 30 ml PO DAILY PRN PRN Reason: Constipation Stop: 12/03/17 19:35 Last Admin: 10/11/17 08:17 Dose: 30 ml Memantine (Namenda) 10 mg PO BID [facility] Stop: 12/04/17 08:59 Last Admin: 10/11/17 08:17 Dose: 10 mg Nitrofurantoin Macrocrystals (Macrobid) 100 mg PO BID [facility]; Protocol Stop: 12/07/17 08:59 Last Admin: 10/11/17 08:16 Dose: 100 mg Polyethylene Glycol (Miralax) 17 gm PO DAILY [facility] Stop: 12/11/17 08:59 Zolpidem Tartrate (Ambien) 5 mg PO HS PRN PRN Reason: Insomnia Stop: 12/03/17 20:47 Last Admin: 10/07/17 21:21 Dose: 5 mg General: No acute distress HEENT: Atraumatic, PERRLA Neck: Supple, JVD, Thyromegaly Cardiovascular: Regular rate, Normal S1, Normal S2 Lungs: Clear to auscultation Abdomen: Bowel sounds, Soft - Procedures Procedures: Procedures Procedure Code Date GROUP PSYCHOTHERAPY 68068 04/15/15 GROUP PSYCHOTHERAPY GZHZZZZ 04/15/15 GROUP PSYCHOTHERAPY 38954 01/16/15 GROUP PSYCHOTHERAPY GZHZZZZ 01/16/15 Assessment/Plan - Problem List Patient Problems: All Active Problems AGGRESSION AND REFUSAL OF CARE (Acute) - Assessment Assessment: 1.HTN. 2.SEIZURE DISORDERED. 3.DEMENTIA. 4.PSYCHOSIS. 5.UTI 6.CONSTIPATION - Plan Plan: continue current treatment add miralax Nutritional Asmnt/Malnutr-PDOC - Dietary Evaluation Malnutrition Findings (Please click <Entered> for more info): Nutritional Asmnt/Malnutrition Start: 10/07/17 13: 32 Text: Status: Complete Freq: Protocol: Document 10/07/17 13:32 [facility] (Rec: 10/07/17 13:54 [facility] [id number]) Nutritional Asmnt/Malnutrition Patient General Information Nutritional Screening Moderate Risk Diagnosis psychosis Pertinent Medical Hx/Surgical Hx HTN, seizure, psychosis, dementia Subjective Information pt seen lying in bed at time of visit, awake but not answering RD greeting. Per nurse, pt eats well, PO intake 75-100% per EMR. Current Diet Order/ Nutrition Support CCHO 60gm, mech soft LACEY Pertinent Medications colace Pertinent Labs 10/04 Glucose 115 Nutritional Hx/Data Height 1.63 m Height (Calculated Centimeters) 162.6 Current Weight (lbs) 54.431 kg Weight (Calculated Kilograms) 54.4 Weight (Calculated Grams) 31603.1 [place] Body Weight 120 Body Mass Index (BMI) 20.5 Weight Status Approriate GI Symptoms GI Symptoms None Last BM not indicated Difficult in: None Skin Integrity/Comment: intact Current %PO Good (75-100%) Estimated Nutritional Goals BEE in Kcals: Using Current wt Calories/Kcals/Kg 25-30 Kcals Calculated 4860-2040 Protein: Using Current wt Protein g/k-1.2 Protein Calculated 55-66 Fluid: ml 1375-1650ml (1ml/kcal) Nutritional Problem No current Nutrition Prob Problem n/A Malnutrition Alert Is there a minimum of two criteria No selected? Query Text:Check all the applicable criteria. A minimum of two criteria are recommended for diagnosis of either severe or non-severe malnutrition. Malnutrition Related to Morbid Obesity Malnutrition related to morbid obesity No Intervention/Recommendation Comments 1. Continue with current diet as ordered. Consider discontinue CCHO diet if glucose WNL/in good control. 2. Monitor PO intake, wt, labs and skin integrity 3. F/U as low risk in 7 days, 10/14 Expected Outcomes/Goals Expected Outcomes/Goals 1. PO intake to meet at least 75% of nutritional needs. 2. Wt stability, skin to remain intact, labs to approach WNL.
--- NOTE | 2017-10-11 17:59 | Progress Notes ---
DATE: 10/11/2017 SUBJECTIVE: The patient in the hospital, confused, disoriented, forgetful, not answering any questions whatsoever, staring blankly, seems AO to name only at past, mostly withdrawn, slept about 8 hours last night. No agitation at this time. Remains anxious at times, but no agitation noted, confused, repetitive movements, irritable, at one point __on__ on the floor, told staff that she did not want to eat the food. The patient is answering and making statements to staff, but has not talked to me, whatsoever. Seems preoccupied on exam. Medications were noted. ASSESSMENT: The patient remains symptomatic, preoccupied, impulsive, unpredictable. Continue to monitor. Continue Chilo Burrell. JOB# [id number] [email or web address]
[2017-10-12] MEDS: Escitalopram Oxalate 5 mg Tab PO SCH (08:15)
[2017-10-12] MEDS: Multivitamin w/ Minerals Tab PO SCH (08:15)
[2017-10-12] MEDS: POLYETHYLENE GLYCOL 3350 17 GM PACK PO SCH (08:18)
--- NOTE | 2017-10-12 19:52 | Internal Medicine Prog Note ---
Internal Medicine Subjective - Subjective Service Date: 10/12/17 Patient seen and examined:: with staff Patient is:: awake, in bed, confused Per staff patient has:: no adverse event Internal Medicine Objective - Results Result Diagrams: 10/04/17 17:30 10/04/17 17:30 Recent Labs: Laboratory Last Values WBC 6.6 Th/cmm (4.8-10.8) 10/04/17 17:30 RBC 4.40 Mil/cmm (3.80-5.20) 10/04/17 17:30 Hgb 14.2 gm/dL (12-16) 10/04/17 17:30 Hct 42.3 % (41.0-60) 10/04/17 17:30 MCV 96.1 fl (81-100) 10/04/17 17:30 MCH 32.2 pg (27.0-31.0) H 10/04/17 17:30 MCHC Differential 33.5 pg (28.0-36.0) 10/04/17 17:30 RDW 12.5 % (11.5-20.0) 10/04/17 17:30 Plt Count 160 Th/cmm (150-400) 10/04/17 17:30 MPV 7.5 fl 10/04/17 17:30 Neutrophils % 58.8 % (40.0-80.0) 10/04/17 17:30 Lymphocytes % 27.8 % (20.0-50.0) 10/04/17 17:30 Monocytes % 11.4 % (2.0-10.0) H 10/04/17 17:30 Eosinophils % 1.4 % (0.0-5.0) 10/04/17 17:30 Basophils % 0.6 % (0.0-2.0) 10/04/17 17:30 Sodium 141 mEq/L (136-145) 10/04/17 17:30 Potassium 3.8 mEq/L (3.5-5.1) 10/04/17 17:30 Chloride 106 mEq/L (98-107) 10/04/17 17:30 Carbon Dioxide 27.5 mEq/L (21.0-31.0) 10/04/17 17:30 Anion Gap 11.3 (7.0-16.0) 10/04/17 17:30 BUN 21 mg/dL (7-25) 10/04/17 17:30 Creatinine 0.8 mg/dL (0.6-1.2) 10/04/17 17:30 Est GFR ( Amer) TNP 10/04/17 17:30 Est GFR (Non-Af Amer) TNP 10/04/17 17:30 BUN/Creatinine Ratio 26.3 10/04/17 17:30 Glucose 115 mg/dL (70-105) H 10/04/17 17:30 Calcium 9.0 mg/dL (8.6-10.3) 10/04/17 17:30 Total Bilirubin 0.6 mg/dL (0.3-1.0) 10/04/17 17:30 AST 13 U/L (13-39) 10/04/17 17:30 ALT 11 U/L (7-52) 10/04/17 17:30 Alkaline Phosphatase 44 U/L (34-104) 10/04/17 17:30 Total Protein 6.2 gm/dL (6.0-8.3) 10/04/17 17:30 Albumin 4.0 gm/dL (3.7-5.3) 10/04/17 17:30 Globulin 2.2 gm/dL 10/04/17 17:30 Albumin/Globulin Ratio 1.8 (1.0-1.8) 10/04/17 17:30 Urine Source CLEAN C 10/04/17 18:20 Urine Color YELLOW 10/04/17 18:20 Urine Clarity HAZY (CLEAR) 10/04/17 18:20 Urine pH 5.5 (4.6 - 8.0) 10/04/17 18:20 Ur Specific [place] >= 1.030 (1.005-1.030) 10/04/17 18:20 Urine Protein TRACE mg/dL (NEGATIVE) 10/04/17 18:20 Urine Glucose (UA) NEGATIVE mg/dL (NEGATIVE) 10/04/17 18:20 Urine Ketones NEGATIVE mg/dL (NEGATIVE) 10/04/17 18:20 Urine Blood SMALL (NEGATIVE) H 10/04/17 18:20 Urine Nitrate NEGATIVE (NEGATIVE) 10/04/17 18:20 Urine Bilirubin SMALL (NEGATIVE) H 10/04/17 18:20 Urine Urobilinogen 0.2 E.U./dL (0.2 - 1.0) 10/04/17 18:20 Ur Leukocyte Esterase MODERATE (NEGATIVE) H 10/04/17 18:20 Urine RBC 2-5 /hpf (0-5) 10/04/17 18:20 Urine WBC 10-25 /hpf (0-5) H 10/04/17 18:20 Ur Epithelial Cells MODERATE /lpf (FEW) 10/04/17 18:20 Urine Bacteria 3+ /hpf (NONE SEEN) H 10/04/17 18:20 Valproic Acid 14.7 ug/mL (50.0-100.0) L 10/04/17 17:30 - Physical Exam Vitals and I&O: Vital Signs Temp 98.2 F 10/12/17 14:00 Pulse 71 10/12/17 14:00 Resp 20 10/12/17 14:00 BP 112/54 10/12/17 14:00 Pulse Ox 94 10/12/17 14:00 Intake & Output 10/12/17 10/12/17 10/13/17 06:59 18:59 06:59 Intake Total 240 Balance 240 Weight (lbs) 54.431 kg Intake: Oral 240 Other: # Voids 3 # Bowel Movements 0 Weight Source Bedscale Active Medications: Current Medications Acetaminophen (Tylenol) 650 mg PO Q4H PRN PRN Reason: Pain (Mild) Stop: 12/03/17 20:36 Amlodipine Besylate (Norvasc) 5 mg PO DAILY [facility] Stop: 12/04/17 08:59 Last Admin: 10/12/17 08:19 Dose: Not Given Divalproex Sodium (Depakote Dr) 250 mg PO TID [facility]; Protocol Stop: 12/05/17 08:59 Last Admin: 10/12/17 13:18 Dose: 250 mg Docusate Sodium (Colace) 100 mg PO BID [facility] Stop: 12/04/17 08:59 Last Admin: 10/12/17 16:14 Dose: 100 mg Donepezil HCl (Aricept) 10 mg PO HS [facility] Stop: 12/03/17 20:59 Last Admin: 10/11/17 21:19 Dose: 10 mg Escitalopram Oxalate (Lexapro) 10 mg PO DAILY [facility]; Protocol Stop: 12/12/17 08:59 Levetiracetam (Keppra) 1,000 mg PO BID [facility] Stop: 12/04/17 08:59 Last Admin: 10/12/17 16:14 Dose: 1,000 mg Lorazepam (Ativan) 0.5 mg PO Q6HR PRN; Protocol PRN Reason: Agitation Stop: 12/03/17 20:59 Last Admin: 10/06/17 11:45 Dose: 0.5 mg Magnesium Hydroxide (Milk Of Magnesia) 30 ml PO DAILY PRN PRN Reason: Constipation Stop: 12/03/17 19:35 Last Admin: 10/11/17 08:17 Dose: 30 ml Memantine (Namenda) 10 mg PO BID [facility] Stop: 12/04/17 08:59 Last Admin: 10/12/17 16:14 Dose: 10 mg Nitrofurantoin Macrocrystals (Macrobid) 100 mg PO BID [facility]; Protocol Stop: 12/07/17 08:59 Last Admin: 10/12/17 16:15 Dose: 100 mg Polyethylene Glycol (Miralax) 17 gm PO DAILY [facility] Stop: 12/11/17 08:59 Last Admin: 10/12/17 08:18 Dose: 17 gm Zolpidem Tartrate (Ambien) 5 mg PO HS PRN PRN Reason: Insomnia Stop: 12/03/17 20:47 Last Admin: 10/11/17 21:20 Dose: 5 mg General: demented HEENT: NC/AT, PERRLA, EOMI, anicteric sclerae, throat clear Neck: Supple, No JVD, No thyromegaly, +2 carotid pulse wo bruit, No LAD Lungs: CTAB Cardiovascular: RRR, Normal S1, Normal S2, without murmur Abdomen: non-tender, non-distended Neurological: no change - Procedures Procedures: Procedures Procedure Code Date GROUP PSYCHOTHERAPY 66833 04/15/15 GROUP PSYCHOTHERAPY GZHZZZZ 04/15/15 GROUP PSYCHOTHERAPY 57041 01/16/15 GROUP PSYCHOTHERAPY GZHZZZZ 01/16/15 Internal Medicine Assmt/Plan - Assessment Assessment: 1.HTN. 2.SEIZURE DISORDERED. 3.DEMENTIA. 4.PSYCHOSIS. - Plan Plan: CONTINUE ON CURRENT MEDICATION AND DIET. Nutritional Asmnt/Malnutr-PDOC - Dietary Evaluation Malnutrition Findings (Please click <Entered> for more info): Nutritional Asmnt/Malnutrition Start: 10/07/17 13: 32 Text: Status: Complete Freq: Protocol: Document 10/07/17 13:32 BERNARDA (Rec: 10/07/17 13:54 BERNARDA [email or web address]) Nutritional Asmnt/Malnutrition Patient General Information Nutritional Screening Moderate Risk Diagnosis psychosis Pertinent Medical Hx/Surgical Hx HTN, seizure, psychosis, dementia Subjective Information pt seen lying in bed at time of visit, awake but not answering RD greeting. Per nurse, pt eats well, PO intake 75-100% per EMR. Current Diet Order/ Nutrition Support CCHO 60gm, mech soft LACEY Pertinent Medications colace Pertinent Labs 10/04 Glucose 115 Nutritional Hx/Data Height 1.63 m Height (Calculated Centimeters) 162.6 Current Weight (lbs) 54.431 kg Weight (Calculated Kilograms) 54.4 Weight (Calculated Grams) 98681.1 [place] Body Weight 120 Body Mass Index (BMI) 20.5 Weight Status Approriate GI Symptoms GI Symptoms None Last BM not indicated Difficult in: None Skin Integrity/Comment: intact Current %PO Good (75-100%) Estimated Nutritional Goals BEE in Kcals: Using Current wt Calories/Kcals/Kg 25-30 Kcals Calculated 0056-5663 Protein: Using Current wt Protein g/k-1.2 Protein Calculated 55-66 Fluid: ml 1375-1650ml (1ml/kcal) Nutritional Problem No current Nutrition Prob Problem n/A Malnutrition Alert Is there a minimum of two criteria No selected? Query Text:Check all the applicable criteria. A minimum of two criteria are recommended for diagnosis of either severe or non-severe malnutrition. Malnutrition Related to Morbid Obesity Malnutrition related to morbid obesity No Intervention/Recommendation Comments 1. Continue with current diet as ordered. Consider discontinue CCHO diet if glucose WNL/in good control. 2. Monitor PO intake, wt, labs and skin integrity 3. F/U as low risk in 7 days, 10/14 Expected Outcomes/Goals Expected Outcomes/Goals 1. PO intake to meet at least 75% of nutritional needs. 2. Wt stability, skin to remain intact, labs to approach WNL.
--- NOTE | 2017-10-12 20:15 | Progress Notes ---
DATE: 10/12/2017 SUBJECTIVE: Case was discussed with staff of the patient, reviewed records. The patient seems to be confused, demented. Continues to have poor insight, continues to be unable to make safe plan for self-care. She seems to have poor insight. Her appetite varies, continues to be unpredictable, impulsive, easily agitated. She is on Aricept 10 mg at bedtime, Depakote 250 mg 3 times a day, Keppra 1000 mg twice a day, Namenda 10 mg twice a day, we also added Lexapro on the 12/05, I will be increasing the dose to 10 mg a day. No side effects, no sedation, no nausea and we will continue to work with the patient in group therapy, milieu therapy, adjust medication as needed. JOB# [id number]
[2017-10-13] MEDS: Multivitamin w/ Minerals Tab PO SCH (09:04)
[2017-10-13] MEDS: POLYETHYLENE GLYCOL 3350 17 GM PACK PO SCH (09:04)
--- NOTE | 2017-10-13 17:35 | Progress Notes ---
DATE: 10/13/2017 PROGRESS ON THE UNIT: Case was discussed with staff of the patient, reviewed records. The patient seems to be showing some progress. She is a bit calmer. She is sleeping well, eating well, and tolerated the increase in Lexapro with no side effects, no sedation, no nausea, no extrapyramidal symptoms. She continues to be demented, confused, unable to participate in meaningful conversation or make safe plan for self-care. PLAN: We will continue to work with the patient in group therapy and milieu therapy, adjust medications as needed. JOB# [id number]
--- NOTE | 2017-10-13 20:44 | Internal Medicine Prog Note ---
Internal Medicine Subjective - Subjective Service Date: 10/13/17 Patient seen and examined:: with staff Patient is:: awake, in bed, confused Per staff patient has:: no adverse event Internal Medicine Objective - Results Result Diagrams: 10/04/17 17:30 10/04/17 17:30 Recent Labs: Laboratory Last Values WBC 6.6 Th/cmm (4.8-10.8) 10/04/17 17:30 RBC 4.40 Mil/cmm (3.80-5.20) 10/04/17 17:30 Hgb 14.2 gm/dL (12-16) 10/04/17 17:30 Hct 42.3 % (41.0-60) 10/04/17 17:30 MCV 96.1 fl (81-100) 10/04/17 17:30 MCH 32.2 pg (27.0-31.0) H 10/04/17 17:30 MCHC Differential 33.5 pg (28.0-36.0) 10/04/17 17:30 RDW 12.5 % (11.5-20.0) 10/04/17 17:30 Plt Count 160 Th/cmm (150-400) 10/04/17 17:30 MPV 7.5 fl 10/04/17 17:30 Neutrophils % 58.8 % (40.0-80.0) 10/04/17 17:30 Lymphocytes % 27.8 % (20.0-50.0) 10/04/17 17:30 Monocytes % 11.4 % (2.0-10.0) H 10/04/17 17:30 Eosinophils % 1.4 % (0.0-5.0) 10/04/17 17:30 Basophils % 0.6 % (0.0-2.0) 10/04/17 17:30 Sodium 141 mEq/L (136-145) 10/04/17 17:30 Potassium 3.8 mEq/L (3.5-5.1) 10/04/17 17:30 Chloride 106 mEq/L (98-107) 10/04/17 17:30 Carbon Dioxide 27.5 mEq/L (21.0-31.0) 10/04/17 17:30 Anion Gap 11.3 (7.0-16.0) 10/04/17 17:30 BUN 21 mg/dL (7-25) 10/04/17 17:30 Creatinine 0.8 mg/dL (0.6-1.2) 10/04/17 17:30 Est GFR ( Amer) TNP 10/04/17 17:30 Est GFR (Non-Af Amer) TNP 10/04/17 17:30 BUN/Creatinine Ratio 26.3 10/04/17 17:30 Glucose 115 mg/dL (70-105) H 10/04/17 17:30 Calcium 9.0 mg/dL (8.6-10.3) 10/04/17 17:30 Total Bilirubin 0.6 mg/dL (0.3-1.0) 10/04/17 17:30 AST 13 U/L (13-39) 10/04/17 17:30 ALT 11 U/L (7-52) 10/04/17 17:30 Alkaline Phosphatase 44 U/L (34-104) 10/04/17 17:30 Total Protein 6.2 gm/dL (6.0-8.3) 10/04/17 17:30 Albumin 4.0 gm/dL (3.7-5.3) 10/04/17 17:30 Globulin 2.2 gm/dL 10/04/17 17:30 Albumin/Globulin Ratio 1.8 (1.0-1.8) 10/04/17 17:30 Urine Source CLEAN C 10/04/17 18:20 Urine Color YELLOW 10/04/17 18:20 Urine Clarity HAZY (CLEAR) 10/04/17 18:20 Urine pH 5.5 (4.6 - 8.0) 10/04/17 18:20 Ur Specific [place] >= 1.030 (1.005-1.030) 10/04/17 18:20 Urine Protein TRACE mg/dL (NEGATIVE) 10/04/17 18:20 Urine Glucose (UA) NEGATIVE mg/dL (NEGATIVE) 10/04/17 18:20 Urine Ketones NEGATIVE mg/dL (NEGATIVE) 10/04/17 18:20 Urine Blood SMALL (NEGATIVE) H 10/04/17 18:20 Urine Nitrate NEGATIVE (NEGATIVE) 10/04/17 18:20 Urine Bilirubin SMALL (NEGATIVE) H 10/04/17 18:20 Urine Urobilinogen 0.2 E.U./dL (0.2 - 1.0) 10/04/17 18:20 Ur Leukocyte Esterase MODERATE (NEGATIVE) H 10/04/17 18:20 Urine RBC 2-5 /hpf (0-5) 10/04/17 18:20 Urine WBC 10-25 /hpf (0-5) H 10/04/17 18:20 Ur Epithelial Cells MODERATE /lpf (FEW) 10/04/17 18:20 Urine Bacteria 3+ /hpf (NONE SEEN) H 10/04/17 18:20 Valproic Acid 14.7 ug/mL (50.0-100.0) L 10/04/17 17:30 - Physical Exam Vitals and I&O: Vital Signs Temp 97.9 F 10/13/17 14:51 Pulse 68 10/13/17 14:51 Resp 18 10/13/17 14:51 BP 102/52 10/13/17 14:51 Pulse Ox 95 10/13/17 14:51 Intake & Output 10/13/17 10/13/17 10/14/17 06:59 18:59 06:59 Intake Total 300 Balance 300 Weight (lbs) 54.431 kg Intake: Oral 300 Other: # Voids 2 # Bowel Movements 1 Weight Source Bedscale Active Medications: Current Medications Acetaminophen (Tylenol) 650 mg PO Q4H PRN PRN Reason: Pain (Mild) Stop: 12/03/17 20:36 Amlodipine Besylate (Norvasc) 5 mg PO DAILY [facility] Stop: 12/04/17 08:59 Last Admin: 10/13/17 09:17 Dose: Not Given Divalproex Sodium (Depakote Dr) 250 mg PO TID [facility] [place]; Protocol Stop: 12/05/17 08:59 Last Admin: 10/13/17 20:31 Dose: 250 mg Docusate Sodium (Colace) 100 mg PO BID [facility] [place] Stop: 12/04/17 08:59 Last Admin: 10/13/17 16:18 Dose: 100 mg Donepezil HCl (Aricept) 10 mg PO HS [facility] [place] Stop: 12/03/17 20:59 Last Admin: 10/13/17 20:31 Dose: 10 mg Escitalopram Oxalate (Lexapro) 10 mg PO DAILY [facility] [place]; Protocol Stop: 12/12/17 08:59 Last Admin: 10/13/17 09:04 Dose: 10 mg Levetiracetam (Keppra) 1,000 mg PO BID [facility] Stop: 12/04/17 08:59 Last Admin: 10/13/17 16:18 Dose: 1,000 mg Lorazepam (Ativan) 0.5 mg PO Q6HR PRN; Protocol PRN Reason: Agitation Stop: 12/03/17 20:59 Last Admin: 10/06/17 11:45 Dose: 0.5 mg Magnesium Hydroxide (Milk Of Magnesia) 30 ml PO DAILY PRN PRN Reason: Constipation Stop: 12/03/17 19:35 Last Admin: 10/11/17 08:17 Dose: 30 ml Memantine (Namenda) 10 mg PO BID [facility] Stop: 12/04/17 08:59 Last Admin: 10/13/17 16:18 Dose: 10 mg Nitrofurantoin Macrocrystals (Macrobid) 100 mg PO BID [facility]; Protocol Stop: 12/07/17 08:59 Last Admin: 10/13/17 16:18 Dose: 100 mg Polyethylene Glycol (Miralax) 17 gm PO DAILY [facility] Stop: 12/11/17 08:59 Last Admin: 10/13/17 09:04 Dose: 17 gm Zolpidem Tartrate (Ambien) 5 mg PO HS PRN PRN Reason: Insomnia Stop: 12/03/17 20:47 Last Admin: 10/13/17 20:31 Dose: 5 mg General: demented HEENT: NC/AT, PERRLA, EOMI, anicteric sclerae, throat clear Neck: Supple, No JVD, No thyromegaly, +2 carotid pulse wo bruit, No LAD Lungs: CTAB Cardiovascular: RRR, Normal S1, Normal S2, without murmur Abdomen: non-tender, non-distended Neurological: no change - Procedures Procedures: Procedures Procedure Code Date GROUP PSYCHOTHERAPY 52542 04/15/15 GROUP PSYCHOTHERAPY GZHZZZZ 04/15/15 GROUP PSYCHOTHERAPY 75290 01/16/15 GROUP PSYCHOTHERAPY GZHZZZZ 01/16/15 Internal Medicine Assmt/Plan - Assessment Assessment: 1.HTN. 2.SEIZURE DISORDERED. 3.DEMENTIA. 4.PSYCHOSIS. - Plan Plan: CONTINUE ON CURRENT MEDICATION AND DIET. Nutritional Asmnt/Malnutr-PDOC - Dietary Evaluation Malnutrition Findings (Please click <Entered> for more info): Nutritional Asmnt/Malnutrition Start: 10/07/17 13: 32 Text: Status: Complete Freq: Protocol: Document 10/07/17 13:32 BERNARDA (Rec: 10/07/17 13:54 BELÉNYG [email or web address]) Nutritional Asmnt/Malnutrition Patient General Information Nutritional Screening Moderate Risk Diagnosis psychosis Pertinent Medical Hx/Surgical Hx HTN, seizure, psychosis, dementia Subjective Information pt seen lying in bed at time of visit, awake but not answering RD greeting. Per nurse, pt eats well, PO intake 75-100% per EMR. Current Diet Order/ Nutrition Support CCHO 60gm, mech soft LACEY Pertinent Medications colace Pertinent Labs 10/04 Glucose 115 Nutritional Hx/Data Height 1.63 m Height (Calculated Centimeters) 162.6 Current Weight (lbs) 54.431 kg Weight (Calculated Kilograms) 54.4 Weight (Calculated Grams) 96478.1 [place] Body Weight 120 Body Mass Index (BMI) 20.5 Weight Status Approriate GI Symptoms GI Symptoms None Last BM not indicated Difficult in: None Skin Integrity/Comment: intact Current %PO Good (75-100%) Estimated Nutritional Goals BEE in Kcals: Using Current wt Calories/Kcals/Kg 25-30 Kcals Calculated 7333-2522 Protein: Using Current wt Protein g/k-1.2 Protein Calculated 55-66 Fluid: ml 1375-1650ml (1ml/kcal) Nutritional Problem No current Nutrition Prob Problem n/A Malnutrition Alert Is there a minimum of two criteria No selected? Query Text:Check all the applicable criteria. A minimum of two criteria are recommended for diagnosis of either severe or non-severe malnutrition. Malnutrition Related to Morbid Obesity Malnutrition related to morbid obesity No Intervention/Recommendation Comments 1. Continue with current diet as ordered. Consider discontinue CCHO diet if glucose WNL/in good control. 2. Monitor PO intake, wt, labs and skin integrity 3. F/U as low risk in 7 days, 10/14 Expected Outcomes/Goals Expected Outcomes/Goals 1. PO intake to meet at least 75% of nutritional needs. 2. Wt stability, skin to remain intact, labs to approach WNL.
[2017-10-14] MEDS: POLYETHYLENE GLYCOL 3350 17 GM PACK PO SCH (09:23)
[2017-10-14] MEDS: Multivitamin w/ Minerals Tab PO SCH (09:24)
--- NOTE | 2017-10-14 12:19 | Discharge Summary ---
DATE OF DISCHARGE: 10/14/2017 IDENTIFYING INFORMATION: The patient is an 82-year-old female. HISTORY OF PRESENT ILLNESS: The patient was sent from [place] because of agitation. The patient has dementia and psychosis. The patient was a poor historian, was in a Carol chair, kept her eyes closed, mumbling to herself, unable to participate in meaningful, or make safe plan for self-care, with the diagnosis of dementia with psychosis, has hypertension and seizure disorder. ALLERGIES: She has no known drug allergies. COURSE IN THE HOSPITAL: The patient will be initiating Lexapro and I increased the dose to 10 mg a day. Also, continue with Depakote 250 mg 3 times a day, amlodipine 5 mg daily and Keppra 1000 mg twice a day. Also Namenda 10 mg twice a day, nitrofurantoin for UTI infection one tablet twice a day. The patient progressively got better. She was no longer acting out. She was sleeping well, eating well, no acting out behavior. She improved. No longer acting agitated or depressed. We felt she could be discharged to a lesser level of care. FINAL DIAGNOSES: Depression, not otherwise specified; dementia. MEDICAL DIAGNOSES: Urinary tract infection, hypertension, seizure disorder. The patient will follow up with the psychiatrist and primary care physician and neurologist. EXPECTED OUTCOME: Stable if the patient complies with the above. [facility]# [id number]
== END 2017-10-14 19:25 | DRG 884 ==
LOC: ER 17:05 → GERO2 18:58 → GERO 21:04 → GERO2 21:10
PROVIDERS: ADMIT Psychiatry & Neurology Psychiatry; ATTEND Psychiatry & Neurology Psychiatry
DX: F03.90 Unspecified dementia, unspecified severity, without behavioral disturbance, psychotic disturbance, mood disturbance, and anxiety (principal); N39.0 Urinary tract infection, site not specified; F29 Unspecified psychosis not due to a substance or known physiological condition; I10 Essential (primary) hypertension; G40.909 Epilepsy, unspecified, not intractable, without status epilepticus; F32.9 Major depressive disorder, single episode, unspecified; K59.00 Constipation, unspecified
CPT/HCPCS: 36415-UA; 71045-TC; 80053-TC; 80164-TC; 81001-TC; 85025-TC; 87086-90; Z7610

== ENCOUNTER 2018-06-02 16:06 | Inpatient (IN) | payer MEDICARE, MEDICAID ==
--- NOTE | 2018-06-02 16:45 | ED Physician Chart ---
ED Chief Complaint/HPI - Patient Information Date Seen:: 06/02/18 Time Seen:: 16:35 Chief Complaint:: increased agitation History of Present Illness:: Patient has reportedly been exhibiting increased agitation at her extended care facility. She has dementia so no further history is available. Allergies:: Allergies Allergy/AdvReac Type Severity Reaction Status Date / Time No Known Allergies Allergy Verified 06/02/18 16:11 Vitals:: Vital Signs - 8 hr 06/02/18 16:12 HR 66 RR 18 BP 109/64 O2 Sat % 93 Historian:: EMS Review:: Transfer documents Reviewed ED Review of Systems - Review of Systems General/Constitutional: No fever, No chills, No weight loss, No weakness, No diaphoresis, No edema, No loss of appetite Skin: No skin lesions, No rash, No bruising Head: No headache, No light-headedness Eyes: No loss of vision, No pain, No diplopia ENT: No earache, No nasal drainage, No sore throat, No tinnitus Neck: No neck pain, No swelling, No thyromegaly, No stiffness, No mass noted Cardio Vascular: No chest pain, No palpitations, No PND, No orthopnea, No edema Pulmonary: No SOB, No cough, No sputum, No wheezing GI: No nausea, No vomiting, No diarrhea, No pain, No melena, No hematochezia, No constipation, No hematemesis G/U: No dysuria, No frequency, No hematuria Musculoskeletal: No bone or joint pain, No back pain, No muscle pain Endocrine: No polyuria, No polydipsia Psychiatric: No depression, No anxiety, No suicidal ideation Hematopoietic: No bruising, No lymphadenopathy Allergic/Immuno: No urticaria, No angioedema Neurological: No syncope, No focal symptoms, No weakness, No paresthesia, No headache, No seizure, No dizziness, No confusion, No vertigo ED Past Medical History - Past Medical History Past Medical History: HTN, DM, CVA/TIA, Dementia, Other (schizophrenia; Parkinson's disease) Family History: Other (not available) Social History: Care Facility Surgical History: other (about available) Psychiatricy History: Schizophrenia, Dementia Medication: Reviewed Family Medical History - Family Member Mother History Unknown: Yes Ethnicity: Unknown Living Status: Unknown Hx Family Cancer: (unknown) Hx Family Coronary Artery Disease: (unknown) Hx Family Congestive Heart Failure: (unknown) Hx Family Hypertension: (unknown) Hx Family Stroke: (unknown) Hx Family Diabetes: (unknown) Hx Family Seizures: (unknown) Hx Family Dementia: (unknown) Hx Family AIDS: (unknown) Hx Family COPD: (unknown) Hx Family Hepatitis: (unknown) Hx Family Psychiatric Problems: (unknown) Hx Family Tuberculosis: (unknown) ED Physical Exam - Physical Examination Other Gen/Cons comments:: Chronically ill-appearing; constant movement of face and upper extremities; lesser movement of rest of body Head: Atraumatic Eyes: Lids, conjuctiva normal, PERRL Skin: Nl inspection, No rash ENMT: External ears, nose nl, Lips, teeth, gums nl Neck: No nuchal rigidity Respiratory: Nl effort/Exclusion, Clear to Auscultation Other Cardio Vascular comments:: Heart sounds faint GI: No tenderness/rebounding/guarding Extremities: Normal digits & nails Neuro/Psych: No focal deficits ED Labs/Radiology/EKG Results - Lab Results Results: Laboratory Results WBC 5.5 Th/cmm (4.8-10.8) 06/02/18 16:50 RBC 4.21 Mil/cmm (3.80-5.20) 06/02/18 16:50 Hgb 13.3 gm/dL (12-16) 06/02/18 16:50 Hct 40.0 % (41.0-60) L 06/02/18 16:50 MCV 95.0 fl (81-100) 06/02/18 16:50 MCH 31.6 pg (27.0-31.0) H 06/02/18 16:50 MCHC Differential 33.3 pg (28.0-36.0) 06/02/18 16:50 RDW 12.5 % (11.5-20.0) 06/02/18 16:50 Plt Count 141 Th/cmm (150-400) L 06/02/18 16:50 MPV 7.2 fl 06/02/18 16:50 Neutrophils % 59.5 % (40.0-80.0) 06/02/18 16:50 Lymphocytes % 27.6 % (20.0-50.0) 06/02/18 16:50 Monocytes % 9.7 % (2.0-10.0) 06/02/18 16:50 Eosinophils % 2.6 % (0.0-5.0) 06/02/18 16:50 Basophils % 0.6 % (0.0-2.0) 06/02/18 16:50 Sodium 140 mEq/L (136-145) 06/02/18 16:50 Potassium 4.2 mEq/L (3.5-5.1) 06/02/18 16:50 Chloride 103 mEq/L (98-107) 06/02/18 16:50 Carbon Dioxide 29.3 mEq/L (21.0-31.0) 06/02/18 16:50 Anion Gap 11.9 (7.0-16.0) 06/02/18 16:50 BUN 21 mg/dL (7-25) 06/02/18 16:50 Creatinine 0.8 mg/dL (0.6-1.2) 06/02/18 16:50 Est GFR ( Amer) TNP 06/02/18 16:50 Est GFR (Non-Af Amer) TNP 06/02/18 16:50 BUN/Creatinine Ratio 26.3 06/02/18 16:50 Glucose 98 mg/dL (70-105) 06/02/18 16:50 Calcium 8.5 mg/dL (8.6-10.3) L 06/02/18 16:50 Total Bilirubin 0.5 mg/dL (0.3-1.0) 06/02/18 16:50 AST 13 U/L (13-39) 06/02/18 16:50 ALT 9 U/L (7-52) 06/02/18 16:50 Alkaline Phosphatase 48 U/L (34-104) 06/02/18 16:50 Total Protein 5.7 gm/dL (6.0-8.3) L 06/02/18 16:50 Albumin 3.7 gm/dL (3.7-5.3) 06/02/18 16:50 Globulin 2.0 gm/dL 06/02/18 16:50 Albumin/Globulin Ratio 1.9 (1.0-1.8) H 06/02/18 16:50 Triglycerides 96 mg/dL (<150) 06/02/18 16:50 Cholesterol 155 mg/dL (<200) 06/02/18 16:50 LDL Cholesterol Direct 88 mg/dL (75-193) 06/02/18 16:50 HDL Cholesterol 51 mg/dL (23-92) 06/02/18 16:50 ED Septic Shock - . Is Septic Shock (SBP<90, OR Lactate>4 mmol\L) present?: No - <6hrs of presentation: Vital Signs: Vital Signs - 8 hr 06/02/18 16:12 HR 66 RR 18 BP 109/64 O2 Sat % 93 ED Reassessment (Disposition) - Reassessment Reassessment Condition:: Unchanged - Diagnosis Diagnosis:: Dementia with agitation - Patient Disposition Admitted to:: [facility] Admitting Medical Physician:: Kamron March Admitting Psych Physician:: Elizabeth Ding Condition at Disposition:: Stable, Unchanged
[2018-06-02 16:58] LABS: % BASOPHILS 0.6 % (0.0-2.0); % EOSINOPHILS 2.6 % (0.0-5.0); % LYMPHOCYTES 27.6 % (20.0-50.0); % MONOCYTES 9.7 % (2.0-10.0); % NEUTROPHILS 59.5 % (40.0-80.0); EOSINOPHILE ABSOLUTE 0.1 Th/cmm (0.1-0.4); HEMOGLOBIN 13.3 gm/dL (12-16); LYMPHOCYTE ABSOLUTE 1.5 Th/cmm (1.5-3.0); MEAN CORPUSCULAR HEMOGLOBIN 31.6 pg (27.0-31.0); MEAN CORPUSCULAR HGB CONC 33.3 pg (28.0-36.0); MEAN PLATELET VOLUME 7.2 fl; MONOCYTE ABSOLUTE 0.5 Th/cmm (0.3-1.0); NEUTROPHILE ABSOLUTE 3.4 Th/cmm (1.8-8.0); PLATELET COUNT 141 Th/cmm (150-400); RED BLOOD COUNT 4.21 Mil/cmm (3.80-5.20); RED CELL DISTRIBUTION WIDTH 12.5 % (11.5-20.0); WHITE BLOOD COUNT 5.5 Th/cmm (4.8-10.8)
[2018-06-02 17:19] LABS: ALB/GLOB RATIO 1.9 (1.0-1.8); ALBUMIN 3.7 gm/dL (3.7-5.3); ALKALINE PHOSPHATASE 48 U/L (34-104); ANION GAP 11.9 (7.0-16.0); BILIRUBIN,TOTAL 0.5 mg/dL (0.3-1.0); BUN - UREA NITROGEN 21 mg/dL (7-25); CALCIUM SERUM 8.5 mg/dL (8.6-10.3); CARBON DIOXIDE 29.3 mEq/L (21.0-31.0); CHLORIDE 103 mEq/L (98-107); CHOLESTEROL 155 mg/dL (<200); CREATININE - SERUM 0.8 mg/dL (0.6-1.2); GLUCOSE 98 mg/dL (70-105); HDL -HIGH DENSITY LIPOPROTEIN 51 mg/dL (23-92); POTASSIUM SERUM 4.2 mEq/L (3.5-5.1); SGOT 13 U/L (13-39); SGPT/ALT 9 U/L (7-52); SODIUM SERUM 140 mEq/L (136-145); TOTAL PROTEIN,SERUM 5.7 gm/dL (6.0-8.3); TRIGLYCERIDES 96 mg/dL (<150)
[2018-06-02 19:45] VITALS: BP 109/57
[2018-06-02] MEDS ORDERED: Magnesium Hydroxide (MOM) 30 mL UDC PO PRN (20:01)
[2018-06-03] MEDS: POLYETHYLENE GLYCOL 3350 17 GM PACK PO SCH (09:19)
[2018-06-03] MEDS: Multivitamin w/ Minerals Tab PO SCH (09:20)
--- NOTE | 2018-06-03 12:46 | History & Physical ---
ADMIT DATE: 06/02/2018 HISTORY OF PRESENT ILLNESS: The patient is an 82-year-old female with long history of hypertension, seizure disorder, dementia, psychosis, admitted to [facility] under Dr. Ding's service. The patient is a poor historian. She was diagnosed with urinary tract infection and she is on Macrobid for a few days. PAST MEDICAL HISTORY: Hypertension, seizure disorder, dementia, psychosis. PAST SURGICAL HISTORY: No recent surgery. ALLERGIES: None. MEDICATIONS: Follow admission reconciliation. SOCIAL HISTORY: No smoking, no alcohol, no drug. FAMILY HISTORY: Noncontributory. REVIEW OF SYSTEMS: RENAL SYSTEM: No history of chronic renal disorder. CARDIOVASCULAR SYSTEM: No coronary artery disease. ENDOCRINE SYSTEM: No diabetes or thyroid problem. GASTROINTESTINAL SYSTEM: No upper or lower gastrointestinal bleed. NEUROLOGICAL SYSTEM: She has history of seizure disorder. MUSCULOSKELETAL SYSTEM: She has degenerative joint disease. HEMATOLOGIC SYSTEM: No bleeding tendencies. RESPIRATORY SYSTEM: No asthma. GENITOURINARY SYSTEM: She has urinary infection. PHYSICAL EXAMINATION: GENERAL: She is awake, not coherent. VITAL SIGNS: Temperature 98.6, heart rate 60, blood pressure 102/66. HEENT: Normocephalic. Pupils reacting to light and accommodation. Sclerae clear. NECK: Supple. Negative for lymphadenopathy, JVD or bruit. CHEST: Entry of air bilateral normal. No rhonchi or wheezing. HEART: S1, S2 normal. No murmur or gallop rhythm. ABDOMEN: Soft, bowel sounds positive. EXTREMITIES: No edema. BACK: Normal vertebra. SKIN: Intact. NEUROLOGIC: She is awake, alert, not coherent. ASSESSMENT: 1. Hypertension. 2. Seizure disorder. 3. Urinary tract infection. 4. Psychosis. PLAN: The patient in the hospital under Dr. Ding's service. Problem addressed during this hospitalization is psychosis. Medical problems after discharge hypertension and seizure disorder. The patient is medically stable for activity. Thank you, Dr. Ding, for asking me to see your patient. The patient is a full code. JOB# [id number]
--- NOTE | 2018-06-03 16:02 | History & Physical ---
ADMIT DATE: 06/02/2018 IDENTIFYING INFORMATION: The patient is an 82-year-old female. HISTORY OF PRESENT ILLNESS: The patient has been agitated at the SNF facility at [place]. She is demented, confused, and unable to give information. When I talked to her, she kept like waving her hands, raising her legs, unable to participate. Unable to make safe plan for self-care, demented, confused with constant movement of her upper extremities with less move out with the rest of the body. PAST PSYCHIATRIC HISTORY: Dementia. MEDICAL HISTORY: Deferred to the medical doctor. ALLERGIES: The patient has no known drug allergy. MEDICATIONS: The patient has high blood pressure. She was continued with amlodipine, Depakote, Aricept, Lexapro. With a history of seizure disorder, she is on Keppra for that. She is also on Namenda 10 mg twice a day, multivitamins. She has nitrofurantoin for an UTI infection. FAMILY AND SOCIAL HISTORY: Unobtainable. The patient has been living in a SNF facility. No family involvement that I am aware of. MENTAL STATUS EXAMINATION: The patient is appropriately dressed, not well groomed. She is incontinent, wearing diapers, kept moving her upper arms, head, and sometimes moving her legs. She was alert, unable to pass a meaningful conversation or answer any questions, demented, confused, unable to test her memory, unable to answer question regarding suicide, homicide hallucinations. Her insight and judgment are impaired. The patient was agitated at the SNF facility. IMPRESSION: Dementia with behavior disturbances, depression, not otherwise specified. MEDICAL DIAGNOSES: As per medical doctor. INITIAL TREATMENT PLAN: The patient will continue medication, adjust medication as needed. We will do group therapy, milieu therapy, and individual therapy. ESTIMATED LENGTH OF STAY: 3-7 days. DISCHARGE CRITERIA: Decreasing agitation, feeling better after discharge. [facility]# [id number]
[2018-06-04] MEDS: Multivitamin w/ Minerals Tab PO SCH (09:24)
[2018-06-04] MEDS: POLYETHYLENE GLYCOL 3350 17 GM PACK PO SCH (09:25)
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
--- NOTE | 2018-06-04 19:05 | General Progress Note ---
Subjective - Review of Systems Service Date: 06/04/18 Subjective: resting comfortably no distress Objective - Results Result Diagrams: 06/02/18 16:50 06/02/18 16:50 Recent Labs: Laboratory Last Values WBC 5.5 Th/cmm (4.8-10.8) 06/02/18 16:50 RBC 4.21 Mil/cmm (3.80-5.20) 06/02/18 16:50 Hgb 13.3 gm/dL (12-16) 06/02/18 16:50 Hct 40.0 % (41.0-60) L 06/02/18 16:50 MCV 95.0 fl (81-100) 06/02/18 16:50 MCH 31.6 pg (27.0-31.0) H 06/02/18 16:50 MCHC Differential 33.3 pg (28.0-36.0) 06/02/18 16:50 RDW 12.5 % (11.5-20.0) 06/02/18 16:50 Plt Count 141 Th/cmm (150-400) L 06/02/18 16:50 MPV 7.2 fl 06/02/18 16:50 Neutrophils % 59.5 % (40.0-80.0) 06/02/18 16:50 Lymphocytes % 27.6 % (20.0-50.0) 06/02/18 16:50 Monocytes % 9.7 % (2.0-10.0) 06/02/18 16:50 Eosinophils % 2.6 % (0.0-5.0) 06/02/18 16:50 Basophils % 0.6 % (0.0-2.0) 06/02/18 16:50 Sodium 140 mEq/L (136-145) 06/02/18 16:50 Potassium 4.2 mEq/L (3.5-5.1) 06/02/18 16:50 Chloride 103 mEq/L (98-107) 06/02/18 16:50 Carbon Dioxide 29.3 mEq/L (21.0-31.0) 06/02/18 16:50 Anion Gap 11.9 (7.0-16.0) 06/02/18 16:50 BUN 21 mg/dL (7-25) 06/02/18 16:50 Creatinine 0.8 mg/dL (0.6-1.2) 06/02/18 16:50 Est GFR ( Amer) TNP 06/02/18 16:50 Est GFR (Non-Af Amer) TNP 06/02/18 16:50 BUN/Creatinine Ratio 26.3 06/02/18 16:50 Glucose 98 mg/dL (70-105) 06/02/18 16:50 Calcium 8.5 mg/dL (8.6-10.3) L 06/02/18 16:50 Total Bilirubin 0.5 mg/dL (0.3-1.0) 06/02/18 16:50 AST 13 U/L (13-39) 06/02/18 16:50 ALT 9 U/L (7-52) 06/02/18 16:50 Alkaline Phosphatase 48 U/L (34-104) 06/02/18 16:50 Total Protein 5.7 gm/dL (6.0-8.3) L 06/02/18 16:50 Albumin 3.7 gm/dL (3.7-5.3) 06/02/18 16:50 Globulin 2.0 gm/dL 06/02/18 16:50 Albumin/Globulin Ratio 1.9 (1.0-1.8) H 06/02/18 16:50 Triglycerides 96 mg/dL (<150) 06/02/18 16:50 Cholesterol 155 mg/dL (<200) 06/02/18 16:50 LDL Cholesterol Direct 88 mg/dL (75-193) 06/02/18 16:50 HDL Cholesterol 51 mg/dL (23-92) 06/02/18 16:50 TSH 0.44 uIU/ml (0.34-5.60) 06/02/18 16:50 - Physical Exam Vitals and I&O: Vital Signs Temp 97.2 F 06/04/18 14:00 Pulse 73 06/04/18 14:00 Resp 20 06/04/18 14:00 BP 107/67 06/04/18 14:00 Pulse Ox 96 06/04/18 14:00 Intake & Output 06/04/18 06/04/18 06/05/18 06:59 18:59 06:59 Intake Total 120 900 Output Total 120 Balance 0 900 Intake: Oral 120 900 Output: Urine 120 Other: # Voids 3 # Bowel Movements 0 Active Medications: Current Medications Acetaminophen (Tylenol) 650 mg PO Q4H PRN PRN Reason: Pain (Mild) Stop: 08/01/18 19:58 Amlodipine Besylate (Norvasc) 5 mg PO DAILY [facility] Stop: 08/02/18 08:59 Last Admin: 06/04/18 09:22 Dose: 5 mg Divalproex Sodium (Depakote Dr) 250 mg PO TID [facility]; Protocol Stop: 08/01/18 20:59 Last Admin: 06/04/18 13:53 Dose: 250 mg Docusate Sodium (Colace) 100 mg PO BID [facility] Stop: 08/02/18 08:59 Last Admin: 06/04/18 16:28 Dose: 100 mg Donepezil HCl (Aricept) 10 mg PO HS [facility] Stop: 08/01/18 20:59 Last Admin: 06/03/18 20:41 Dose: 10 mg Escitalopram Oxalate (Lexapro) 10 mg PO DAILY [facility]; Protocol Stop: 08/02/18 08:59 Last Admin: 06/04/18 09:24 Dose: 10 mg Levetiracetam (Keppra) 1,000 mg PO BID [facility] Stop: 08/02/18 08:59 Last Admin: 06/04/18 16:28 Dose: 1,000 mg Lorazepam (Ativan) 0.5 mg PO Q6HR PRN; Protocol PRN Reason: Agitation Stop: 08/01/18 20:00 Magnesium Hydroxide (Milk Of Magnesia) 30 ml PO DAILY PRN PRN Reason: Constipation Stop: 08/01/18 20:00 Memantine (Namenda) 10 mg PO BID [facility] Stop: 08/02/18 08:59 Last Admin: 06/04/18 16:28 Dose: 10 mg Nitrofurantoin Macrocrystals (Macrobid) 100 mg PO BID [facility]; Protocol Stop: 08/02/18 08:59 Last Admin: 06/04/18 16:28 Dose: 100 mg Polyethylene Glycol (Miralax) 17 gm PO DAILY [facility] Stop: 08/02/18 08:59 Last Admin: 06/04/18 09:25 Dose: 17 gm Zolpidem Tartrate (Ambien) 5 mg PO HS PRN PRN Reason: Insomnia Stop: 08/01/18 20:00 Last Admin: 06/03/18 20:41 Dose: 5 mg General: No acute distress HEENT: Atraumatic Neck: Supple Cardiovascular: Regular rate, Normal S1, Normal S2 Lungs: Clear to auscultation Abdomen: Bowel sounds, Soft - Procedures Procedures: Procedures Procedure Code Date GROUP PSYCHOTHERAPY 46892 04/15/15 GROUP PSYCHOTHERAPY GZHZZZZ 04/15/15 GROUP PSYCHOTHERAPY 93574 01/16/15 GROUP PSYCHOTHERAPY GZHZZZZ 01/16/15 Assessment/Plan - Assessment Assessment: HTN sz d/o UTI psychosis - Plan Plan: continue current treatment Nutritional Asmnt/Malnutr-PDOC - Dietary Evaluation Malnutrition Findings (Please click <Entered> for more info): Nutritional Asmnt/Malnutrition Start: 06/03/18 10: 39 Text: Status: Complete Freq: Protocol: Document 06/03/18 10:39 LCHENG (Rec: 06/03/18 10:43 [email or web address]) Nutritional Asmnt/Malnutrition Patient General Information Nutritional Screening High Risk Diagnosis psychosis NOS Pertinent Medical Hx/Surgical Hx HTN, DM, CVA/TIA, dementia, schizophrenia, parkinson's disease, schizophrenia Subjective Information Consult received for jimenez Parmar . Pt seen in bed, confused. Per EMR PO intake 100%. Current Diet Order/ Nutrition Support CCHO Pertinent Medications coalce, miralax Pertinent Labs 06/02 Ca 8.5 Nutritional Hx/Data Height 1.57 m Height (Calculated Centimeters) 157.5 Current Weight (lbs) 41.277 kg Weight (Calculated Kilograms) 41.3 Weight (Calculated Grams) 54712.9 [place] Body Weight 110 Body Mass Index (BMI) 16.6 Weight Status Underweight GI Symptoms GI Symptoms None Last BM not indicated Difficult in: None Skin Integrity/Comment: intact blanchable redness, discorlation per wound care note jimenez 13 Current %PO Good (75-100%) Estimated Nutritional Goals BEE in Kcals: Using Current wt Calories/Kcals/Kg 30-35 Kcals Calculated 0662-9068 Protein: Using Current wt Protein g/k.2 Protein Calculated 49 Fluid: ml 1230-1435ml (1ml/kcal) Nutritional Problem No current Nutrition Prob Problem N/A Malnutrition Alert Is there a minimum of two criteria No selected? Query Text:Check all the applicable criteria. A minimum of two criteria are recommended for diagnosis of either severe or non-severe malnutrition. Malnutrition Related to Morbid Obesity Malnutrition related to morbid obesity No Intervention/Recommendation Comments 1. Continue with cardiac diet as ordered. 2. Monitor PO intake, wt, labs and skin integrity 3. F/U as low risk in 7 days Expected Outcomes/Goals Expected Outcomes/Goals 1. PO intake to meet at least 75% of nutritional needs. 2. Wt stability, skin to remain intact, labs to approach WNL.
[2018-06-05] MEDS: POLYETHYLENE GLYCOL 3350 17 GM PACK PO SCH (09:00)
[2018-06-05] MEDS: Multivitamin w/ Minerals Tab PO SCH (09:02)
--- NOTE | 2018-06-05 16:21 | General Progress Note ---
Subjective - Review of Systems Service Date: 06/05/18 Subjective: resting comfortably no distress Objective - Results Result Diagrams: 06/02/18 16:50 06/02/18 16:50 Recent Labs: Laboratory Last Values WBC 5.5 Th/cmm (4.8-10.8) 06/02/18 16:50 RBC 4.21 Mil/cmm (3.80-5.20) 06/02/18 16:50 Hgb 13.3 gm/dL (12-16) 06/02/18 16:50 Hct 40.0 % (41.0-60) L 06/02/18 16:50 MCV 95.0 fl (81-100) 06/02/18 16:50 MCH 31.6 pg (27.0-31.0) H 06/02/18 16:50 MCHC Differential 33.3 pg (28.0-36.0) 06/02/18 16:50 RDW 12.5 % (11.5-20.0) 06/02/18 16:50 Plt Count 141 Th/cmm (150-400) L 06/02/18 16:50 MPV 7.2 fl 06/02/18 16:50 Neutrophils % 59.5 % (40.0-80.0) 06/02/18 16:50 Lymphocytes % 27.6 % (20.0-50.0) 06/02/18 16:50 Monocytes % 9.7 % (2.0-10.0) 06/02/18 16:50 Eosinophils % 2.6 % (0.0-5.0) 06/02/18 16:50 Basophils % 0.6 % (0.0-2.0) 06/02/18 16:50 Sodium 140 mEq/L (136-145) 06/02/18 16:50 Potassium 4.2 mEq/L (3.5-5.1) 06/02/18 16:50 Chloride 103 mEq/L (98-107) 06/02/18 16:50 Carbon Dioxide 29.3 mEq/L (21.0-31.0) 06/02/18 16:50 Anion Gap 11.9 (7.0-16.0) 06/02/18 16:50 BUN 21 mg/dL (7-25) 06/02/18 16:50 Creatinine 0.8 mg/dL (0.6-1.2) 06/02/18 16:50 Est GFR ( Amer) TNP 06/02/18 16:50 Est GFR (Non-Af Amer) TNP 06/02/18 16:50 BUN/Creatinine Ratio 26.3 06/02/18 16:50 Glucose 98 mg/dL (70-105) 06/02/18 16:50 Calcium 8.5 mg/dL (8.6-10.3) L 06/02/18 16:50 Total Bilirubin 0.5 mg/dL (0.3-1.0) 06/02/18 16:50 AST 13 U/L (13-39) 06/02/18 16:50 ALT 9 U/L (7-52) 06/02/18 16:50 Alkaline Phosphatase 48 U/L (34-104) 06/02/18 16:50 Total Protein 5.7 gm/dL (6.0-8.3) L 06/02/18 16:50 Albumin 3.7 gm/dL (3.7-5.3) 06/02/18 16:50 Globulin 2.0 gm/dL 06/02/18 16:50 Albumin/Globulin Ratio 1.9 (1.0-1.8) H 06/02/18 16:50 Triglycerides 96 mg/dL (<150) 06/02/18 16:50 Cholesterol 155 mg/dL (<200) 06/02/18 16:50 LDL Cholesterol Direct 88 mg/dL (75-193) 06/02/18 16:50 HDL Cholesterol 51 mg/dL (23-92) 06/02/18 16:50 TSH 0.44 uIU/ml (0.34-5.60) 06/02/18 16:50 - Physical Exam Vitals and I&O: Vital Signs Temp 98.9 F 06/05/18 14:00 Pulse 71 06/05/18 14:00 Resp 20 06/05/18 14:00 BP 109/57 06/05/18 14:00 Pulse Ox 96 06/05/18 14:00 Intake & Output 06/04/18 06/05/18 06/05/18 18:59 06:59 18:59 Intake Total 900 120 Balance 900 120 Intake: Oral 900 120 Other: # Voids 3 2 # Bowel Movements 0 0 Active Medications: Current Medications Acetaminophen (Tylenol) 650 mg PO Q4H PRN PRN Reason: Pain (Mild) Stop: 08/01/18 19:58 Amlodipine Besylate (Norvasc) 5 mg PO DAILY [facility] Stop: 08/02/18 08:59 Last Admin: 06/05/18 09:01 Dose: 5 mg Divalproex Sodium (Depakote Dr) 250 mg PO TID [facility]; Protocol Stop: 08/01/18 20:59 Last Admin: 06/05/18 13:39 Dose: 250 mg Docusate Sodium (Colace) 100 mg PO BID [facility] Stop: 08/02/18 08:59 Last Admin: 06/05/18 09:00 Dose: 100 mg Donepezil HCl (Aricept) 10 mg PO [facility] Stop: 08/01/18 20:59 Last Admin: 06/04/18 20:30 Dose: 10 mg Escitalopram Oxalate (Lexapro) 10 mg PO DAILY [facility]; Protocol Stop: 08/02/18 08:59 Last Admin: 06/05/18 09:00 Dose: 10 mg Levetiracetam (Keppra) 1,000 mg PO BID [facility] Stop: 08/02/18 08:59 Last Admin: 06/05/18 09:02 Dose: 1,000 mg Lorazepam (Ativan) 0.5 mg PO Q6HR PRN; Protocol PRN Reason: Agitation Stop: 08/01/18 20:00 Last Admin: 06/05/18 09:00 Dose: 0.5 mg Magnesium Hydroxide (Milk Of Magnesia) 30 ml PO DAILY PRN PRN Reason: Constipation Stop: 08/01/18 20:00 Memantine (Namenda) 10 mg PO BID [facility] Stop: 08/02/18 08:59 Last Admin: 06/05/18 09:00 Dose: 10 mg Nitrofurantoin Macrocrystals (Macrobid) 100 mg PO BID [facility]; Protocol Stop: 08/02/18 08:59 Last Admin: 06/05/18 09:01 Dose: 100 mg Polyethylene Glycol (Miralax) 17 gm PO DAILY [facility] Stop: 08/02/18 08:59 Last Admin: 06/05/18 09:00 Dose: 17 gm Trazodone HCl (Desyrel) 25 mg PO HS [facility]; Protocol Stop: 08/04/18 20:59 General: No acute distress HEENT: Atraumatic Neck: Supple Cardiovascular: Regular rate, Normal S1, Normal S2 Lungs: Clear to auscultation Abdomen: Bowel sounds, Soft - Procedures Procedures: Procedures Procedure Code Date GROUP PSYCHOTHERAPY 45241 04/15/15 GROUP PSYCHOTHERAPY GZHZZZZ 04/15/15 GROUP PSYCHOTHERAPY 00152 01/16/15 GROUP PSYCHOTHERAPY GZHZZZZ 01/16/15 Assessment/Plan - Assessment Assessment: HTN sz d/o UTI psychosis - Plan Plan: continue current treatment Nutritional Asmnt/Malnutr-PDOC - Dietary Evaluation Malnutrition Findings (Please click <Entered> for more info): Nutritional Asmnt/Malnutrition Start: 06/03/18 10: 39 Text: Status: Complete Freq: Protocol: Document 06/03/18 10:39 [email or web address] (Rec: 06/03/18 10:43 [email or web address]) Nutritional Asmnt/Malnutrition Patient General Information Nutritional Screening High Risk Diagnosis psychosis NOS Pertinent Medical Hx/Surgical Hx HTN, DM, CVA/TIA, dementia, schizophrenia, parkinson's disease, schizophrenia Subjective Information Consult received for jimenez Parmar . Pt seen in bed, confused. Per EMR PO intake 100%. Current Diet Order/ Nutrition Support CCHO Pertinent Medications coalce, miralax Pertinent Labs 06/02 Ca 8.5 Nutritional Hx/Data Height 1.57 m Height (Calculated Centimeters) 157.5 Current Weight (lbs) 41.277 kg Weight (Calculated Kilograms) 41.3 Weight (Calculated Grams) 59131.9 [place] Body Weight 110 Body Mass Index (BMI) 16.6 Weight Status Underweight GI Symptoms GI Symptoms None Last BM not indicated Difficult in: None Skin Integrity/Comment: intact blanchable redness, discorlation per wound care note jimenez Parmar Current %PO Good (75-100%) Estimated Nutritional Goals BEE in Kcals: Using Current wt Calories/Kcals/Kg 30-35 Kcals Calculated 9438-7058 Protein: Using Current wt Protein g/k.2 Protein Calculated 49 Fluid: ml 1230-1435ml (1ml/kcal) Nutritional Problem No current Nutrition Prob Problem N/A Malnutrition Alert Is there a minimum of two criteria No selected? Query Text:Check all the applicable criteria. A minimum of two criteria are recommended for diagnosis of either severe or non-severe malnutrition. Malnutrition Related to Morbid Obesity Malnutrition related to morbid obesity No Intervention/Recommendation Comments 1. Continue with cardiac diet as ordered. 2. Monitor PO intake, wt, labs and skin integrity 3. F/U as low risk in 7 days Expected Outcomes/Goals Expected Outcomes/Goals 1. PO intake to meet at least 75% of nutritional needs. 2. Wt stability, skin to remain intact, labs to approach WNL.
--- NOTE | 2018-06-05 20:36 | Progress Notes ---
DATE: 06/05/2018 SUBJECTIVE: The patient remains unruly, agitated, poor orientation, very confused, needing a Carol chair, trying to get up, requiring total care, still combative, strikes out at staff, still not sleeping very well, restless, still unruly, sometimes with yelling episodes. Medications were noted. The patient remains symptomatic, not safe for a lower level of care. Ongoing concerns about her poor sleep. PLAN: We will discontinue the Ambien and initiate a different sleeping medication. JOB# [id number]
[2018-06-06] MEDS: Multivitamin w/ Minerals Tab PO SCH (09:11)
[2018-06-06] MEDS: POLYETHYLENE GLYCOL 3350 17 GM PACK PO SCH (09:12)
--- NOTE | 2018-06-06 19:59 | Internal Medicine Prog Note ---
Internal Medicine Subjective - Subjective Service Date: 06/06/18 Patient seen and examined:: without staff Patient is:: awake, verbal, in bed, confused Per staff patient has:: no adverse event Internal Medicine Objective - Results Result Diagrams: 06/02/18 16:50 06/02/18 16:50 Recent Labs: Laboratory Last Values WBC 5.5 Th/cmm (4.8-10.8) 06/02/18 16:50 RBC 4.21 Mil/cmm (3.80-5.20) 06/02/18 16:50 Hgb 13.3 gm/dL (12-16) 06/02/18 16:50 Hct 40.0 % (41.0-60) L 06/02/18 16:50 MCV 95.0 fl (81-100) 06/02/18 16:50 MCH 31.6 pg (27.0-31.0) H 06/02/18 16:50 MCHC Differential 33.3 pg (28.0-36.0) 06/02/18 16:50 RDW 12.5 % (11.5-20.0) 06/02/18 16:50 Plt Count 141 Th/cmm (150-400) L 06/02/18 16:50 MPV 7.2 fl 06/02/18 16:50 Neutrophils % 59.5 % (40.0-80.0) 06/02/18 16:50 Lymphocytes % 27.6 % (20.0-50.0) 06/02/18 16:50 Monocytes % 9.7 % (2.0-10.0) 06/02/18 16:50 Eosinophils % 2.6 % (0.0-5.0) 06/02/18 16:50 Basophils % 0.6 % (0.0-2.0) 06/02/18 16:50 Sodium 140 mEq/L (136-145) 06/02/18 16:50 Potassium 4.2 mEq/L (3.5-5.1) 06/02/18 16:50 Chloride 103 mEq/L (98-107) 06/02/18 16:50 Carbon Dioxide 29.3 mEq/L (21.0-31.0) 06/02/18 16:50 Anion Gap 11.9 (7.0-16.0) 06/02/18 16:50 BUN 21 mg/dL (7-25) 06/02/18 16:50 Creatinine 0.8 mg/dL (0.6-1.2) 06/02/18 16:50 Est GFR ( Amer) TNP 06/02/18 16:50 Est GFR (Non-Af Amer) TNP 06/02/18 16:50 BUN/Creatinine Ratio 26.3 06/02/18 16:50 Glucose 98 mg/dL (70-105) 06/02/18 16:50 Calcium 8.5 mg/dL (8.6-10.3) L 06/02/18 16:50 Total Bilirubin 0.5 mg/dL (0.3-1.0) 06/02/18 16:50 AST 13 U/L (13-39) 06/02/18 16:50 ALT 9 U/L (7-52) 06/02/18 16:50 Alkaline Phosphatase 48 U/L (34-104) 06/02/18 16:50 Total Protein 5.7 gm/dL (6.0-8.3) L 06/02/18 16:50 Albumin 3.7 gm/dL (3.7-5.3) 06/02/18 16:50 Globulin 2.0 gm/dL 06/02/18 16:50 Albumin/Globulin Ratio 1.9 (1.0-1.8) H 06/02/18 16:50 Triglycerides 96 mg/dL (<150) 06/02/18 16:50 Cholesterol 155 mg/dL (<200) 06/02/18 16:50 LDL Cholesterol Direct 88 mg/dL (75-193) 06/02/18 16:50 HDL Cholesterol 51 mg/dL (23-92) 06/02/18 16:50 TSH 0.44 uIU/ml (0.34-5.60) 06/02/18 16:50 - Physical Exam Vitals and I&O: Vital Signs Temp 97.3 F 06/06/18 14:00 Pulse 67 06/06/18 14:00 Resp 18 06/06/18 14:00 BP 122/58 06/06/18 14:00 Pulse Ox 96 06/06/18 14:00 Intake & Output 06/06/18 06/06/18 06/07/18 06:59 18:59 06:59 Intake Total 240 1200 Output Total 1 Balance 239 1200 Intake: Oral 240 1200 Output: Urine/Stool Mix 1 Other: # Voids 1 4 # Bowel Movements 1 1 Active Medications: Current Medications Acetaminophen (Tylenol) 650 mg PO Q4H PRN PRN Reason: Pain (Mild) Stop: 08/01/18 19:58 Amlodipine Besylate (Norvasc) 5 mg PO DAILY [facility] Stop: 08/02/18 08:59 Last Admin: 06/06/18 09:11 Dose: Not Given Divalproex Sodium (Depakote Dr) 250 mg PO TID [facility]; Protocol Stop: 08/01/18 20:59 Last Admin: 06/06/18 13:43 Dose: 250 mg Docusate Sodium (Colace) 100 mg PO BID [facility] Stop: 08/02/18 08:59 Last Admin: 06/06/18 17:21 Dose: 100 mg Donepezil HCl (Aricept) 10 mg PO HS [facility] Stop: 08/01/18 20:59 Last Admin: 06/05/18 20:52 Dose: 10 mg Escitalopram Oxalate (Lexapro) 10 mg PO DAILY [facility]; Protocol Stop: 08/02/18 08:59 Last Admin: 06/06/18 09:11 Dose: 10 mg Levetiracetam (Keppra) 1,000 mg PO BID [facility] Stop: 08/02/18 08:59 Last Admin: 06/06/18 17:21 Dose: 1,000 mg Lorazepam (Ativan) 0.5 mg PO Q6HR PRN; Protocol PRN Reason: Agitation Stop: 08/01/18 20:00 Last Admin: 06/05/18 09:00 Dose: 0.5 mg Magnesium Hydroxide (Milk Of Magnesia) 30 ml PO DAILY PRN PRN Reason: Constipation Stop: 08/01/18 20:00 Memantine (Namenda) 10 mg PO BID [facility] Stop: 08/02/18 08:59 Last Admin: 06/06/18 17:21 Dose: 10 mg Nitrofurantoin Macrocrystals (Macrobid) 100 mg PO BID [facility]; Protocol Stop: 08/02/18 08:59 Last Admin: 06/06/18 17:21 Dose: 100 mg Polyethylene Glycol (Miralax) 17 gm PO DAILY [facility] Stop: 08/02/18 08:59 Last Admin: 06/06/18 09:12 Dose: 17 gm Trazodone HCl (Desyrel) 25 mg PO HS [facility]; Protocol Stop: 08/04/18 20:59 Last Admin: 06/05/18 20:52 Dose: 25 mg General: demented HEENT: NC/AT, PERRLA, EOMI, anicteric sclerae, throat clear Neck: Supple, No JVD, No thyromegaly, +2 carotid pulse wo bruit, No LAD Lungs: CTAB Cardiovascular: RRR, Normal S1, Normal S2, without murmur Abdomen: soft, non-tender, non-distended Extremities: clear Neurological: no change - Procedures Procedures: Procedures Procedure Code Date GROUP PSYCHOTHERAPY 40926 04/15/15 GROUP PSYCHOTHERAPY GZHZZZZ 04/15/15 GROUP PSYCHOTHERAPY 55231 01/16/15 GROUP PSYCHOTHERAPY GZHZZZZ 01/16/15 Internal Medicine Assmt/Plan - Assessment Assessment: 1.HTN. 2.SEIZURE DISORDER. 3.PSYCHOSIS. - Plan Plan: CONTINUE ON CURRENT MEDICATION AND DIET. Nutritional Asmnt/Malnutr-PDOC - Dietary Evaluation Malnutrition Findings (Please click <Entered> for more info): Nutritional Asmnt/Malnutrition Start: 06/03/18 10: 39 Text: Status: Complete Freq: Protocol: Document 06/03/18 10:39 LCHENG (Rec: 06/03/18 10:43 LCHENG [email or web address]) Nutritional Asmnt/Malnutrition Patient General Information Nutritional Screening High Risk Diagnosis psychosis NOS Pertinent Medical Hx/Surgical Hx HTN, DM, CVA/TIA, dementia, schizophrenia, parkinson's disease, schizophrenia Subjective Information Consult received for jimenez Parmar . Pt seen in bed, confused. Per EMR PO intake 100%. Current Diet Order/ Nutrition Support [facility] Pertinent Medications coalce, miralax Pertinent Labs 06/02 Ca 8.5 Nutritional Hx/Data Height 1.57 m Height (Calculated Centimeters) 157.5 Current Weight (lbs) 41.277 kg Weight (Calculated Kilograms) 41.3 Weight (Calculated Grams) 44138.9 [place] Body Weight 110 Body Mass Index (BMI) 16.6 Weight Status Underweight GI Symptoms GI Symptoms None Last BM not indicated Difficult in: None Skin Integrity/Comment: intact blanchable redness, discorlation per wound care note jimenez 13 Current %PO Good (75-100%) Estimated Nutritional Goals BEE in Kcals: Using Current wt Calories/Kcals/Kg 30-35 Kcals Calculated 8634-8229 Protein: Using Current wt Protein g/k.2 Protein Calculated 49 Fluid: ml 1230-1435ml (1ml/kcal) Nutritional Problem No current Nutrition Prob Problem N/A Malnutrition Alert Is there a minimum of two criteria No selected? Query Text:Check all the applicable criteria. A minimum of two criteria are recommended for diagnosis of either severe or non-severe malnutrition. Malnutrition Related to Morbid Obesity Malnutrition related to morbid obesity No Intervention/Recommendation Comments 1. Continue with cardiac diet as ordered. 2. Monitor PO intake, wt, labs and skin integrity 3. F/U as low risk in 7 days Expected Outcomes/Goals Expected Outcomes/Goals 1. PO intake to meet at least 75% of nutritional needs. 2. Wt stability, skin to remain intact, labs to approach WNL.
--- NOTE | 2018-06-06 23:14 | Progress Notes ---
DATE: 06/06/2018 SUBJECTIVE: Case was discussed with staff of the patient, reviewed records. The patient continues to be easily agitated, unable to care of her ADLs and needs help with her ADLs. Continues to be confused, striking at staff. She is not sleeping well and restless. Unable to participate in meaningful conversation. She has been compliant with the medication with no side effects, no sedation, no nausea. She is on Aricept 10 mg at bedtime, Lexapro 10 mg daily, Namenda 10 mg twice a day, trazodone 25 mg at bedtime. No side effects with the medication, no sedation, no nausea and we will outpatient group therapy, milieu therapy, and adjust her medication as needed. [facility]# [id number]
[2018-06-07] MEDS: Multivitamin w/ Minerals Tab PO SCH (08:42)
[2018-06-07] MEDS: POLYETHYLENE GLYCOL 3350 17 GM PACK PO SCH (08:44)
--- NOTE | 2018-06-07 21:18 | Internal Medicine Prog Note ---
Internal Medicine Subjective - Subjective Service Date: 06/07/18 Patient seen and examined:: without staff Patient is:: awake, verbal, in bed, confused Per staff patient has:: no adverse event Internal Medicine Objective - Results Result Diagrams: 06/02/18 16:50 06/02/18 16:50 Recent Labs: Laboratory Last Values WBC 5.5 Th/cmm (4.8-10.8) 06/02/18 16:50 RBC 4.21 Mil/cmm (3.80-5.20) 06/02/18 16:50 Hgb 13.3 gm/dL (12-16) 06/02/18 16:50 Hct 40.0 % (41.0-60) L 06/02/18 16:50 MCV 95.0 fl (81-100) 06/02/18 16:50 MCH 31.6 pg (27.0-31.0) H 06/02/18 16:50 MCHC Differential 33.3 pg (28.0-36.0) 06/02/18 16:50 RDW 12.5 % (11.5-20.0) 06/02/18 16:50 Plt Count 141 Th/cmm (150-400) L 06/02/18 16:50 MPV 7.2 fl 06/02/18 16:50 Neutrophils % 59.5 % (40.0-80.0) 06/02/18 16:50 Lymphocytes % 27.6 % (20.0-50.0) 06/02/18 16:50 Monocytes % 9.7 % (2.0-10.0) 06/02/18 16:50 Eosinophils % 2.6 % (0.0-5.0) 06/02/18 16:50 Basophils % 0.6 % (0.0-2.0) 06/02/18 16:50 Sodium 140 mEq/L (136-145) 06/02/18 16:50 Potassium 4.2 mEq/L (3.5-5.1) 06/02/18 16:50 Chloride 103 mEq/L (98-107) 06/02/18 16:50 Carbon Dioxide 29.3 mEq/L (21.0-31.0) 06/02/18 16:50 Anion Gap 11.9 (7.0-16.0) 06/02/18 16:50 BUN 21 mg/dL (7-25) 06/02/18 16:50 Creatinine 0.8 mg/dL (0.6-1.2) 06/02/18 16:50 Est GFR ( Amer) TNP 06/02/18 16:50 Est GFR (Non-Af Amer) TNP 06/02/18 16:50 BUN/Creatinine Ratio 26.3 06/02/18 16:50 Glucose 98 mg/dL (70-105) 06/02/18 16:50 Calcium 8.5 mg/dL (8.6-10.3) L 06/02/18 16:50 Total Bilirubin 0.5 mg/dL (0.3-1.0) 06/02/18 16:50 AST 13 U/L (13-39) 06/02/18 16:50 ALT 9 U/L (7-52) 06/02/18 16:50 Alkaline Phosphatase 48 U/L (34-104) 06/02/18 16:50 Total Protein 5.7 gm/dL (6.0-8.3) L 06/02/18 16:50 Albumin 3.7 gm/dL (3.7-5.3) 06/02/18 16:50 Globulin 2.0 gm/dL 06/02/18 16:50 Albumin/Globulin Ratio 1.9 (1.0-1.8) H 06/02/18 16:50 Triglycerides 96 mg/dL (<150) 06/02/18 16:50 Cholesterol 155 mg/dL (<200) 06/02/18 16:50 LDL Cholesterol Direct 88 mg/dL (75-193) 06/02/18 16:50 HDL Cholesterol 51 mg/dL (23-92) 06/02/18 16:50 TSH 0.44 uIU/ml (0.34-5.60) 06/02/18 16:50 - Physical Exam Vitals and I&O: Vital Signs Temp 97.4 F 06/07/18 20:00 Pulse 72 06/07/18 20:00 Resp 18 06/07/18 20:00 BP 128/56 06/07/18 20:00 Pulse Ox 96 06/07/18 20:00 Intake & Output 06/07/18 06/07/18 06/08/18 06:59 18:59 06:59 Intake Total 120 1200 Balance 120 1200 Intake: Oral 120 1200 Other: # Voids 3 4 # Bowel Movements 0 1 Active Medications: Current Medications Acetaminophen (Tylenol) 650 mg PO Q4H PRN PRN Reason: Pain (Mild) Stop: 08/01/18 19:58 Amlodipine Besylate (Norvasc) 5 mg PO DAILY [facility] Stop: 08/02/18 08:59 Last Admin: 06/07/18 08:43 Dose: 5 mg Divalproex Sodium (Depakote Dr) 250 mg PO TID [facility]; Protocol Stop: 08/01/18 20:59 Last Admin: 06/07/18 20:46 Dose: 250 mg Docusate Sodium (Colace) 100 mg PO BID [facility] Stop: 08/02/18 08:59 Last Admin: 06/07/18 17:17 Dose: Not Given Donepezil HCl (Aricept) 10 mg PO HS [facility] Stop: 08/01/18 20:59 Last Admin: 06/07/18 20:46 Dose: 10 mg Escitalopram Oxalate (Lexapro) 10 mg PO DAILY [facility]; Protocol Stop: 08/02/18 08:59 Last Admin: 06/07/18 08:42 Dose: 10 mg Levetiracetam (Keppra) 1,000 mg PO BID [facility] Stop: 08/02/18 08:59 Last Admin: 06/07/18 17:17 Dose: 1,000 mg Lorazepam (Ativan) 0.5 mg PO Q6HR PRN; Protocol PRN Reason: Agitation Stop: 08/01/18 20:00 Last Admin: 06/07/18 01:30 Dose: 0.5 mg Magnesium Hydroxide (Milk Of Magnesia) 30 ml PO DAILY PRN PRN Reason: Constipation Stop: 08/01/18 20:00 Memantine (Namenda) 10 mg PO BID [facility] Stop: 08/02/18 08:59 Last Admin: 06/07/18 17:16 Dose: 10 mg Nitrofurantoin Macrocrystals (Macrobid) 100 mg PO BID [facility]; Protocol Stop: 08/02/18 08:59 Last Admin: 06/07/18 17:17 Dose: 100 mg Polyethylene Glycol (Miralax) 17 gm PO DAILY [facility] Stop: 08/02/18 08:59 Last Admin: 06/07/18 08:44 Dose: Not Given Trazodone HCl (Desyrel) 25 mg PO HS [facility]; Protocol Stop: 08/04/18 20:59 Last Admin: 06/07/18 20:47 Dose: 25 mg General: demented HEENT: NC/AT, PERRLA, EOMI, anicteric sclerae, throat clear Neck: Supple, No JVD, No thyromegaly, +2 carotid pulse wo bruit, No LAD Lungs: CTAB Cardiovascular: RRR, Normal S1, Normal S2, without murmur Abdomen: soft, non-tender, non-distended Extremities: clear Neurological: no change - Procedures Procedures: Procedures Procedure Code Date GROUP PSYCHOTHERAPY 19211 04/15/15 GROUP PSYCHOTHERAPY GZHZZZZ 04/15/15 GROUP PSYCHOTHERAPY 50078 01/16/15 GROUP PSYCHOTHERAPY GZHZZZZ 01/16/15 Internal Medicine Assmt/Plan - Assessment Assessment: 1.HTN. 2.SEIZURE DISORDER. 3.PSYCHOSIS. - Plan Plan: CONTINUE ON CURRENT MEDICATION AND DIET. Nutritional Asmnt/Malnutr-PDOC - Dietary Evaluation Malnutrition Findings (Please click <Entered> for more info): Nutritional Asmnt/Malnutrition Start: 06/03/18 10: 39 Text: Status: Complete Freq: Protocol: Document 06/03/18 10:39 LCHENG (Rec: 06/03/18 10:43 LCHENG [email or web address]) Nutritional Asmnt/Malnutrition Patient General Information Nutritional Screening High Risk Diagnosis psychosis NOS Pertinent Medical Hx/Surgical Hx HTN, DM, CVA/TIA, dementia, schizophrenia, parkinson's disease, schizophrenia Subjective Information Consult received for jimenez Parmar . Pt seen in bed, confused. Per EMR PO intake 100%. Current Diet Order/ [facility] Pertinent Medications coalce, miralax Pertinent Labs 06/02 Ca 8.5 Nutritional Hx/Data Height 1.57 m Height (Calculated Centimeters) 157.5 Current Weight (lbs) 41.277 kg Weight (Calculated Kilograms) 41.3 Weight (Calculated Grams) 51391.9 [place] Body Weight 110 Body Mass Index (BMI) 16.6 Weight Status Underweight GI Symptoms GI Symptoms None Last BM not indicated Difficult in: None Skin Integrity/Comment: intact blanchable redness, discorlation per wound care note jimenez Parmar Current %PO Good (75-100%) Estimated Nutritional Goals BEE in Kcals: Using Current wt Calories/Kcals/Kg 30-35 Kcals Calculated 2646-8779 Protein: Using Current wt Protein g/k.2 Protein Calculated 49 Fluid: ml 1230-1435ml (1ml/kcal) Nutritional Problem No current Nutrition Prob Problem N/A Malnutrition Alert Is there a minimum of two criteria No selected? Query Text:Check all the applicable criteria. A minimum of two criteria are recommended for diagnosis of either severe or non-severe malnutrition. Malnutrition Related to Morbid Obesity Malnutrition related to morbid obesity No Intervention/Recommendation Comments 1. Continue with cardiac diet as ordered. 2. Monitor PO intake, wt, labs and skin integrity 3. F/U as low risk in 7 days Expected Outcomes/Goals Expected Outcomes/Goals 1. PO intake to meet at least 75% of nutritional needs. 2. Wt stability, skin to remain intact, labs to approach WNL.
[2018-06-08] MEDS: POLYETHYLENE GLYCOL 3350 17 GM PACK PO SCH (09:25)
[2018-06-08] MEDS: Multivitamin w/ Minerals Tab PO SCH (09:26)
--- NOTE | 2018-06-08 10:20 | Progress Notes ---
DATE: 06/07/2018 SUBJECTIVE: Case was discussed with staff of the patient, reviewed records. The patient is able to feed herself better today. She is more alert. She is able to be redirected easier; however, she is still confused, demented, unable to make safe plan for self-care or participate in a meaningful conversation. Continues to be unpredictable and impulsive. She is eating better, sleeping better. No side effects with the medication, no sedation, no nausea and no extrapyramidal symptoms. We will continue to work with the patient in group therapy, milieu therapy, and adjust her medication as needed. JOB# [id number]
--- NOTE | 2018-06-08 22:05 | Internal Medicine Prog Note ---
Internal Medicine Subjective - Subjective Service Date: 06/08/18 Patient seen and examined:: with staff (HE IS DOING WELL) Patient is:: awake, verbal, in bed, confused Per staff patient has:: no adverse event Internal Medicine Objective - Results Result Diagrams: 06/02/18 16:50 06/02/18 16:50 Recent Labs: Laboratory Last Values WBC 5.5 Th/cmm (4.8-10.8) 06/02/18 16:50 RBC 4.21 Mil/cmm (3.80-5.20) 06/02/18 16:50 Hgb 13.3 gm/dL (12-16) 06/02/18 16:50 Hct 40.0 % (41.0-60) L 06/02/18 16:50 MCV 95.0 fl (81-100) 06/02/18 16:50 MCH 31.6 pg (27.0-31.0) H 06/02/18 16:50 MCHC Differential 33.3 pg (28.0-36.0) 06/02/18 16:50 RDW 12.5 % (11.5-20.0) 06/02/18 16:50 Plt Count 141 Th/cmm (150-400) L 06/02/18 16:50 MPV 7.2 fl 06/02/18 16:50 Neutrophils % 59.5 % (40.0-80.0) 06/02/18 16:50 Lymphocytes % 27.6 % (20.0-50.0) 06/02/18 16:50 Monocytes % 9.7 % (2.0-10.0) 06/02/18 16:50 Eosinophils % 2.6 % (0.0-5.0) 06/02/18 16:50 Basophils % 0.6 % (0.0-2.0) 06/02/18 16:50 Sodium 140 mEq/L (136-145) 06/02/18 16:50 Potassium 4.2 mEq/L (3.5-5.1) 06/02/18 16:50 Chloride 103 mEq/L (98-107) 06/02/18 16:50 Carbon Dioxide 29.3 mEq/L (21.0-31.0) 06/02/18 16:50 Anion Gap 11.9 (7.0-16.0) 06/02/18 16:50 BUN 21 mg/dL (7-25) 06/02/18 16:50 Creatinine 0.8 mg/dL (0.6-1.2) 06/02/18 16:50 Est GFR ( Amer) TNP 06/02/18 16:50 Est GFR (Non-Af Amer) TNP 06/02/18 16:50 BUN/Creatinine Ratio 26.3 06/02/18 16:50 Glucose 98 mg/dL (70-105) 06/02/18 16:50 Calcium 8.5 mg/dL (8.6-10.3) L 06/02/18 16:50 Total Bilirubin 0.5 mg/dL (0.3-1.0) 06/02/18 16:50 AST 13 U/L (13-39) 06/02/18 16:50 ALT 9 U/L (7-52) 06/02/18 16:50 Alkaline Phosphatase 48 U/L (34-104) 06/02/18 16:50 Total Protein 5.7 gm/dL (6.0-8.3) L 06/02/18 16:50 Albumin 3.7 gm/dL (3.7-5.3) 06/02/18 16:50 Globulin 2.0 gm/dL 06/02/18 16:50 Albumin/Globulin Ratio 1.9 (1.0-1.8) H 06/02/18 16:50 Triglycerides 96 mg/dL (<150) 06/02/18 16:50 Cholesterol 155 mg/dL (<200) 06/02/18 16:50 LDL Cholesterol Direct 88 mg/dL (75-193) 06/02/18 16:50 HDL Cholesterol 51 mg/dL (23-92) 06/02/18 16:50 TSH 0.44 uIU/ml (0.34-5.60) 06/02/18 16:50 - Physical Exam Vitals and I&O: Vital Signs Temp 97.6 F 06/08/18 20:00 Pulse 61 06/08/18 20:00 Resp 18 06/08/18 20:00 BP 106/56 06/08/18 20:00 Pulse Ox 97 06/08/18 20:00 Intake & Output 06/08/18 06/08/18 06/09/18 06:59 18:59 06:59 Intake Total 120 Balance 120 Intake: Oral 120 Other: # Voids 3 Active Medications: Current Medications Acetaminophen (Tylenol) 650 mg PO Q4H PRN PRN Reason: Pain (Mild) Stop: 08/01/18 19:58 Amlodipine Besylate (Norvasc) 5 mg PO DAILY [facility] Stop: 08/02/18 08:59 Last Admin: 06/08/18 09:24 Dose: Not Given Divalproex Sodium (Depakote Dr) 250 mg PO TID [facility]; Protocol Stop: 08/01/18 20:59 Last Admin: 06/08/18 20:24 Dose: 250 mg Docusate Sodium (Colace) 100 mg PO BID [facility] Stop: 08/02/18 08:59 Last Admin: 06/08/18 16:11 Dose: 100 mg Donepezil HCl (Aricept) 10 mg PO HS [facility] Stop: 08/01/18 20:59 Last Admin: 06/08/18 20:24 Dose: 10 mg Escitalopram Oxalate (Lexapro) 10 mg PO DAILY [facility]; Protocol Stop: 08/02/18 08:59 Last Admin: 06/08/18 09:26 Dose: Not Given Levetiracetam (Keppra) 1,000 mg PO BID [facility] Stop: 08/02/18 08:59 Last Admin: 06/08/18 16:11 Dose: 1,000 mg Lorazepam (Ativan) 0.5 mg PO Q6HR PRN; Protocol PRN Reason: Agitation Stop: 08/01/18 20:00 Last Admin: 06/08/18 00:11 Dose: 0.5 mg Magnesium Hydroxide (Milk Of Magnesia) 30 ml PO DAILY PRN PRN Reason: Constipation Stop: 08/01/18 20:00 Memantine (Namenda) 10 mg PO BID [facility] Stop: 08/02/18 08:59 Last Admin: 06/08/18 16:10 Dose: 10 mg Nitrofurantoin Macrocrystals (Macrobid) 100 mg PO BID [facility]; Protocol Stop: 08/02/18 08:59 Last Admin: 06/08/18 16:10 Dose: 100 mg Polyethylene Glycol (Miralax) 17 gm PO DAILY [facility] Stop: 08/02/18 08:59 Last Admin: 06/08/18 09:25 Dose: Not Given Trazodone HCl (Desyrel) 25 mg PO HS [facility]; Protocol Stop: 08/04/18 20:59 Last Admin: 06/08/18 20:24 Dose: 25 mg General: demented HEENT: NC/AT, PERRLA, EOMI, anicteric sclerae, throat clear Neck: Supple, No JVD, No thyromegaly, +2 carotid pulse wo bruit, No LAD Lungs: CTAB Cardiovascular: RRR, Normal S1, Normal S2, without murmur Abdomen: soft, non-tender, non-distended Extremities: clear Neurological: no change - Procedures Procedures: Procedures Procedure Code Date GROUP PSYCHOTHERAPY 08103 04/15/15 GROUP PSYCHOTHERAPY GZHZZZZ 04/15/15 GROUP PSYCHOTHERAPY 87365 01/16/15 GROUP PSYCHOTHERAPY GZHZZZZ 01/16/15 Internal Medicine Assmt/Plan - Assessment Assessment: 1.HTN. 2.SEIZURE DISORDER. 3.PSYCHOSIS. - Plan Plan: CONTINUE ON CURRENT MEDICATION AND DIET. Nutritional Asmnt/Malnutr-PDOC - Dietary Evaluation Malnutrition Findings (Please click <Entered> for more info): Nutritional Asmnt/Malnutrition Start: 06/03/18 10: 39 Text: Status: Complete Freq: Protocol: Document 06/03/18 10:39 LCHENG (Rec: 06/03/18 10:43 [email or web address]) Nutritional Asmnt/Malnutrition Patient General Information Nutritional Screening High Risk Diagnosis psychosis NOS Pertinent Medical Hx/Surgical Hx HTN, DM, CVA/TIA, dementia, schizophrenia, parkinson's disease, schizophrenia Subjective Information Consult received for jimenez Parmar . Pt seen in bed, confused. Per EMR PO intake 100%. Current Diet Order/ Nutrition Support [facility] Pertinent Medications coalce, miralax Pertinent Labs 06/02 Ca 8.5 Nutritional Hx/Data Height 1.57 m Height (Calculated Centimeters) 157.5 Current Weight (lbs) 41.277 kg Weight (Calculated Kilograms) 41.3 Weight (Calculated Grams) 72145.9 [place] Body Weight 110 Body Mass Index (BMI) 16.6 Weight Status Underweight GI Symptoms GI Symptoms None Last BM not indicated Difficult in: None Skin Integrity/Comment: intact blanchable redness, discorlation per wound care note jimenez Parmar Current %PO Good (75-100%) Estimated Nutritional Goals BEE in Kcals: Using Current wt Calories/Kcals/Kg 30-35 Kcals Calculated 3714-7205 Protein: Using Current wt Protein g/k.2 Protein Calculated 49 Fluid: ml 1230-1435ml (1ml/kcal) Nutritional Problem No current Nutrition Prob Problem N/A Malnutrition Alert Is there a minimum of two criteria No selected? Query Text:Check all the applicable criteria. A minimum of two criteria are recommended for diagnosis of either severe or non-severe malnutrition. Malnutrition Related to Morbid Obesity Malnutrition related to morbid obesity No Intervention/Recommendation Comments 1. Continue with cardiac diet as ordered. 2. Monitor PO intake, wt, labs and skin integrity 3. F/U as low risk in 7 days Expected Outcomes/Goals Expected Outcomes/Goals 1. PO intake to meet at least 75% of nutritional needs. 2. Wt stability, skin to remain intact, labs to approach WNL.
--- NOTE | 2018-06-08 23:31 | Progress Notes ---
DATE: 06/08/2018 Case was discussed with staff of the patient, reviewed records. The patient in general is calmer. She is sleeping better, eating better, able to feed herself a little bit better. She continues to be demented, confused, unable to make safe plan for self-care, unpredictable, impulsive, needing redirection and demented. Lab work showed CBC with low hematocrit, but hemoglobin within normal range. She has high MCH, low platelet count, the rest within normal range. Chemistry panel with low calcium and total protein and high albumin, the rest within normal range. TSH within normal range. Lipid panel within normal range. No side effects with the medication, no sedation, no nausea, no extrapyramidal symptoms. We will continue outpatient group therapy, milieu therapy, adjust the medication as needed. JOB# [id number]
[2018-06-09] MEDS: Multivitamin w/ Minerals Tab PO SCH (08:33)
[2018-06-09] MEDS: POLYETHYLENE GLYCOL 3350 17 GM PACK PO SCH (08:33)
--- NOTE | 2018-06-09 12:57 | Discharge Summary ---
DATE OF DISCHARGE: 06/09/2018 IDENTIFYING INFORMATION: This is an 82-year-old female. HISTORY OF PRESENT ILLNESS: The patient was sent from [facility] because of agitation and irritability. The patient is demented, confused, and acting out. Unable to make safe plan for self-care or participate in a meaningful conversation. The medical history of seizure disorder, hypertension, and dementia. COURSE IN THE HOSPITAL: The patient started back on her medication. The patient was continued with Depakote 250 mg increased to 3 times a day, amlodipine, and Aricept 10 at bedtime. Lexapro was added 10 mg daily. She was on Keppra and Namenda 10 mg twice a day, and multivitamin. She was given nitro nitrofurantoin because of UTI infection and trazodone 25 at bedtime. The patient progressively got better. She was eating well. She was no longer acting aggressive, as she improved, we felt she could go back to the nursing facility. She will go back to [facility]. FINAL DIAGNOSES: Psychosis, not otherwise specified. MEDICAL DIAGNOSES: Seizure disorder, hypertension, and arthritis. The patient will be going back to [facility]. I will follow up with the patient there as well as Dr. March will follow up with her there. EXPECTED OUTCOME: Stable if the patient complies with the above. [facility]# [id number]
== END 2018-06-09 16:15 | DRG 885 ==
LOC: ER 16:06 → GERO 18:15
PROVIDERS: ADMIT Psychiatry & Neurology Psychiatry; ATTEND Psychiatry & Neurology Psychiatry
DX: F29 Unspecified psychosis not due to a substance or known physiological condition (principal); N39.0 Urinary tract infection, site not specified; F02.81 Dementia in other diseases classified elsewhere, unspecified severity, with behavioral disturbance; F32.9 Major depressive disorder, single episode, unspecified; I10 Essential (primary) hypertension; G40.909 Epilepsy, unspecified, not intractable, without status epilepticus; E11.9 Type 2 diabetes mellitus without complications; G20 Parkinson's disease; M19.90 Unspecified osteoarthritis, unspecified site; Z86.73 Personal history of transient ischemic attack (TIA), and cerebral infarction without residual deficits
CPT/HCPCS: 36415-UA; 80053-TC; 80061-TC; 83036-90; 84443-TC; 85025-TC; 86592-TC; 93005; Z7610